=== PATIENT | male | born 1940 | race Caucasian/White ===

== ENCOUNTER 2017-04-04 07:30 | Inpatient (IN) | payer MEDICARE, OTHER ==
--- NOTE | 2017-03-27 21:53 | HP ---
HISTORY AND PHYSICAL: DATE OF SURGERY: 04/04/17 DATE OF OFFICE VISIT: 03/24/17 SURGEON: Tawnya Stevenson MD * (DICTATED BY CHIN DHILLON) PROCEDURE: Right total knee arthroplasty. CHIEF COMPLAINT: Right knee pain. HISTORY OF PRESENT ILLNESS: Mr. Sanders is a 76-year-old female with complaints of right knee pain. He has failed conservative management and elected to proceed with a right total knee arthroplasty, which is scheduled for 04/04/[address] Stevenson. PAST MEDICAL HISTORY: 1. Aortic valve stenosis. 2. Hypertension. 3. Chronic low back pain. 4. Diabetes. 5. Right footdrop. 6. Hypothyroidism. 7. History of skin cancer. PAST SURGICAL HISTORY: 1. Lumbar laminectomy. 2. Appendectomy. 3. Trigger finger release x2. 4. [place] teeth extraction. CURRENT MEDICATIONS: 1. Ramipril 2.5 mg daily. 2. Atorvastatin. 3. Calcium 10 mg q.h.s. 4. Levothyroxine 100 mcg daily. 5. Levothyroxine 88 mcg every other day. 6. MiraLAX. 7. Metformin 500 mg 2 tabs at night. 8. MS Contin 15 mg twice a day. 9. MS Contin 30 mg twice a day. 10. Neurontin 600 mg 3 times a day. 11. Cardizem 180 mg every day. 12. Calcium. 13. Multivitamins. 14. Potassium gluconate 550 mg daily. 15. Magnesium 250 mg twice a day. 16. Mucinex. 17. Senna laxative, stool softener. 18. Diclofenac 50 mg 3 times a day. 19. Omeprazole 10 mg 3 times a day with the diclofenac. 20. Duloxetine 30 mg twice a day. 21. Aspirin 81 mg daily. ALLERGIES: None. FAMILY HISTORY: Diabetes and cancer. SOCIAL HISTORY: A 76-year-old gentleman lives with his friend. A former smoker. Denies use of drugs or alcohol. REVIEW OF SYSTEMS: A complete 14-point review of systems was reviewed with the patient. Positive for diabetes, hypothyroidism, sleep apnea, and vertigo. He denies history of DVT, PE, hepatitis C, HIV, or anesthesia problems. PHYSICAL EXAMINATION GENERAL: He is well developed, well nourished, in no acute distress. VITAL SIGNS: He stands 6 feet 2 inches tall, weighs 299 pounds. His blood pressure is 140/70, his heart rate is 58. HEENT: Normocephalic, atraumatic. NECK: Supple. No palpable lymph nodes. PULMONARY: Lungs are clear to auscultation bilaterally. CARDIO: Regular rate and rhythm. Strong S1, S2. ABDOMEN: Soft, nontender, nondistended. NEUROLOGICAL: He is alert and oriented x3. Cranial nerves II through XII are intact. MUSCULOSKELETAL: Right lower extremity, skin is intact. There are no open wounds or abrasions. He has 0/5 right ankle dorsiflexion. He is able to plantar flex and offers 0/5 right EHL. He has diminished sensation over the entire lower leg and foot. He has 2+ dorsalis pedis pulses, 10 to 100 degrees of flexion. ASSESSMENT AND PLAN: Mr. Sanders is a 76-year-old gentleman with continued complaints of right knee pain. He has failed conservative management and elected to proceed with a right total knee arthroplasty, which is scheduled for 04/04/[address] Stevenson discussed the risks and benefits of the surgery and all of his questions were answered. Coumadin was sent to his pharmacy for postoperative DVT prophylaxis. He currently has pain medications and he will see Dr. Stevenson back 2 weeks after the surgery. CHIN DHILLON [id number]/[facility] #: [id number]
[~2017-04-04 07:30] MED LIST: Buffered Lidocaine 0.9% SYRIN* 5 ML/SYR SYRINGE INTRADERM ONE; Ondansetron INJ* 2 MG/ML VIAL IV ONE; Sodium Citrate/Citric Acid* 15 ML UDC PO ONE
--- OUTSIDE RECORDS SUMMARY | 2017-04-04 08:03 | XMS REPORT ---
:1940 External Reference #:[id number] Author Organization [facility] [employer] Address [address] [address] Phone [phone] Care Team Providers Name Role Phone Torsten Chan MD Primary Care Physician Unavailable Payers Type Date Identification Numbers Payment Provider Subscriber Medicare Primary Effective: Policy Number: Medicare Christofer Mckeonright 1998 [id number] PayID: [id number] [address] [place] [address] [facility] Part B Effective: Policy Number: [facility] Christofer Quintero 2009 [id number] Marilyn PayID: [id number] [address] [place] [address] Commercial PayID: [id number] Medicare D - Drug Christofer Laddht Plan Workers Compensation Onset: Policy Number: [facility] Christofer Mckeonright 1994 [id number] Group Number: [id number] [address] Group Name: [id number] [place] [address] PayID: [facility] Workers Compensation PayID: [id number] [employer] Christofer Quintero Marilyn Advance Directives Type Date Description Status Comment Other Directive 02/09/2017 Health Care Proxy Current and Verified Problems Date Description Provider Status Onset: 12/04/2012 Lumbosacral spondylosis 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 Active myelopathy Onset: 07/16/2013 Sciatica Luke Kapadia M.D. Active Onset: 11/25/2014 Foot-drop Luke Kapadia M.D. Active Onset: 11/10/2016 Type 2 diabetes mellitus Torsten Chan M.D.,FACP Active Onset: 11/10/2016 Chronic pain syndrome Torsten Chan M.D.,FACP Active Onset: 11/10/2016 Lumbar post-laminectomy syndrome Torsten Chan M.D., FACP Active Onset: 11/10/2016 Essential hypertension Torsten Chan M.D.,FACP Active Onset: 02/15/2017 Aortic valve stenosis Torsten Chan M.D.,FACP Active Note: moderate Onset: 12/04/2012 Postsurgical Status Other Luke Kapadia M.D. Resolved Resolved: 11/10/2016 Onset: 07/16/2013 Low back pain Luke Kapadia M.D. Resolved Resolved: 11/10/2016 Family History Date Family Member(s) Problem(s) Comments General Diabetes General Cancer Father due to pericarditis () Father Diabetes Type II Father Osteomyelitis Mother due to Unknown Causes () Siblings 2 First Brother due to Alcohol Related () Second Brother Throat Cancer Second Brother 80 Social History Type Date Description Comments Marital Status Lives With Alone Occupation Retired electrician apprentice Cigarette Use Former Cigarette Smoker ETOH Use 11/10/2016 Denies alcohol use Smoking Patient is a former smoker Recreational Drug Use 11/10/2016 Denies Drug Use Daily Caffeine 11/10/2016 Consumes on average 1 cup of regular coffee per day Exercise Type/Frequency Does not exercise Currently Active Patient is currently sexually active General Hx Text 1 child w/ phlebitis and obesity Allergies, Adverse Reactions, Alerts Date Description Reaction Status Severity Comments 12/04/2012 NKDA active Medications Medication Date Status Form Strength Qnty SIG Indications Ordering Provider Coumadin 03/24/ Active Tablets 2mg 90tabs take 1-3 Tawnya 2018 tabs by Graham, mouth at 5 M.D. at night as directed Ramipril 02/09/ Active Capsules 5mg 90caps 1/2 by Torsten Chan, every day M.DJacqueline,FACP Atorvastatin 02/09/ Active Tablets 10mg 90tabs take 1 Torsten Calcium 2017 tablet by Christoph Chan, mouth at M.D.,FACP bedtime Levothyroxine 11/30/ Active Tablets 100mcg 90tabs 1 by mouth Torsten Sodium 2017 every day Christoph Chan, with 88 M.D.,FACP mcg tablet Levothyroxine 11/30/ Active Tablets 88mcg 90tabs 1 by mouth Torsten Sodium 2017 every day Christoph Chan M.D.,FACP Miralax 11/10/ Active Powder [id number] 17 gm Torsten 2016 ts every day Christoph Chan, mixed w/ 8 M.DJacqueline,FACP oz water/juic e as needed Metformin HCL 11/10/ Active Tablets ER 500mg 180tab 2 tabs po Ismael Dsouza ER 2016 24HR s qpm Christoph Chan M.D.,FACP MS Contin 01/29/ Active Tablets ER 15mg 60tabs 1 twice a Luke Ashford 2013 day to judy Kapadia with Ivonne ms contin 30 mg to equal 45 mg. MS Contin 01/21/ Active Tablets ER 30mg 60tabs 1 by mouth Luke Ashford 2012 twice a edith Kapadia M.D. Lumbosacral 11/30/ Active Misc with Luke Ashford Support/Lightwe 2010 molded herminia Kapadia/Elastic/X- plastic Ivonne Large insert Neurontin 05/09/ Active Tablets 600mg 90tabs 1 by mouth Torsten 2006 three Christoph Chan, times a M.DJacqueline,FACP day Cardizem CD / Active Caps ER 180mg 90caps 1 by mouth Torsten 24HR every day Christoph Chan M.D.,FACP Calcium / Active Tablets 500mg 60tabs 1 po bid Cardina, MD Yash Multivitamins / Active Capsules 30caps 1 capsule Cardi james;y MD Yash Potassium / Active Tablets 99mg otc once a Cardi day MD Yash Magnesium / Active Tablets 250mg 30tabs 1 po bid Cardi MD Yash Mucinex / Active Tablets ER 600mg 60tabs 1 tab am 2 Unknown 0000 12HR pm Senna / Active Capsules 8.6mg 60caps 1-2 po qhs Unknown 0000 Stool Softener / Active Capsules 100mg 60caps 1 po tid Cardina, 0000 MD Yash Diclofenac / Active Tablets 50mg 90tabs 1 po tid Torsten Potassium 0000 Christoph Chan M.D.,FACP Omeprazole / Active Capsules 10mg 90caps 1 po tid Torsten [address] with Christoph Chan, marckloparisa Coronado,FACP Duloxetine HCL / Active Caps DR 30mg 180cap twice Torsten 0000 Part s daily Christoph Chan M.D.,FACP Aspirin Ec / Active Tablets DR 81mg 1 by mouth Unknown 0000 every day Metformin HCL 11/10/ Hx Tablets ER 500mg 180tab 2 tabs po Torsten ER (Osm) 2017 - 24HR s qpm Christoph Chan, 11/10/ MHollis,FACP 2017 Ramipril 11/10/ Hx Capsules 2.5mg 30caps 1 by mouth Torsten 2016 - every day Christoph Chan, 02/09/ MHollis,FACP 2017 Orphenadrine 06/02/ Hx Tablets ER 100mg 60tabs 1 tab by Luke Ashford Citrate ER 2015 - 12HR mouth Kang, 03/15/ twice a M.D. 2018 day as needed spasm Arthrotec 04/02/ Hx Tablets DR 75-0.2mg 60tabs take one Luke Ashford 2014 - tablet by Kang, 11/10/ mouth M.D. 2016 twice a day MS Contin 11/30/ Hx Tablets ER 15mg 100tab two po qam Luke Ashford 2010 - s and two po Kang, 01/21/ qpm to M.D. 2012 replace MS Contin 30 mg (not available) MS Contin 11/30/ Hx Tablets ER 30mg 60tabs one po bid Luke Ashford 2010 - Kang, 01/07/ M.D. 2013 Soma 08/15/ Hx Tablets 350mg 30tabs 1 po bid Luke Ashford 2010 - Kang, 08/26/ M.D. 2014 Coumadin 08/05/ Hx Tablets 2.5mg 50tabs 2 po use Richard 2010 - as Nayan, 05/29/ directed M.DJacqueline 2012 MS Contin 03/10/ Hx Tablets ER 15mg 120tab one to two Luke Ashford 2009 - 12HR s po bid if Kang, 11/30/ needed for M.D. 2010 pain. Morphine 09/04/ Hx Tablets 15mg 90tabs 1 by mouth Luke Ashford Sulfate 2007 - up to Kang, 11/10/ three M.D. 2017 times a day as needed MS Contin 05/09/ Hx Tablets ER 15mg 125tab 2-3 po bid Luke Ashford 2007 - 12HR s Kang, 03/10/ M.D. 2009 Metformin HCL / Hx Tablets 500mg 60tabs 2 tabs bid Cardina, 0000 - Yash, 2016 Arthrotec 75 / Hx Tablets 75-0.2mg 180tab 1 po bid Cardina, 0000 - s Yash, 2014 Synthroid / Hx Tablets 175mcg 30tabs 1 po qd Cardina, 0000 - Yash, 2016 Aspirin 00/ Hx Tablets DR 325mg 1/2 po qd Cardina, 0000 - Yash, 2018 Orphenadrine / Hx Tablets ER 100mg po bid prn Cardina, Citrate CR 0000 - 12HR Yash, 2015 Vitamin C / Hx Capsules 500mg 1 po bid Cardina, 0000 - Yash, 2014 Vitamin B12 00/ Hx Tablets 500mcg 1 po qd Cardina, 0000 - Yash, 2015 Levothyroxine 00/ Hx Tablets 175mcg 30tabs 1 by mouth Torsten Sodium 0000 - every day Christoph Chan, 11/30/ MHollis,FACP 2016 Medications Administered in Office Medication Date Status Form Strength Qnty SIG Indications Ordering Provider Depomedrol Administered Injection Jt F 40MG 017 MD Yocasta Shoemakeromedjessi Administered Injection Aric Lopez, 40MG 016 M.DJacqueline Immunizations CPT Code Status Date Vaccine Reaction Lot # [id number] Given 01/03/2017 Tdap - no immediate reaction, [id number] Tetanus/Diptheria/Acellular pt tolerated well Pertussis [id number] Given 11/10/2016 Influenza Virus Vaccine, 572kt Quadrivalent, Split, Preservative Free [id number] Given 02/18/2015 Pneumococcal Conjugate Vaccine 13 Valent For Intramuscular Use [id number] Given 01/12/2015 Zoster (Zostavax) [id number] Given 12/25/2002 Pneumonia Vaccine Vital Signs Date Vital Result Comment 03/24/2017 Height 72 inches 6'0" Weight 299.00 lb per pt Heart Rate 58 /min reg BP Systolic Sitting 140 mmHg Lue BP Diastolic Sitting 70 mmHg Lue Respiratory Rate 16 /min Pain Level 6 right knee BMI (Body Mass Index) 40.5 kg/m2 02/13/2017 Height 72 inches 6'0" Weight 283.00 lb BP Systolic 152 mmHg BP Diastolic 72 mmHg Body Temperature 98.0 F Pain Level 8 BMI (Body Mass Index) 38.4 kg/m2 02/09/2017 Weight 283.00 lb Heart Rate 68 /min BP Systolic Sitting 154 mmHg BP Diastolic Sitting 86 mmHg BP Systolic Recheck 152 mmHg BP Diastolic Recheck 74 mmHg Body Temperature 97.6 F O2 % BldC Oximetry 96 % 01/16/2017 Height 71 inches 5'11" Weight 312.00 lb Heart Rate 84 /min BP Systolic 150 mmHg BP Diastolic 90 mmHg Body Temperature 98.0 F Pain Level 5 BMI (Body Mass Index) 43.5 kg/m2 11/22/2016 Heart Rate 76 /min BP Systolic Sitting 155 mmHg BP Diastolic Sitting 85 mmHg Body Temperature 97.5 F 11/10/2016 Weight 291.50 lb w/shoes Heart Rate 75 /min BP Systolic Sitting 160 mmHg BP Diastolic Sitting 80 mmHg BP Systolic Recheck 162 mmHg BP Diastolic Recheck 95 mmHg Body Temperature 98.5 F O2 % BldC Oximetry 93 % 08/10/2015 Height 72 inches 6'0" Weight 312.00 lb Heart Rate 74 /min BP Systolic 157 mmHg BP Diastolic 84 mmHg BMI (Body Mass Index) 42.3 kg/m2 05/18/2015 Height 72 inches 6'0" Weight 316.00 lb Heart Rate 62 /min BP Systolic Sitting 160 mmHg BP Diastolic Sitting 88 mmHg Pain Level 6 BMI (Body Mass Index) 42.9 kg/m2 02/24/2015 Height 72 inches 6'0" Weight 321.00 lb Heart Rate 58 /min BP Systolic Sitting 150 mmHg BP Diastolic Sitting 70 mmHg Pain Level 3 BMI (Body Mass Index) 43.5 kg/m2 11/25/2014 Height 72 inches 6'0" Weight 314.00 lb Heart Rate 78 /min BP Systolic Sitting 140 mmHg BP Diastolic Sitting 84 mmHg Pain Level 6 /leg BMI (Body Mass Index) 42.6 kg/m2 08/26/2014 Height 72 inches 6'0" Weight 310.00 lb Heart Rate 84 /min BP Systolic Sitting 160 mmHg BP Diastolic Sitting 92 mmHg Pain Level 3 back BMI (Body Mass Index) 42.0 kg/m2 05/27/2014 Height 72 inches 6'0" Weight 293.00 lb Heart Rate 60 /min BP Systolic Sitting 130 mmHg BP Diastolic Sitting 78 mmHg Pain Level 5 back BMI (Body Mass Index) 39.7 kg/m2 01/28/2014 Height 72 inches 6'0" Weight 286.00 lb Heart Rate 56 /min BP Systolic Sitting 140 mmHg BP Diastolic Sitting 84 mmHg Pain Level 3 back BMI (Body Mass Index) 38.8 kg/m2 10/29/2013 Weight 298.75 lb Heart Rate 60 /min BP Systolic Sitting 164 mmHg BP Diastolic Sitting 96 mmHg Pain Level 5 knees, back, ankles 07/16/2013 Height 72 inches 6'0" Weight 303.00 lb BP Systolic 128 mmHg BP Diastolic 68 mmHg Pain Level 0 BMI (Body Mass Index) 41.1 kg/m2 12/04/2012 Height 72 inches 6'0" Weight 315.00 lb BP Systolic 148 mmHg BP Diastolic 82 mmHg Pain Level 5 left ankle, back, leg BMI (Body Mass Index) 42.7 kg/m2 Results Test Date Test Result H/L Range Note Laboratory test 02/04/2017 TSH (Thyroid Stim 3.78 mcIU/mL 0.34-5.60 finding Horm) Lipid Profile 11/26/2016 Triglycerides 93 mg/dL 1 (Trig/Chol/HDL) Cholesterol 206 mg/dL 2 HDL Cholesterol 46.5 mg/dL 3 LDL Cholesterol 141 mg/dL 4 Basic Metabolic Panel 11/26/2016 Sodium 137 mmol/L 133-145 Potassium 4.9 mmol/L 3.5-5.0 Chloride 100 mmol/L Low 101-111 Co2 Carbon Dioxide 30 mmol/L 22-32 Anion Gap 7 mmol/L 2-11 Glucose 149 mg/dL High 70-100 Blood Urea Nitrogen 17 mg/dL 6-24 Creatinine 0.87 mg/dL 0.67-1.17 BUN/Creatinine Ratio 19.5 8-20 Calcium 9.0 mg/dL 8.6-10.3 Egfr Non- 85.5 >60 Egfr 110.0 >60 5 Laboratory test 11/26/2016 Hemoglobin A1c 6.4 % High Less than 6.0 6 finding (Glyco HGB) Urine Microalbumin 11/26/2016 Urine Creatinine 185.79 mg/dL Random Ur Microalbumin (mg/L) 45.0 mg/L Urine Microalbumin/Creatinine 24.2 ug/mg <31 CBC Auto Diff 11/26/2016 White Blood Count 8.1 10^3/uL 3.5-10.8 Red Blood Count 4.30 10^6/uL 4.0-5.4 Hemoglobin 12.6 g/dL Low 14.0-18.0 Hematocrit 39 % Low 42-52 Mean Corpuscular Volume 90 fL 80-94 Mean Corpuscular Hemoglobin 29 pg 27-31 Mean Corpuscular HGB Conc 33 g/dL 31-36 Red Cell Distribution Width 14 % 10.5-15 Platelet Count 289 10^3/uL 150-450 Mean Platelet Volume 8 um3 7.4-10.4 Abs Neutrophils 5.0 10^3/uL 1.5-7.7 Abs Lymphocytes 2.0 10^3/uL 1.0-4.8 Abs Monocytes 0.6 10^3/uL 0-0.8 Abs Eosinophils 0.5 10^3/uL 0-0.6 Abs Basophils 0.1 10^3/uL 0-0.2 Abs Nucleated RBC 0 10^3/uL Granulocyte % 61.7 % 38-83 Lymphocyte % 24.1 % Low 25-47 Monocyte % 7.9 % 1-9 Eosinophil % 5.6 % 0-6 Basophil % 0.7 % 0-2 Nucleated Red Blood Cells % 0 Laboratory test 11/26/2016 TSH (Thyroid Stim 6.95 mcIU/mL High 0.34-5.60 7 finding Horm) Laboratory test 08/10/2015 Body Fluid Crystals CPPD(Ca 8, 9 finding Pyrophos <SEE NOTE> Laboratory test 09/16/2014 Point of Care 125 mg/dL High 74-106 10 finding Glucose Urine Drug SCR ED 04/12/2014 Amphetamine Ur None Detected None Detect & Pain Clinic Screen Barbiturates Urine Screen None Detected None Detect Benzodiazepine Urine Screen None Detected None Detect Urine Cannabinoids Screen None Detected None Detect Urine Cocaine Screen None Detected None Detect Urine Opiates Screen Presumptive Posi <SEE NOTE> None Detect 11 Urine Phencyclidine Screen None Detected None Detect 12 CBC Auto Diff 04/12/2014 White Blood Count 9.2 10^3/uL 4.8-10.8 Red Blood Count 4.18 10^6/uL 4.0-5.4 Hemoglobin 12.7 g/dL Low 14.0-18.0 Hematocrit 38 % Low 42-52 Mean Corpuscular Volume 91 fL 80-94 Mean Corpuscular Hemoglobin 30 pg 27-31 Mean Corpuscular HGB Conc 33 g/dL 31-36 Red Cell Distribution Width 13 % 10.5-15 Platelet Count 224 10^3/uL 150-450 Mean Platelet Volume 8 um3 7.4-10.4 Abs Neutrophils 7.4 10^3/uL 1.5-7.7 Abs Lymphocytes 1.0 10^3/uL 1.0-4.8 Abs Monocytes 0.7 10^3/uL 0-0.8 Abs Eosinophils 0.1 10^3/uL 0-0.6 Abs Basophils 0.1 10^3/uL 0-0.2 Abs Nucleated RBC 0 10^3/uL Granulocyte % 80.5 % 38-83 Lymphocyte % 11.0 % Low 25-47 Monocyte % 7.2 % 1-9 Eosinophil % 0.8 % 0-6 Basophil % 0.5 % 0-2 Nucleated Red Blood Cells % 0 Laboratory test finding 04/12/2014 Lactic Acid 1.9 mmol/L 0.5-2.2 Inr/Protime 04/12/2014 Inr 0.97 0.78-1.07 13 Laboratory test finding 04/12/2014 Activated Partial 26.8 seconds 24.0- 36.1 Thrombo Time Ammonia 31 mol/L 16-53 B Type Natriuretic Peptide 45 pg/mL 14 Comp Metabolic Panel 04/12/2014 Sodium 136 mmol/L 133-145 Potassium 4.1 mmol/L 3.5-5.0 Chloride 101 mmol/L 101-111 Co2 Carbon Dioxide 29 mmol/L 22-32 Anion Gap 6 mmol/L 2-11 Glucose 130 mg/dL High 70-100 Blood Urea Nitrogen 19 mg/dL 6-24 Creatinine 0.93 mg/dL 0.67-1.17 BUN/Creatinine Ratio 20.4 High 8-20 Calcium 9.5 mg/dL 8.6-10.3 Total Protein 7.2 g/dL 6.4-8.9 Albumin 4.2 g/dL 3.2-5.2 Globulin 3.0 g/dL 2-4 Albumin/Globulin Ratio 1.4 1-3 Total Bilirubin 0.30 mg/dL 0.2-1.0 Alkaline Phosphatase 85 U/L 34-104 Alt 20 U/L 7-52 Ast 20 U/L 13-39 Egfr Non- 79.9 >60 Egfr 102.7 >60 15 Laboratory test finding 04/12/2014 Magnesium 2.1 mg/dL 1.9-2.7 Lipase 8 U/L Low 11.0-82.0 Troponin I 0.00 ng/mL <0.03 16 Acetaminophen < 15 g/mL 17 Alcohol < 10 mg/dL <10 Salicylate < 2.50 mg/dL <30 TSH (Thyroid Stimulating Horm) 0.88 IU/mL 0.34-5.60 C Reactive Protein 9.59 mg/L High < 5.00 18 Urinalysis Profile 04/12/2014 Urine Color Yellow Urine Appearance Cloudy Urine Specific [place] 1.010 1.010-1.030 Urine pH 5.0 5-9 Urine Urobilinogen Negative Negative Urine Ketones Negative Negative Urine Protein Negative Negative Urine Leukocytes Negative Negative Urine Blood Negative Negative Urine Nitrite Negative Negative Urine Bilirubin Negative Negative Urine Glucose Negative Negative Laboratory test finding 02/18/2014 Hemoglobin A1c 6.0 % Less than 6.0 19 , 20 Lipid Profile 02/18/2014 Triglycerides 84 mg/dL 19, 21 (Trig/Chol/HDL) Cholesterol 207 mg/dL 19, 22 HDL Cholesterol 52.1 mg/dL 19, 23 LDL Cholesterol 138 mg/dL 19, 24 Comp Metabolic Panel 09/04/2012 Sodium 138 mmol/L 133-145 Potassium 4.2 mmol/L 3.5-5.0 Chloride 103 mmol/L 101-111 Co2 Carbon Dioxide 29.0 mmol/L 22-32 Anion Gap 6.0 mmol/L 2-11 Glucose 161 mg/dL High 70-100 Blood Urea Nitrogen 12 mg/dL 6-24 Creatinine 0.70 mg/dL 0.50-1.40 BUN/Creatinine Ratio 17.1 8-20 Calcium 9.2 mg/dL 8.1-9.9 Total Protein 6.7 g/dL 6.2-8.1 Albumin 4.0 g/dL 3.2-5.2 Globulin 2.7 g/dL 2-4 Albumin/Globulin Ratio 1.5 1-3 Total Bilirubin 0.5 mg/dL 0.4-1.5 Alkaline Phosphatase 93 U/L 30-110 Alt 40 U/L 14-54 Ast 28 U/L 12-42 Egfr Non- 111.5 >60 Egfr 143.4 >60 25 CBC Auto Diff 09/04/2012 White Blood Count 6.0 10^3/uL 4.8-10.8 Red Blood Count 4.28 10^6/uL 4.0-5.4 Hemoglobin 12.8 g/dL Low 14.0-18.0 Hematocrit 39 % Low 42-52 Mean Corpuscular Volume 92 fL 80-94 Mean Corpuscular Hemoglobin 30 pg 27-31 Mean Corpuscular HGB Conc 32 g/dL 31-36 Red Cell Distribution Width 13 % 10.5-15 Platelet Count 244 10^3/uL 150-450 Mean Platelet Volume 8 um3 7.4-10.4 Abs Neutrophils 3.5 10^3/uL 1.5-7.7 Abs Lymphocytes 1.8 10^3/uL 1.0-4.8 Abs Monocytes 0.4 10^3/uL 0-0.8 Abs Eosinophils 0.2 10^3/uL 0-0.6 Abs Basophils 0 10^3/uL 0-0.2 Abs Nucleated RBC 0 10^3/uL Granulocyte % 58.1 % 38-83 Lymphocyte % 30.0 % 25-47 Monocyte % 7.5 % 1-9 Eosinophil % 3.9 % 0-6 Basophil % 0.5 % 0-2 Nucleated Red Blood Cells % 0 Urinalysis 08/05/2010 Ua Color YELLOW Yellow 26 Appearance-Urine CLEAR Clear 26 Specific [place]-Ur 1.028 1.010-1.030 26 Esterase-Urine NEGATIVE Negative 26 Nitrite NEGATIVE Negative 26 Colfwvuyftlf-Ay-OAI NEGATIVE Negative 26 Protein-Urine NEGATIVE Negative 26 PH-Urine 6.0 5-9 26 Blood-Urine NEGATIVE Negative 26 Ketones-Urine NEGATIVE Negative 26 Bilirubin-Ur NEGATIVE Negative 26 Glucose-Urine NEGATIVE Negative 26 Protime 08/05/2010 Inr 1.04 0.82-1.17 26, 27 Protime 12.3 SEC 10.2-14.8 26, 28 Basic Metabolic Panel 08/05/2010 Sodium 138 mmol/L 135-145 26 Potassium 5.0 mmol/L 3.5-5.0 26 Chloride 102 mmol/L 101-111 26 Co2 (Carbon Dioxide) 29.0 mmol/L 22-32 26 Anion Gap 7.0 mmol/L 2-11 26, 29 Glucose 108 mg/dL High 70-100 26 BUN 18 mg/dL 6-24 26 Creatinine 0.70 mg/dL 0.50-1.40 26 One Over Creatinine 1.40 26 BUN/Creatinine Ratio 25.7 High 8-20 26 Calcium 9.4 mg/dL 8.1-9.9 26 eGFR Non- 112.1 > 60 26 eGFR 144.2 > 60 26, 30 Type And Screen (Pre-Adm) 08/05/2010 Patient Blood Type B POSITIVE 26 Antibody Screen NEGATIVE 26 Specimen Discard Date 08/19/10 26, 31 CBC Auto Diff 08/05/2010 White Blood Count 7.9 CUMM 4.8-10.8 26 Red Cell Count 4.34 CUMM Low 4.6-6.2 26 Hemoglobin 13.6 g/dL Low 14.0-18.0 26 Hematocrit 39 % Low 42-52 26 Mean Corpuscular Volume 90 um3 80-94 26 Mean Corpuscular Hemoglob 31 pg 27-31 26 Mean Corpuscular HGB Cone 35 g/dL 32-36 26 Redcell Distribution WDTH 13 % 10.5-15 26 Platelet Count 237 CUMM 150-450 26 Mean Platelet Volume 7.4 um3 7.4-10.4 26 Gran % 65.3 % 38-83 26 Lymph % 23.9 % Low 25-47 26 Mononuclear % 7.0 % 1-9 26 Eosinophil % 3.2 % 0-6 26 Basophil % 0.6 % 0-2 26 Abs Lymphs 1.9 1.0-4.8 26 Abs Mononuclear 0.6 0-0.8 26 Absolute Neutrophil Count 5.2 1.5-7.7 26 Abs Eosinophils 0.3 0-0.6 26 Abs Basophils 0 0-0.2 26 Laboratory test finding 04/22/2008 Hemoglobin A1c 6.4 % High <6.0 32 CBC With Electronic Diff 04/22/2008 White Blood Count 7.6 CUMM 4.8-10.8 Red Cell Count 4.39 CUMM Low 4.6-6.2 Hemoglobin 13.3 g/dL Low 14.0-18.0 Hematocrit 39 % Low 42-52 Mean Corpuscular Volume 89 um3 80-94 Mean Corpuscular Hemoglob 30 pg 27-31 Mean Corpuscular HGB Cone 34 g/dL 32-36 Redcell Distribution WDTH 13 % 10.5-15 Platelet Count 248 CUMM 150-450 Mean Platelet Volume 7.3 um3 Low 7.4-10.4 Gran % 63.0 % 38-83 Lymph % 25.7 % 25-47 Mononuclear % 7.2 % 1-9 Eosinophil % 3.6 % 0-6 Basophil % 0.5 % 0-2 Abs Lymphs 2.0 1.0-4.8 Abs Mononuclear 0.6 0-0.8 Absolute Neutrophil Count 4.8 1.5-7.7 Abs Eosinophils 0.3 0-0.6 Abs Basophils 0 0-0.2 Laboratory test finding 04/22/2008 Erythrocyte Sed Rate 13 MM/HR 0-40 Comp Metabolic Panel 04/22/2008 Sodium 138 mmol/L 135-145 Potassium 4.9 mmol/L 3.5-5.0 Chloride 102 mmol/L 101-111 Co2 (Carbon Dioxide) 29.0 mmol/L 22-32 Anion Gap 7.0 mmol/L 2-11 33 Glucose 111 mg/dL High 70-100 34 BUN 17 mg/dL 6-24 Creatinine 0.80 mg/dL 0.50-1.40 One Over Creatinine 1.20 BUN/Creatinine Ratio 21.3 High 8-20 Calcium 9.5 mg/dL 8.1-9.9 35 Total Protein 6.7 GM/DL 6.2-8.1 Albumin 4.0 GM/DL 3.2-5.2 Globulin 2.7 GM/DL 2-4 Albumin/Globulin Ratio 1.5 1-3 Bilirubin Total 0.6 mg/dL 0.4-1.5 Alkaline Phosphatase 84 U/L 39-117 Alt (SGPT) 45 U/L 17-63 Ast (Sgot) 31 U/L 12-42 Laboratory test finding 04/22/2008 TSH 1.19 MIU/ML 0.34-5.60 C Reactive Protein 0.6 mg/dL High Less Than 0.5 1 Desirable <150 Borderline high 150-199 High 200-499 Very High >500 2 Desirable <200 Borderline high 200-239 High >239 3 Low <40 Desirable: 40-60 High: >60 4 Desirable: <100 mg/dL Near Optimal: 100-129 mg/dL Borderline High: 130-159 mg/dL High: 160-189 mg/dL Very High: >189 mg/dL 5 Because ethnic data is not always readily available, this report includes an eGFR for both -Americans and non- Americans. The National Kidney Disease Education Program (NKDEP) does not endorse the use of the MDRD equation for patients that are not between the ages of 18 and 70, are , have extremes of body size, muscle mass, or nutritional status, or are non- or non-. According to the National Kidney Foundation, irrespective of diagnosis, the stage of the disease is based on the level of kidney function: Stage Description GFR(mL/min/1.73 m(2)) 1 Kidney damage with normal or decreased GFR 90 2 Kidney damage with mild decrease in GFR 60-89 3 Moderate decrease in GFR 30-59 4 Severe decrease in GFR 15-29 5 Kidney failure <15 (or dialysis) 6 Therapeutic target for the treatment of diabetes Mellitus patients is <7% HBA1C, and in selective patients <6.0%.Please refer to [place] [employer] Association Diabetic care guidelines for further information. 7 FASTING 10 HOUR 8 [id number] 9 CPPD(Ca Pyrophosate) Calcium pyrophosate per Dr Moon 10 Liability Claims Manager: VEL BLACKMON 11 Presumptive Positive 12 The urine specimen was tested at the listed cutoffs: Drug class test level (ng/mL) Amphetamines 500 Barbituates 200 Benzodiazepine metabolites 200 Cocaine metabolites 150 Cannabinoids 50 Opiates 300 Pcp 25 This is a screening procedure. Positive results are not confirmed. Specimen was received without chain of custody. Results should be used for medical purposes only. 13 Please note: Effective April 02, 2014, the reference value for this test has changed due to the validation and activation of a new reagent lot number. 14 >100 to <200 pg/mL: likely compensated congestive heart failure (CHF) 200 to 400 pg/mL: likely moderate CHF >400 pg/mL: likely moderate to severe CHF [facility] 15 Because ethnic data is not always readily available, this report includes an eGFR for both -Americans and non- Americans. The National Kidney Disease Education Program (NKDEP) does not endorse the use of the MDRD equation for patients that are not between the ages of 18 and 70, are , have extremes of body size, muscle mass, or nutritional status, or are non- or non-. According to the National Kidney Foundation, irrespective of diagnosis, the stage of the disease is based on the level of kidney function: Stage Description GFR(mL/min/1.73 m(2)) 1 Kidney damage with normal or decreased GFR 90 2 Kidney damage with mild decrease in GFR 60-89 3 Moderate decrease in GFR 30-59 4 Severe decrease in GFR 15-29 5 Kidney failure <15 (or dialysis) 16 Reference Range and Interpretation: TnI (ng/mL) Interpretation Less Than 0.03 ng/mL Not supportive of diagnosis of DE 0.03 - 0.50 ng/mL Indeterminate: suggest serial studies if clinically indicated. Greater than 0.5 ng/mL Consistent with diagnosis of DE 17 Therapeutic concentration: <50 ug/mL Toxic concentration: >120 ug/mL 18 Acute inflammation: >10.00 19 FASTING 20 Therapeutic target for the treatment of diabetes Mellitus patients is <7% HBA1C, and in selective patients <6.0%.Please refer to [place] [employer] Diabetic care guidelines for further information. 21 Desirable <150 Borderline high 150-199 High 200-499 Very High >500 22 Desirable <200 Borderline high 200-239 High >239 23 Low <40 Desirable: 40-60 High: >60 24 Desirable <100 Near Optimal 100-129 Borderline high 130-159 High 160-189 Very High >189 25 Because ethnic data is not always readily available, this report includes an eGFR for both -Americans and non- Americans. The National Kidney Disease Education Program (NKDEP) does not endorse the use of the MDRD equation for patients that are not between the ages of 18 and 70, are , have extremes of body size, muscle mass, or nutritional status, or are non- or non-. According to the National Kidney Foundation, irrespective of diagnosis, the stage of the disease is based on the level of kidney function: Stage Description GFR(mL/min/1.73 m(2)) 1 Kidney damage with normal or decreased GFR 90 2 Kidney damage with mild decrease in GFR 60-89 3 Moderate decrease in GFR 30-59 4 Severe decrease in GFR 15-29 5 Kidney failure <15 (or dialysis) 26 08/16/10 27 Recommended INR for Patients on Oral Anticoagulants Prophylaxis 2.0 - 3.0 Treatment of thrombosis 2.0 - 3.0 Prevention of embolism 2.0 - 3.0 Prevention of embolism from prosthetic heart valves 2.5 - 3.5 28 DIAGNOSIS,TREATMENT,AND THERAPY MUST BE BASED ON THE INR VALUE ALONE. 29 Anion gap measurement may be of limited value in the presence of any alkalosis, especially in a combined acid base disorder. . 30 Because ethnic data is not always readily available, this report includes an eGFR for both -Americans and non- Americans. The National Kidney Disease Education Program (NKDEP) does not endorse the use of the MDRD equation for patients that are not between the ages of 18 and 70, are , have extremes of body size, muscle mass, or nutritional status, or are non- or non-. According to the National Kidney Foundation, irrespective of diagnosis, the stage of the disease is based on the level of kidney function: Stage Description GFR(mL/min/1.73 m(2)) 1 Kidney damage with normal or decreased GFR 90 2 Kidney damage with mild decrease in GFR 60-89 3 Moderate decrease in GFR 30-59 4 Severe decrease in GFR 15-29 5 Kidney failure <15 (or dialysis) 31 PREADMISSION TESTING SAMPLES FOR BLOOD BANK WILL BE HELD FOR 14 DAYS FROM THE DATE OF COLLECTION *IF* THE FOLLOWING CRITERIA ARE MET: 1) THE PATIENT HAS *NOT* BEEN IN THE LAST 3 MONTHS. 2) THE PATIENT HAS *NOT* BEEN TRANSFUSED IN THE LAST 3 MONTHS. PREADMISSION TESTING SAMPLES WILL *NOT* BE HELD FOR 14 DAYS FROM PATIENTS WHO IN THE LAST 3 MONTHS: 1) HAVE BEEN 2) HAVE BEEN TRANSFUSED THESE PATIENTS *MUST* BE COLLECTED WITHIN 3 DAYS OF THE SURGERY DATE. 32 THERAPEUTIC TARGET FOR THE TREATMENT OF DIABETES MELLITUS PATIENTS IS <7% HBA1C, AND IN SELECTIVE PATIENTS <6.0%. PLEASE REFER TO [employer] DIABETIC CARE GUIDELINES FOR FURTHER INFORMATION. 33 Anion gap measurement may be of limited value in the presence of any alkalosis, especially in a combined acid base disorder. . 34 Note change in reference range as of 10/25/07. The change was based on recommendations from the [employer]. 35 Please note change in reference range effective 07 . Procedures Date CPT Code Description Status 03/14/2017 Diabetic Retinal Eye Exam Completed 02/10/2017 07661 ECHO Transthorasic Realtime 2D W Doppler & Color Completed Flow Hosp 02/09/2017 55067 EKG Tracing & Interpretation Completed 10/11/2016 48846 Inject/Drain Joint/Bursa Major Completed 2016 Diabetic Retinal Eye Exam Completed 10/19/2015 26074 EKG, Interpretation Only Completed 08/10/2015 49967 Inject/Drain Joint/Bursa Major Completed 08/10/2015 78125 Inject/Drain Joint/Bursa Major Completed 09/16/2014 Colonoscopy Completed 10/26/2012 30203 Rad Exam; Hand Comp Completed 10/26/2012 38055 Rad Shoulder Comp, Min. 2 Views Completed 12/08/2010 54931 Rad Exam; Ankle Comp Completed 06/30/2010 69058 Xray Knee 3 Views Completed 06/10/2009 73076 Xray Knee 3 Views Completed 06/10/2009 21146 Rad Exam; Knee, Ap&L Completed 08/24/2004 Colonoscopy Completed Encounters Type Date Location Provider CPT E/M Dx Office Visit 02/13/2017 [facility] M.D. 21655 M17.11 3:15p C[facility]. M17.11 M25.561 M25.461 M25.561 M25.461 M21.371 M21.371 Office Visit 02/09/2017 8:20a [facility] Internal Torsten Chan, 72408 Z01.810 Medicine - [place] Thor Coronado,FACP M17.11 E11.8 E03.9 I10 R01.1 Office Visit 01/16/2017 9:15a [facility] M.D. 97064 M17.11 C.M.AJacqueline M25.561 M21.371 M25.461 Office Visit 11/22/2016 11:00a [facility] Jt Shoemaker, 37749 M17.11 Dinora FU M17.11 Office Visit 11/10/2016 10:30a [facility] Internal Medicine Torsten Chan, 07826 E11.8 - [place] Thor Coronado,FACP E03.9 I10 K59.00 M47.26 Z23 Office Visit 10/21/2015 4:12p [facility], 05302 L03.119 Assoc, Hospitalists [employer] E11.8 N17.9 I10 Office Visit 10/20/2015 4:12p [facility], 00969 L03.119 Assoc, Hospitalists SALES ASS[employer] E11.8 N17.9 I10 Office Visit 10/19/2015 [facility] MalouTuttle, 47842 L03.119 4:11p Assoc, SALES ASSOC[employer]ATE [employer] Hospitalists E11.8 N17.9 I10 Office Visit 10/18/2015 [facility] [place], 05170 L03.119 4:10p Assoc, SALES ASSOCIATE [employer] Hospitalists E11.8 N17.9 I10 Office Visit 10/17/2015 4:09p [facility], 78289 L03.119 Assoc, Hospitalists SALES ASSOCIATE [employer]ING E11.8 N17.9 I10 Office Visit 08/10/2015 2:30p [facility] Aric Lopez M.D. 56439 M17.0 C.M.AJacqueline M17.0 M17.11 M17.11 Office Visit 05/18/2015 1:00p [facility] Kapadia, 04993 M21.372 Of Higher Level Teaching Assistant M.D. M21.371 M47.26 Office Visit 02/24/2015 9:40a [facility] Kapadia, 89156 M21.372 Of Higher Level Teaching Assistant M.D. M21.371 M47.26 Office Visit 11/25/2014 10:20a [facility] Kapadia, 45408 M47.26 Of Higher Level Teaching Assistant M.D. M21.371 M21.372 Office Visit 08/26/2014 1:00p [facility] Luke Kapadia, 25195 721.3 Of Higher Level Teaching Assistant M.D. Office Visit 05/27/2014 3:20p [facility] Kapadia 94821 721.3 Of Higher Level Teaching Assistant M.Christoph 721.3 Office Visit 01/28/2014 10:00a [facility] Kapadia, 80274 721.3 Of Higher Level Teaching Assistant M.DJacqueline Office Visit 10/29/2013 9:40a [facility] Luke Kapadia, 21737 724.2 Of Donny Burton.Christoph 724.3 Office Visit 07/16/2013 9:40a [facility] Kapadia, 36538 724.2 Of Donny M.Christoph 724.3 Office Visit 01/17/2013 2:30p [facility] Bolivar Larson 52318 840.9 C.M.ABrad Silva Office Visit 12/06/2012 2:30p [facility] Richard Spicer M.D. 40320 840.9 C.M.A. Office Visit 12/04/2012 11:20a [facility] Luke Kapadia, 46092 721.3 Of Donny Burton.Christoph V45.89 Office Visit 10/26/2012 1:30p [facility] Richard Spicer M.D. 37406 840.9 C.M.AJacqueline 727.03 Office Visit 05/29/2012 11:20a [facility] Luke Kapadia 68465 721.3 Of Donny Coronado 338.4 Office Visit 11/29/2011 11:30a [facility] Varun Napier, 24666 721.3 [facility] N.P. 338.4 Office Visit 05/31/2011 11:00a [facility] Luke Kapadia 36648 715.96 Of Donny M.DJacqueline Office Visit 12/08/2010 2:30p [facility] Richard Spicer, 37687 715.97 C.M.AJacqueline M.Christoph Office Visit 11/30/2010 11:20a [facility] Kapadia 35152 715.96 Of Donny M.DJacqueline Office Visit 06/30/2010 2:00p [facility] Richard Spicer, 29728 715.96 C.M.AJacqueline MJacquelineDJacqueline Office Visit 05/11/2010 11:00a [facility] Kapadia 80742 721.3 Of Donny M.DJacqueline Office Visit 09/15/2009 11:00a [facility] Kapadia 95402 721.3 Of Higher Level Teaching Assistant M.DJacqueline Office Visit 06/10/2009 2:30p [facility] Aric Lopez M.D. 51010 716.96 C.M.A. Office Visit 03/10/2009 11:00a [facility] Kapadia 95384 721.3 Of Donny M.DJacqueline Office Visit 09/16/2008 11:00a [facility] Kapadia 51089 721.3 Of Donny M.DJacqueline Office Visit 03/11/2008 11:00a [facility] Kapadia 86766 721.3 Of Donny Coronado 722.83 Office Visit 09/11/2007 10:00a [facility] Luke Kapadia 67531 721.3 Of Donny M.DJacqueline Office Visit 03/20/2007 11:00a [facility] Luke Kapadia 64759 721.3 Of Donny M.DJacqueline Office Visit 11/14/2006 11:00a [facility] Luke Kapadia 20418 721.3 Of Donny M.DJacqueline Office Visit 08/08/2006 11:00a [facility] Kapadia 95098 721.3 Of Higher Level Teaching Assistant M.DJacqueline Plan of Care Future Appointment(s):04/04/2017 7:30 am - CHIN Pike at [facility].04/04/2017 7:30 am - Alex Wright PA-C at [facility].04/04/2017 7:30 am - CHIN Delaney at [facility].04/04/2017 7:30 am - Tawnya Stevenson M.D. at [facility]04/17/2017 10:45 am - Tawnya Stevenson M.D. at [facility]05/11/2017 10:00 am - Torsten Chan M.D.,FACP at [facility] Internal Medicine - [address]03/24/2017 - Tawnya Stevenson M.D.M17.11 Unilateral primary osteoarthritis, right kneeFollow up:Follow up: 2 weeks after zjixeliM64.461 Effusion, right kneeM25.561 Pain in right kneeM21.371 Foot drop, right foot
--- OUTSIDE RECORDS SUMMARY | 2017-04-04 08:04 | XMS REPORT ---
:1940 External Reference #:[id number] Author Organization [facility] Address [address] [place] [address] Phone [phone] Care Team Providers Name Role Phone Camron Chan M.D. Primary Care Physician Unavailable Payers Type Date Identification Numbers Payment Provider Subscriber Medicare Primary Onset: Policy Number: Medicare - NGS Christofer Sanders 1998 [id number] PayID: [id number] [address] [facility] [address] Commercial Onset: 1998 Policy Number: [id number] Rhys SHAD Sanders Group Number: [id number] [address] PayID: [id number] [place] [id number] Problems Date Description Provider Status Onset: Hypothyroidism Active Onset: Stable angina Active Onset: H/O: Blas's palsy Active Onset: Pure hypercholesterolemia Active Onset: Arthritis Active Onset: Type 2 diabetes mellitus Active Onset: 09/09/2014 Diabetic oculopathy associated with Vicente Campoverde M.D. Active type 2 diabetes mellitus Onset: 09/09/2014 Nonproliferative diabetic retinopathy Vicente Campoverde M.D. Active Onset: 09/09/2014 Nuclear senile cataract Vicente Campoverde M.D. Active Onset: 09/09/2014 Vitreous degeneration Vicente Campoverde M.D. Active Onset: 03/17/2015 Combined form of senile cataract Vicente Campoverde M.D. 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 Active without macular edema, bi Onset: Essential hypertension Active Family History Date Family Member(s) Problem(s) Comments Father Diabetes Mellitus Type 2 Mother No Current Problems Social History Type Date Description Comments Marital Status Legal Status: Occupation [employer] Work Status Medically Retired ETOH Use Never used alcohol Smoking Patient is a former smoker Recreational Drug Use Former Drug User Daily Caffeine Consumes on average 5 cups of regular coffee per day Allergies, Adverse Reactions, Alerts Date Description Reaction Status Severity Comments 09/09/2014 NKDA active Medications Medication Date Status Form Strength Qnty SIG Indications Ordering Provider Morphine Sulfate Active Tablets 15mg Unknown 000 Gabapentin Active Tablets 600mg Unknown 000 Diclofenac-Misopr Active Tablets DR 75-0.2mg Unknown ostol 000 Aspir-[address] 81mg Unknown 000 Multi Vitamin Active Tablets Unknown Daily 000 Calcium + D3 Active Tablets 600-200mg-U Unknown 000 nit Magnesium Active Capsules 300mg Unknown 000 Stool Softener Active Capsules 100mg Unknown 000 Senna Lax Active Tablets 8.6mg Unknown 000 Bioflex Active Tablets Unknown 000 Morphine Sulfate Active Tablets ER 15mg Unknown ER 000 Morphine Sulfate Active Tablets ER 30mg Unknown ER 000 Diclofenac Active Tablets 50mg Unknown Potassium [address] 10mg Unknown 000 Metformin HCL Active Tablets 500mg Unknown [address] 30mg Unknown 000 Part Levothyroxine Active Tablets 175mcg Unknown Sodium 000 Diltiazem HCL ER Active Caps ER 180mg Unknown Coated Beads 000 24HR Mucinex Active Tablets ER 600mg Unknown 000 12HR Potassium Active Tablets 550(90K) mg Unknown Gluconate 000 Ramipril 00/00/0 Active Capsules 1.25mg Unknown 000 Atorvastatin 0 Active Tablets 10mg Unknown Calcium 000 Morphine Sulfate 0 Hx Tablets ER 30mg Unknown ER 000 - 016 Orphenadrine 0 Hx Tablets ER 100mg Unknown Citrate ER 000 - 12HR 018 Results Description No Information Procedures Date CPT Code Description Status 2016 00164 Determination Of Refractive State Completed 2016 28250 Est Patient Comprehensive Exam Completed 03/17/2016 81450 Scanning Computerized Opthalmic Diagnostic Posterior Completed Seg Retina 03/17/2016 28536 Est Patient Comprehensive Exam Completed 03/17/2015 33628 Est Patient Intermediate Exam Completed 09/09/2014 36940 Fundus Photography With Interpretation And Report Completed 09/09/2014 35835 Determination Of Refractive State Completed 09/09/2014 58785 Est Patient Comprehensive Exam Completed 01/18/2014 94067 Est Patient Intermediate Exam Completed 10/08/2013 04067 Est Patient Comprehensive Exam Completed 10/02/2012 81369 Est Patient Comprehensive Exam Completed 09/27/2011 55681 Determination Of Refractive State Completed 09/27/2011 07094 Est Patient Comprehensive Exam Completed 07/09/2010 59250 Determination Of Refractive State Completed 07/09/2010 38454 Est Patient Comprehensive Exam Completed 03/27/2008 48646 Est Patient Comprehensive Exam Completed 12/20/2007 05684 Est Patient Intermediate Exam Completed 09/14/2007 38911 Repair Detached Retina, Photocoagulation Completed 09/11/2007 68723 Est Patient Comprehensive Exam Completed 07/26/2007 26140 Repair Detached Retina, Photocoagulation Completed 07/24/2007 38279 New Patient Comprehensive Exam Completed Plan of Care 03/14/2017 - Vicente Campoverde M.D.E11.3293 Type 2 diab with mild nonp rtnop without macular edema, biComments:Smoking can increase the risk of developing or worsening any eye related disease, as well as affect your overall health. If you are a smoker, we strongly recommend that you quit.If you are not a smoker , we strongly recommend that you do not start. I can detect diabetic changes in your eyes. Proper control of your diabetes is important for the health of your eyes. It is important that you keep all of your follow up appointments. Dr. Campoverde has sent a report to your primary care doctor, letting them know the current status of your retina.Follow up:1 Year Follow Up OCT MAC You can expect to have your eyes dilated at your next visit. If Dr. Campoverde orders any additional testing, it may require extra time. We recommend that you bring sunglasses, as dilation drops often make you light sensitive until they wear off. We always recommend you bring someone to drive you home if you are uncomfortable driving with your eyes dilated. If you have any questions before your next visit, feel free to call our office at .h25.813 Combined forms of age-related cataract, bilateralComments:You have been diagnosed with cataracts. If you are happy with your vision as it is now, then we willsee you at your next scheduled appointment. If you feel like your vision is getting worse before your scheduled appointment, please call Kimberly or Nalini at [phone].h43.813 Vitreous degeneration, bilateralComments:You have a Posterior Vitreous Detachment. If you have any changes in your floaters or flashing lights, please contact this office.
[2017-04-04] MEDS ORDERED: Etomidate* 2 MG/ML 10 ML VIAL ONE (08:17)
[2017-04-04] MEDS ORDERED: Midazolam* 1 MG/ML 2 ML VIAL (2 MG) ONE ×2 (08:17→10:18)
[2017-04-04] MEDS ORDERED: fentaNYL* 50 MCG/ML 2 ML VIAL (100 MCG VIAL) ONE ×4 (08:17→13:40)
[2017-04-04] MEDS ORDERED: Buffered Lidocaine 0.9% SYRIN* 5 ML/SYR SYRINGE ONE (08:36)
[2017-04-04] MEDS ORDERED: Sodium Citrate/Citric Acid* 15 ML UDC ONE (08:36)
[2017-04-04] MEDS ORDERED: ceFAZolin 1 GM in Dextrose (*) 1 GM/50 ML BAG IVPB ONE (08:36)
[2017-04-04] MEDS ORDERED: Ondansetron INJ* 2 MG/ML VIAL ONE (08:36)
[2017-04-04] MEDS ORDERED: Sterile Water for Inj* 10 ML ONE (10:39)
[2017-04-04] MEDS ORDERED: Esmolol* 10 MG/ML 10 ML (100 mg) ONE (10:39)
[2017-04-04] MEDS ORDERED: EPHEDrine (Pressors)* 50 MG/ML VIAL ONE (10:39)
[2017-04-04] MEDS ORDERED: Scopolamine 1.5 mg* PATCH TRANSDERM PRN (10:53)
[2017-04-04] MEDS ORDERED: Naloxone* 0.4 MG/ML 1 ML VIAL IV PRN (10:53)
[2017-04-04] MEDS ORDERED: diPHENhydraMINE IV* 50 MG/ML 1 ml VIAL (BENADRYL) IV PRN ×2 (10:53→11:50)
[2017-04-04] MEDS ORDERED: DiMENhydriNATE IV* 50 MG/ML VIAL IV PUSH PRN (10:53)
[2017-04-04] MEDS ORDERED: Acetaminophen IV 1GM/100ML * 1,000 MG/100 ML VIAL IVPB ONE (10:53)
[2017-04-04] MEDS ORDERED: HYDROmorphone INJ* 1 MG/ML CARPUJECT SYRINGE ONE ×2 (10:57→11:38)
[2017-04-04] MEDS ORDERED: Propofol* 10 MG/ML 20 ML BTL IV PUSH ONE (11:37)
[2017-04-04] MEDS ORDERED: Cyclobenzaprine TAB* 10 MG PO PRN (11:50)
[2017-04-04] MEDS ORDERED: Morphine INJ* 2 MG/ML 1 ML SYRINGE (TWO MG - NEW SYRINGE VERSION) IV PRN (11:50)
[2017-04-04] MEDS ORDERED: Ondansetron INJ* 2 MG/ML VIAL IV PRN (11:50)
[2017-04-04] MEDS ORDERED: Ondansetron TAB* 4 MG PO PRN (11:50)
[2017-04-04] MEDS ORDERED: Acetaminophen TAB* 325 MG PO PRN ×2 (11:50→18:30)
[2017-04-04] MEDS ORDERED: Bisacodyl SUPP* 10 MG SUPP PR PRN (11:50)
[2017-04-04] MEDS ORDERED: oxyCODONE/Acetamin 5/325 MG* TAB PO PRN (11:50)
[2017-04-04] MEDS ORDERED: Magnesium Hydroxide LIQ* 30 ML UDC PO PRN (11:50)
[2017-04-04] MEDS ORDERED: Polyethylene Glycol 3350* 17 GM PACKET PO PRN (11:50)
[2017-04-04] MEDS ORDERED: Bupivacaine 0.5% SDV PF* 10-30ML VIAL ONE (12:05)
[2017-04-04] MEDS ORDERED: Acetaminophen IV 1GM/100ML * 100 ML ONE (13:14)
[2017-04-04] MEDS ORDERED: HYDROmorphone INJ* 2 MG/ML CARPUJECT SYRINGE ONE (13:14)
[2017-04-04] MEDS: HYDROmorphone INJ* 1 MG/ML CARPUJECT SYRINGE IV PRN ×5 (13:18→13:58)
[2017-04-04] MEDS: fentaNYL* 50 MCG/ML 2 ML VIAL (100 MCG VIAL) IV PRN ×4 (13:19→13:52)
--- NOTE | 2017-04-04 13:20 | RAD ---
INDICATION: Right total knee replacement surgery intraoperative study. COMPARISON: Comparison is made with a prior chest study of the right knee from January 16, 2017. TECHNIQUE: 8.2 seconds of intermittent fluoroscopic guidance were provided and 2 spot films of the right knee were obtained in the operating room. FINDINGS: The patient is undergoing a total right knee replacement surgery. The femoral and tibial prostheses appear in place. IMPRESSION: INTRAOPERATIVE CONTROL FILMS. CPT II Codes: 6045F
[2017-04-04] MEDS ORDERED: oxyCODONE TAB* 5 MG TAB ONE (13:32)
[2017-04-04] MEDS: oxyCODONE TAB* 5 MG TAB PO PRN ×2 (13:33→13:37)
--- NOTE | 2017-04-04 14:26 | RAD ---
INDICATION: Postoperative right knee arthroplasty COMPARISON: None TECHNIQUE: Portable AP and crosstable lateral imaging was performed. FINDINGS: There is right knee arthroplasty. Both femoral and tibial components appear well seated. There is no overlying cooling jacket. IMPRESSION: POSTOPERATIVE RIGHT KNEE ARTHROPLASTY.
[2017-04-04] MEDS ORDERED: Ketorolac INJ* 30 MG/ML 1 ML VIAL ONE (14:44)
[2017-04-04] MEDS ORDERED: Morphine TAB Extended Release (*) 30 MG TAB.ER PO SCH (15:00)
[2017-04-04] MEDS: Gabapentin CAP(*) 300 MG PO SCH ×2 (15:04→20:43)
[2017-04-04] MEDS ORDERED: HYDROmorphone INJ* 2 MG/ML CARPUJECT SYRINGE IV PRN (16:00)
--- NOTE | 2017-04-04 16:07 | CONSULT ---
Subjective Date of Service: 04/04/17 Interval History: This is a 76 year old male patient with history of aortic stenosis, HTN, lumbar stenosis/chronic low back pain with drop foot, DM, hypothyroidism and remote hx of skin CA that presented to Dr. Stevenson with hx of right knee pain. Xrays shows end stage degenrative arthritis. Patient elected to have right total knee arthroplasty today. We are being consulted for post-operative medical managment of his co-morbid conditions. Of note, he required several additional doses of pain medication while in PACU and is having desaturations to 87% on 6L NC. Patient likely has underlying EMILY and combined with mild CO2 narcosis. Full ROS difficult to obtain 2/2 status, but patient states pain in RLE, no SOB and no chest pain. Otherwise he is too drowsy to complete exam, information obtain from friend at bedside and medical record. Family History: Findings - non-contributory Social History: Findings - remote hx of smoking, no ETOH or reported drug use per record Past Medical History: Findings - aortic stenosis, HTN, lumbar stenosis/chronic low back pain with drop foot, DM, hypothyroidism and remote hx of skin CA Review of Systems - Measurements Intake and Output: Intake and Output Last 24 Hours 04/02/17 04/03/17 04/04/17 04/05/17 06:59 06:59 06:59 06:59 Intake Total 100 Balance 100 Weight 297 lb Intake: IV Fluids 100 NS 50ML, Cefazolin 1G 50 NS 50ML, Cefazolin 2G 50 - Review of Systems General Comments: Unable to obtain full ROS 2/2 post-operative state. Objective Active Medications: Acetaminophen (Tylenol Tab*) 650 mg PO Q4H PRN PRN Reason: PAIN OR TEMPERATURE Bisacodyl (Dulcolax Supp*) 10 mg MS DAILY PRN PRN Reason: constipation Cyclobenzaprine HCl (Flexeril Tab*) 10 mg PO TID PRN PRN Reason: SPASMS Diltiazem HCl (Cardizem Cd Cap*) 180 mg PO QAM [facility] Dimenhydrinate (Dramamine Iv*) 12.5 mg IV PUSH ONCE PRN PRN Reason: NAUSEA/VOMITING Stop: 04/04/17 18:00 Diphenhydramine HCl (Benadryl Iv*) 12.5 mg IV ONCE PRN PRN Reason: ITCHING Stop: 04/04/17 18:00 Diphenhydramine HCl (Benadryl Iv*) 12.5 mg IV Q6H PRN PRN Reason: PRURITIS Docusate Sodium (Colace Cap*) 100 mg PO BID [facility] Duloxetine HCl (Cymbalta Cap*) 30 mg PO BID [facility] Enoxaparin Sodium (Lovenox(*)) 40 mg SUBCUT Q24H [facility] Fentanyl Citrate (Fentanyl*) 50 mcg IV Q2M PRN PRN Reason: PAIN - MODERATE Stop: 04/04/17 18:00 Last Admin: 04/04/17 13:52 Dose: 50 mcg Gabapentin (Neurontin Cap(*)) 600 mg PO TID [facility] Last Admin: 04/04/17 15:04 Dose: 600 mg Hydromorphone HCl (Dilaudid Inj*) 0.2 mg IV Q10M PRN PRN Reason: PAIN - SEVERE Stop: 04/04/17 18:00 Lactated Ringer's (Lactated Ringers 1000 Ml Bag*) 1,000 mls @ 125 mls/hr IV PER RATE [facility] Stop: 04/04/17 18:00 Last Admin: 04/04/17 08:54 Dose: 125 mls/hr Cefazolin Sodium/Dextrose (Kefzol 1 Gm In Dextrose Duplex (*)) 1 gm in 50 mls @ 200 mls/hr IVPB Q8H [facility] Lactated Ringer's (Lactated Ringers 1000 Ml Bag*) 1,000 mls @ 100 mls/hr IV PER RATE [facility] Lactulose (Lactulose*) 30 ml PO Q6H PRN PRN Reason: constipation Levothyroxine Sodium (Synthroid Tab*) 100 mcg PO QAM@0600 [facility] Levothyroxine Sodium (Synthroid Tab*) 88 mcg PO DAILY@0600 [facility] Magnesium Hydroxide (Milk Of Magnesia Liq*) 30 ml PO BID [facility] Magnesium Hydroxide (Milk Of Magnesia Liq*) 30 ml PO Q6H PRN PRN Reason: constipation Metformin HCl (Glucophage*) 1,000 mg PO QPM [facility] Morphine Sulfate (Morphine Inj (Syringe)*) 2 mg IV Q2H PRN PRN Reason: PAIN Morphine Sulfate (Ms Contin(*)) 30 mg PO BID [facility] Naloxone HCl (Narcan*) 0 mg IV Q2M PRN PRN Reason: severe induced resp depression Stop: 04/05/17 18:00 Omeprazole 10 Mg Cap 10 dose PO TID [facility] Pto: Potassium Gluconate [Potassium Gluconate Er] 550 Mg 550 mg PO QAM [facility] Ondansetron HCl (Zofran Inj*) 4 mg IV Q6H PRN PRN Reason: nausea Ondansetron HCl (Zofran Tab*) 4 mg PO Q6H PRN PRN Reason: NAUSEA Oxycodone HCl (Roxycodone Tab*) 10 mg PO Q4H PRN PRN Reason: SEVERE PAIN Oxycodone/Acetaminophen (Percocet 5/325 Tab*) 2 tab PO Q4H PRN PRN Reason: PAIN Oxycodone/Acetaminophen (Percocet 5/325 Tab*) 1 tab PO Q4H PRN PRN Reason: PAIN Pharmacy Profile Note (Scopolamine Patch Remove*) 1 note PATCH OFF Q72H ONE Stop: 04/07/17 10:55 Pharmacy Profile Note (Coumadin Daily Reminder*) 0 note FOLLOW UP 1700 [facility] Polyethylene Glycol/Electrolytes (Miralax*) 17 gm PO DAILY PRN PRN Reason: Constipation Ramipril (Altace Cap*) 2.5 mg PO QPM [facility] Scopolamine (Transderm-Scop 1.5 Mg Patch*) 1 patch TRANSDERM Q72H PRN PRN Reason: Nausea/Vomiting Stop: 04/04/17 18:00 Warfarin Sodium (Coumadin Tab(*)) 6 mg PO ONCE@1700 ONE PRN Reason: Protocol Stop: 04/04/17 17:01 Vital Signs - 8 hr 04/04/17 04/04/17 04/04/17 08:39 13:09 13:10 Temperature 98.2 F 97.5 F Pulse Rate 66 77 91 Respiratory 18 18 18 Rate Blood Pressure 160/72 113/65 118/98 (mmHg) O2 Sat by Pulse 100 100 99 Oximetry 04/04/17 04/04/17 04/04/17 13:15 13:18 13:19 Temperature Pulse Rate 86 Respiratory 18 18 18 Rate Blood Pressure 119/88 (mmHg) O2 Sat by Pulse 99 Oximetry 04/04/17 04/04/17 04/04/17 13:20 13:24 13:28 Temperature Pulse Rate 89 Respiratory 18 18 18 Rate Blood Pressure 125/65 (mmHg) O2 Sat by Pulse 98 Oximetry 04/04/17 04/04/17 04/04/17 13:30 13:39 13:42 Temperature Pulse Rate 85 Respiratory 23 18 18 Rate Blood Pressure 142/68 (mmHg) O2 Sat by Pulse 98 Oximetry 04/04/17 04/04/17 04/04/17 13:45 13:49 13:52 Temperature Pulse Rate 89 Respiratory 20 16 16 Rate Blood Pressure 141/63 (mmHg) O2 Sat by Pulse 96 Oximetry 04/04/17 04/04/17 04/04/17 13:58 14:00 14:15 Temperature Pulse Rate 91 89 Respiratory 16 20 21 Rate Blood Pressure 130/61 123/61 (mmHg) O2 Sat by Pulse 97 97 Oximetry 04/04/17 04/04/17 04/04/17 14:30 14:45 15:00 Temperature Pulse Rate 86 89 85 Respiratory 21 18 18 Rate Blood Pressure 101/55 107/63 129/63 (mmHg) O2 Sat by Pulse 94 97 96 Oximetry 04/04/17 15:15 Temperature Pulse Rate 89 Respiratory 10 Rate Blood Pressure 108/57 (mmHg) O2 Sat by Pulse 99 Oximetry Oxygen Devices in Use Now: Nasal Cannula - 6L NC Appearance: Sleepy, confused, restless Eyes: No Scleral Icterus, PERRLA Ears/Nose/Mouth/Throat: - - dry oral mucosa Neck: Trachea Midline Respiratory: Symmetrical Chest Expansion and Respiratory Effort, Clear to Auscultation Cardiovascular: NL Sounds; No Murmurs; No JVD, RRR, - - edema RLE Abdominal: NL Sounds; No Tenderness; No Distention Extremities: - - cool RLE with foot drop, at baseline Skin: No Rash or Ulcers Assessment/Plan - Billing Asessement: This is a 76 year old male patient with history of aortic stenosis, HTN, lumbar stenosis/chronic low back pain with drop foot, DM and hypothyroidism that presented to Dr. Stevenson for right knee pain, who is POD0 RTKA, having post- operative desaturations 2/2 narcotic pain medication and likely EMILY: Plan: 1. Primary POC as per ortho team 2. Recommend Bipap while sleeping and monitoring CO2 while on narcotic pain meds 3. Recommend minimizing narcotics as much as possible, although he is already on higher doses of morphine at baseline 2/2 chronic back pain 4. Recommend telemetry post op and monitor for fluid overload given hx of 5. Hold Metformin, place on lispro SS with accuchecks AC and HS 6. Continue ramipril, cardizem, statin, levoxyl, duloxetine and PPI daily VTE PPX: - Lovenox/warfarin bridge per ortho Diet: - Carb control, low sodium Code Status: - Full code Thank you for the courtesy of this consult. Will follow with you.
[2017-04-04] MEDS ORDERED: Dextrose 50% Syringe 50 ML* 25 GM/50 ML SYRINGE IV PUSH PRN (16:21)
[2017-04-04] MEDS ORDERED: Warfarin TAB(*) 6 MG PO ONE (17:00)
[2017-04-04] MEDS: oxyCODONE/Acetamin 5/325 MG* TAB PO PRN (17:15)
[2017-04-04] MEDS ORDERED: metFORMIN* 500 MG TAB PO SCH (18:00)
[2017-04-04] MEDS: OMEPRAZOLE 10 MG CAP PO SCH ×2 (18:08→20:44)
[2017-04-04] MEDS: Insulin LISPRO* 1 UNITS UNIT SUBCUT SCH ×2 (18:20→20:56)
[2017-04-04] MEDS: ceFAZolin 1 GM in Dextrose (*) 1 GM/50 ML BAG IVPB SCH (18:28)
[2017-04-04] MEDS: Ramipril CAP* 2.5 MG PO SCH (19:06)
[2017-04-04] MEDS: Docusate CAP* 100 MG PO SCH (20:43)
[2017-04-04] MEDS: Morphine TAB Extended Release (*) 30 MG TAB.ER PO SCH (20:43)
[2017-04-04] MEDS: Magnesium Hydroxide LIQ* 30 ML UDC PO SCH (20:43)
[2017-04-04] MEDS: DULoxetine DR CAP* 30 MG CAP.DR PO SCH (20:57)
[2017-04-04] MEDS ORDERED: Morphine INJ* 2 MG/ML 1 ML CARPUJECT ONE (23:58)
[2017-04-05] MEDS: oxyCODONE/Acetamin 5/325 MG* TAB PO PRN ×3 (01:11→18:58)
[2017-04-05] MEDS: ceFAZolin 1 GM in Dextrose (*) 1 GM/50 ML BAG IVPB SCH ×2 (01:13→12:23)
--- NOTE | 2017-04-05 05:37 | OP ---
DATE OF OPERATION: 04/04/17 - ROOM #ICU-08 DATE OF : 42 ATTENDING SURGEON: Tawnya Stevenson MD. DINING ROOM BUSSER: CHIN Jaime. Mr. Wright did help throughout the procedure with preparation of the leg, wound retraction, manipulation of the knee, and wound closure. ANESTHESIOLOGIST: Dr. Ana Shoemaker. ANESTHESIA: General. PRE-OP DIAGNOSES: Severe endstage degenerative osteoarthritis of the right knee joint, severe bone loss of the medial tibial plateau. POST-OP DIAGNOSES: Severe endstage degenerative osteoarthritis of the right knee joint, severe bone loss of the medial tibial plateau. OPERATIVE PROCEDURE: Right total knee arthroplasty with modifier for high complexity of case. TOURNIQUET TIME: 85 minutes. COMPLICATIONS: None. ESTIMATED BLOOD LOSS: 1000 cc. SPECIMENS: Bone and cartilage sent from the right knee joint to Pathology. HARDWARE USED: Cemented [employer] total knee arthroplasty hardware. For the femur, a size 6 right posterior stabilized Legion femoral component. For the tibia, a size 6 Ctae II right tibial base plate. For the insert, a 13-mm posterior stabilized articular insert size 5/6. For the patella, a 38 mm 3-peg all poly patella. BRIEF HISTORY/INDICATIONS: Mr. Sanders is a 76-year-old gentleman with years of increasingly severe right knee pain. He failed conservative treatment with anti- inflammatories, pain medication, intra-articular injections, and physical therapy. Radiographs showed severe endstage arthritis with significant bone loss along the medial tibial plateau from chronic wear and abnormal wear. Due to the patient's continued pain and decreased quality of life, he elected to undergo a right total knee arthroplasty. He was having trouble even transferring because of the pain. Informed consent was obtained from the patient. He understood the risks of surgery included, but were not limited to bleeding, infection, damage to nearby structures, continued pain, need for further surgery, intraoperative fracture, nerve palsy, hardware failure, obesity , knee stiffness, loss of motion, stroke, heart attack, blood clot, and . He wished to proceed. INTRAOPERATIVE FINDINGS: Intraoperatively, the patient was noted to have extensive osteophyte formation around the entire femur and tibia. He had significant wear that amounted to a medial tibial plateau fracture. He had significant contracture around the MCL. Preop range of motion showed flexion contracture of 20 degrees. This was corrected to full extension by the end of the case. DESCRIPTION OF PROCEDURE: Mr. Sanders was identified in the preanesthesia unit. His right lower extremity was marked as the correct operative side. Informed consent was signed and placed in the chart. The patient was taken to the operating room and placed under general anesthesia. A Stanley catheter was placed. Tourniquet was placed on the right thigh. Right lower extremity was prepped and draped in the usual sterile fashion. Preop time-out was made to correctly identify the patient's side and site. Appropriate perioperative antibiotics were given within 1 hour of incision. Tourniquet was inflated and total tourniquet time for this procedure was 85 minutes. A midline incision was made with a 10 blade and carried down to the extensor mechanism. A new 10-blade was used to make a standard medial parapatellar arthrotomy. The patella was subluxed laterally. Extensive amount of osteophyte around the patella was removed with a rongeur. Electrocautery was used to subperiosteally elevate soft tissue off the superomedial tibia to the mid sagittal plane. There was extensive deformity of the medial tibial plateau. The knee was flexed up. Drill was used to enter the distal femur. Intramedullary distal femoral cutting guide was placed on the distal femur. Oscillating saw was used to make the appropriate distal femoral cut. The bone was carefully removed. The large amount of osteophyte around the femur was removed. External rotation guide was placed on the distal femur. Distal femur was sized to a size 6. The size 6 multi-cutting jig was pinned on the distal femur. Oscillating saw was used to make the appropriate 4 chamfer cuts. Bony fragments were carefully removed. Attention was turned next to preparation of the proximal tibia. The PCL was released and the tibia was subluxed anteriorly. The extramedullary tibial cutting guide was pinned on the proximal tibia. Oscillating saw was used to make a proximal tibial cut perpendicular to the mechanical axis of the tibia. A large amount of osteophyte was removed from the medial tibial plateau region. There was some bone loss along the posterior medial tibial plateau. Another, 2 mm of proximal tibial bone was resected. This improved the proximal tibial bone coverage medially. The knee was brought out into full extension and had tightness medially. Electrocautery was used to release soft tissue along the medial tibial plateau and remove any osteophytes carefully. The knee was in full extension with the spacer. Medial and lateral ligamentous balancing was significantly improved with release medially. Flexion and extension gaps were well balanced. The knee was flexed up. Lamina yarding and folding machine operator was placed both medially and laterally. Any remaining meniscus was carefully removed using electrocautery. Curved osteotome was used to remove posterior osteophytes. Tibial tray and drop maxim were placed and confirmed a satisfactory proximal tibial cut. A right size 6 femoral trial was impacted on to the distal femur and had good fit. The box for the posterior stabilized implant was prepared using a reamer and box- cut osteotome. A size 6 tibial tray trial with an 11-mm insert trial was placed and the knee was taken through a range of motion. The knee had full extension to 125 degrees of flexion. There was satisfactory patellofemoral tracking. The patella was everted and sized to a size 38. Oscillating saw was used to remove 9-mm of patellar bone and cartilage. The patella was then sized to a size 38. The 3 peg holes were drilled through the size 38 guide. Trial 38 patella was placed and the knee was taken through a range of motion. The patellofemoral tracking was satisfactory. All trials were carefully removed. The tibia was subluxed anteriorly and sized to a size 6. Proximal tibia was prepared using a size 6 keel punch. All bony cut surfaces were copiously irrigated with sterile saline and dried. Final implants were cemented into place, starting with the tibia, followed by the femur, and last the patella. A 13-mm insert trial was placed and the knee was brought out into full extension. Tourniquet was turned down at 85 minutes. The cement was allowed to fully cure while the knee was held in full extension. Electrocautery was used to obtain meticulous hemostasis. The knee was copiously irrigated with sterile saline. Once the cement had fully cured, the insert trial was removed. Excess cement from around the capsule and hardware was removed. Final implant chosen was a 13 -mm posterior stabilized articular insert size 5/6. This was locked into position on the tibial tray without difficulty. Stability of the insert was checked and rechecked and noted to be stable. The knee was copiously irrigated with sterile saline. Extensor mechanism was closed using interrupted #1 Vicryls over a medium Hemovac drain. The rest of the incision was closed in a layered fashion using 0 and 2-0 Vicryls. Skin was closed using running 3-0 nylon suture. The skin was covered with sterile Xeroform, 4x4s, and Webril. Roberto wrap and cold pack were placed over this. The patient's anesthesia was reversed without difficulty. He was taken to the PACU in stable condition. Intended weightbearing will be weightbearing as tolerated. Intended DVT prophylaxis will be Coumadin with a Lovenox bridge. The patient had significant hypertension at the beginning of the case, not controlled even by anesthesia. This did add to extra blood loss during the case. The patient's total knee arthroplasty was complex and the complexity of his bone loss did add at least an hour to the procedure time. [id number]/CPS #: [id number] RUFUS
[2017-04-05] MEDS ORDERED: Morphine INJ* 2 MG/ML 1 ML CARPUJECT IV PRN (05:43)
[2017-04-05] MEDS: Levothyroxine TAB* 88 MCG TAB PO SCH (05:52)
[2017-04-05] MEDS: Levothyroxine TAB* 100 MCG TAB PO SCH (05:52)
[2017-04-05 07:33] LABS: Hematocrit 21 % (42-52); Hemoglobin 7.1 g/dl (14.0-18.0); Mean Platelet Volume 8 um3 (7.4-10.4); Platelet Count 260 10^3/ul (150-450)
[2017-04-05 07:40] LABS: EGFR Non-African American 38.2 (>60)
[2017-04-05 07:49] LABS: INR 1.05 (0.77-1.02)
--- NOTE | 2017-04-05 07:55 | PN ---
Subjective Date of Service: 04/05/17 Interval History: Patient seen and examined at bedside. He is alert and in good spirits, though he notes that the pain has started to "really kick in today." He reports that the medications do help when received but it's still more pain than he is expecting. He is apprehensive about getting out of bed but willing to try. Denies fever/chills, CP, SOB, abd pain, n/v. Denies dizziness or other acute concern other than pain. Plan for transfusion today. Informed consent obtained from patient in preparation for blood transfusion. Family History: Findings - non-contributory Social History: Findings - remote hx of smoking, no ETOH or reported drug use per record Past Medical History: Findings - aortic stenosis, HTN, lumbar stenosis/chronic low back pain with drop foot, DM, hypothyroidism and remote hx of skin CA Objective Active Medications: Acetaminophen (Tylenol Tab*) 650 mg PO Q4H PRN PRN Reason: PAIN OR TEMPERATURE Bisacodyl (Dulcolax Supp*) 10 mg [place] DAILY PRN PRN Reason: constipation Dextrose (D50w Syringe 50 Ml*) 12.5 gm IV PUSH .FOR FS < 60 - SS PRN PRN Reason: FS < 60 Diltiazem HCl (Cardizem Cd Cap*) 180 mg PO QAM [facility] Diphenhydramine HCl (Benadryl Iv*) 12.5 mg IV Q6H PRN PRN Reason: PRURITIS Docusate Sodium (Colace Cap*) 100 mg PO BID [facility] Last Admin: 04/04/17 20:43 Dose: 100 mg Duloxetine HCl (Cymbalta Cap*) 30 mg PO BID [facility] Last Admin: 04/04/17 20:57 Dose: 30 mg Enoxaparin Sodium (Lovenox(*)) 40 mg SUBCUT Q24H [facility] Gabapentin (Neurontin Cap(*)) 600 mg PO TID [facility] Last Admin: 04/04/17 20:43 Dose: 600 mg Cefazolin Sodium/Dextrose (Kefzol 1 Gm In Dextrose Duplex (*)) 1 gm in 50 mls @ 200 mls/hr IVPB Q8H [facility] Last Admin: 04/05/17 01:13 Dose: 200 mls/hr Lactated Ringer's (Lactated Ringers 1000 Ml Bag*) 1,000 mls @ 100 mls/hr IV PER RATE [facility] Insulin Human Lispro (Humalog*) 0 units SUBCUT ACHS [facility] PRN Reason: Protocol Last Admin: 04/04/17 20:56 Dose: 3 units Lactulose (Lactulose*) 30 ml PO Q6H PRN PRN Reason: constipation Levothyroxine Sodium (Synthroid Tab*) 100 mcg PO QAM@0600 [facility] Last Admin: 04/05/17 05:52 Dose: 100 mcg Levothyroxine Sodium (Synthroid Tab*) 88 mcg PO DAILY@0600 [facility] Last Admin: 04/05/17 05:52 Dose: 88 mcg Magnesium Hydroxide (Milk Of Magnesia Liq*) 30 ml PO BID [facility] Last Admin: 04/04/17 20:43 Dose: Not Given Magnesium Hydroxide (Milk Of Magnesia Liq*) 30 ml PO Q6H PRN PRN Reason: constipation Morphine Sulfate (Ms Contin(*)) 30 mg PO BID [facility] Last Admin: 04/04/17 20:43 Dose: 30 mg Morphine Sulfate (Morphine Inj (Syringe)*) 2 mg IV Q2H PRN PRN Reason: PAIN Last Admin: 04/05/17 05:49 Dose: 2 mg Naloxone HCl (Narcan*) 0 mg IV Q2M PRN PRN Reason: severe induced resp depression Stop: 04/05/17 18:00 Omeprazole 10 Mg Cap 10 dose PO TID [facility] Last Admin: 04/04/17 20:44 Dose: Not Given Pto: Potassium Gluconate [Potassium Gluconate Er] 550 Mg 550 mg PO QAM [facility] Ondansetron HCl (Zofran Inj*) 4 mg IV Q6H PRN PRN Reason: nausea Last Admin: 04/04/17 18:22 Dose: 4 mg Ondansetron HCl (Zofran Tab*) 4 mg PO Q6H PRN PRN Reason: NAUSEA Oxycodone HCl (Roxycodone Tab*) 10 mg PO Q4H PRN PRN Reason: SEVERE PAIN Oxycodone/Acetaminophen (Percocet 5/325 Tab*) 2 tab PO Q4H PRN PRN Reason: PAIN Last Admin: 04/05/17 01:11 Dose: 2 tab Oxycodone/Acetaminophen (Percocet 5/325 Tab*) 1 tab PO Q4H PRN PRN Reason: PAIN Pharmacy Profile Note (Scopolamine Patch Remove*) 1 note PATCH OFF Q72H ONE Stop: 04/07/17 10:55 Pharmacy Profile Note (Coumadin Daily Reminder*) 0 note FOLLOW UP 1700 [facility] Last Admin: 04/04/17 19:11 Dose: 6 note Polyethylene Glycol/Electrolytes (Miralax*) 17 gm PO DAILY PRN PRN Reason: Constipation Ramipril (Altace Cap*) 2.5 mg PO QPM [facility] Last Admin: 04/04/17 19:06 Dose: 2.5 mg Vital Signs - 8 hr 04/04/17 04/05/17 04/05/17 23:57 00:00 00:01 Temperature 98.2 F Pulse Rate 101 130 Respiratory 13 16 Rate Blood Pressure (mmHg) O2 Sat by Pulse 99 89 Oximetry 04/05/17 04/05/17 04/05/17 00:05 00:30 00:32 Temperature Pulse Rate 88 98 Respiratory 20 10 17 Rate Blood Pressure 88/56 (mmHg) O2 Sat by Pulse 91 96 Oximetry 04/05/17 04/05/17 04/05/17 01:00 01:05 01:11 Temperature Pulse Rate 86 77 Respiratory 5 16 18 Rate Blood Pressure 97/59 (mmHg) O2 Sat by Pulse 96 97 Oximetry 04/05/17 04/05/17 04/05/17 01:30 02:00 02:30 Temperature Pulse Rate 77 76 79 Respiratory 14 18 Rate Blood Pressure 118/51 108/48 103/51 (mmHg) O2 Sat by Pulse 96 94 90 Oximetry 04/05/17 04/05/17 04/05/17 03:00 03:30 04:00 Temperature Pulse Rate 77 78 80 Respiratory 12 16 Rate Blood Pressure 110/51 111/56 108/48 (mmHg) O2 Sat by Pulse 95 93 93 Oximetry 04/05/17 04/05/17 04/05/17 04:31 05:00 05:30 Temperature Pulse Rate 91 84 95 Respiratory Rate Blood Pressure 100/64 99/46 109/60 (mmHg) O2 Sat by Pulse 85 92 96 Oximetry 04/05/17 04/05/17 05:49 06:00 Temperature Pulse Rate 86 Respiratory 16 16 Rate Blood Pressure (mmHg) O2 Sat by Pulse 93 Oximetry Oxygen Devices in Use Now: Nasal Cannula Appearance: Older male, lying in bed, pleasant, interactive, NAD Eyes: No Scleral Icterus, PERRLA Ears/Nose/Mouth/Throat: Clear Oropharnyx, Mucous Membranes Moist Neck: NL Appearance and Movements; NL JVP Respiratory: Symmetrical Chest Expansion and Respiratory Effort, Clear to Auscultation Cardiovascular: NL Sounds; No Murmurs; No JVD, RRR Abdominal: NL Sounds; No Tenderness; No Distention Extremities: No Clubbing, Cyanosis, - - Right knee/lower leg edema; c/d/i dressing to right knee, right foot drop Skin: No Rash or Ulcers, - - pale Neurological: Alert and Oriented x 3 Lines/Tubes/Other Access: Clean, Dry and Intact Peripheral IV Nutrition: Taking PO's Result Diagrams: 04/05/17 05:55 04/05/17 05:55 Assess/Plan/Problems-Billing Assessment: This is a 76 year old male patient with history of aortic stenosis, HTN, lumbar stenosis/chronic low back pain with drop foot, DM and hypothyroidism that presented to Dr. Stevesnon for right knee pain, who is s/p RTKA. - Patient Problems (1) Status post total right knee replacement Code(s): Z96.651 - PRESENCE OF RIGHT ARTIFICIAL KNEE JOINT Comment: POD #1, management per ortho Continue pain control, PT/OT HH low secondary to acute blood loss anemia, plan to transfuse 2 units PRBCs (2) Diabetes Code(s): E11.9 - TYPE 2 DIABETES MELLITUS WITHOUT COMPLICATIONS Comment: BG 160s this AM Hold home metformin Continue FSBG ACHS with Lispro SSI Consistent carbohydrate diet (3) Hypothyroidism Code(s): E03.9 - HYPOTHYROIDISM, UNSPECIFIED Comment: Continue home levothyroxine. (4) Chronic low back pain Code(s): M54.5 - LOW BACK PAIN; G89.29 - OTHER CHRONIC PAIN Comment: Continue gabapentin, MS contin, and prn medications, with careful attention to s /s of lethargy. (5) Aortic stenosis Code(s): I35.0 - NONRHEUMATIC AORTIC (VALVE) STENOSIS Comment: Carefully monitor fluid status, avoiding dehydration and overhydration PRBC transfusion today, will infuse slowly. Continue to monitor on telemetry today. (6) History of coronary artery disease Code(s): Z86.79 - PERSONAL HISTORY OF OTHER DISEASES OF THE CIRCULATORY SYSTEM Comment: Continue ASA. (7) EMILY (obstructive sleep apnea) Code(s): G47.33 - OBSTRUCTIVE SLEEP APNEA (ADULT) (PEDIATRIC) Comment: Continue CPAP. (8) DVT prophylaxis Comment: Per ortho, SQ Lovenox and warfarin (9) Full code status Code(s): Z78.9 - OTHER SPECIFIED HEALTH STATUS Status and Disposition: Inpatient admission. Dispo per ortho.
[2017-04-05] MEDS ORDERED: POTASSIUM GLUCONATE 550 MG PO SCH (09:00)
[2017-04-05] MEDS: Insulin LISPRO* 1 UNITS UNIT SUBCUT SCH ×4 (09:14→20:31)
[2017-04-05] MEDS: Docusate CAP* 100 MG PO SCH ×2 (09:17→20:32)
[2017-04-05] MEDS: Diltiazem CD CAP* 180 MG PO SCH (09:18)
[2017-04-05] MEDS: Magnesium Hydroxide LIQ* 30 ML UDC PO SCH ×2 (09:18→20:32)
[2017-04-05] MEDS: Gabapentin CAP(*) 300 MG PO SCH ×3 (09:18→20:32)
[2017-04-05] MEDS: Morphine TAB Extended Release (*) 30 MG TAB.ER PO SCH ×2 (09:18→20:32)
[2017-04-05] MEDS ORDERED: Morphine INJ* 4 MG/ML 1 ML CARPUJECT IV PRN (10:00)
[2017-04-05] MEDS: DULoxetine DR CAP* 30 MG CAP.DR PO SCH ×2 (10:23→20:32)
[2017-04-05] MEDS: OMEPRAZOLE 10 MG CAP PO SCH (10:24)
[2017-04-05] MEDS: Morphine INJ* 2 MG/ML 1 ML CARPUJECT IV PRN (10:54)
[2017-04-05] MEDS: Enoxaparin(*) 40 MG/0.4 ML SYR SUBCUT SCH (11:46)
[2017-04-05] MEDS: OMEPRAZOLE 10 MG PO SCH ×2 (14:05→22:08)
--- NOTE | 2017-04-05 15:05 | PN ---
Progress Note - Progress Note Date of Service: 04/05/17 SOAP: Subjective: [] Objective: [] Assessment: [] Plan: []
--- NOTE | 2017-04-05 15:06 | PN ---
Progress Note - Progress Note Date of Service: 04/05/17 SOAP: Subjective: 76 y/o male s/p R TKA with complicated medical history with Dr. Stevenson on 04/04, p /o day 1. He was admitted to ICU overnight due to desaturations on 6 L O2, thought a combination of untreated EMILY and narcotics. He was brought back to the floor today. Pain not well controlled, he is on high doses of narcotics at home. Does not feel like able to walk or move per pain. Denies N/V, CP, SOB, F/ C. Objective: Laboratory Results - last 24 hr 04/04/17 04/04/17 04/04/17 10:33 18:04 20:50 Hgb Hct Plt Count MPV INR (Anticoag Therapy) Sodium Potassium Chloride Carbon Dioxide Anion Gap BUN Creatinine Est GFR ( Amer) Est GFR (Non-Af Amer) BUN/Creatinine Ratio Glucose POC Glucose (mg/dL) 222 H 186 H Calcium Blood Type B Positive Antibody Screen Negative Crossmatch See Detail 04/05/17 04/05/17 04/05/17 05:55 05:55 05:55 Hgb 7.1 L Hct 21 L Plt Count 260 MPV 8 INR (Anticoag Therapy) 1.05 H Sodium 130 L Potassium 5.3 H Chloride 96 L Carbon Dioxide 29 Anion Gap 5 BUN 26 H Creatinine 1.75 H Est GFR ( Amer) 49.1 Est GFR (Non-Af Amer) 38.2 BUN/Creatinine Ratio 14.9 Glucose 161 H POC Glucose (mg/dL) Calcium 8.4 L Blood Type Antibody Screen Crossmatch 04/05/17 04/05/17 08:18 12:23 Hgb Hct Plt Count MPV INR (Anticoag Therapy) Sodium Potassium Chloride Carbon Dioxide Anion Gap BUN Creatinine Est GFR ( Amer) Est GFR (Non-Af Amer) BUN/Creatinine Ratio Glucose POC Glucose (mg/dL) 183 H 219 H Calcium Blood Type Antibody Screen Crossmatch Vital Signs Temp Pulse Resp BP Pulse Ox 98.1 F 75 20 143/55 95 04/05/17 14:03 04/05/17 14:03 04/05/17 14:06 04/05/17 14:03 04/05/17 14:03 General: WN, WD, male, crying in pain. A&Ox3. TLE: dressing C/D/I, no erythema at incision site, no induration. No erythema proximal or distal to dressing. Sensation intact. Patient unwilling to DF/PF due to pain. Able to wiggle toes. 2+ DP. Sensation intact distally. Assessment: 76 y/o male p/o day 1 s/p R TKA with Dr. Stevenson. Plan: - Discussed need to paticipate in PT/OT - Need to control pain, will balance pain management with narcotics, try to use alternative pain control. - Appreciate hospitalist input - OT/PT encouraged - Dressing change tomorrow - DVT prophylaxis with lovenox bridge to coumadin
[2017-04-05] MEDS: oxyCODONE TAB* 5 MG TAB PO PRN ×2 (15:12→22:08)
[2017-04-05] MEDS ORDERED: Warfarin TAB(*) 4 MG PO ONE (17:00)
[2017-04-05] MEDS: Ramipril CAP* 2.5 MG PO SCH (17:32)
[2017-04-06] MEDS: oxyCODONE/Acetamin 5/325 MG* TAB PO PRN ×2 (04:10→08:36)
[2017-04-06] MEDS: Morphine INJ* 2 MG/ML 1 ML CARPUJECT IV PRN (05:03)
[2017-04-06] MEDS: Levothyroxine TAB* 88 MCG TAB PO SCH (05:03)
[2017-04-06] MEDS: Levothyroxine TAB* 100 MCG TAB PO SCH (05:03)
[2017-04-06 05:22] LABS: Hematocrit 23 % (42-52); Hemoglobin 7.9 g/dl (14.0-18.0); Mean Platelet Volume 7 um3 (7.4-10.4); Platelet Count 180 10^3/ul (150-450)
[2017-04-06 05:34] LABS: INR 1.14 (0.77-1.02)
[2017-04-06 05:35] LABS: EGFR Non-African American 65.3 (>60)
[2017-04-06] MEDS: oxyCODONE TAB* 5 MG TAB PO PRN ×2 (06:11→12:29)
--- NOTE | 2017-04-06 08:34 | PN ---
Progress Note - Progress Note Date of Service: 04/06/17 SOAP: Subjective: []Patient seen at bedside. He confirms RLE pain. He has foot drop and right foot with decreased sensation at baseline. Received 2 units PRBC yesterday Objective: [] Vital Signs Temp 99.8 F 04/06/17 04:11 Pulse 87 04/06/17 04:11 Resp 18 04/06/17 06:11 BP 134/50 04/06/17 04:11 Pulse Ox 95 04/06/17 04:11 Intake & Output 04/05/17 04/06/17 04/06/17 18:59 06:59 18:59 Intake Total 2106 600 Output Total 400 2170 Balance 1706 -1570 Intake: IV Fluids 174 ABX - CEFTRIAXONE 46 NS (0.9%) 128 Oral 1290 600 Packed Cells 642 Output: Urine 0 2170 Stanley 400 Other: # Bowel Movements 0 Laboratory Last Values Hgb 7.9 g/dl (14.0-18.0) L 04/06/17 04:59 Hct 23 % (42-52) L 04/06/17 04:59 Plt Count 180 10^3/ul (150-450) 04/06/17 04:59 MPV 7 um3 (7.4-10.4) L 04/06/17 04:59 INR (Anticoag Therapy) 1.14 (0.77-1.02) H 04/06/17 04:59 Sodium 128 mmol/L (133-145) L 04/06/17 04:59 Potassium 4.4 mmol/L (3.5-5.0) 04/06/17 04:59 Chloride 96 mmol/L (101-111) L 04/06/17 04:59 Carbon Dioxide 28 mmol/L (22-32) 04/06/17 04:59 Anion Gap 4 mmol/L (2-11) 04/06/17 04:59 BUN 24 mg/dL (6-24) 04/06/17 04:59 Creatinine 1.10 mg/dL (0.67-1.17) 04/06/17 04:59 Est GFR ( Amer) 83.9 (>60) 04/06/17 04:59 Est GFR (Non-Af Amer) 65.3 (>60) 04/06/17 04:59 BUN/Creatinine Ratio 21.8 (8-20) H 04/06/17 04:59 Glucose 197 mg/dL (70-100) H 04/06/17 04:59 POC Glucose (mg/dL) 186 mg/dL (70-100) H 04/06/17 08:03 Calcium 8.5 mg/dL (8.6-10.3) L 04/06/17 04:59 Blood Type B Positive 04/04/17 10:33 Antibody Screen Negative 04/04/17 10:33 Crossmatch See Detail 04/04/17 10:33 General: Well appearing, NAD RLE: Dressing changed. Incision CDI without erythema or discharge. Patient unable to DF/PF ( baseline). Sensation is decreased distally ( baseline) 2+ DP pulse BL LE: Calves supple and nontender without erythema, edema or palpable cords. Assessment: []POD 2 S/P right total knee arthroplasty Acute Bloodloss Anemia Plan: []WBAT PT/OT Lovenox, coumadin 6 mg Appreciate hospitalist input. H&H, sodium to be monitored.
[2017-04-06] MEDS: Gabapentin CAP(*) 300 MG PO SCH ×3 (08:37→22:32)
[2017-04-06] MEDS: Morphine TAB Extended Release (*) 30 MG TAB.ER PO SCH ×2 (08:37→22:33)
[2017-04-06] MEDS: Diltiazem CD CAP* 180 MG PO SCH (08:38)
[2017-04-06] MEDS: DULoxetine DR CAP* 30 MG CAP.DR PO SCH ×2 (08:38→22:33)
[2017-04-06] MEDS: Docusate CAP* 100 MG PO SCH ×2 (08:38→22:33)
[2017-04-06] MEDS: OMEPRAZOLE 10 MG PO SCH ×3 (08:38→22:36)
[2017-04-06] MEDS: Insulin LISPRO* 1 UNITS UNIT SUBCUT SCH ×4 (08:39→22:30)
[2017-04-06] MEDS: Magnesium Hydroxide LIQ* 30 ML UDC PO SCH ×2 (08:41→22:39)
[2017-04-06] MEDS: Enoxaparin(*) 40 MG/0.4 ML SYR SUBCUT SCH (12:29)
[2017-04-06] MEDS ORDERED: Warfarin TAB(*) 6 MG PO SCH (17:00)
--- NOTE | 2017-04-06 17:10 | PN ---
Subjective Date of Service: 04/06/17 Interval History: C/o Right knee, pain. Also states that he is having hallucinations, states that he is seeing purple clocks and smoke coming out of different places, states that this has been occurring since surgery. Denies chest pain, Reports occasional SOB when he is moving his knee , states that it is related to the pain. Denies N/V/D. Family History: Unchanged from Admission - non-contributory Social History: Unchanged from Admission - remote hx of smoking, no ETOH or reported drug use per record Past Medical History: Unchanged from Admission - aortic stenosis, HTN, lumbar stenosis/chronic low back pain with drop foot, DM, hypothyroidism and remote hx of skin CA Objective Active Medications: Acetaminophen (Tylenol Tab*) 650 mg PO Q4H PRN PRN Reason: PAIN OR TEMPERATURE Bisacodyl (Dulcolax Supp*) 10 mg MS DAILY PRN PRN Reason: constipation Dextrose (D50w Syringe 50 Ml*) 12.5 gm IV PUSH .FOR FS < 60 - SS PRN PRN Reason: FS < 60 Diltiazem HCl (Cardizem Cd Cap*) 180 mg PO QAM [facility] Last Admin: 04/06/17 08:38 Dose: 180 mg Diphenhydramine HCl (Benadryl Iv*) 12.5 mg IV Q6H PRN PRN Reason: PRURITIS Docusate Sodium (Colace Cap*) 100 mg PO BID [facility] Last Admin: 04/06/17 08:38 Dose: 100 mg Duloxetine HCl (Cymbalta Cap*) 30 mg PO BID [facility] Last Admin: 04/06/17 08:38 Dose: 30 mg Enoxaparin Sodium (Lovenox(*)) 40 mg SUBCUT Q24H [facility] Last Admin: 04/06/17 12:29 Dose: 40 mg Gabapentin (Neurontin Cap(*)) 600 mg PO TID [facility] Last Admin: 04/06/17 14:19 Dose: 600 mg Lactated Ringer's (Lactated Ringers 1000 Ml Bag*) 1,000 mls @ 100 mls/hr IV PER RATE [facility] Insulin Human Lispro (Humalog*) 0 units SUBCUT ACHS [facility] PRN Reason: Protocol Last Admin: 04/06/17 12:36 Dose: 6 units Lactulose (Lactulose*) 30 ml PO Q6H PRN PRN Reason: constipation Last Admin: 04/06/17 14:39 Dose: 30 ml Levothyroxine Sodium (Synthroid Tab*) 100 mcg PO QAM@0600 [facility] Last Admin: 04/06/17 05:03 Dose: 100 mcg Levothyroxine Sodium (Synthroid Tab*) 88 mcg PO DAILY@0600 [facility] Last Admin: 04/06/17 05:03 Dose: 88 mcg Magnesium Hydroxide (Milk Of Magnesia Liq*) 30 ml PO BID [facility] Last Admin: 04/06/17 08:41 Dose: Not Given Magnesium Hydroxide (Milk Of Magnesia Liq*) 30 ml PO Q6H PRN PRN Reason: constipation Morphine Sulfate (Ms Contin(*)) 30 mg PO BID [facility] Last Admin: 04/06/17 08:37 Dose: 30 mg Morphine Sulfate (Morphine Inj (Syringe)*) 2 mg IV Q2H PRN PRN Reason: PAIN Last Admin: 04/06/17 05:03 Dose: 2 mg Pto: Omeprazole 10 (Mg Cap) 0 dose PO TID [facility] Last Admin: 04/06/17 14:20 Dose: 1 dose Ondansetron HCl (Zofran Inj*) 4 mg IV Q6H PRN PRN Reason: nausea Last Admin: 04/04/17 18:22 Dose: 4 mg Ondansetron HCl (Zofran Tab*) 4 mg PO Q6H PRN PRN Reason: NAUSEA Oxycodone HCl (Roxycodone Tab*) 10 mg PO Q4H PRN PRN Reason: SEVERE PAIN Last Admin: 04/06/17 12:29 Dose: 10 mg Oxycodone/Acetaminophen (Percocet 5/325 Tab*) 2 tab PO Q4H PRN PRN Reason: PAIN Last Admin: 04/06/17 08:36 Dose: 2 tab Oxycodone/Acetaminophen (Percocet 5/325 Tab*) 1 tab PO Q4H PRN PRN Reason: PAIN Pharmacy Profile Note (Scopolamine Patch Remove*) 1 note PATCH OFF Q72H ONE Stop: 04/07/17 10:55 Pharmacy Profile Note (Coumadin Daily Reminder*) 0 note FOLLOW UP 1700 [facility] Last Admin: 04/05/17 17:32 Dose: 1 note Polyethylene Glycol/Electrolytes (Miralax*) 17 gm PO DAILY PRN PRN Reason: Constipation Ramipril (Altace Cap*) 2.5 mg PO QPM [facility] Last Admin: 04/05/17 17:32 Dose: 2.5 mg Warfarin Sodium (Coumadin Tab(*)) 6 mg PO ONCE@1700 [facility] PRN Reason: Protocol Stop: 04/06/17 17:01 Vital Signs - 8 hr 04/06/17 04/06/17 04/06/17 09:09 09:41 11:06 Temperature 99.3 F Pulse Rate Respiratory 20 Rate Blood Pressure (mmHg) O2 Sat by Pulse 95 Oximetry 04/06/17 04/06/17 04/06/17 11:07 11:48 12:29 Temperature 98.7 F Pulse Rate 75 Respiratory 20 16 18 Rate Blood Pressure 136/54 (mmHg) O2 Sat by Pulse 93 Oximetry 04/06/17 04/06/17 04/06/17 14:19 14:38 16:14 Temperature 98.9 F Pulse Rate 76 Respiratory 20 20 16 Rate Blood Pressure 140/57 (mmHg) O2 Sat by Pulse 94 Oximetry 04/06/17 16:21 Temperature Pulse Rate Respiratory 18 Rate Blood Pressure (mmHg) O2 Sat by Pulse Oximetry Oxygen Devices in Use Now: None, Nasal Cannula Appearance: appears mild discomfort resting in bed. respirations easy and even Ears/Nose/Mouth/Throat: Clear Oropharnyx, Mucous Membranes Moist Neck: NL Appearance and Movements; NL JVP, Trachea Midline Respiratory: Symmetrical Chest Expansion and Respiratory Effort, Clear to Auscultation Cardiovascular: NL Sounds; No Murmurs; No JVD, RRR, No Edema Abdominal: NL Sounds; No Tenderness; No Distention Extremities: No Clubbing, Cyanosis, - - edema noted to right leg, pedal pulses + 2 bilat Skin: No Rash or Ulcers Neurological: Alert and Oriented x 3 Nutrition: Taking PO's Result Diagrams: 04/07/17 05:30 04/07/17 05:31 Assess/Plan/Problems-Billing Assessment: This is a 76 year old male patient with history of aortic stenosis, HTN, lumbar stenosis/chronic low back pain with drop foot, DM and hypothyroidism that presented to Dr. Stevenson for right knee pain, who is s/p RTKA. - Patient Problems (1) Aortic stenosis Status: Acute Code(s): I35.0 - NONRHEUMATIC AORTIC (VALVE) STENOSIS SNOMED Code(s): 74379021 Comment: Carefully monitor fluid status, avoiding dehydration and overhydration H/H improved to 7.3/ will discharge [facility] facility would recommend repeat cbc in 4 days (2) Status post total right knee replacement Status: Acute Code(s): Z96.651 - PRESENCE OF RIGHT ARTIFICIAL KNEE JOINT SNOMED Code(s): 5904601692191 Comment: POD #3, management per ortho Continue pain control, PT/OT HH low secondary to acute blood loss anemia, will continue to monitor repeat 4 days (3) JERRI (acute kidney injury) Status: Acute Code(s): N17.9 - ACUTE KIDNEY FAILURE, UNSPECIFIED SNOMED Code (s): 66909228 Comment: Resolved. Creatinine back to baseline. Suspect the creatinine was elevated d/t dehydration. (4) Diabetes Status: Chronic Code(s): E11.9 - TYPE 2 DIABETES MELLITUS WITHOUT COMPLICATIONS SNOMED Code(s): 61973340 Comment: BG 170's- 206 resume home medications (5) Hallucination, visual Status: Acute Code(s): R44.1 - VISUAL HALLUCINATIONS SNOMED Code(s): 12109524 Comment: suspect this is related to anesthesia and pain medications Currently alert and oriented x3 hallucinations are mild at this time will continue to monitor would recommend limiting narcotic medications if hallucinations become worse. (6) DVT prophylaxis Status: Acute Code(s): OPA2350 - SNOMED Code(s): 539092561 Comment: Per ortho, SQ Lovenox and warfarin (7) Full code status Status: Acute Code(s): Z78.9 - OTHER SPECIFIED HEALTH STATUS SNOMED Code(s) : 168086787 Status and Disposition: Inpatient admission. Dispo per ortho.
[2017-04-06] MEDS: Ramipril CAP* 2.5 MG PO SCH (17:43)
[2017-04-07 05:52] LABS: Hematocrit 21 % (42-52); Hemoglobin 7.3 g/dl (14.0-18.0); Mean Platelet Volume 7 um3 (7.4-10.4); Platelet Count 188 10^3/ul (150-450)
[2017-04-07 06:02] LABS: INR 1.37 (0.77-1.02)
[2017-04-07 06:06] LABS: EGFR Non-African American 87.9 (>60)
[2017-04-07] MEDS ORDERED: Levothyroxine TAB* 100 MCG TAB ONE (06:06)
[2017-04-07] MEDS: Levothyroxine TAB* 88 MCG TAB PO SCH (06:19)
[2017-04-07] MEDS: Levothyroxine TAB* 100 MCG TAB PO SCH (06:20)
--- NOTE | 2017-04-07 07:41 | PN ---
Progress Note - Progress Note Date of Service: 04/07/17 SOAP: Subjective: Pt. reports he had BM x 2 overnight Objective: Vital Signs: Temp Pulse Resp BP Pulse Ox 99.3 F 85 18 144/59 97 04/07/17 03:36 04/07/17 03:36 04/07/17 03:36 04/07/17 03:36 04/07/17 04:46 Laboratory Results - last 24 hr 04/06/17 04/06/17 04/06/17 08:03 12:29 17:29 Hgb Hct Plt Count MPV INR (Anticoag Therapy) Sodium Potassium Chloride Carbon Dioxide Anion Gap BUN Creatinine Est GFR ( Amer) Est GFR (Non-Af Amer) BUN/Creatinine Ratio Glucose POC Glucose (mg/dL) 186 H 234 H 184 H Calcium 04/06/17 04/07/17 04/07/17 22:12 05:30 05:30 Hgb 7.3 L Hct 21 L Plt Count 188 MPV 7 L INR (Anticoag Therapy) 1.37 H Sodium Potassium Chloride Carbon Dioxide Anion Gap BUN Creatinine Est GFR ( Amer) Est GFR (Non-Af Amer) BUN/Creatinine Ratio Glucose POC Glucose (mg/dL) 206 H Calcium 04/07/17 05:31 Hgb Hct Plt Count MPV INR (Anticoag Therapy) Sodium 131 L Potassium 4.7 Chloride 97 L Carbon Dioxide 28 Anion Gap 6 BUN 23 Creatinine 0.85 Est GFR ( Amer) 113.0 Est GFR (Non-Af Amer) 87.9 BUN/Creatinine Ratio 27.1 H Glucose 179 H POC Glucose (mg/dL) Calcium 8.6 Assessment: 76 yo M pod 3 s/p RTKA Plan: wbat rle pt/ot 10 mg coumadin tonight, lovenox today plan d/c to [facility] today
[2017-04-07] MEDS: Magnesium Hydroxide LIQ* 30 ML UDC PO SCH (07:50)
[2017-04-07] MEDS: oxyCODONE/Acetamin 5/325 MG* TAB PO PRN (07:54)
[2017-04-07] MEDS: Gabapentin CAP(*) 300 MG PO SCH (07:54)
[2017-04-07] MEDS: Docusate CAP* 100 MG PO SCH (07:54)
[2017-04-07] MEDS: DULoxetine DR CAP* 30 MG CAP.DR PO SCH (07:54)
[2017-04-07] MEDS: Diltiazem CD CAP* 180 MG PO SCH (07:55)
[2017-04-07] MEDS: Morphine TAB Extended Release (*) 30 MG TAB.ER PO SCH (07:55)
[2017-04-07] MEDS: OMEPRAZOLE 10 MG PO SCH (07:58)
[2017-04-07] MEDS: Insulin LISPRO* 1 UNITS UNIT SUBCUT SCH (08:22)
--- NOTE | 2017-04-07 09:33 | PN ---
Progress Note - Progress Note Date of Service: 04/07/17 SOAP: Subjective: 76 y/o male s/p R TKA by Dr. Stevenson 04/07/2017. Patient c/o continued pain, helped with Percocet/ pain medication. To be D/C'd to rehab today, patient agrees unable to manage at home. VSS afebrile overnight. Objective: General- Well appearing, NAD, AO resting in bed comfortably MSK- Dressing removed, incision c/d/i, no drainage noted, minimal ecchymosis, moderate R LE edema. + DF/PF, neg homans. New dressing placed. Vital Signs Temp 98.1 F 04/07/17 07:34 Pulse 80 04/07/17 07:34 Resp 18 04/07/17 07:55 BP 136/58 04/07/17 07:34 Pulse Ox 93 04/07/17 07:34 Intake & Output 04/06/17 04/07/17 04/07/17 18:59 06:59 18:59 Intake Total 1160 1300 225 Output Total 350 1125 Balance 810 175 225 Intake: Oral 1160 1300 225 Output: Urine 350 1125 Other: Estimated Void Large Large Date of Last Bowel 04/07/17 Movement # Bowel Movements 0 1 Estimated Stool Amount Small # Voids 3 Assessment: STable 76 y/o male s/p R TKA by Dr. Stevenson 04/07/2017. Plan: - D/C to [facility] today- - medications sent - Follow up with Dr. Stevenson within 10 days - Pt/ Ot as shown. Active Medications Generic Name Dose Route Start Last Admin Trade Name Jordiq PRN Reason Stop Dose Admin Acetaminophen 650 mg 04/04/17 18:30 Tylenol Tab* PO Q4H PRN PAIN OR TEMPERATURE Bisacodyl 10 mg 04/04/17 11:50 04/06/17 18:56 Dulcolax Supp* SC 10 mg DAILY PRN Administration constipation Dextrose 12.5 gm 04/04/17 16:21 D50w Syringe 50 Ml* IV PUSH .FOR FS < 60 - SS PRN FS < 60 Diltiazem HCl 180 mg 04/05/17 09:00 04/07/17 07:55 Cardizem Cd Cap* PO 180 mg QAM [facility] Administration Diphenhydramine HCl 12.5 mg 04/04/17 11:50 Benadryl Iv* IV Q6H PRN PRURITIS Docusate Sodium 100 mg 04/04/17 21:00 04/07/17 07:54 Colace Cap* PO 100 mg BID [facility] Administration Duloxetine HCl 30 mg 04/04/17 21:00 04/07/17 07:54 Cymbalta Cap* PO 30 mg BID [facility] Administration Enoxaparin Sodium 40 mg 04/05/17 12:00 04/06/17 12:29 Lovenox(*) SUBCUT 40 mg Q24H [facility] Administration Gabapentin 600 mg 04/04/17 14:00 04/07/17 07:54 Neurontin Cap(*) PO 600 mg TID [facility] Administration Lactated Ringer's 1,000 mls @ 100 mls/hr 04/04/17 12:00 Lactated Ringers 1000 Ml Bag* IV PER RATE [facility] Insulin Human Lispro 0 units 04/04/17 16:30 04/07/17 08:22 Humalog* SUBCUT 3 units ACHS [facility] Administration Protocol Lactulose 30 ml 04/04/17 11:50 04/06/17 14:39 Lactulose* PO 30 ml Q6H PRN Administration constipation Levothyroxine Sodium 100 mcg 04/05/17 06:00 04/07/17 06:20 Synthroid Tab* PO Not Given QAM@0600 [facility] Levothyroxine Sodium 88 mcg 04/05/17 06:00 04/07/17 06:19 Synthroid Tab* PO 88 mcg DAILY@0600 [facility] Administration Magnesium Hydroxide 30 ml 04/04/17 21:00 04/07/17 07:50 Milk Of Magnesia Liq* PO Not Given BID [facility] Magnesium Hydroxide 30 ml 04/04/17 11:50 Milk Of Magnesia Liq* PO Q6H PRN constipation Morphine Sulfate 30 mg 04/04/17 21:00 04/07/17 07:55 Ms Contin(*) PO 30 mg BID [facility] Administration Morphine Sulfate 2 mg 04/05/17 10:00 04/06/17 05:03 Morphine Inj (Syringe)* IV 2 mg Q2H PRN Administration PAIN Pto: Omeprazole 10 0 dose 04/05/17 10:35 04/07/17 07:58 Mg Cap PO 1 dose TID [facility] Administration Ondansetron HCl 4 mg 04/04/17 11:50 04/04/17 18:22 Zofran Inj* IV 4 mg Q6H PRN Administration nausea Ondansetron HCl 4 mg 04/04/17 11:50 Zofran Tab* PO Q6H PRN NAUSEA Oxycodone HCl 10 mg 04/04/17 11:50 04/06/17 12:29 Roxycodone Tab* PO 10 mg Q4H PRN Administration SEVERE PAIN Oxycodone/Acetaminophen 2 tab 04/04/17 11:50 04/07/17 07:54 Percocet 5/325 Tab* PO 2 tab Q4H PRN Administration PAIN Oxycodone/Acetaminophen 1 tab 04/04/17 11:50 Percocet 5/325 Tab* PO Q4H PRN PAIN Pharmacy Profile Note 1 note 04/07/17 10:54 Scopolamine Patch Remove* PATCH OFF 04/07/17 10:55 Q72H ONE Pharmacy Profile Note 0 note 04/04/17 17:00 04/06/17 17:43 Coumadin Daily Reminder* FOLLOW UP 1 note 1700 [facility] Administration Polyethylene Glycol/Electrolytes 17 gm 04/04/17 11:50 Miralax* PO DAILY PRN Constipation Ramipril 2.5 mg 04/04/17 18:00 04/06/17 17:43 Altace Cap* PO 2.5 mg QPM [facility] Administration Warfarin Sodium 10 mg 04/07/17 17:00 Coumadin Tab(*) PO 04/07/17 17:01 ONCE@1700 [facility] Protocol
[2017-04-07] MEDS ORDERED: Cyclobenzaprine TAB* 10 MG PO PRN (09:50)
[2017-04-07] MEDS: Enoxaparin(*) 40 MG/0.4 ML SYR SUBCUT SCH (10:33)
[2017-04-07] MEDS ORDERED: Scopolamine PATCH Remove* 1 NOTE MISC PATCH OFF ONE (10:54)
[2017-04-07 12:18] VITALS: BP 126/58
--- NOTE | 2017-04-07 12:47 | DS ---
DISCHARGE SUMMARY: DATE OF ADMISSION: 04/04/17 DATE OF DISCHARGE: 04/07/17 ATTENDING PHYSICIAN: Tawnya Stevenson MD* (dictated by CHIN Phillips) CHIEF COMPLAINT: 1. Right knee pain. 2. Aortic valve stenosis. 3. Hypertension. 4. Chronic lower back pain. 5. Diabetes. 6. Right foot drop. 7. Hypothyroidism. 8. History of skin cancer. DISCHARGE DIAGNOSES: 1. Status post right total knee arthroplasty. 2. Aortic valve stenosis. 3. Hypertension. 4. Chronic lower back pain. 5. Diabetes. 6. Right foot drop. 7. Hypothyroidism. 8. History of skin cancer. PROCEDURE: Right total knee arthroplasty, uncomplicated, on 04/04/17. CONSULTATIONS: 1. Physical Therapy. 2. Occupational Therapy. 3. Hospitalist Medicine. BRIEF HISTORY: Mr. Sanders is a very pleasant 76-year-old gentleman with a longstanding history of end-stage osteoarthritis of the right knee who failed conservative treatment and elected to undergo a right total knee arthroplasty by Dr. Stevenson on 04/04/17. HOSPITAL COURSE: Mr. Sanders was admitted to [facility] on 04/04/17 where he underwent uncomplicated right total knee arthroplasty with an estimated blood loss of 1000 cc. The patient tolerated the procedure well and was sent to the surgical short-stay unit for postop recovery. His Stanley was removed on postoperative day #2 as he was voiding well on his own without difficulty. His labs and vital signs remained stable. His DVT prophylaxis was managed with Coumadin and Lovenox until he reached a therapeutic INR. He did advance appropriately with physical therapy and occupational therapy; however, they deemed it is necessary for the patient to have postoperative rehabilitation as opposed to going home. On postoperative day #3, he was orthopedically and medically stable for discharge to [facility] for continued rehabilitation. His diabetic medications from home were held and he was managed in-house with sliding scale insulin. PHYSICAL EXAMINATION: General: Well-appearing, no acute distress, alert and oriented, resting in bed comfortably. Vital Signs: Temperature 98.1, heart rate 80, respirations 17, oxygen saturation 93% to 97% on room air, blood pressure 136/58. Extremities: On examination of the right lower extremity shows that the sutures are intact with no drainage, minimal ecchymosis, no erythema surrounding the incision site, area was redressed without difficulty. The patient has decreased dorsiflexion and plantar flexion on right, but does have a history of right foot drop. Negative Homans sign. Positive moderate edema on the right lower extremity and posterior tibial pulses 2+ bilaterally. Sensation intact to light touch. LABORATORY DATA ON DATE OF DISCHARGE: Show an INR of 1.37 and H and H of 7.3 and 21. Postoperative films obtained on 04/04/17 at 1345 show a postoperative right knee arthroplasty in satisfactory position. DISCHARGE MEDICATIONS: 1. Tylenol 650 mg p.o. q. 4 hours p.r.n. for pain or fever, not to exceed 4000 mg in a day. 2. Diltiazem 180 mg p.o. q.a.m. 3. Colace 100 mg p.o. b.i.d. 4. Cymbalta 30 mg p.o. b.i.d. 5. Gabapentin 600 mg p.o. t.i.d. 6. Morphine extended release 30 mg p.o. b.i.d. 7. Prilosec 10 mg p.o. t.i.d. 8. Oxycodone 5 to 10 mg p.o. q. 4 to 6 hours for pain, MDD 12. 9. Altace 2.5 mg p.o. q.p.m. 10. Aspirin 325 mg one-half tablet p.o. q.a.m. 12. Bioflex 1 tab p.o. b.i.d. 13. Calcium 500 mg p.o. b.i.d. 14. Magnesium 250 mg p.o. b.i.d. 15. Metformin 1000 mg p.o. q.p.m. 16. Daily multivitamin 1 tablet daily p.o. q.a.m. 17. MiraLAX 17 g p.o. q.p.m. p.r.n. for constipation. 18. Potassium gluconate ER 550 mg p.o. q.a.m. 19. Senokot/Dulcolax 1 tablet p.o. q.p.m. 20. Coumadin 2 mg tablets daily at 5 p.m. per physician's instructions 1 to 3 tablets. 21. Levothyroxine 180 mcg daily with 88 mcg every other day. 22. Mucinex p.r.n. CONDITION ON DISCHARGE: Stable. DISCHARGE INSTRUCTIONS: Mr. Sanders is a very pleasant 76-year-old gentleman status post right total knee arthroplasty, which was uncomplicated. He is orthopedically and medically stable for discharge to go to [facility] for rehabilitation services. His labs and vitals signs are stable. He will restart his home medications. He will take 10 mg of Coumadin tonight, 6 mg on 04/08/17 and 6 mg on 04/09/17 with a repeat INR check on 04/10/17. He should have INR check every Monday and . Wound checks and dressing changes should be done daily with a dry dressing. His glucose should be monitored daily. His pain is controlled with MS Contin 30 mg b.i.d. as well as oxycodone 5 to 10 mg every 4 to 6 hours as needed for breakthrough pain. He will remain weightbearing as tolerated on the right lower extremity. He will take Colace as well as his home regimen for constipation. He will follow up with Dr. Stevenson in approximately 10 days for incision check and suture removal. He was instructed to go immediately to the ER should he develop chest pain or shortness of breath. Should he develop fever, increasing pain or redness, he is to call the office immediately. CHIN PHILLIPS [id number]/CPS #: [id number] MTDD
[2017-04-07] MEDS ORDERED: Warfarin TAB(*) 10 MG PO ONE (17:00)
--- NOTE | 2017-04-07 19:32 | PN ---
Subjective Date of Service: 04/07/17 Interval History: C/o mild right knee pain , and continues to have mild visual hallucinations. Denies chest pain or shortness of breath, Denies N/V/D. Family History: Unchanged from Admission - non-contributory Social History: Unchanged from Admission - remote hx of smoking, no ETOH or reported drug use per record Past Medical History: Unchanged from Admission - aortic stenosis, HTN, lumbar stenosis/chronic low back pain with drop foot, DM, hypothyroidism and remote hx of skin CA Objective Vital Signs - 8 hr 04/07/17 04/07/17 12:16 12:53 Temperature 98.3 F Pulse Rate 74 Respiratory 18 18 Rate Blood Pressure 126/58 (mmHg) O2 Sat by Pulse 92 Oximetry Oxygen Devices in Use Now: None Appearance: Appears comfortable resting in bed Eyes: No Scleral Icterus Ears/Nose/Mouth/Throat: Clear Oropharnyx, Mucous Membranes Moist Neck: NL Appearance and Movements; NL JVP, Trachea Midline Respiratory: Symmetrical Chest Expansion and Respiratory Effort, Clear to Auscultation Cardiovascular: NL Sounds; No Murmurs; No JVD, RRR, No Edema Abdominal: NL Sounds; No Tenderness; No Distention Extremities: No Clubbing, Cyanosis, - - right leg with swelling, drsg intact to right knee Skin: No Rash or Ulcers Neurological: Alert and Oriented x 3 Nutrition: Taking PO's Result Diagrams: 04/07/17 05:30 04/07/17 05:31 Assess/Plan/Problems-Billing Assessment: This is a 76 year old male patient with history of aortic stenosis, HTN, lumbar stenosis/chronic low back pain with drop foot, DM and hypothyroidism that presented to Dr. Stevenson for right knee pain, who is s/p RTKA. - Patient Problems (1) Aortic stenosis Status: Acute Code(s): I35.0 - NONRHEUMATIC AORTIC (VALVE) STENOSIS SNOMED Code(s): 68319353 Comment: Carefully monitor fluid status, avoiding dehydration and overhydration H/H improved to 7.3/21 will discharge senior care facility would recommend repeat cbc in 4 days (2) Status post total right knee replacement Status: Acute Code(s): Z96.651 - PRESENCE OF RIGHT ARTIFICIAL KNEE JOINT SNOMED Code(s): 4629987566166 Comment: POD #3, management per ortho Continue pain control, PT/OT HH low secondary to acute blood loss anemia, will continue to monitor repeat 4 days (3) JERRI (acute kidney injury) Status: Acute Code(s): N17.9 - ACUTE KIDNEY FAILURE, UNSPECIFIED SNOMED Code (s): 38392131 Comment: Resolved. Creatinine back to baseline. Suspect the creatinine was elevated d/t dehydration. (4) Diabetes Status: Chronic Code(s): E11.9 - TYPE 2 DIABETES MELLITUS WITHOUT COMPLICATIONS SNOMED Code(s): 35027471 Comment: BG 170's- 206 resume home medications (5) Hallucination, visual Status: Acute Code(s): R44.1 - VISUAL HALLUCINATIONS SNOMED Code(s): 54270507 Comment: suspect this is related to anesthesia and pain medications Currently alert and oriented x3 hallucinations are mild at this time will continue to monitor would recommend limiting narcotic medications if hallucinations become worse. (6) DVT prophylaxis Status: Acute Code(s): SQI4566 - SNOMED Code(s): 372028158 Comment: Per ortho, SQ Lovenox and warfarin (7) Full code status Status: Acute Code(s): Z78.9 - OTHER SPECIFIED HEALTH STATUS SNOMED Code(s) : 407385807 Status and Disposition: Inpatient admission. Dispo per ortho.
== END 2017-04-07 13:20 | DRG 302 ==
LOC: AA 07:57 → ICU 17:02 → SSU 04-05 11:23
PROVIDERS: ADMIT Orthopaedic Surgery Adult Reconstructive Orthopaedic Surgery; ATTEND Internal Medicine
PROC: 0SRC0J9 Replacement of Right Knee Joint with Synthetic Substitute, Cemented, Open Approach (ICD-10-PCS; principal; 2017-04-04 10:15)
PROC: 30233N1 Transfusion of Nonautologous Red Blood Cells into Peripheral Vein, Percutaneous Approach (ICD-10-PCS; 2017-04-05)
DX: M17.11 Unilateral primary osteoarthritis, right knee (principal); N17.9 Acute kidney failure, unspecified; E86.1 Hypovolemia; E11.9 Type 2 diabetes mellitus without complications; D62 Acute posthemorrhagic anemia; I35.0 Nonrheumatic aortic (valve) stenosis; I10 Essential (primary) hypertension; G89.29 Other chronic pain; M54.5 Low back pain; M21.371 Foot drop, right foot; R42 Dizziness and giddiness; G47.33 Obstructive sleep apnea (adult) (pediatric); R44.1 Visual hallucinations; I83.90 Asymptomatic varicose veins of unspecified lower extremity; M25.761 Osteophyte, right knee; E03.9 Hypothyroidism, unspecified; Z85.828 Personal history of other malignant neoplasm of skin; Z79.01 Long term (current) use of anticoagulants; Z79.82 Long term (current) use of aspirin; Z79.4 Long term (current) use of insulin; Z80.9 Family history of malignant neoplasm, unspecified; Z83.3 Family history of diabetes mellitus; Z87.891 Personal history of nicotine dependence
CPT/HCPCS: 36415; 76000; 80048; 85014; 85018; 85049; 85610; 86850; 86900; 86901; 86922; 88304; 88311; 94760; A9270-GY; J0690; J1170; J1650; J1885; J2250; J2270; J2405; J2704; J3010; P9040

== ENCOUNTER 2017-10-05 00:05 | Emergency (ER) | payer MEDICARE, OTHER ==
--- OUTSIDE RECORDS SUMMARY | 2017-10-05 00:41 | XMS REPORT ---
:1940 External Reference #:[id number] Author Organization [facility] Address [address] [place] [address] [place] [address] Phone [phone] Care Team Providers Name Role Phone Torsten Chan MD Primary Care Physician Unavailable Payers Type Date Identification Numbers Payment Provider Subscriber Medicare Primary Effective: Policy Number: Medicare Maggie Sanders 1998 [id number] PayID: [id number] [address] [place] [address] [facility] Part B Effective: Policy Number: [facility] Maggie Quintero 2010 [id number] Marilyn PayID: [id number] [address] [place] [address] Commercial PayID: [id number] Medicare D - Drug Maggie Sanders Plan Workers Compensation Onset: Policy Number: [place] Maggie Mckeonright 1994 [id number] Group Number: [id number] [address] Group Name: [id number] [place] [address] PayID: [facility] Workers Compensation Policy Number: [id number] Controverted Maggie Sanders Group Number: [id number] PayID: [id number] Advance Directives Type Date Description Status Comment [...] Onset: 02/15/2017 Aortic valve stenosis Torsten Chan M.D.,JULIAN Active Note: moderate Onset: 06/01/2017 Total replacement of right knee Torsten Chan Active joint Ivonne,FACP Onset: 06/19/2017 Arthroplasty of knee Tawnya Stevenson M.D. Active Onset: 06/19/2017 Localized, primary Tawnya Stevenson M.D. Active osteoarthritis Onset: 12/04/2012 Postsurgical Status Other Luke Kapadia [...] Second Brother Throat Cancer Second Brother 80 Second Brother Lung Cancer Social History Type Date Description Comments Marital Status Lives With Alone Occupation Retired auto electrician Cigarette Use Former Cigarette Smoker Cigarette Use Quit - Age 46 ETOH Use 11/10/2016 Denies alcohol use Smoking [...] Form Strength Qnty SIG Indications Ordering Provider Shingrix 09/15/ Active Suspension 50mcg 2unit 1 SC/Im x1 Torsten 2018 Rec s now, Christoph Chan, repeat in M.D.,FACP 2-6 mon x1 Onetouch Verio 07/03/ Active Kit w/Device 1unit for E11.8 Torsten Iq Blood Glucose 2018 s testing up Christoph Chan, Monitoring to 3 times M.D.,FACP System daily, last visit 06/28/17 Onetouch Delica 06/14/ Active Misc 100un Test Once E11.8 Maribell Lancets Extra 2018 its To Twice A Mcguire, Fine 33G Day DIRECTOR OF PHARMACY Onetouch Verio 06/13/ Active Strips 100un test up to E11.8 Maribell 2018 its three Mcguire, times DIRECTOR OF PHARMACY daily last visit: 06/01/17 rx brand may be altered to fit insurance coverage Chlorthalidone 05/23/ Active Tablets 25mg 90tab 1 by mouth Torsten 2018 s every day Christoph Chan M.D.,FACP Wheeled Heavy 05/23/ Active 1unit wheeled Tawnya Duty Charles 2018 s heavy duty charles Stevenson M.D. Atorvastatin 02/09/ Active Tablets 10mg 90tab take 1 Torsten Calcium 2016 s tablet by Christoph Chan, mouth at M.D.,FACP bedtime Ramipril 02/09/ Active Capsules 5mg 90cap Take One Torsten 2016 s Capsule By Christoph Chan, Mouth Once M.D.,FACP Daily as Directed Levothyroxine 11/30/ Active Tablets 100mcg 90tab take one Torsten Sodium 2017 s tablet by Christoph Chan, mouth once M.D.,FACP daily with 88 mcg tablet Levothyroxine 11/30/ Active Tablets 88mcg 90tab take one Torsten Sodium 2017 s tablet by Christoph Chan, mouth once M.D.,FACP daily Miralax 11/10/ Active Powder [id number] 510un 17 gm Torsten 2017 its every day Christoph Chan, mixed w/ 8 M.D.,FACP oz water/juic e as needed Metformin HCL ER 11/10/ Active Tablets ER 500mg 180ta 2 tabs by Ismael Dsouza 2016 24HR bs mouth Christoph Chan, every M.DJacqueline,FACP night MS Contin 01/29/ Active Tablets ER 15mg 60tab 1 twice a Luke Ashford 2012 s day to judy Kapadia with Ivonne ms contin 30 mg to equal 45 mg. MS Contin 01/21/ Active Tablets ER 30mg 60tab 1 by mouth Luke Ashford 2012 s twice a Kang, edith Coronado Lumbosacral 11/30/ Active Misc with Luke Ashford Support/Lightwei 2010 molded amparo Kapadia/Elastic/X-La plastic Ivonne rge insert Neurontin 05/09/ Active Tablets 600mg 90tab 1 by mouth Torsten 2006 s three Christoph Chan, times a M.DJacqueline,FACP day Cardizem CD / Active Caps ER 180mg 90cap 1 by mouth Torsten 24HR s every day Christoph Chan M.D.,FACP Calcium / Active Tablets 500mg 60tab 1 po bid Cardina, s MD Yash Multivitamins / Active Capsules 30cap 1 capsule Cardi, s james;y MD Yash Potassium / Active Tablets 99mg otc once a Cardi day MD Yash Magnesium / Active Tablets 250mg 30tab 1 po bid Cardina, s MD Yash Mucinex / Active Tablets ER 600mg 60tab 1 tab am 2 Unknown 12HR s pm Senna / Active Capsules 8.6mg 60cap 1-2 po qhs Unknown s Stool Softener / Active Capsules 100mg 60cap 1 po tid Cardina, s MD Yash Diclofenac / Active Tablets 50mg 90tab 1 po tid Torsten Potassium s Christoph Chan M.D.,FACP Omeprazole / Active Capsules DR 10mg 90cap 1 po tid Torsten s with george Barnard M.D.,FACP Aspirin Ec / Active Tablets DR 81mg 1 by mouth Unknown 0000 every day Duloxetine HCL / Active Caps DR 30mg 180ca Take One Torsten 0000 Part ps Capsule By Christoph Chan, Mouth M.D.,FACP Twice A Day as Directed Onetouch Delica 06/13/ Hx Misc 30G 180un test up to E11.8 Torsten Da Silva Fine 30G 2018 - its three Christoph Chan, 06/14/ times M.D.,FACP 2018 daily last visit: 06/01/17, rx brand may be altered to fit insurance coverage Penicillin V 03/31/ Hx Tablets 500mg 15tab one tab Tawnya Potassium 2018 - s every 8 Graham, 06/01/ hours x 5 M.D. 2018 days Bactrim DS 03/27/ Hx Tablets 800-160mg 6tabs take 1 by Tawnya 2018 - mouth Graham, 03/30/ twice a M.D. 2018 day for 3 days Coumadin 03/24/ Hx Tablets 2mg 90tab take 1-3 Tawnya 2018 - s tabs by Graahm, 05/22/ mouth at 5 M.D. 2018 at night as directed Metformin HCL ER 11/10/ Hx Tablets ER 500mg 180ta 2 tabs po Torsten (Osm) 2017 - 24HR bs qpm Christoph Chan, 11/10/ M.D.,FACP 2017 Ramipril 11/10/ Hx Capsules 2.5mg 30cap 1 by mouth Torsten 2016 - s every day Christoph Chan, 02/09/ M.D.,FACP 2016 Orphenadrine 06/02/ Hx Tablets ER 100mg 60tab 1 tab by Luke Ashford Citrate ER 2015 - 12HR s mouth Kang, 03/15/ twice a M.D. 2018 day as needed spasm Arthrotec 04/02/ Hx Tablets DR 75-0.2mg 60tab take one Luke Ashford 2014 - s tablet by Kang, 11/10/ mouth M.D. 2016 twice a day MS Contin 11/30/ Hx Tablets ER 15mg 100ta two po qam Luke Ashford 2010 - bs and two po Kang, 01/21/ qpm to M.D. 2012 replace MS Contin 30 mg (not available) MS Contin 11/30/ Hx Tablets ER 30mg 60tab one po bid Luke Ashford 2010 - s Kang, 01/07/ M.D. 2013 Soma 08/15/ Hx Tablets 350mg 30tab 1 po bid Luke Ashford 2010 - s Kang, 08/26/ M.DJacqueline 2015 Coumadin 08/05/ Hx Tablets 2.5mg 50tab 2 po use Richard 2010 - s as Nayan, 05/29/ directed M.DJacqueline 2012 MS Contin 03/10/ Hx Tablets ER 15mg 120ta one to two Luke Ashford 2009 - 12HR bs po bid if Kang, 11/30/ needed for M.D. 2011 pain. Morphine Sulfate 09/04/ Hx Tablets 15mg 90tab 1 by mouth Luke Ashford 2007 - s up to Kang, 11/10/ M.DJacqueline 2017 times a day as needed MS Contin 05/09/ Hx Tablets ER 15mg 125ta 2-3 po bid Luke Ashford 2006 - 12HR bs Kang, 03/10/ M.DJacqueline 2009 Metformin HCL / Hx Tablets 500mg 60tab 2 tabs bid Cardina, 0000 - s Yash, 2016 Arthrotec 75 / Hx Tablets 75-0.2mg 180ta 1 po bid Cardina, 0000 - bs Yash, 2014 Synthroid / Hx Tablets 175mcg 30tab 1 po qd Cardina, 0000 - s Yash, 2016 Aspirin / Hx Tablets 325mg 1/2 po qd Cardina, 0000 - Yash, 2018 Orphenadrine / Hx Tablets ER 100mg po bid prn Cardina, Citrate CR 0000 - 12HR Yash, 2016 Vitamin C / Hx Capsules 500mg 1 po bid Cardina, 0000 - Yash, 2015 Vitamin B12 / Hx Tablets 500mcg 1 po qd Cardina, 0000 - Yash, 2015 Levothyroxine / Hx Tablets 175mcg 30tab 1 by mouth Torsten Sodium 0000 - s every day Christoph Chan, 11/30/ MHollis,FACP 2017 Medications Administered in Office Medication Date Status Form Strength Qnty SIG Indications Ordering Provider Depomedrol Administered Injection Jt F 40MG 017 MD Navid Depomedrol Administered Injection Aric Lopez, 40MG 016 M.D. Immunizations CPT Code Status Date Vaccine Reaction Lot # [id number] Given 06/28/2017 Pneumonia Vaccine [id number] Given 01/03/2017 Tdap - no immediate reaction, [id number] Tetanus/Diptheria/Acellular pt tolerated well Pertussis 86539 Given 11/10/2016 Influenza Virus Vaccine, [id number] Quadrivalent, Split, Preservative Free 29659 Given 02/18/2015 Pneumococcal Conjugate Vaccine 13 Valent For Intramuscular Use 13777 Given 01/12/2015 Zoster (Zostavax) 58746 Given 12/25/2002 Pneumonia Vaccine Vital Signs Date Vital Result Comment 09/15/2017 Height 72 inches 6'0" Weight 308.00 lb Heart Rate 77 /min BP Systolic Sitting 148 mmHg BP Diastolic Sitting 76 mmHg BP Systolic Recheck 105 mmHg BP Diastolic Recheck 60 mmHg Body Temperature 98.5 F O2 % BldC Oximetry 95 % BMI (Body Mass Index) 41.8 kg/m2 06/28/2017 Height 72 inches 6'0" Weight 289.00 lb Heart Rate 69 /min BP Systolic 136 mmHg BP Diastolic 78 mmHg Body Temperature 97.6 F O2 % BldC Oximetry 96 % BMI (Body Mass Index) 39.2 kg/m2 06/19/2017 Height 72 inches 6'0" Weight 280.00 lb BP Systolic 140 mmHg BP Diastolic 74 mmHg Body Temperature 98.2 F Pain Level 5 BMI (Body Mass Index) 38.0 kg/m2 06/01/2017 Weight 294.00 lb Heart Rate 75 /min BP Systolic Sitting 142 mmHg BP Diastolic Sitting 70 mmHg BP Systolic Recheck 142 mmHg BP Diastolic Recheck 74 mmHg Body Temperature 98.8 F O2 % BldC Oximetry 98 % 04/19/2017 Height 72 inches 6'0" Heart Rate 68 /min BP Systolic 122 mmHg BP Diastolic 60 mmHg Respiratory Rate 16 /min Body Temperature 98.0 F Pain Level 8 03/24/2017 Height 72 inches 6'0" Weight 299.00 [...] Test Date Test Result H/L Range Note Drug Abuse 20 Urine 07/03/2017 Urine Amphetamine Negative ng/mL 1 Urine Barbiturates Negative ng/mL 2 Urine Benzodiazepines Negative ng/mL 3 Urine Cocaine Negative ng/mL 4 Urine Phencyclidine Negative ng/mL Cutoff: 25 Urine Tetrahydrocannabinol Negative ng/mL Cutoff: 50 5 Creatinine, Urine 68.3 mg/dL Specific [place] 1.010 pH 7.3 Oxidants Negative 6 Adulterants Comment Normal Codeine, Ur Not Detected ng/mL Cutoff: 25 7 Fjrovrb-7-jole-glucuronide, Ur Not Detected ng/mL 8 Morphine, Ur Present ng/mL Cutoff: 25 9 Vwnpkwle-7-rhzz-glucuronide, U Present ng/mL 10 6-monoacetylmorphine, Ur Not Detected ng/mL Cutoff: 25 11 Hydrocodone, Ur Not Detected ng/mL Cutoff: 25 12 Norhydrocodone, Ur Not Detected ng/mL Cutoff: 25 13 Dihydrocodeine, Ur Not Detected ng/mL Cutoff: 25 14 Hydromorphone, Ur Not Detected ng/mL Cutoff: 25 15 Liienouyyszrx3kqovavktzzqulvw Present ng/mL 16 Oxycodone, Ur Not Detected ng/mL Cutoff: 25 17 Noroxycodone, Ur Not Detected ng/mL Cutoff: 25 18 Oxymorphone, Ur Not Detected ng/mL Cutoff: 25 19 Keqyomgqhax-9-buho-glucuronide Not Detected ng/mL 20 Noroxymorphone, Ur Not Detected ng/mL Cutoff: 25 21 Fentanyl, Ur Not Detected ng/mL Cutoff: 2 22 Norfentanyl, Ur Not Detected ng/mL Cutoff: 2 23 Meperidine, Ur Not Detected ng/mL Cutoff: 25 24 Normeperidine, Ur Not Detected ng/mL Cutoff: 25 25 Naloxone, Ur Not Detected ng/mL Cutoff: 25 26 Qjhrclqp-9-xexd-glucuronide, U Not Detected ng/mL 27 Methadone, Ur Not Detected ng/mL Cutoff: 25 28 Eddp, Ur Not Detected ng/mL Cutoff: 25 29 Propoxyphene, Ur Not Detected ng/mL Cutoff: 25 30 Norpropoxyphene, Ur Not Detected ng/mL Cutoff: 25 31 Tramadol, Ur Not Detected ng/mL Cutoff: 25 32 O-desmethyltramadol, Ur Not Detected ng/mL Cutoff: 25 33 Tapentadol, Ur Not Detected ng/mL Cutoff: 25 34 N-desmethyltapentadol, Ur Not Detected ng/mL Cutoff: 50 35 Rmsqytevem-isnw-nglogxtjaty, U Not Detected ng/mL 36 Buprenorphine, Ur Not Detected ng/mL Cutoff: 5 37 Norbuprenorphine, Ur Not Detected ng/mL Cutoff: 5 38 Norbuprenorphine glucuronide Not Detected ng/mL Cutoff: 20 39 Opioid Interpretation See Comment 40 Lipid Panel 06/08/2017 Triglycerides 109 mg/dL 41, 42 Cholesterol 157 mg/dL 41, 43 HDL Cholesterol 52.2 mg/dL 41, 44 LDL Cholesterol 83 mg/dL 41, 45 BMP Basic Metabolic Panel (8) 06/08/2017 Sodium 137 mmol/L Low 139-145 41 Potassium 4.5 mmol/L 3.5-5.0 41 Chloride 98 mmol/L Low 101-111 41 Co2 Carbon Dioxide 30 mmol/L 22-32 41 Anion Gap 9 mmol/L 2-11 41 Glucose 156 mg/dL High 70-100 41 Blood Urea Nitrogen 24 mg/dL 6-24 41 Creatinine 1.13 mg/dL 0.67-1.17 41 BUN/Creatinine Ratio 21.2 High 8-20 41 Calcium 9.5 mg/dL 8.6-10.3 41 Egfr Non- 63.3 >60 41 Egfr 81.4 >60 41, 46 Laboratory test 06/08/2017 Hemoglobin A1c (Glyco 6.4 % High 4.0-5.6 41, 47 finding HGB) Laboratory test 06/01/2017 Hemoglobin A1c 6.4 5-7 finding Inr/Protime 04/24/2017 Inr 2.17 High 0.77-1.02 48 Rapid Influenza A & B 04/22/2017 Influenza A Molecular NEGATIVE Negative 49 Molecular Influenza B Molecular NEGATIVE Negative Inr/Protime 04/19/2017 Inr 1.50 High 0.77-1.02 50 Inr/Protime 04/17/2017 Inr 1.38 High 0.77-1.02 51 CBC Auto Diff 04/14/2017 White Blood Count 7.3 10^3/uL 3.5-10.8 52 Red Blood Count 2.80 10^6/uL Low 4.0-5.4 52 Hemoglobin 8.2 g/dL Low 14.0-18.0 52 Hematocrit 25 % Low 42-52 52 Mean Corpuscular Volume 88 fL 80-94 52 Mean Corpuscular Hemoglobin 29 pg 27-31 52 Mean Corpuscular HGB Conc 33 g/dL 31-36 52 Red Cell Distribution Width 14 % 10.5-15 52 Platelet Count 444 10^3/uL 150-450 52 Mean Platelet Volume 7 um3 Low 7.4-10.4 52 Abs Neutrophils 3.8 10^3/uL 1.5-7.7 52 Abs Lymphocytes 2.1 10^3/uL 1.0-4.8 52 Abs Monocytes 0.9 10^3/uL High 0-0.8 52 Abs Eosinophils 0.3 10^3/uL 0-0.6 52 Abs Basophils 0.1 10^3/uL 0-0.2 52 Abs Nucleated RBC 0 10^3/uL 52 Granulocyte % 52.0 % 38-83 52 Lymphocyte % 29.6 % 25-47 52 Monocyte % 12.6 % High 1-9 52 Eosinophil % 4.8 % 0-6 52 Basophil % 1.0 % 0-2 52 Nucleated Red Blood Cells % 0.1 52 Inr/Protime 04/14/2017 Inr 1.33 High 0.77-1.02 52 CBC Auto Diff 03/24/2017 White Blood Count 8.5 10^3/uL 3.5-10.8 Red Blood Count 3.98 10^6/uL Low 4.0-5.4 Hemoglobin 11.6 g/dL Low 14.0-18.0 Hematocrit 35 % Low 42-52 Mean Corpuscular Volume 88 fL 80-94 Mean Corpuscular Hemoglobin 29 pg 27-31 Mean Corpuscular HGB Conc 33 g/dL 31-36 Red Cell Distribution Width 13 % 10.5-15 Platelet Count 298 10^3/uL 150-450 Mean Platelet Volume 7 um3 Low 7.4-10.4 Abs Neutrophils 4.7 10^3/uL 1.5-7.7 Abs Lymphocytes 2.9 10^3/uL 1.0-4.8 Abs Monocytes 0.6 10^3/uL 0-0.8 Abs Eosinophils 0.3 10^3/uL 0-0.6 Abs Basophils 0.1 10^3/uL 0-0.2 Abs Nucleated RBC 0 10^3/uL Granulocyte % 54.7 % 38-83 Lymphocyte % 34.3 % 25-47 Monocyte % 7.0 % 1-9 Eosinophil % 3.3 % 0-6 Basophil % 0.7 % 0-2 Nucleated Red Blood Cells % 0 Type & Screen 03/24/2017 Patient Blood Type B Positive Antibody Screen NEGATIVE Urine Culture And 03/24/2017 Urine Culture SEE RESULT BELOW 53 Sensitivities Laboratory test finding 03/24/2017 Partial Thrombo 29.4 seconds 26.0- 36.3 Time PTT Inr/Protime 03/24/2017 Inr 0.93 0.77-1.02 Urinalysis Profile 03/24/2017 Urine Color Yellow Urine Appearance Clear Urine Specific [place] 1.010 1.010-1.030 Urine pH 6.0 5-9 Urine Urobilinogen Negative Negative Urine Ketones Negative Negative Urine Protein Negative Negative Urine Leukocytes Trace Negative Urine Blood Negative Negative Urine Nitrite Negative Negative Urine Bilirubin Negative Negative Urine Glucose Negative Negative Urine White Blood Cell Trace(0-5/hpf) Absent Urine Red Blood Cell Trace(0-2/hpf) Absent Urine Bacteria Absent Absent Comp Metabolic Panel 03/24/2017 Sodium 136 mmol/L 133-145 Potassium 4.3 mmol/L 3.5-5.0 Chloride 99 mmol/L Low 101-111 Co2 Carbon Dioxide 31 mmol/L 22-32 Anion Gap 6 mmol/L 2-11 Glucose 114 mg/dL High 70-100 Blood Urea Nitrogen 19 mg/dL 6-24 Creatinine 0.86 mg/dL 0.67-1.17 BUN/Creatinine Ratio 22.1 High 8-20 Calcium 9.4 mg/dL 8.6-10.3 Total Protein 7.0 g/dL 6.4-8.9 Albumin 4.2 g/dL 3.2-5.2 Globulin 2.8 g/dL 2-4 Albumin/Globulin Ratio 1.5 1-3 Total Bilirubin 0.40 mg/dL 0.2-1.0 Alkaline Phosphatase 82 U/L 34-104 Alt 21 U/L 7-52 Ast 20 U/L 13-39 Egfr Non- 86.7 >60 Egfr 111.5 >60 54 Laboratory test 02/04/2017 TSH (Thyroid Stim Horm) 3.78 mcIU/mL 0.34- 5.60 finding Lipid Profile 11/26/2016 Triglycerides 93 mg/dL 55 (Trig/Chol/HDL) Cholesterol 206 mg/dL 56 HDL Cholesterol 46.5 mg/dL 57 LDL Cholesterol 141 mg/dL 58 Basic Metabolic Panel 11/26/2016 Sodium 137 mmol/L 133-145 Potassium 4.9 mmol/L 3.5-5.0 Chloride 100 mmol/L Low 101-111 Co2 Carbon Dioxide 30 mmol/L 22-32 Anion Gap 7 mmol/L 2-11 Glucose 149 mg/dL High 70-100 Blood Urea Nitrogen 17 mg/dL 6-24 Creatinine 0.87 mg/dL 0.67-1.17 BUN/Creatinine Ratio 19.5 8-20 Calcium 9.0 mg/dL 8.6-10.3 Egfr Non- 85.5 >60 Egfr 110.0 >60 59 Laboratory test 11/26/2016 Hemoglobin A1c 6.4 % High Less than 6.0 60 finding (Glyco HGB) Urine Microalbumin 11/26/2016 Urine [...] TSH (Thyroid Stim 6.95 mcIU/mL High 0.34-5.60 61 finding Horm) Laboratory test 08/10/2015 Body Fluid CPPD(Ca Pyrophos 62, 63 finding Crystals <SEE NOTE> Laboratory test 09/16/2014 Point of Care 125 mg/dL High 74-106 64 finding Glucose CBC Auto Diff 04/12/2014 White Blood Count [...] mmol/L 0.5-2.2 Inr/Protime 04/12/2014 Inr 0.97 0.78-1.07 65 Laboratory test finding 04/12/2014 Activated Partial 26.8 seconds 24.0- 36.1 Thrombo Time Ammonia 31 mol/L 16-53 B Type Natriuretic Peptide 45 pg/mL 66 Comp Metabolic Panel 04/12/2014 Sodium 136 mmol/L [...] Egfr Non- 79.9 >60 Egfr 102.7 >60 67 Laboratory test finding 04/12/2014 Magnesium 2.1 mg/dL 1.9-2.7 Lipase 8 U/L Low 11.0-82.0 Troponin I 0.00 ng/mL <0.03 68 Acetaminophen < 15 g/mL 69 Alcohol < 10 mg/dL <10 Salicylate < 2.50 mg/dL <30 TSH (Thyroid Stimulating Horm) 0.88 IU/mL 0.34-5.60 C Reactive Protein 9.59 mg/L High < 5.00 70 Urinalysis Profile 04/12/2014 Urine Color Yellow Urine Appearance Cloudy Urine Specific [place] 1.010 1.010-1.030 Urine pH 5.0 5-9 Urine Urobilinogen Negative Negative Urine Ketones Negative Negative Urine Protein Negative Negative Urine Leukocytes Negative Negative Urine Blood Negative Negative Urine Nitrite Negative Negative Urine Bilirubin Negative Negative Urine Glucose Negative Negative Urine Drug SCR ED & 04/12/2014 Amphetamine Ur Screen None Detected None Detect Pain Clinic Barbiturates Urine Screen None Detected None Detect Benzodiazepine Urine Screen None Detected None Detect Urine Cannabinoids Screen None Detected None Detect Urine Cocaine Screen None Detected None Detect Urine Opiates Screen Presumptive Posi <SEE NOTE> None Detect 71 Urine Phencyclidine Screen None Detected None Detect 72 Lipid Profile (Trig/Chol/HDL) 02/18/2014 Triglycerides 84 mg/dL 73, 74 Cholesterol 207 mg/dL 73, 75 HDL Cholesterol 52.1 mg/dL 73, 76 LDL Cholesterol 138 mg/dL 73, 77 Laboratory test 02/18/2014 Hemoglobin A1c 6.0 % Less than 6.0 73, 78 finding CBC Auto Diff 09/04/2012 White Blood Count [...] 0-2 Nucleated Red Blood Cells % 0 Comp Metabolic Panel 09/04/2012 Sodium 138 mmol/L [...] Egfr Non- 111.5 >60 Egfr 143.4 >60 79 Type And Screen (Pre-Adm) 08/05/2010 Patient Blood Type B POSITIVE 80 Antibody Screen NEGATIVE 80 Specimen Discard Date 08/19/10 80, 81 Basic Metabolic Panel 08/05/2010 Sodium 138 mmol/L 135-145 80 Potassium 5.0 mmol/L 3.5-5.0 80 Chloride 102 mmol/L 101-111 80 Co2 (Carbon Dioxide) 29.0 mmol/L 22-32 80 Anion Gap 7.0 mmol/L 2-11 80, 82 Glucose 108 mg/dL High 70-100 80 BUN 18 mg/dL 6-24 80 Creatinine 0.70 mg/dL 0.50-1.40 80 One Over Creatinine 1.40 80 BUN/Creatinine Ratio 25.7 High 8-20 80 Calcium 9.4 mg/dL 8.1-9.9 80 eGFR Non- 112.1 > 60 80 eGFR 144.2 > 60 80, 83 Protime 08/05/2010 Inr 1.04 0.82-1.17 80, 84 Protime 12.3 SEC 10.2-14.8 80, 85 Urinalysis 08/05/2010 Ua Color YELLOW Yellow 80 Appearance-Urine CLEAR Clear 80 Specific [place]-Ur 1.028 1.010-1.030 80 Esterase-Urine NEGATIVE Negative 80 Nitrite NEGATIVE Negative 80 Yylwzfnnhyvs-Rw-PFX NEGATIVE Negative 80 Protein-Urine NEGATIVE Negative 80 PH-Urine 6.0 5-9 80 Blood-Urine NEGATIVE Negative 80 Ketones-Urine NEGATIVE Negative 80 Bilirubin-Ur NEGATIVE Negative 80 Glucose-Urine NEGATIVE Negative 80 CBC Auto Diff 08/05/2010 White Blood Count 7.9 CUMM 4.8-10.8 80 Red Cell Count 4.34 CUMM Low 4.6-6.2 80 Hemoglobin 13.6 g/dL Low 14.0-18.0 80 Hematocrit 39 % Low 42-52 80 Mean Corpuscular Volume 90 um3 80-94 80 Mean Corpuscular Hemoglob 31 pg 27-31 80 Mean Corpuscular HGB Cone 35 g/dL 32-36 80 Redcell Distribution WDTH 13 % 10.5-15 80 Platelet Count 237 CUMM 150-450 80 Mean Platelet Volume 7.4 um3 7.4-10.4 80 Gran % 65.3 % 38-83 80 Lymph % 23.9 % Low 25-47 80 Mononuclear % 7.0 % 1-9 80 Eosinophil % 3.2 % 0-6 80 Basophil % 0.6 % 0-2 80 Abs Lymphs 1.9 1.0-4.8 80 Abs Mononuclear 0.6 0-0.8 80 Absolute Neutrophil Count 5.2 1.5-7.7 80 Abs Eosinophils 0.3 0-0.6 80 Abs Basophils 0 0-0.2 80 Comp Metabolic Panel 04/22/2008 Sodium 138 mmol/L 135-145 Potassium 4.9 mmol/L 3.5-5.0 Chloride 102 mmol/L 101-111 Co2 (Carbon Dioxide) 29.0 mmol/L 22-32 Anion Gap 7.0 mmol/L 2-11 86 Glucose 111 mg/dL High 70-100 87 BUN 17 mg/dL 6-24 Creatinine 0.80 mg/dL 0.50-1.40 One Over Creatinine 1.20 BUN/Creatinine Ratio 21.3 High 8-20 Calcium 9.5 mg/dL 8.1-9.9 88 Total Protein 6.7 GM/DL 6.2-8.1 Albumin 4.0 GM/DL 3.2-5.2 Globulin 2.7 GM/DL 2-4 Albumin/Globulin Ratio 1.5 1-3 Bilirubin Total 0.6 mg/dL 0.4-1.5 Alkaline Phosphatase 84 U/L 39-117 Alt (SGPT) 45 U/L 17-63 Ast (Sgot) 31 U/L 12-42 Laboratory test finding 04/22/2008 TSH 1.19 MIU/ML 0.34-5.60 C Reactive Protein 0.6 mg/dL High Less Than 0.5 Laboratory test finding 04/22/2008 Erythrocyte Sed Rate 13 MM/HR 0-40 CBC With Electronic Diff 04/22/2008 White Blood [...] Basophils 0 0-0.2 Laboratory test finding 04/22/2008 Hemoglobin A1c 6.4 % High <6.0 89 1 REFERENCE VALUE Cutoff: 500 2 REFERENCE VALUE Cutoff: 200 3 REFERENCE VALUE Cutoff: 100 4 REFERENCE VALUE Cutoff: 150 5 ADDITIONAL INFORMATION This report is intended for use in clinical monitoring or management of patients. It is not intended for use in employment-related testing. 6 REFERENCE VALUE Cutoff: 200 mg/L 7 Tylenol 3 8 Metabolite of codeine REFERENCE VALUE Cutoff: 100 9 Karlene Milan, Contin; Also a minor metabolite (10%) of codeine and can be seen in low concentrations (<2,000 ng/mL) with poppy seed ingestion. 10 Metabolite of morphine REFERENCE VALUE Cutoff: 100 11 Metabolite of heroin 12 Lortab, Preston, Vicodin; Also a very minor metabolite of codeine and impurity (<1%) of oxycodone. 13 Metabolite of hydrocodone 14 Metabolite of hydrocodone 15 Dilaudid, Exalgo; Also a metabolite of hydrocodone and a minor (<5%) metabolite of morphine. 16 Metabolite of hydromorphone REFERENCE VALUE Cutoff: 100 17 Endocet, Percocet, Oxycontin 18 Metabolite of oxycodone 19 Numorphan, Opana; Also a metabolite of oxycodone. 20 Metabolite of oxymorphone REFERENCE VALUE Cutoff: 100 21 Metabolite of oxymorphone 22 Actiq, Duragesic, [place]ent[place] 23 Metabolite of fentanyl 24 Demerol 25 Metabolite of meperidine 26 Narcan 27 Metabolite of naloxone REFERENCE VALUE Cutoff: 100 28 Dolophine 29 Metabolite of methadone 30 Darvon, Darvocet 31 Metabolite of propoxyphene 32 Tradol, Ultram, Ultracet 33 Metabolite of tramadol 34 Nucynta 35 Metabolite of tapentadol 36 Metabolite of tapentadol REFERENCE VALUE Cutoff: 100 37 Buprenex, Suboxone 38 Metabolite of buprenorphine 39 Metabolite of buprenorphine 40 Test detected the presence of both morphine and its metabolites (gsmptptg-7-shbe-glucuronide and twwjlmcfrmuzv-8-qkui-glucuronide). Suspect use of morphine or morphine and hydromorphone within the past three days. Alternatively, these results could also be suggestive of heroin use. Low levels of morphine can also be seen following poppy seed ingestion. ADDITIONAL INFORMATION This test was developed and its performance characteristics determined by [facility] in a manner consistent with CLIA requirements. This test has not been cleared or approved by the U.S. Food and Drug Administration. Test Performed by: [facility] [id number] [place] [address] 41 [id number] Desirable: <150 Borderline High: 150-199 High: 200-499 Very High: >500 43 Desirable: <200 Borderline High: 200-239 High: >239 44 Low: <40 Desirable: 40-60 High: >60 45 Desirable: <100 Near Optimal: 100-129 Borderline High: 130-159 High: 160-189 Very High: >189 46 Because ethnic data is not always readily [...] 15-29 5 Kidney failure <15 (or dialysis) 47 Therapeutic target for the treatment of diabetes mellitus patients is <7% HBA1C, and in selective patients <6.0%. Please refer to [place] [employer] diabetic care guidelines for further information. 48 [id number] [place] [facility], Rm #: [id number] Operations And Maintenance Technician: [id number] [facility] - Floor: 1, Rm #: [id number] [facility] - Floor: 1, Rm #: [id number] [facility] - Floor: 1, Rm #: [id number] SEE RESULT BELOW Name: MAGGIE SANDERS : [address]: Tawnya Stevenson MD Acct: [id number] Unit: [id number] AGE: 76 Location: [facility] Re03/24/17 SEX: M Status: REG REF SPEC: [id number] OLIVE: [address] [facility] [address]: Tawnya Stevenson MD REQ: [id number] RECD: 03/24/17 STATUS: ROBERT FRAUSTO DR: Torsten Chan MD _ SOURCE: URINE SPDESC: ORDERED: Urine Culture QUERIES: Urine Source: Clean Catch Procedure Result Reported Site Urine Culture Final 03/27/17725 ML Organism 1 ESCHERICHIA COLI Ehrenberg Count 10-25,000 (Moderate) CFU/ML 1. ESCHERICHIA COLI M.I.C. RX --------- ------ Ampicillin >=32 R Cefazolin <=4 S Cefepime <=1 S Ceftriaxone <=1 S Ciprofloxacin <=0.25 S Gentamicin <=1 S Levofloxacin 1 S Meropenem <=0.25 S Nitrofurantoin <=16 S Tetracycline <=1 S Pipercillin/Tazobactam <=4 S Trimethoprim/Sulfamethoxazole <=20 S Amoxicillin/Clavulanic Acid 8 S Aztreonam <=1 S Contact the Microbiology Department for any additional antibiotic reporting. * ML - MAIN LAB (PSC1) . END OF REPORT * ML=Testing performed at Main Lab DEPARTMENT OF PATHOLOGY, [address] [place] [address] Marco A Cerda M.D. Director [facility] # [id number] 54 Because ethnic data is not always readily [...] 15-29 5 Kidney failure <15 (or dialysis) 55 Desirable <150 Borderline high 150-199 High 200-499 Very High >500 56 Desirable <200 Borderline high 200-239 High >239 57 Low <40 Desirable: 40-60 High: >60 58 Desirable: <100 mg/dL Near Optimal: 100-129 mg/dL Borderline High: 130-159 mg/dL High: 160-189 mg/dL Very High: >189 mg/dL 59 Because ethnic data is not always readily [...] 15-29 5 Kidney failure <15 (or dialysis) 60 Therapeutic target for the treatment of diabetes Mellitus patients is <7% HBA1C, and in selective patients <6.0%.Please refer to [place] [employer] Diabetic care guidelines for further information. 61 FASTING 10 HOUR 62 [id number] 63 CPPD(Ca Pyrophosate) Calcium pyrophosate per Dr Moon 64 Operations And Maintenance Technician: [id number] 65 Please note: Effective April 02, 2014, the reference value for this test has changed due to the validation and activation of a new reagent lot number. 66 >100 to <200 pg/mL: likely compensated congestive heart failure (CHF) 200 to 400 pg/mL: likely moderate CHF >400 pg/mL: likely moderate to severe CHF [facility] 67 Because ethnic data is not always readily [...] 15-29 5 Kidney failure <15 (or dialysis) 68 Reference Range and Interpretation: TnI (ng/mL) Interpretation Less Than 0.03 ng/mL Not supportive of diagnosis of [place] 0.03 - 0.50 ng/mL Indeterminate: suggest serial studies if clinically indicated. Greater than 0.5 ng/mL Consistent with diagnosis of [place] 69 Therapeutic concentration: <50 ug/mL Toxic concentration: >120 ug/mL 70 Acute inflammation: >10.00 71 Presumptive Positive 72 The urine specimen was tested at the listed cutoffs: Drug class test level (ng/mL) Amphetamines 500 Barbituates 200 Benzodiazepine metabolites 200 Cocaine metabolites 150 Cannabinoids 50 Opiates 300 Pcp 25 This is a screening procedure. Positive results are not confirmed. Specimen was received without chain of custody. Results should be used for medical purposes only. 73 FASTING 74 Desirable <150 Borderline high 150-199 High 200-499 Very High >500 75 Desirable <200 Borderline high 200-239 High >239 76 Low <40 Desirable: 40-60 High: >60 77 Desirable <100 Near Optimal 100-129 Borderline high 130-159 High 160-189 Very High >189 78 Therapeutic target for the treatment of diabetes Mellitus patients is <7% HBA1C, and in selective patients <6.0%.Please refer to [place] [employer] Diabetic care guidelines for further information. 79 Because ethnic data is not always readily [...] 15-29 5 Kidney failure <15 (or dialysis) 80 08/16/10 81 PREADMISSION TESTING SAMPLES FOR BLOOD BANK WILL [...] WITHIN 3 DAYS OF THE SURGERY DATE. 82 Anion gap measurement may be of limited value in the presence of any alkalosis, especially in a combined acid base disorder. . 83 Because ethnic data is not always readily [...] 15-29 5 Kidney failure <15 (or dialysis) 84 Recommended INR for Patients on Oral Anticoagulants Prophylaxis 2.0 - 3.0 Treatment of thrombosis 2.0 - 3.0 Prevention of embolism 2.0 - 3.0 Prevention of embolism from prosthetic heart valves 2.5 - 3.5 85 DIAGNOSIS,TREATMENT,AND THERAPY MUST BE BASED ON THE INR VALUE ALONE. 86 Anion gap measurement may be of limited value in the presence of any alkalosis, especially in a combined acid base disorder. . 87 Note change in reference range as of 10/25/07. The change was based on recommendations from the [place] [employer]. 88 Please note change in reference range effective 07 . 89 THERAPEUTIC TARGET FOR THE TREATMENT OF DIABETES MELLITUS PATIENTS IS <7% HBA1C, AND IN SELECTIVE PATIENTS <6.0%. PLEASE REFER TO [place] [employer] DIABETIC CARE GUIDELINES FOR FURTHER INFORMATION. Procedures Date CPT Code Description Status 04/04/2017 15427 TKR Total Knee Replacement Completed 04/04/2017 41013 TKR Total Knee Replacement Completed 03/14/2017 Diabetic Retinal Eye Exam Completed 02/10/2017 15967 ECHO Transthorasic Realtime 2D W Doppler & Color Flow Completed Hosp 02/09/2017 27557 EKG Tracing & Interpretation Completed 10/11/2016 05404 Inject/Drain Joint/Bursa Major W/O US Completed 2016 Diabetic Retinal Eye Exam Completed 10/19/2015 06749 EKG, Interpretation Only Completed 08/10/201500726 Inject/Drain Joint/Bursa Major W/O US Completed 08/10/2015 69339 Inject/Drain Joint/Bursa Major W/O US Completed 09/16/2014 Colonoscopy Completed 10/26/2012 15964 Rad Exam; Hand Comp Completed 10/26/2012 68844 Rad Shoulder Comp, Min. 2 Views Completed 12/08/2010 50575 Rad Exam; Ankle Comp Completed 06/30/2010 69633 Xray Knee 3 Views Completed 06/10/2009 75694 Xray Knee 3 Views Completed 06/10/2009 69436 Rad Exam; Knee, Ap&L Completed 08/24/2004 Colonoscopy Completed Encounters Type Date Location Provider CPT E/M Dx Office Visit 06/28/2017 11:40a [facility] Torsten Chan, 50814 E11.8 - Tbshiela Mcrae M.D.,FACP I10 E78.2 Z23 Office Visit 06/19/2017 1:30p [facility]wn[facility] Stevenson M.D. 43300 M25.562 Leon.MKelsie M25.462 M17.12 Z96.651 Office Visit 06/01/2017 1:10p [facility] Torsten Chan, 07162 E11.8 - Tbshiela Mcrae M.D.,FACP I10 T84.84xD Office Visit 02/13/2017 3:15p [facility] Tawnya Stevenson M.D. 05359 M17.11 C.M.AJacqueline M17.11 M25.561 M25.461 M25.561 M25.461 M21.371 M21.371 Office Visit 01/16/2017 9:15a [facility] Tawnya Stevenson M.D. 71030 M17.11 C.M.AJacqueline M25.561 M21.371 M25.461 Office Visit 11/22/2016 11:00a [facility] Jt Shoemaker, 26169 M17.11 Dinora FU M17.11 Office Visit 11/10/2016 10:30a [facility] Torsten Chan, 93327 E11.8 - [place] Coronado,FACP E03.9 I10 K59.00 M47.26 Z23 Office Visit 10/21/2015 4:12p [facility], 39110 L03.119 Assoc,pc Hospitalists DIRECTOR OF PHARMACY E11.8 N17.9 I10 Office Visit 10/20/2015 4:12p [facility], 05052 L03.119 Assoc,pc Hospitalists DIRECTOR OF PHARMACY E11.8 N17.9 I10 Office Visit 10/19/2015 [facility] Renee GilbertTracy, 41271 L03.119 4:11p Assoc,pc DIRECTOR OF PHARMACY Hospitalists E11.8 N17.9 I10 Office Visit 10/18/2015 [facility] Walt, 77910 L03.119 4:10p Assoc,pc DIRECTOR OF PHARMACY Hospitalists E11.8 N17.9 I10 Office Visit 10/17/2015 4:09p [facility], 13768 L03.119 Assoc,pc Hospitalists DIRECTOR OF PHARMACY E11.8 N17.9 I10 Office Visit 08/10/2015 2:30p [facility] Aric Lopez M.D. 22997 M17.0 C.M.Michael M17.0 M17.11 M17.11 Office Visit 05/18/2015 1:00p [facility] Luke Kapadia, 13642 M21.372 Of Explosives Operator Ivonne M21.371 M47.26 Office Visit 02/24/2015 9:40a [facility] Luke Kapadia, 12981 M21.372 Of Donny Coronado M21.371 M47.26 Office Visit 11/25/2014 10:20a [facility] Luke Kapadia 14856 M47.26 Of Donny Coronado M21.371 M21.372 Office Visit 08/26/2014 1:00p [facility] Luke Kapadia 73950 721.3 Of Donny Coronado Office Visit 05/27/2014 3:20p [facility] Luke Kapadia 95947 721.3 Of Donny Coronado 721.3 Office Visit 01/28/2014 10:00a [facility] Luke Kapadia 30178 721.3 Of Donny M.DJacqueline Office Visit 10/29/2013 9:40a [facility] Luke Kapadia, 59144 724.2 Of Donny Burton.Christoph 724.3 Office Visit 07/16/2013 9:40a [facility] Luke Kapadia, 69129 724.2 Of Donny Coronado 724.3 Office Visit 01/17/2013 2:30p [facility] [place] QuintanillaJacqueline 03266 840.9 C.M.ABrad Silva Office Visit 12/06/2012 2:30p [facility] Richard Spicer M.D. 57871 840.9 C.M.AJacqueline Office Visit 12/04/2012 11:20a [facility] Luke Kapadia, 91961 721.3 Of Donny Coronado V45.89 Office Visit 10/26/2012 1:30p [facility] Richard Spicer M.D. 71967 840.9 C.M.AJacqueline 727.03 Office Visit 05/29/2012 11:20a [facility] Luke Kapadia 79494 721.3 Of Donny Coronado 338.4 Office Visit 11/29/2011 11:30a [facility] Varun Agarwalsebastien 98670 721.3 [facility] N.PJacqueline 338.4 Office Visit 05/31/2011 11:00a [facility] Luke Kapadia 16780 715.96 Of Donny Burton.Christoph Office Visit 12/08/2010 2:30p [facility] Richard Spicer 67276 715.97 C.Shabana Coronado Office Visit 11/30/2010 11:20a [facility] Luke Kapadia 98259 715.96 Of Donny Burton.Christoph Office Visit 06/30/2010 2:00p [facility] Richard Spicer 79488 715.96 C.MKelsie Coronado Office Visit 05/11/2010 11:00a [facility] Luke Kapadia 53451 721.3 Of Donny MHollis Office Visit 09/15/2009 11:00a [facility] Luke Kapadia 85296 721.3 Of Donny M.DJacqueline Office Visit 06/10/2009 2:30p [facility] Aric Lopez M.D. 26933 716.96 CJacquelineMKelsie Office Visit 03/10/2009 11:00a [facility] Luke Kapadia, 01269 721.3 Of Explosives Operator M.DJacqueline Office Visit 09/16/2008 11:00a [facility] Luke Kapadia, 57154 721.3 Of Explosives Operator M.DJacqueline Office Visit 03/11/2008 11:00a [facility] Luke Kapadia, 58072 721.3 Of [facility] M.DJacqueline 722.83 Office Visit 09/11/2007 10:00a [facility] Luke Kapadia 56246 721.3 Of Explosives Operator M.DJacqueline Office Visit 03/20/2007 11:00a [facility] Luke Kapadia, 13559 721.3 Of Explosives Operator M.DJacqueline Office Visit 11/14/2006 11:00a [facility] Luke Kapadia 27426 721.3 Of Explosives Operator M.DJacqueline Office Visit 08/08/2006 11:00a [facility] Luke Kapadia, 98781 721.3 Of [facility] M.DJacqueline Plan of Care Future Appointment(s):01/18/2018 10:00 am - Torsten Chan M.D.,FACP at [facility] - [address]09/15/2017 - Torsten Chan M.D.,FACPZ00.00 Encntr for general adult medical exam w/o abnormal findingsComments:Advised flu vaccine in fall. Routine Health Maintenance up to date. Depression screen: on fileADL screen: negativeCognitive impairment screen: negative Reviewed [facility] DM/ HM form.Follow up:Print DM/HM for ekmbgueD98.8 Type 2 diabetes mellitus with unspecified complicationsNew Labs:Hemoglobin A1c (Glyco HGB)Comments:You are meeting goal for blood sugar control. Our goal is an A1C less than 7.0%, your last A1C was 06/08/17 and was 6.4%. Continue current dosage of medications.You are on a moderate-potency statin to prevent new or recurrent heart disease, which is common in diabetics.Goals:Goal Hemoglobin A1c is less than 7.0% in ages 18-74 Goal Hemoglobin A1c is between 7.0% and 8.0% in age over 75 Goal Blood pressure is less than 130/85. Cholesterol should be lowered by a high or moderate-dose statin.I10 Essential (primary) hypertensionComments:Check to make sure taking1. Ramipril 5 mg 2. Chlorthalidone 25 mgReview your medication list with what you are taking. Bring your medication list to the pharmacy to verify what you are given.Goals:Blood pressure goal <140/90 in general. Blood pressure goal <150/90 in people older than 75. Blood pressure goal <130/ 85 in diabetic patients. Goal BMI is less than 25.E78.2 Mixed hyperlipidemiaComments:LDL at goal <100, continue statin medication. Call me if all-over muscle pains develop. Lipid monitoring up to date.G47.33 Obstructive sleep apnea (adult) (pediatric)Comments:Continue to use nasal cannula. This can prevent heart arrhythmia, and stroke. See sleep clinic if your weight changes dramatically, or if you have poor sleep repeatedly.E03.9 Hypothyroidism, unspecifiedNew Labs:TSH (Thyroid Stim Horm)Comments:Thyroid symptoms and blood tests show that current dose L-thyroxine is appropriate. Continue this dose, take medication on an empty stomach.D50.9 Iron deficiency anemia, unspecifiedNew Labs:Iron & Iron Binding CapacityCBC Auto DiffComments:Have bloodwork performed to assess anemia.
[2017-10-05] MEDS ORDERED: predniSONE TAB* 20 MG PO ONE (01:15)
[2017-10-05] MEDS ORDERED: Famotidine TAB* 20 MG PO ONE (01:16)
--- NOTE | 2017-10-05 01:31 | ED ---
Allergic Reaction/Systemic - HPI Summary HPI Summary: This is adilson Randall documenting for attending Dr. Darrell Graham MD. A 77 y/o male presents to ED s/p allergic reaction reaching 4/10 in severity. The patient stated that the symptoms has not become worse, however, they have not become better. As per triage, "Pt in with c/o possible allergic reaction to possibly honey. pt describes throat dryness. pt had benadryl @ 2350". According to the patient, he had honey for the first time around 3140-5030 when suddenly he experienced SOB (throat closing). Additionally, he has been having an unproductive cough and sore throat (dry). He feels that he is trying to cough something up but nothing comes out. He also believes that his nose is full. Pt denies any vomiting or rash. It was noted that the patient is able to swallow and drink liquids. Also, he is no a air hose at night due to sleep apnea. Current medications include Ramipril (8 months). Allergic to liquid morphine as breaks out in thrush. As per friend, the patients speech sounds different. Patient took 2 benadryl earlier tonight. PMHx of DM. - History of Current Complaint Chief Complaint: EDAllergicReaction Time Seen by Provider: 10/05/17 00:58 Hx Obtained From: Patient Onset/Duration: Sudden Onset, Still Present Timing: Constant, Lasting Hours Severity Initially: Moderate Severity Currently: Moderate Pain Intensity: 4 Pain Scale Used: 0-10 Numeric Aggravating Factor(s): Nothing Alleviating Factor(s): Nothing Associated Signs And Symptoms: Positive: Difficulty Breathing, Throat Tightening - Subjective. Negative: Rash, Vomiting - Allergies/Home Medications Allergies/Adverse Reactions: Allergies Allergy/AdvReac Type Severity Reaction Status Date / Time Liquid Morphine Allergy thrush Uncoded 09/08/17 13:45 PMH/Surg Hx/FS Hx/Imm Hx Endocrine/Hematology History: Reports: Hx Diabetes, Hx Thyroid Disease - Hypothyroid Cardiovascular History: Reports: Hx Angina, Hx Coronary Artery Disease, Hx Hypertension, Hx Peripheral Vascular Disease - Legs, Hx Valvular Heart Disease - Aortic valve stenosis Comment Only: Other Cardiovascular Problems/Disorders - PAD Respiratory History: Reports: Hx Sleep Apnea - 4-6 pressure setting Denies: Other Respiratory Problems/Disorders GI History: Reports: Hx Gastroesophageal Reflux Disease - on medication, Hx Hiatal Hernia - possibly 40-50 years ago, Hx Ulcer - 40-50 years ago, Other GI Disorders - Constipation History: Reports: Other Problems/Disorders - Urinary incontinence Denies: Hx Kidney Infection, Hx Kidney Stones Musculoskeletal History: Reports: Hx Arthritis - Knee, ankles, hands, Hx Back Problems, Hx Tendonitis - history tennis elbow, trigger finger Comment Only: Other Musculoskeletal History - spondylosis Sensory History: Reports: Hx Cataracts - bilateral, Hx Contacts or Glasses - Glasses Denies: Hx Glaucoma, Hx Hearing Aid Opthamlomology History: Reports: Hx Cataracts - bilateral, Hx Contacts or Glasses - Glasses Denies: Hx Glaucoma Neurological History: Reports: Hx Nerve Disease - Diabetic nueropathy, legs and feet, Other Neuro Impairments/Disorders - Foot drop right foot Psychiatric History: Reports: Hx Anxiety, Hx Depression Denies: Other Psychiatric Issues/Disorders - patient denies - Cancer History Hx Chemotherapy: No - Surgical History Surgery Procedure, Year, and Place: 2001 Lumbar laminectomy-[facility] [place]. [place] Teeth Extraction. Appendectomy 1959. Blood Clot (per pt ) on his back 1957, maybe hematoma - fell with large area of swelling, wick placed in area and drained. Left and Right Trigger Finger age 40-50. Skin Cancer, Neck age 31. Colonoscopy x2 or 3 times Hx Anesthesia Reactions: No Infectious Disease History: No Infectious Disease History: Denies: History Other Infectious Disease, Traveled Outside the [place] in Last 30 Days - Family History Known Family History: Positive: Diabetes - Social History Alcohol Use: None Alcohol Amount: heavy drinker age 16- 22 Substance Use Type: Reports: None Hx Tobacco Use: Yes Smoking Status (MU): Former Smoker Type: Cigarettes Amount Used/How Often: 3-4 packs per day for 30 years Review of Systems Negative: Fever Positive: Sore Throat, Other - POSITIVE: Stuffed nose. Positive: Shortness Of Breath, Cough Negative: Vomiting Negative: Rash All Other Systems Reviewed And Are Negative: Yes Physical Exam - Summary Physical Exam Summary: VITAL SIGNS: Reviewed. GENERAL: Patient is a morbidly obese male who is lying comfortable in the stretcher. Patient is not in any acute respiratory distress. HEAD AND FACE: No signs of trauma. No ecchymosis, hematomas or skull depressions. No sinus tenderness. EYES: PERRLA, EOMI x 2, No injected conjunctiva, no nystagmus. EARS: Hearing grossly intact. Ear canals and tympanic membranes are within normal limits. MOUTH: Oropharynx within normal limits. Mild swelling of soft palate and uvula. Normal voice, no drooling. NECK: Supple, trachea is midline, no adenopathy, no JVD, no carotid bruit, no c- spine tenderness, neck with full ROM. CHEST: Symmetric, no tenderness at palpation LUNGS: Clear to auscultation bilaterally. No wheezing or crackles. CVS: Regular rate and rhythm, S1 and S2 present, no murmurs or gallops appreciated. ABDOMEN: Soft, non-tender. No signs of distention. No rebound no guarding, and no masses palpated. Bowel sounds are normal. EXTREMITIES: FROM in all major joints, no cyanosis or clubbing. Bilateral trace edema. NEURO: Alert and oriented x 3. No acute neurological deficits. Speech is normal and follows commands. SKIN: Dry and warm Triage Information Reviewed: Yes Vital Signs On Initial Exam: Initial Vitals Temp Pulse Resp BP Pulse Ox 97.9 F 77 20 165/75 97 10/05/17 00:07 10/05/17 00:07 10/05/17 00:07 10/05/17 00:07 10/05/17 00:07 Vital Signs Reviewed: Yes Diagnostics - Vital Signs Vital Signs Temp Pulse Resp BP Pulse Ox 10/05/17 00:07 97.9 F 77 20 165/75 97 - Laboratory Lab Statement: Any lab studies that have been ordered have been reviewed, and results considered in the medical decision making process. Allergic Reaction Course/Dx - Course Course Of Treatment: A 77 y/o male presents to ED s/p subjective allergic reaction with a history of HTN. Patient had symptoms since 1999 with no progression. Patient symptoms are most likely secondary to angioedema, not allergic to honey. Patient symptoms and exam are very mild. Patient in the ED believes he has something in throat with swelling since 1999 after eating honey. Patient has no difficulty breathing, no change in voice and he is talking fine. Patient does not require fresh frozen plasma (FFP) at this time. Risks outweigh the benefits for blood products. Patient will be treated with steroids just in case. With no allerigic rection to any products, patient will be discharged with predenzone with a diagnosis of angioedema. Patient is to stop Ramipril if symptoms become worse such as change in voice, drooling and SOB. Patient is to follow up with primary care in 1-2 days. - Diagnoses Provider Diagnoses: Angioedema Discharge - Sign-Out/Discharge Documenting (check all that apply): Patient Departure - DISCHARGE - Discharge Plan Condition: Stable Disposition: HOME Prescriptions: predniSONE TAB* [Deltasone 20 MG TAB*] 40 mg PO DAILY #6 tab Patient Education Materials: Angioedema (ED) Referrals: Torsten Chan MD [Primary Care Provider] - 2 Days Additional Instructions: Patient is to stop Ramipril if symptoms become worse such as change in voice, drooling and SOB. Patient is to follow up with primary care in 1-2 days. Return to ED for any new or worsening symptoms.
[2017-10-05 01:56] VITALS: BP 134/74
== END 2017-10-05 01:55 | disposition home or self-care (01) ==
LOC: ED 00:05
DX: T78.3XXA Angioneurotic edema, initial encounter (principal); E11.9 Type 2 diabetes mellitus without complications; Z87.891 Personal history of nicotine dependence; Z88.5 Allergy status to narcotic agent
CPT/HCPCS: 99282; A9270-GY; J7512

== ENCOUNTER 2017-11-07 15:37 | Emergency (ER) | payer MEDICARE, OTHER ==
[2017-11-07 18:51] LABS: ABS Basophils 0 10^3/ul (0-0.2); ABS Eosinophils 0.2 10^3/ul (0-0.6); ABS Lymphocytes 1.9 10^3/ul (1.0-4.8); ABS Monocytes 0.9 10^3/ul (0-0.8); ABS Nucleated RBC 0 10^3/ul; Eosinophil % 2.6 % (0-6); Hematocrit 29 % (42-52); Hemoglobin 9.6 g/dl (14.0-18.0); Lymphocyte % 23.3 % (25-47); Mean Corpuscular HGB Conc 33 g/dl (31-36); Mean Corpuscular Hemoglobin 26 pg (27-31); Mean Corpuscular Volume 79 fL (80-94); Nucleated Red Blood Cells % 0; Platelet Count 351 10^3/ul (150-450); Red Blood Count 3.68 10^6/ul (4.00-5.40); Red Cell Distribution Width 16 % (10.5-15)
[2017-11-07 19:02] LABS: EGFR Non-African American 42.9 (>60)
[2017-11-07] MEDS ORDERED: NS 0.9% 1000 ML* 1,000 ML IV ONE (19:54)
--- NOTE | 2017-11-07 19:57 | ED ---
Complex/Multi-Sys Presentation - HPI Summary HPI Summary: This patient is a 77 year old M presenting to [facility] with a chief complaint of diarrhea since 10/23/2017. He is now having diarrhea up to 20 times a day, which is now mostly a liquid. The patient rates the pain 4/10 in severity. Patient reports intermittent fever, frequent belching, headache, leg pain, and preexisting ankle pain. Patient denies abdominal pain and vomiting. He has seen Torsten Chan MD for this problem. Patient took Imodium which slowed down the diarrhea, but he was then instructed to stop taking it. He also took Metamucil, but he has not taken any antibiotics. He is taking prednisone because when he was last prescribed Ramipril, his throat began to swell. - History Of Current Complaint Chief Complaint: EDNauseaVomitDiarrh Time Seen by Provider: 11/07/17 19:37 Hx Obtained From: Patient Onset/Duration: Sudden Onset, Lasting Weeks, Still Present Timing: Constant Associated Signs And Symptoms: Positive: Headache, Fever - intermittent, Other - frequent belching, leg pain, and pre-existing ankle pain - Allergies/Home Medications Allergies/Adverse Reactions: Allergies Allergy/AdvReac Type Severity Reaction Status Date / Time Liquid Morphine Allergy thrush Uncoded 09/08/17 13:45 Home Medications: Home Medications Levothyroxine TAB* [Synthroid TAB*] 188 mcg PO DAILY 11/07/17 [History Confirmed 11/07/17] PMH/Surg Hx/FS Hx/Imm Hx Endocrine/Hematology History: Reports: Hx Diabetes, Hx Thyroid Disease - Hypothyroid Cardiovascular History: Reports: Hx Angina, Hx Coronary Artery Disease, Hx Hypertension, Hx Peripheral Vascular Disease - Legs, Hx Valvular Heart Disease - Aortic valve stenosis Comment Only: Other Cardiovascular Problems/Disorders - PAD Respiratory History: Reports: Hx Sleep Apnea - 4-6 pressure setting Denies: Other Respiratory Problems/Disorders GI History: Reports: Hx Gastroesophageal Reflux Disease - on medication, Hx Hiatal Hernia - possibly 40-50 years ago, Hx Ulcer - 40-50 years ago, Other GI Disorders - Constipation History: Reports: Other Problems/Disorders - Urinary incontinence Denies: Hx Kidney Infection, Hx Kidney Stones Musculoskeletal History: Reports: Hx Arthritis - Knee, ankles, hands, Hx Back Problems, Hx Tendonitis - history tennis elbow, trigger finger Comment Only: Other Musculoskeletal History - spondylosis Sensory History: Reports: Hx Cataracts - bilateral, Hx Contacts or Glasses - Glasses Denies: Hx Glaucoma, Hx Hearing Aid Opthamlomology History: Reports: Hx Cataracts - bilateral, Hx Contacts or Glasses - Glasses Denies: Hx Glaucoma Neurological History: Reports: Hx Nerve Disease - Diabetic nueropathy, legs and feet, Other Neuro Impairments/Disorders - Foot drop right foot Psychiatric History: Reports: Hx Anxiety, Hx Depression Denies: Other Psychiatric Issues/Disorders - patient denies - Cancer History Hx Chemotherapy: No - Surgical History Surgery Procedure, Year, and Place: [place] [place] Extraction. Appendectomy 1959. Blood Clot (per pt ) on his back 1957, maybe hematoma - fell with large area of swelling, wick placed in area and drained. Left and Right Trigger Finger age [age]. Skin Cancer, Neck age 31. 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 , Other - Frequent belching. Negative: Abdominal Pain, Vomiting Positive: Other - leg pain and preexisting ankle pain Positive: Headache All Other Systems Reviewed And Are Negative: Yes Physical Exam - Summary Physical Exam Summary: VITAL SIGNS: Reviewed. GENERAL: Patient is a morbidly obese MALE who is lying comfortable in the stretcher. Patient is not in any acute respiratory distress. HEAD AND FACE: No signs of trauma. No ecchymosis, hematomas or skull depressions. No sinus tenderness. EYES: PERRLA, EOMI x 2, No injected conjunctiva, no nystagmus. EARS: Hearing grossly intact. Ear canals and tympanic membranes are within normal limits. MOUTH: Oropharynx within normal limits. NECK: Supple, trachea is midline, no adenopathy, no JVD, no carotid bruit, no c- spine tenderness, neck with full ROM. CHEST: Symmetric, no tenderness at palpation LUNGS: Clear to auscultation bilaterally. No wheezing or crackles. CVS: Regular rate and rhythm, S1 and S2 present, no murmurs or gallops appreciated. ABDOMEN: Soft, non-tender. No signs of distention. No rebound no guarding, and no masses palpated. Bowel sounds are normal. EXTREMITIES: FROM in all major joints, lower extremity edema bilaterally, no cyanosis or clubbing. NEURO: Alert and oriented x 3. No acute neurological deficits. Speech is normal and follows commands. SKIN: Dry and warm Triage Information Reviewed: Yes Vital Signs On Initial Exam: Initial Vitals Temp Pulse Resp BP Pulse Ox 98 F 59 18 160/62 95 11/07/17 15:50 11/07/17 15:50 11/07/17 15:50 11/07/17 15:50 11/07/17 15:50 Vital Signs Reviewed: Yes Diagnostics - Vital Signs Vital Signs Temp Pulse Resp BP Pulse Ox 11/07/17 18:59 97.7 F 61 18 137/53 98 11/07/17 17:16 97.6 F 62 16 134/51 97 11/07/17 15:50 98 F 59 18 160/62 95 - Laboratory Lab Results: Lab Results 11/07/17 11/07/17 11/07/17 Range/Units 18:36 18:36 18:36 WBC 8.0 (3.5-10.8) 10^3/ul RBC 3.68 L (4.00-5.40) 10^6/ul Hgb 9.6 L (14.0-18.0) g/dl Hct 29 L (42-52) % MCV 79 L (80-94) fL MCH 26 L (27-31) pg MCHC 33 (31-36) g/dl RDW 16 H (10.5-15) % Plt Count 351 (150-450) 10^3/ul MPV 7.0 L (7.4-10.4) um3 Neut % (Auto) 62.1 (38-83) % Lymph % (Auto) 23.3 L (25-47) % Reagan % (Auto) 11.7 H (0-7) % Eos % (Auto) 2.6 (0-6) % Baso % (Auto) 0.3 (0-2) % Absolute Neuts (auto) 5.0 (1.5-7.7) 10^3/ul Absolute Lymphs (auto) 1.9 (1.0-4.8) 10^3/ul Absolute Monos (auto) 0.9 H (0-0.8) 10^3/ul Absolute Eos (auto) 0.2 (0-0.6) 10^3/ul Absolute Basos (auto) 0 (0-0.2) 10^3/ul Absolute Nucleated RBC 0 10^3/ul Nucleated RBC % 0 Sodium 131 L (135-145) mmol/L Potassium 3.7 (3.5-5.0) mmol/L Chloride 91 L (101-111) mmol/L Carbon Dioxide 31 (22-32) mmol/L Anion Gap 9 (2-11) mmol/L BUN 30 H (6-24) mg/dL Creatinine 1.58 H (0.67-1.17) mg/dL Est GFR ( Amer) 51.9 (>60) Est GFR (Non-Af Amer) 42.9 (>60) BUN/Creatinine Ratio 19.0 (8-20) Glucose 145 H (70-100) mg/dL Lactic Acid 0.8 (0.5-2.0) mmol/L Calcium 9.2 (8.6-10.3) mg/dL Magnesium 2.4 (1.9-2.7) mg/dL Total Bilirubin 0.50 (0.2-1.0) mg/dL AST 17 (13-39) U/L ALT 15 (7-52) U/L Alkaline Phosphatase 89 (34-104) U/L C-Reactive Protein 71.97 H (<8.01) mg/L Total Protein 6.8 (6.4-8.9) g/dL Albumin 3.9 (3.2-5.2) g/dL Globulin 2.9 (2-4) g/dL Albumin/Globulin Ratio 1.3 (1-3) Lipase 15 (11.0-82.0) U/L Result Diagrams: 11/07/17 18:36 11/07/17 18:36 Lab Statement: Any lab studies that have been ordered have been reviewed, and results considered in the medical decision making process. - CT CT Abd/Pelvis w/o IV Contrast CT Interpretation Completed By: Radiologist - Read 21:19. 1. Mid sigmoid colon diverticulitis. No perforation or abscess. 2. Nonobstructing left renal calculus and right renal cyst. 3. Cholelithiasis. 4. Right inguinal hernia. No strangulation. ED Physician has reviewed this imaging report. Complex Multi-Symp Course/Dx Assessment/Plan: This patient is a 77 year old M presenting to [facility] with a chief complaint of diarrhea since 10/23/2017. The Abd/Pelvis CT w/o Contrast showed: 1. Mid sigmoid colon diverticulitis. No perforation or abscess. 2. Nonobstructing left renal calculus and right renal cyst. 3. Cholelithiasis. 4. Right inguinal hernia. No strangulation. Patient is being discharged home with medications and a referral to GI. - Diagnoses Provider Diagnoses: Diverticulitis, Diarrhea Discharge - Sign-Out/Discharge Documenting (check all that apply): Patient Departure - D/C - Discharge Plan Condition: Stable Disposition: HOME Prescriptions: Levofloxacin TAB* [Levaquin TAB*] 500 mg PO DAILY #7 tab metroNIDAZOLE [Flagyl 500 MG TAB] 500 mg PO TID #20 tab Patient Education Materials: Diverticulitis (ED), Chronic Diarrhea (ED) Referrals: Mega Tarango DO [Doctor of Osteopathy] - 2 Days (Gastrointestinal) Torsten Chan MD [Primary Care Provider] - 2 Days Additional Instructions: Use medications as directed. You can use Imodium as needed for constipation. Follow up with the gastrointestinal doctor. RETURN TO THE EMERGENCY DEPARTMENT FOR CHANGING OR WORSENING SYMPTOMS. FOLLOW UP WITH PCP IN 1-2 DAYS. - Attestation Statements Document Initiated by Scribe: Yes Documenting Scribe: Uriel Freire Provider For Whom Jian is Documenting (Include Credential): Swapna Graham MD Scribe Attestation: Uriel Sevilla, katieed for Swapna Graham MD on 11/07/17 at [id number].
[2017-11-07 21:12] LABS: Urine Appearance Clear; Urine Blood Negative (Negative); Urine Color Yellow; Urine Ketones Trace (Negative); Urine Protein Negative (Negative); Urine Specific Gravity 1.004 (1.010-1.030); Urine Urobilinogen Negative (Negative)
--- NOTE | 2017-11-07 21:20 | RAD ---
EXAM: CT Abdomen and Pelvis Without Intravenous Contrast CLINICAL HISTORY: 77 years old, male; Signs and symptoms; Other: Diarrhea TECHNIQUE: Axial computed tomography images of the abdomen and pelvis without intravenous contrast. All CT scans at this facility use at least one of these dose optimization techniques: automated exposure control; mA and/or kV adjustment per patient size (includes targeted exams where dose is matched to clinical indication); or iterative reconstruction. Coronal and sagittal reformatted images were created and reviewed. COMPARISON: A/P W CT ABD/PEL W 04/28/2011 8:58 AM FINDINGS: Lung bases: Normal. No mass. No consolidation. ABDOMEN: Liver: Normal. Normal size. No masses. Gallbladder and bile ducts: Single calcified gallstone. No wall thickening or pericholecystic fluid. Pancreas: Normal. No ductal dilation. Spleen: Normal. No splenomegaly. Adrenals: Normal. No mass. Kidneys and ureters: Nonobstructing renal calculus left midpole measuring 0.2 cm. Simple renal cyst right midpole measures 2 cm unchanged compared to prior study. More subtle low attenuating tiny foci within the left kidney are indeterminate. No pelvocaliectasis or right renal calculi. Stomach and bowel: Incompletely distended grossly normal stomach. Normal caliber small bowel. Distal colonic diverticula with a short segment of mid sigmoid colon which shows mild adjacent mesocolonic stranding. No pericolonic encapsulated fluid collections. No mucosal thickening. PELVIS: Appendix: Nonvisualized appendix with no secondary findings to suggest appendicitis. Bladder: Thin-walled bladder with no focal nodularity, perivesicular stranding, or calcifications. No stones. Reproductive: Normal sized prostate. Normal seminal vesicles. ABDOMEN and PELVIS: Intraperitoneal space: Normal. No pneumoperitoneum. No ascities. Bones/joints: The spine demonstrates moderate degenerative changes at multiple levels. Mild bilateral hip primary osteoarthritis. No fractures. No suspicious bone lesions. Soft tissues: Fat-containing direct right inguinal hernia. No stranding. Vasculature: There is moderate atherosclerotic calcification of the coronary arteries. The aorta demonstrates moderate atherosclerotic calcification. No abdominal aortic aneurysm. Lymph nodes: Normal. No enlarged lymph nodes. IMPRESSION: 1. Mid sigmoid colon diverticulitis. No perforation or abscess. 2. Nonobstructing left renal calculus and right renal cyst. 3. Cholelithiasis. 4. Right inguinal hernia. No strangulation.
[2017-11-07] MEDS ORDERED: metroNIDAZOLE TAB* 250 MG PO ONE (21:34)
[2017-11-07] MEDS ORDERED: Levofloxacin TAB* 500 MG PO ONE (21:34)
[2017-11-07 22:36] VITALS: BP 140/49
== END 2017-11-07 22:34 | disposition home or self-care (01) ==
LOC: ED 15:37
DX: K57.92 Diverticulitis of intestine, part unspecified, without perforation or abscess without bleeding (principal); R19.7 Diarrhea, unspecified
CPT/HCPCS: 36415; 74176; 80053; 81003; 83605; 83690; 83735; 85025; 86140; 99283; A9270-GY

== ENCOUNTER 2017-11-19 12:59 | Emergency (ER) | payer MEDICARE, OTHER ==
[2017-11-19 13:21] VITALS: BP 124/55
--- NOTE | 2017-11-19 14:30 | UC ---
Lower Extremity/Ankle HPI - HPI Summary HPI Summary: 77 y/o male presents to the urgent care c/o c/o "phlebitis" since 11/17/17 with lower right leg redness and swelling. Painful for one day. - History of Current Complaint Chief Complaint: UCLowerExtremity Stated Complaint: R LEG COMPLAINT Time Seen by Provider: 11/19/17 14:27 Hx Obtained From: Patient Onset/Duration: Gradual Onset, Lasting Days - 3 days, Still Present, Worse Since - today Severity Initially: Mild Severity Currently: Moderate Pain Intensity: 8 - thsi morning Pain Scale Used: 0-10 Numeric Aggravating Factor(s): Standing, Ambulation Alleviating Factor(s): Rest, Elevation, OTC Meds - he took morphin this morning - Risk Factors Gout Risk Factors: Age Over 40, Male, Diabetes, Hypertension, Obesity, Peripherial Vascular Disease DVT Risk Factors: Recent Surgery - 03/2017 Septic Arthritis Risk Factor: Negative - Allergies/Home Medications Allergies/Adverse Reactions: Allergies Allergy/AdvReac Type Severity Reaction Status Date / Time Liquid Morphine Allergy thrush Uncoded 11/19/17 13:22 PMH/Surg Hx/FS Hx/Imm Hx Previously Healthy: Yes Endocrine History: Diabetes, Hypothyroidism, Dyslipidemia Cardiovascular History: Hypertension GI/ History: Gastroesophageal Reflux - Surgical History Surgical History: Yes Surgery Procedure, Year, and Place: 2001 Lumbar laminectomy[place] [place]. [place] Teeth Extraction. Appendectomy 1959. Blood Clot (per pt ) on his back 1957, maybe hematoma - fell with large area of swelling, wick placed in area and drained. Left and Right Trigger Finger age [age]. Skin Cancer, Neck age 31. 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22 Substance Use Type: None Smoking Status (MU): Former Smoker Type: Cigarettes Amount Used/How Often: 3-4 packs per day for 30 years When Did the Patient Quit Smoking/Using Tobacco: 1986 - Immunization History Most Recent Influenza Vaccination: FALL 2016 Most Recent Tetanus Shot: 3 years ago Most Recent Pneumonia Vaccination: unknown Review of Systems Constitutional: Negative Skin: Rash - RT lower leg red and swollen Eyes: Negative ENT: Negative Respiratory: Negative Cardiovascular: Negative Gastrointestinal: Negative Genitourinary: Negative Motor: Negative Neurovascular: Negative Musculoskeletal: Edema, Other: - Rt lower leg pain Neurological: Negative Psychological: Negative Is Patient Immunocompromised?: No All Other Systems Reviewed And Are Negative: Yes Physical Exam - Summary Physical Exam Summary: Vital Signs Reviewed: Yes Appearance: Well-Appearing, No Pain Distress, Well-Nourished, Obese male sitting in the wheel chair w/o any apparent pain distress Eyes: Positive: Conjunctiva Clear - PERRLA< MAHNAZ, fundi grossly WNL ENT: Positive: Normal ENT inspection, Hearing grossly normal, Pharynx normal, TMs normal, Uvula midline Neck: Positive: Supple, Nontender, No Lymphadenopathy Respiratory: Positive: Chest non-tender, Lungs clear, Normal breath sounds, No respiratory distress Cardiovascular: Positive: RRR, No Murmur, Pulses Normal, Brisk Capillary Refill Abdomen Description: Positive: Nontender, No Organomegaly, Soft. Negative: CVA Tenderness (R), CVA Tenderness (L) Bowel Sounds: Positive: Present Extremities: Rextremity with/without deformity or asymmetry when compared to the L. Moderate soft tissue swelling and edema. Positive mild overlying erythema, warmth, .. No lesions or break in skin integrity. Diameter of calves 24cm. Soft tissues of posterior lower legs are soft, supple,tender and some palpable cords . No evidence of gangrene or compartment syndrome. Medial thigh is without soft tissue swelling or tender to palpation. Positive Homans sign. tender cords. No proximal lymphangitis or lymphadenopathy. Neurological Exam: Normal Psychological Exam: Normal Skin Exam: Normal Triage Information Reviewed: Yes Vital Signs: Initial Vital Signs Temp 98.5 F 11/19/17 13:19 Pulse 63 11/19/17 13:19 Resp 18 11/19/17 13:19 BP 124/55 11/19/17 13:19 Pulse Ox 95 11/19/17 13:19 Lower Extremity Course/Dx - Differential Dx/Diagnosis Differential Diagnosis/HQI/PQRI: Cellulitis, Compartment Syndrome, DVT, Phlebitis Provider Diagnoses: 1- RT lower lef pain. 2- Rt lower leg Edema Discharge - Sign-Out/Discharge Documenting (check all that apply): Patient Departure - I strongly Advised Pt to go the [facility] [place] ER to r/o DVT and further management on his symptoms. Pt will be taken by by private car. All imaging exams completed and their final reports reviewed: No Studies - Discharge Plan Condition: Stable Disposition: HOME-RECOMMEND TO ED Patient Education Materials: Leg Pain (ED) Referrals: Torsten Chan MD [Primary Care Provider] - 2 Days Additional Instructions: I think you need a higher level or care for your presenting symptoms. I highly recommend you to go to the ER for further evaluation and treatment. The risks of not going can be , Pulmonary Embolism, DVT, heart attack, etc. I spoke to the ER attending CHIN Ball. . They are expecting you. - Billing Disposition and Condition Condition: STABLE Disposition: Home-Recommend to ED
== END 2017-11-19 15:02 | disposition home health service (06) ==
LOC: UCEAST 12:59
DX: M79.661 Pain in right lower leg (principal); R60.0 Localized edema; Z88.5 Allergy status to narcotic agent; Z87.891 Personal history of nicotine dependence
CPT/HCPCS: 99212; G0463

== ENCOUNTER → 2017-11-19 15:14 | Emergency (ER) | payer MEDICARE, OTHER ==
[~2017-11-19 15:14] MED LIST changes: -Buffered Lidocaine 0.9% SYRIN* 5 ML/SYR SYRINGE INTRADERM ONE; +Cephalexin CAP* 500 MG ONE; +Cephalexin CAP* 500 MG PO ONE; +NS 0.9% 1000 ML* 1,000 ML IV ONE; -Ondansetron INJ* 2 MG/ML VIAL IV ONE; -Sodium Citrate/Citric Acid* 15 ML UDC PO ONE; +ceFAZolin 1 GM in Dextrose (*) 1 GM/50 ML BAG IVPB ONE
--- NOTE | 2017-11-19 16:28 | RAD ---
HISTORY: Right leg edema TECHNIQUE: Multiple transverse and longitudinal ultrasound images were obtained of the veins of the right lower extremity using grayscale, color Doppler, and spectral Doppler imaging with and without compression and with augmentation. FINDINGS: VEINS: The common femoral vein, deep femoral vein, femoral vein and popliteal vein are compressible throughout their course, with normal flow on color Doppler imaging and normal response to augmentation on spectral Doppler imaging. SOFT TISSUES: Grossly normal. No large popliteal fossa cyst was identified. IMPRESSION: No sonographic evidence of deep vein thrombosis.
--- NOTE | 2017-11-19 16:29 | ED ---
Lower Extremity - HPI Summary HPI Summary: This patient is a 77 year old M presenting to ED with a chief complaint of R LE swelling (starting night of 11/17/17) with pain (starting night of 11/18/17). The CC is described as pink in color. The pain and swelling worsened this morning after waking up. The patient rates the pain 0/10 in severity currently. Symptoms aggravated by ambulation. Symptoms alleviated by elevation of legs. - History of Current Complaint Chief Complaint: EDSoftTissueLowExtr Stated Complaint: RIGHT LEG SWELLING R/O DVT Time Seen by Provider: 11/19/17 15:49 Hx Obtained From: Patient Onset of Pain: Days - starting night of 11/18/17 Onset/Duration: Days - starting night of 11/17/17 Severity Currently: None Pain Intensity: 0 Pain Scale Used: 0-10 Numeric Timing: Constant, Lasting Days Location: Is Discrete @ - R lower extremity Aggravating Factor(s): Ambulation Alleviating Factor(s): Elevation - Allergies/Home Medications Allergies/Adverse Reactions: Allergies Allergy/AdvReac Type Severity Reaction Status Date / Time Liquid Morphine Allergy thrush Uncoded 11/19/17 15:33 Home Medications: Home Medications Amlodipine Besylate 5 mg PO DAILY 11/19/17 [History Confirmed 11/19/17] Atorvastatin Calcium 10 mg PO DAILY 11/19/17 [History Confirmed 11/19/17] Calcium 500 mg PO DAILY 11/19/17 [History Confirmed 11/19/17] Diclofenac Potassium 50 mg PO DAILY 11/19/17 [History Confirmed 11/19/17] Mucinex 1 tab PO DAILY 11/19/17 [History Confirmed 11/19/17] Poly-Iron 150 Forte Capsule 150 mg PO DAILY 11/19/17 [History Confirmed 11/19/17 ] PMH/Surg Hx/FS Hx/Imm Hx Endocrine/Hematology History: Reports: Hx Diabetes, Hx Thyroid Disease - Hypothyroid Cardiovascular History: Reports: Hx Angina, Hx Coronary Artery Disease, Hx Hypertension, Hx Peripheral Vascular Disease - Legs, Hx Valvular Heart Disease - Aortic valve stenosis Comment Only: Other Cardiovascular Problems/Disorders - PAD Respiratory History: Reports: Hx Sleep Apnea - 4-6 pressure setting Denies: Other Respiratory Problems/Disorders GI History: Reports: Hx Gastroesophageal Reflux Disease - on medication, Hx Hiatal Hernia - possibly 40-50 years ago, Hx Ulcer - 40-50 years ago, Other GI Disorders - Constipation History: Reports: Other Problems/Disorders - Urinary incontinence Denies: Hx Kidney Infection, Hx Kidney Stones Musculoskeletal History: Reports: Hx Arthritis - Knee, ankles, hands, Hx Back Problems, Hx Tendonitis - history tennis elbow, trigger finger Comment Only: Other Musculoskeletal History - spondylosis Sensory History: Reports: Hx Cataracts - bilateral, Hx Contacts or Glasses - Glasses Denies: Hx Glaucoma, Hx Hearing Aid Opthamlomology History: Reports: Hx Cataracts - bilateral, Hx Contacts or Glasses - Glasses Denies: Hx Glaucoma Neurological History: Reports: Hx Nerve Disease - Diabetic nueropathy, legs and feet, Other Neuro Impairments/Disorders - Foot drop right foot Psychiatric History: Reports: Hx Anxiety, Hx Depression Denies: Other Psychiatric Issues/Disorders - patient denies - Cancer History Hx Chemotherapy: No - Surgical History Surgery Procedure, Year, and Place: 2001 Lumbar [place]ctomy[place] [place] Teeth Extraction. Appendectomy 1959. Blood Clot (per pt ) on his back 1957, maybe hematoma - fell with large area of swelling, wick placed in area and drained. Left and Right Trigger Finger age [age]. Skin Cancer, Neck age 31. Colonoscopy x2 or 3 times Hx Anesthesia Reactions: No Infectious Disease History: No Infectious Disease History: Denies: History Other Infectious Disease, Traveled Outside the [place] in Last 30 Days - Family History Known Family History: Positive: Diabetes - Social History Alcohol Use: None Alcohol Amount: heavy drinker age 16- 22 Substance Use Type: Reports: None Hx Tobacco Use: Yes Smoking Status (MU): Former Smoker Type: Cigarettes Amount Used/How Often: 3-4 packs per day for 30 years Review of Systems Negative: Fever Positive: Edema - swelling and pain of the R lower extremity Positive: Other - R lower extremity is pink in color All Other Systems Reviewed And Are Negative: Yes Physical Exam - Summary Physical Exam Summary: Appearance: The patient is well-nourished in no acute distress and in no acute pain. Skin: The skin is warm and dry. Cellulitis of R lower leg. HEENT: The head is normocephalic and atraumatic. The pupils are equal and reactive. The conjunctivae are clear and without drainage. Nares are patent and without drainage. Mouth reveals moist mucous membranes and the throat is without erythema and exudate. The external ears are intact. The ear canals are patent and without drainage. The tympanic membranes are intact. Neck: The neck is supple with full range of motion and non-tender. There are no carotid bruits. There is no neck vein distension. Respiratory: Chest is non-tender. Lungs are clear to auscultation and breath sounds are symmetrical and equal. Cardiovascular: Heart is regular rate and rhythm. There is no murmur or rub auscultated. There is no peripheral edema and pulses are symmetrical and equal. Abdomen: The abdomen is soft and non-tender. There are normal bowel sounds heard in all four quadrants and there is no organomegaly palpated. Musculoskeletal: There is no back tenderness noted. Extremities are non-tender with full range of motion. There is good capillary refill. There is no peripheral edema or calf tenderness elicited. Neurological: Patient is alert and oriented to person, place and time. The patient has symmetrical motor strength in all four extremities. Cranial nerves are grossly intact. Deep tendon reflexes are symmetrical and equal in all four extremities. Psychiatric: The patient has an appropriate affect and does not exhibit any anxiety or depression. Triage Information Reviewed: Yes Vital Signs On Initial Exam: Initial Vitals Temp Pulse Resp BP Pulse Ox 97.1 F 65 16 126/50 92 11/19/17 15:33 11/19/17 15:33 11/19/17 15:33 11/19/17 15:33 11/19/17 15:33 Vital Signs Reviewed: Yes Diagnostics - Vital Signs Vital Signs Temp Pulse Resp BP Pulse Ox 11/19/17 15:33 97.1 F 65 16 126/50 92 - Laboratory Result Diagrams: 11/19/17 16:44 11/19/17 16:44 Lab Statement: Any lab studies that have been ordered have been reviewed, and results considered in the medical decision making process. - Ultrasound No standard instances Ultrasound Interpretation Completed By: Radiologist - Venous doppler study reveals no sonographic evidence of deep vein thrombosis. ED physician has reviewed this radiology report. Lower Extremity Course/Dx - Course Course Of Treatment: Mr. Sanders presented to the emergency department with right leg swelling and erythema which started today. It has been bothering him a little bit for a day or 2 but became painful today. He was noted to have an obvious cellulitis of the right lower extremity. He was given IV fluids and Kefzol while labs were obtained and found to be within normal limits. He remained stable here in the emergency department and I think he deserves a trial of outpatient therapy with Keflex. - Diagnoses Differential Diagnosis/HQI/PQRI: Positive: Cellulitis Provider Diagnoses: Cellulitis Discharge - Sign-Out/Discharge Documenting (check all that apply): Patient Departure - Discharge Plan Condition: Stable Disposition: HOME Prescriptions: Cephalexin CAP* [Keflex CAP*] 500 mg PO QID #40 cap Patient Education Materials: Cellulitis (ED) Referrals: Torsten Chan MD [Primary Care Provider] - (Please follow up with your primary care physician in 2-3 days.) Additional Instructions: Please follow up with your primary care physician in 2-3 days. RETURN TO THE ED FOR ANY NEW OR WORSENING SYMPTOMS. - Billing Disposition and Condition Condition: STABLE Disposition: Home - Attestation Statements Document Initiated by Vernaibe: Yes Documenting Scribe: Phill Robles Provider For Whom Vernaibe is Documenting (Include Credential): Bang Torrez MD Scribe Attestation: I, Phill Robles, scribed for Bang Torrez MD on 11/19/17 at 2053. Scribe Documentation Reviewed: Yes Provider Attestation: The documentation as recorded by the Phill de anda accurately reflects the service I personally performed and the decisions made by me, Bang Torrez MD
[2017-11-19 17:03] LABS: ABS Basophils 0 10^3/ul (0-0.2); ABS Eosinophils 0.2 10^3/ul (0-0.6); ABS Lymphocytes 1.3 10^3/ul (1.0-4.8); ABS Monocytes 0.9 10^3/ul (0-0.8); ABS Nucleated RBC 0 10^3/ul; Eosinophil % 3.3 % (0-6); Hematocrit 27 % (42-52); Lymphocyte % 17.5 % (25-47); Mean Corpuscular HGB Conc 33 g/dl (31-36); Mean Corpuscular Hemoglobin 26 pg (27-31); Mean Corpuscular Volume 80 fL (80-94); Nucleated Red Blood Cells % 0.1; Platelet Count 263 10^3/ul (150-450); Red Blood Count 3.41 10^6/ul (4.00-5.40); Red Cell Distribution Width 17 % (10.5-15); White Blood Count 7.5 10^3/ul (3.5-10.8)
[2017-11-19 17:10] LABS: EGFR Non-African American 50.5 (>60)
[2017-11-19 19:05] VITALS: BP 129/69
== END | disposition home or self-care (01) ==
LOC: ED 15:14
DX: L03.115 Cellulitis of right lower limb (principal); R60.0 Localized edema; I10 Essential (primary) hypertension; Z88.5 Allergy status to narcotic agent; K21.9 Gastro-esophageal reflux disease without esophagitis; K44.9 Diaphragmatic hernia without obstruction or gangrene; Z87.891 Personal history of nicotine dependence; M79.661 Pain in right lower leg
CPT/HCPCS: 36415; 80053; 83605; 85025; 86140; 96365; 99282; A9270-GY; J0690

== ENCOUNTER → 2017-12-08 11:48 | Day surgery (SDC) | payer MEDICARE, OTHER ==
[~2017-12-08 11:48] MED LIST changes: +Buffered Lidocaine 0.9% SYRIN* 5 ML/SYR SYRINGE INTRADERM ONE; -Cephalexin CAP* 500 MG ONE; -Cephalexin CAP* 500 MG PO ONE; +Famotidine IV* 10 MG/ML 2 ML (20 mg) IV ONE; +Famotidine IV* 10 MG/ML 2 ML (20 mg) ONE; +KETAMINE HCL* 50 MG/ML 10 ML VIAL ONE; +Lidocaine 2% PF * 5 ML VIAL ONE; +Lidocaine 2% VISCOUS* 15 ML UDC ONE; +Lidocaine 4% TOPICAL* 50 ML TOP.SOLN ONE; +Midazolam* 1 MG/ML 5 ML VIAL (5 MG) ONE; -NS 0.9% 1000 ML* 1,000 ML IV ONE; +Naloxone* 0.4 MG/ML 1 ML VIAL IV PRN; +Ondansetron INJ* 2 MG/ML VIAL IV PRN; +Ondansetron INJ* 2 MG/ML VIAL ONE; +Propofol* 10 MG/ML 20 ML BTL IV PUSH ONE; -ceFAZolin 1 GM in Dextrose (*) 1 GM/50 ML BAG IVPB ONE; +fentaNYL* 50 MCG/ML 2 ML VIAL (100 MCG VIAL) IV PRN; +fentaNYL* 50 MCG/ML 2 ML VIAL (100 MCG VIAL) ONE
[2017-12-08 17:28] VITALS: BP 140/70
--- NOTE | 2017-12-09 22:56 | PRO ---
CC: Torsten Chan MD * DATE OF PROCEDURE: 12/08/17 [facility] PRIMARY CARE PHYSICIAN: Torsten Chan MD INDICATION FOR PROCEDURE: New-onset iron deficiency anemia along with change in bowel habits, diarrhea. PROCEDURE PERFORMED: Complete esophagogastroduodenoscopy with biopsies and complete colonoscopy to the terminal ileum with biopsies. MEDICATIONS GIVEN: Please see the anesthesia service record. DESCRIPTION OF PROCEDURE: After the EGD procedure and colonoscopy procedure including the risks, benefits, and alternatives with the risks not limited to perforation surgery, missed lesions and/or were explained to the patient, written consent was then obtained. IV medication was given. A bite-block was placed between the teeth. The Olympus gastroscope was placed through the patient's mouth through the upper esophageal sphincter and into the esophagus. The Z-line was grossly normal in appearance without any evidence of reflux or Horton esophagus. The scope was then passed through the lower esophageal sphincter into the stomach. The antral portion of the stomach did have some mild gastritis. This was biopsied for CLOtesting. On retroflexion, there was no evidence of hiatal hernia and the views were grossly normal. The scope was then advanced through the widely patent pylorus into the duodenal bulb, the C- loop, and into the distal duodenum, which were normal in appearance. The scope was then withdrawn from the patient. The GE junction was at 41 cm. The patient was continued to receive IV medication via the anesthesia service. He was rotated and a rectal exam was performed, which was normal. The adult Olympus colonoscope was then advanced very carefully through the entirety of the colon and into the cecum. The cecal base was carefully inspected and normal in appearance. The terminal ileal valve was identified and intubated x4 cm and normal in appearance. Over the next 9 minutes, the scope was carefully withdrawn inspecting the mucosa. The mucosa was completely normal in appearance throughout the entire colon with moderate left-sided diverticulosis coli. Biopsies were taken to rule out microscopic colitis. The preparation was good. Direct views of the rectum were normal. On retroflexion, he did have a grade 1 internal hemorrhoids. The scope was then withdrawn from the patient. He tolerated the procedure well. He returned to the recovery room in stable condition. IMPRESSION: 1. Complete esophagogastroduodenoscopy with biopsies. 2. Gastritis, biopsied for CLOtesting. 3. Normal appearing duodenum, but in the setting of diarrhea, biopsied to rule out celiac disease and malabsorption. 4. Complete colonoscopy with terminal ileal intubation. 5. Diverticulosis coli, moderate on the left. 6. Biopsies taken to rule out microscopic colitis. RECOMMENDATIONS: No etiology of the patient's new onset iron deficiency anemia has been identified. I will work with getting a capsular endoscopy authorized. If this is negative, the next step will be to send him to Hematology for further evaluation. He does not need a repeat colonoscopy given that this is his second negative examination unless new symptoms develop or change in family history. In terms of his diarrhea, there were multiple etiologies that were discussed in the office prior to this colonoscopy including the potential that medication-induced diarrhea was at the top end of the list with his metformin use and then also some sugar-free candies and cough drops that were used as well. He is also taking magnesium supplements. They will be discussing these with his primary care physician and an attempt to remove some of these medications. If he is still having persistent diarrhea after 1 month with these medication changes, he will follow up with me in the office for further management. I will follow up on the result of these biopsies. [id number]/[facility] #: [id number] RUFUS
== END | disposition home or self-care (01) ==
LOC: OR 11:48
PROVIDERS: ATTEND Internal Medicine Gastroenterology
DX: K29.70 Gastritis, unspecified, without bleeding (principal); K52.831 Collagenous colitis; D50.9 Iron deficiency anemia, unspecified; R19.7 Diarrhea, unspecified; R19.4 Change in bowel habit; K57.30 Diverticulosis of large intestine without perforation or abscess without bleeding; R63.4 Abnormal weight loss; I35.0 Nonrheumatic aortic (valve) stenosis; I10 Essential (primary) hypertension; G47.33 Obstructive sleep apnea (adult) (pediatric); E11.9 Type 2 diabetes mellitus without complications; Z79.84 Long term (current) use of oral hypoglycemic drugs; Z87.891 Personal history of nicotine dependence
CPT/HCPCS: 87077; 88305; J2250; J2405; J2704; J3010

== ENCOUNTER 2018-10-02 07:20 | Observation (INO) | payer OTHER ==
[2018-10-02] MEDS ORDERED: HYDROmorphone INJ1* 1 MG/ML SYRINGE IV SLOW PU ONE (07:41)
[2018-10-02] MEDS ORDERED: Dexamethasone IV* 4 MG/ML 1 ML (4 MG) IV SLOW PU ONE (07:41)
--- NOTE | 2018-10-02 07:57 | ED ---
Back Pain - HPI Summary HPI Summary: Pt. is a 78 y.o male who presents to the ER for exacerbation of chronic low back pain x 3 days. Pt. denies any known injuries, falls, or injuries. Pt. is chronically on PO morphine which he has been taking with zero relief of pain. Pain is located to low back and does not radiate. Pt. notes chronic paresthesias to LEs and notes chronic drop foot on right from prior back surgeries. Pt. denies CP, SOB, abd. pain, urinary sxs, bowel or bladder incontinence or retention. Sxs are moderate in severity. Pain exacerbated with any type of movement. No alleviating factors. Past medical hx of HTN, hypothyroidism, osteoarthritis, chronic low back pain. - History of Current Complaint Chief Complaint: EDBackInjuryPain Stated Complaint: BACK PAIN PER PT Time Seen by Provider: 10/02/18 07:28 Hx Obtained From: Patient, Family/Dry Plasterer Helper Pain Intensity: 10 - Allergies/Home Medications Allergies/Adverse Reactions: Allergies Allergy/AdvReac Type Severity Reaction Status Date / Time metformin Allergy Diarrhea Verified 10/02/18 08:41 ramipril Allergy THROAT Verified 10/02/18 08:41 SWELLING Liquid Morphine Allergy thrush Uncoded 10/02/18 08:41 Home Medications: Home Medications Atorvastatin* [Lipitor*] 10 mg PO BEDTIME 10/02/18 [History Confirmed 10/02/18] PMH/Surg Hx/FS Hx/Imm Hx Previously Healthy: Yes Endocrine/Hematology History: Reports: Hx Diabetes - Type 2, Hx Thyroid Disease - Hypothyroid, Hx Anemia - was taking iron Cardiovascular History: Reports: Hx Angina - years ago, Hx Coronary Artery Disease, Hx Hypertension, Hx Peripheral Vascular Disease - Legs- turn red and swell up-states it is cellulitis, Hx Valvular Heart Disease - Aortic valve stenosis Comment Only: Other Cardiovascular Problems/Disorders - PAD Respiratory History: Reports: Hx Sleep Apnea - 4-6 pressure setting Denies: Other Respiratory Problems/Disorders GI History: Reports: Hx Gastroesophageal Reflux Disease - on medication, Hx Hiatal Hernia - possibly 40-50 years ago, Hx Ulcer - 40-50 years ago, Other GI Disorders - Constipation/Diarrhea History: Reports: Other Problems/Disorders - history of urinary incontinence, pt states it is ok Denies: Hx Kidney Infection, Hx Kidney Stones Musculoskeletal History: Reports: Hx Arthritis - Knee, ankles, hands, Hx Back Problems, Hx Tendonitis - history tennis elbow, trigger finger Comment Only: Other Musculoskeletal History - spondylosis Sensory History: Reports: Hx Cataracts - bilateral, Hx Contacts or Glasses - Glasses Denies: Hx Glaucoma, Hx Hearing Aid Opthamlomology History: Reports: Hx Cataracts - bilateral, Hx Contacts or Glasses - Glasses Denies: Hx Glaucoma Neurological History: Reports: Hx Nerve Disease - Diabetic neuropathy, legs and feet, Other Neuro Impairments/Disorders - Foot drop right foot, history of vertigo Psychiatric History: Reports: Hx Anxiety, Hx Depression Denies: Other Psychiatric Issues/Disorders - patient denies - Cancer History Hx Chemotherapy: No - Surgical History Surgery Procedure, Year, and Place: 03/2017 RIght Total Knee Replacement. 2001 Lumbar [place] [place] Teeth Extraction. Appendectomy 1959. Blood Clot (per pt ) on his back 1957, maybe hematoma - fell with large area of swelling, wick placed in area and drained. Left and Right Trigger Finger age 41 -51. Skin Cancer, Neck age 31. 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22 Substance Use Type: Reports: None Substance Use Comment - Amount & Last Used: morphine Hx Tobacco Use: Yes Smoking Status (MU): Former Smoker Type: Cigarettes Amount Used/How Often: 3-4 packs per day for 30 years Review of Systems Constitutional: Negative Negative: Fever, Chills Cardiovascular: Negative Negative: Palpitations, Chest Pain Respiratory: Negative Negative: Shortness Of Breath, Cough Gastrointestinal: Negative Negative: Abdominal Pain, Vomiting, Diarrhea Genitourinary: Negative Negative: dysuria, flank pain, hematuria, incontinence Positive: Other - low back pain Skin: Negative Neurological: Negative All Other Systems Reviewed And Are Negative: Yes Physical Exam Triage Information Reviewed: Yes Vital Signs On Initial Exam: Initial Vitals Temp Pulse Resp BP Pulse Ox 97.6 F 63 16 143/67 96 10/02/18 07:22 10/02/18 07:22 10/02/18 07:22 10/02/18 07:22 10/02/18 07:22 Vital Signs Reviewed: Yes Appearance: Positive: Pain Distress - Pt. sitting up in bed holding onto rales, appears in pain but nontoxic. Family member present. Skin: Positive: Warm, Dry Head/Face: Positive: Normal Head/Face Inspection Eyes: Positive: Normal, EOMI Neck: Positive: Supple Respiratory/Lung Sounds: Positive: Clear to Auscultation, Breath Sounds Present Cardiovascular: Positive: Normal, RRR, Murmur Abdomen Description: Positive: Nontender, Soft Musculoskeletal: Positive: Other - Chronic decreased sensation to bilateral LEs. Chronic drop foot on right. Severe midline tenderness diffusely through lumbar spine. No CVA tenderness. Neurological: Positive: Normal, CN Intact II-III Psychiatric: Positive: Affect/Mood Appropriate Diagnostics - Vital Signs Vital Signs Temp Pulse Resp BP Pulse Ox 10/02/18 07:22 97.6 F 63 16 143/67 96 - Laboratory Result Diagrams: 10/02/18 11:49 10/02/18 11:49 Lab Statement: Any lab studies that have been ordered have been reviewed, and results considered in the medical decision making process. Back Pain Course/Dx - Course Course Of Treatment: Pt. presenting with increased low back pain. No new neuro deficits. Pt. given IV dilaudid and decadron. CT lumbar: IMPRESSION: 1. LIMITED STUDY. 2. DEGENERATIVE DISC DISEASE AND OSTEOARTHRITIS. 3. THERE IS FUSIFORM NARROWING OF THE CENTRAL CANAL SECONDARY TO CONGENITALLY SHORT. PEDICLES. 4. THERE IS MORE FOCAL SEVERE NARROWING AT L3-L4 AND L5-S1 WITH MODERATE NARROWING AT. L1-L2 AND L2-L3. 5. THERE IS MULTILEVEL NEUROFORAMINAL NARROWING DESCRIBED ABOVE. On re-exam pt. has had mild improvement of pain with lying still but any movement causes severe pain. Attempted to ambulate and pt. was barely able to stand at bedside secondary to pain. Case discussed with hospitalist, Dr. Goodwin, and she will admit for pain control and further evaluation. - Diagnoses Provider Diagnoses: Intractable low back pain Discharge - Sign-Out/Discharge Documenting (check all that apply): Patient Departure Patient Received Moderate/Deep Sedation with Procedure: No - Discharge Plan Condition: Improved Disposition: ADMITTED TO [facility] - Billing Disposition and Condition Condition: IMPROVED Disposition: Admitted to [facility]
[2018-10-02] MEDS ORDERED: diPHENhydraMINE PO* 25 MG PO ONE (08:24)
[2018-10-02] MEDS ORDERED: Ketorolac INJ* 30 MG/ML 1 ML VIAL IV PUSH ONE (10:18)
[2018-10-02] MEDS ORDERED: Morphine TAB (NF) 15 MG TAB PO ONE (11:42)
[2018-10-02 12:12] LABS: ABS Lymphocytes 0.6 10^3/ul (1.0-4.8); ABS Monocytes 0.2 10^3/ul (0-0.8); ABS Neutrophils 7.3 10^3/ul (1.5-7.7); Eosinophil % 0.5 %; Hematocrit 32 % (42-52); Hemoglobin 10.9 g/dL (14.0-18.0); Lymphocyte % 7.4 %; Mean Corpuscular HGB Conc 35 g/dL (31-36); Mean Corpuscular Hemoglobin 30 pg (27-31); Mean Corpuscular Volume 87 fL (80-94); Mean Platelet Volume 7.5 fL (7.4-10.4); Platelet Count 206 10^3/uL (150-450); Red Blood Count 3.61 10^6 /uL (4.18-5.48); Red Cell Distribution Width 14 % (10-15); White Blood Count 8.1 10^3/uL (3.5-10.8)
[2018-10-02] MEDS ORDERED: Morphine ORAL.SOLN 10 mg* 2 MG/ML UDC 5 ml PO ONE (12:24)
[2018-10-02 12:38] LABS: Albumin 4.3 g/dL (3.2-5.2); Albumin/Globulin Ratio 1.4 (1-3); BUN/Creatinine Ratio 23.1 (8-20); C Reactive Protein 11.34 mg/L (<8.01); Calcium 9.5 mg/dL (8.6-10.3); EGFR African American 73.1 (>60); EGFR Non-African American 60.4 (>60); Globulin 3.1 g/dL (2-4); Potassium 4.6 mmol/L (3.5-5.0); Total Bilirubin 0.3 mg/dL (0.2-1.0); Total Protein 7.4 g/dL (6.4-8.9)
[2018-10-02] MEDS ORDERED: Morphine INJ* 2 MG/ML 1 ML SYRINGE (TWO MG - NEW SYRINGE VERSION) IV PRN (13:44)
[2018-10-02] MEDS ORDERED: Dextrose 50% VIAL 50 ml IV PUSH PRN (13:54)
--- NOTE | 2018-10-02 15:36 | HP ---
HISTORY AND PHYSICAL: DATE OF ADMISSION: 10/02/18 PRIMARY CARE PROVIDER: [facility] Primary Care. OTHER PROVIDERS: Kylah Solo NP ATTENDING PHYSICIAN: Dr. Goodwin * (dictated by CHIN Rubin). CHIEF COMPLAINT: "Terrible back pain." HISTORY OF PRESENT ILLNESS: Mr. Sanders is a 78-year-old male with a past medical history of disability due to back injury while working in 1995, followed by laminectomy in 2001 due to stenosis and herniated disks as well as a past medical history of diabetes mellitus, hypertension, hyperlipidemia, iron deficiency anemia and neuropathy, who presented to the ER today with complaints of low back pain. The patient states he has chronic low back pain and it has worsened in the last approximately 1 week and has progressively gotten worse and his maximum discomfort was last night. He denies recent injury. He notes that back pain is in the low back area with the right side worse than the left. He received Dilaudid in the ER and noted that this improved the pain. He also notes that position changes sometimes improve the pain, although he finds that the pain increases with any movement. He describes the pain as sharp with certain movements. He notes that it does not radiate, but that he does have bilateral lower extremity numbness that is chronic and tender to the touch since surgery. He rates the pain as an 8-9/10 currently. He typically ambulates with 2 canes, but has been unable to do so recently due to pain. He notes that he has traveled to and from [place] on Monday which is longer than his typical car rides. He notes that his brother yesterday. He denies chest pain, shortness of breath, cough, fever , chills, headache, vision changes. He notes that he has intermittent cramping/ tightness/stiffness in bilateral hands, which he attributes to osteoarthritis. He denies saddle anesthesia, incontinence of bowel or bladder. He notes he has difficulty with ambulation. In the ER, the patient received a full workup, which included laboratory data showing a normocytic anemia and elevated BUN, elevated glucose and a CRP of 11.34. He received a lumbar spine CT that revealed DDD, OA, multilevel neural foraminal narrowing. He was provided with Decadron 10, Benadryl 25, hydromorphone 1 mg, ketorolac 10 mg, morphine sulfate 30 mg. Hospitalist team was asked to evaluate the patient for admission. PAST MEDICAL HISTORY: 1. Diabetes mellitus. 2. Hypertension. 3. Hyperlipidemia. 4. Iron deficiency anemia. 5. Hypothyroidism. 6. Neuropathy. 7. Chronic low back pain due to job injury in 1995, status post laminectomy in 2001. PAST SURGICAL HISTORY: Right knee in 2017, laminectomy in 2001, hematoma removal from superficial low back as a child, appendectomy, tonsillectomy, bilateral trigger fingers. HOME MEDICATIONS: 1. Aspirin 81 mg p.o. daily. 2. Atorvastatin 10 mg p.o. at bedtime. 3. Chlorthalidone 25 mg p.o. q.a.m. 4. Diltiazem HCl 180 mg p.o. q.a.m. 5. Docusate cap 100 mg p.o. t.i.d. 6. Duloxetine DR 30 mg p.o. b.i.d. 7. Gabapentin 600 mg p.o. t.i.d. 8. Poly-Iron 150 Forte 1 cap p.o. b.i.d. 9. Levothyroxine 188 mcg p.o. daily. 10. Morphine sulfate 15 mg p.o. daily p.r.n. back pain. 11. Morphine extended release 45 mg p.o. b.i.d. 12. Sitagliptin 100 mg p.o. daily. 13. Telmisartan/amlodipine 1 tab p.o. daily. DRUG ALLERGIES: METFORMIN, diarrhea; RAMIPRIL, anaphylaxis; LIQUID MORPHINE, thrush. FAMILY HISTORY: Father, diabetes mellitus, of pericarditis. Mother, unsure. Brother of pancreatic cancer, question CVA. SOCIAL HISTORY: The patient quit smoking approximately 30 years ago, prior to that he smoked for approximately 30 years, 2 packs per day. He no longer uses alcohol. He was disabled from his job in 1995. He is for approximately 14 years. He lives alone. He has 1 child who lives out of the house. In the event that he is unable to make his own medical decisions, he has appointed his friend/soil expert, Noemí Cespedes to be his surrogate decision maker. REVIEW OF SYSTEMS: A 10-point review of systems has been performed and all the pertinent positives and negatives are in the HPI. All other systems are negative. PHYSICAL EXAMINATION GENERAL: Mr. Sanders is a well-developed, well-nourished, obese, older white male who is sitting up in bed. He appears moderately uncomfortable, but in no acute distress. He limits his movements due to pain. VITAL SIGNS: Temperature 97.6 temporal, heart rate 58, respiratory rate 20, oxygen saturation 96% on room air, blood pressure 127/65. HEENT: PERRL. EOMI. Nonicteric sclerae. Hearing grossly intact. Oral mucous membranes are moist. There are no lesions. NECK: Full range of motion without pain or tenderness to palpation. RESPIRATORY: Symmetrical chest expansion without use of accessory muscles. Lungs are clear to auscultation bilaterally without rhonchi, wheezes, or rubs. There is no clubbing or cyanosis. CARDIOVASCULAR: Regular rate and rhythm with S1, S2 present. The patient has a systolic murmur present. No rubs or gallops. There is no JVD. The patient has 2+ pitting edema in bilateral lower extremities. Radial and pedal pulses are palpable. ABDOMEN: Obese. Bowel sounds noted in all quadrants. The abdomen is soft without tenderness to palpation. MUSCULOSKELETAL: The patient is tender to palpation only at the lumbar area. He is able to move all of his extremities, although this is painful for him and he moves slow and antalgically. NEURO: The patient is awake. He is alert and oriented x3 with cranial nerves grossly intact. He is able to move all of his extremities, but again is limited by pain. Motor strength in upper extremities is equal and 5/5. Lower extremity motor strength is equal, but diminished due to pain. The patient has chronic right footdrop. Sensation in lower extremities is diminished bilaterally. DIAGNOSTIC STUDIES/LAB DATA: RBC 3.61, HGB 10.9, HCT 32, BUN/creatinine 23.1, glucose 181, CRP 11.34. CT lumbar spine, impression: Limited study, degenerative disk disease and osteoarthritis. 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 There is more focal severe narrowing at L3-L4 and L5- S1 with moderate narrowing at L1-L2 and L2-L3. There is multilevel neural foraminal narrowing as described above. ASSESSMENT AND PLAN: Mr. Sanders is a 78-year-old male with a past medical history of chronic low back pain, status post job-related injury in 1995 leading to disability, laminectomy in 2001, diabetes, hypertension, hyperlipidemia, iron deficiency anemia and neuropathy, who presented to the ER with complaints of low back pain. He currently follows with the pain clinic at [facility]. He will be admitted observation for: 1. Acute exacerbation of chronic low back pain. The patient has a history of chronic low back pain following disability at work in 1995 and laminectomy in 2001. His current pain regimen includes 45 mg morphine ER b.i.d. and morphine sulfate 15 mg p.o. as needed daily x1. He has had this back pain increasing for the last approximately 1 week and it has worsened since last night, which brought him to the ER. He will be admitted for this pain. Dr. Cheema has been consulted. He will be placed on his regular morphine extended release 45 mg b.i.d. His morphine sulfate p.o. will be held. He will be placed on morphine 2 mg IV q.4 hours p.r.n. severe pain. PT and OT have been ordered. We will await further recommendations for pain management from Dr. Cheema. 2. Diabetes mellitus. The patient is on sitagliptin at home. This will be held while he is in the hospital. He will be started on lispro sliding scale. 3. Hypertension. Continue home medications, chlorthalidone, diltiazem, telmisartan, amlodipine. 4. Hyperlipidemia. Continue atorvastatin. 5. Anemia. Continue iron supplementation. 6. Hypothyroidism. Continue levothyroxine. 7. Neuropathy. Continue gabapentin. 8. FEN: The patient will be placed on heart healthy diet. No fluids will be administered at this time. 9. DVT prophylaxis: According to the DVT risk assessment, the patient scores 4 placing him at high risk. He will be started on heparin. 10. Code status: Full code. TIME SPENT: Approximately 60 minutes was spent on this admission, greater than half of that time was spent with the patient and his friend obtaining history, performing a physical, and reviewing the plan of care. The case has been reviewed with my attending, Dr. Goodwin, who is in agreement with the plan of care. CHIN FRY [id number]/[facility] #: [id number] [facility] CENT[facility]elia
[2018-10-02] MEDS: Gabapentin CAP(*) 300 MG PO SCH ×2 (17:27→23:12)
[2018-10-02] MEDS: Insulin LISPRO* 1 UNITS UNIT SUBCUT SCH ×2 (17:27→23:25)
[2018-10-02] MEDS: Heparin VIAL(*) 5000 UNITS/ML VIAL (FIVE THOUSAND) SUBCUT SCH ×2 (17:28→23:14)
[2018-10-02] MEDS: Docusate CAP* 100 MG PO SCH ×2 (17:29→23:14)
--- NOTE | 2018-10-02 18:08 | CONSULT ---
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 He is a 78 year old male with back pain. He originally injured his back while working for [employer] in 1995. He bent over to pick something up and injured his back. He underwent a laminectomy in 2001 and has been on chronic opioid therapy since that time. He currently take MS Contin, 45 mg BID as well as MSIR, 15 mg every 6 hours as needed, though takes it infrequently. He is also on gabapentin 600 mg TID and Duloxetine 30 mg daily. He states that he saw Dejon Solo NP, in the Pain Clinic September 25. He says he was noticing increased pain in his back. He drove to [place] over the weekend to see his dying brother. He had a lot more pain in his back yesterday. Last night he says he was helped into bed but did not sleep. This morning he called his girlfriend and was brought to the ER, and admitted. He was given a shot of IV dilaudid in the ER and he says this helped. I am asked to consult for pain management. PAST MEDICAL HISTORY: Diabetes, HTN, hypercholesterolemia, hypothyroidism Allergies Allergy/AdvReac Type Severity Reaction Status Date / Time metformin Allergy Diarrhea Verified 10/02/18 08:41 ramipril Allergy THROAT Verified 10/02/18 08:41 SWELLING Liquid Morphine Allergy thrush Uncoded 10/02/18 08:41 Current Medications Amlodipine Besylate (Norvasc Tab*) 5 mg PO DAILY [facility] Aspirin (Aspirin Ec Tab*) 81 mg PO DAILY [facility] Atorvastatin Calcium (Lipitor*) 10 mg PO BEDTIME [facility] Chlorthalidone (Hygroton Tab*) 25 mg PO QAM [facility] Cyclobenzaprine HCl (Flexeril Tab*) 10 mg PO TID PRN PRN Reason: SPASMS Dextrose (Dextrose 50% Vial 50 Ml*) 25 ml IV PUSH .FOR FS < 60 - SS PRN PRN Reason: FS < 60 Diltiazem HCl (Cardizem Cd Cap*) 180 mg PO QAM RADHA Docusate Sodium (Colace Cap*) 100 mg PO TID [facility] Last Admin: 10/02/18 17:29 Dose: 100 mg Duloxetine HCl (Cymbalta Cap*) 30 mg PO BID RADHA Gabapentin (Neurontin Cap(*)) 600 mg PO TID [facility] Last Admin: 10/02/18 17:27 Dose: 600 mg Heparin Sodium (Porcine) (Heparin Vial(*)) 5,000 units SUBCUT Q8HR [facility] Last Admin: 10/02/18 17:28 Dose: 5,000 units Insulin Human Lispro (Humalog*) 0 units SUBCUT ACHS [facility]; Protocol Last Admin: 10/02/18 17:27 Dose: 6 units Levothyroxine Sodium (Synthroid Tab*) 100 mcg PO QAM@0600 RADHA Levothyroxine Sodium (Synthroid Tab*) 88 mcg PO QAM@0600 [facility] Losartan Potassium (Cozaar Tab*) 50 mg PO DAILY [facility] Morphine Sulfate (Morphine Inj (Syringe))*) 2 mg IV Q4H PRN PRN Reason: PAIN - SEVERE Morphine Sulfate (Ms Contin(*)) 15 mg PO BID [facility] Morphine Sulfate (Ms Contin(*)) 30 mg PO BID [facility] Non-Formulary Medication (Iron Ps Complex/B12/Folic Acid [Poly-Iron 150 Forte Capsule]) 1 cap PO BID [facility] SOCIAL HISTORY: non smoker, non drinker. Lives alone. ROS: denies CP or SOB Vital Signs Temp Pulse Resp BP Pulse Ox 98.1 F 60 18 136/63 98 10/02/18 16:55 10/02/18 16:55 10/02/18 17:27 10/02/18 16:55 10/02/18 16:55 EXAM: GENERAL: In no distress LUNGS: Clear HEART: reg rhythm ABDOMEN: Soft BACK: Tender over low back EXTREMITIES: normal tone NEUROLOGIC: sens intact, able to move legs ASSESSMENT: 1. Low Back Pain PLAN: He is on Morphine MS Contin 45 mg BID his baseline. His gabapentin and duloxetine have been ordered. He has IV Morphine for breakthrough, I will change to Dilaudid, 0.5 mg IV Q6H PRN. Short acting Morphine pills are not available here and I will order PO oxycodone 10 mg for breakthrough. He has flexeril ordered for spasms. Will add bowel medications.
[2018-10-02] MEDS ORDERED: HYDROmorphone INJ1* 1 MG/ML SYRINGE IV SLOW PU PRN (18:20)
[2018-10-02] MEDS: DULoxetine DR CAP* 30 MG CAP.DR PO SCH (23:12)
[2018-10-02] MEDS: Morphine TAB Extended Release (*) 15 MG TAB.ER PO SCH (23:13)
[2018-10-02] MEDS: Morphine TAB Extended Release (*) 30 MG TAB.ER PO SCH (23:13)
[2018-10-02] MEDS: Atorvastatin* 10 MG TAB PO SCH (23:13)
[2018-10-02] MEDS: IRON PS COMPLEX PO SCH (23:31)
[2018-10-02] MEDS: B12 PO SCH (23:31)
[2018-10-02] MEDS: FOLIC ACID PO SCH (23:31)
[2018-10-03] MEDS: Levothyroxine TAB* 88 MCG TAB PO SCH (06:15)
[2018-10-03] MEDS: Levothyroxine TAB* 100 MCG TAB PO SCH (06:15)
[2018-10-03] MEDS: Heparin VIAL(*) 5000 UNITS/ML VIAL (FIVE THOUSAND) SUBCUT SCH ×3 (06:15→21:32)
[2018-10-03] MEDS: Insulin LISPRO* 1 UNITS UNIT SUBCUT SCH ×4 (08:59→21:25)
[2018-10-03] MEDS: Gabapentin CAP(*) 300 MG PO SCH ×3 (09:00→21:19)
[2018-10-03] MEDS: amLODIPine TAB* 5 MG PO SCH (09:00)
[2018-10-03] MEDS: Chlorthalidone TAB* 50 MG PO SCH (09:01)
[2018-10-03] MEDS: DULoxetine DR CAP* 30 MG CAP.DR PO SCH ×2 (09:03→21:19)
[2018-10-03] MEDS: Morphine TAB Extended Release (*) 30 MG TAB.ER PO SCH ×2 (09:03→21:25)
[2018-10-03] MEDS: Diltiazem CD CAP* 180 MG PO SCH (09:03)
[2018-10-03] MEDS: Docusate CAP* 100 MG PO SCH ×3 (09:03→21:25)
[2018-10-03] MEDS: Aspirin EC TAB* 81 MG TAB.EC PO SCH (09:04)
[2018-10-03] MEDS: Losartan TAB* 25 MG PO SCH (09:04)
[2018-10-03] MEDS: Morphine TAB Extended Release (*) 15 MG TAB.ER PO SCH ×2 (10:21→21:24)
[2018-10-03] MEDS: B12 PO SCH ×2 (11:20→21:32)
[2018-10-03] MEDS: IRON PS COMPLEX PO SCH ×2 (11:20→21:32)
[2018-10-03] MEDS: FOLIC ACID PO SCH ×2 (11:20→21:32)
[2018-10-03] MEDS: oxyCODONE TAB* 5 MG TAB PO PRN (16:31)
--- NOTE | 2018-10-03 18:17 | PN ---
Subjective Date of Service: 10/03/18 Interval History: Patient describes his pain as 6/10, which he reports is his baseline. He walked to the bathroom but felt "shaky." Denies difficulty breathing, chest pain, fever /chills. Has neuropathy at baseline. Later in late afternoon, patient reports his pain to be 10/10 and nursing does not want to walk patient to observe his ability to ambulate given this pain. Objective Active Medications: Amlodipine Besylate (Norvasc Tab*) 5 mg PO DAILY REPLACED BY [facility] Last Admin: 10/03/18 09:00 Dose: 5 mg Aspirin (Aspirin Ec Tab*) 81 mg PO DAILY REPLAC[facility] BY [facility] Last Admin: 10/03/18 09:04 Dose: 81 mg Atorvastatin Calcium (Lipitor*) 10 mg PO BEDTIME REPLACED BY [facility] Last Admin: 10/02/18 23:13 Dose: 10 mg Chlorthalidone (Hygroton Tab*) 25 mg PO QAM REPLACED BY [facility] Last Admin: 10/03/18 09:01 Dose: 25 mg Cyclobenzaprine HCl (Flexeril Tab*) 10 mg PO TID PRN PRN Reason: SPASMS Dextrose (Dextrose 50% Vial 50 Ml*) 25 ml IV PUSH .FOR FS < 60 - SS PRN PRN Reason: FS < 60 Diltiazem HCl (Cardizem Cd Cap*) 180 mg PO QAM REPLACED BY [facility] Last Admin: 10/03/18 09:03 Dose: 180 mg Docusate Sodium (Colace Cap*) 100 mg PO TID REPLACED BY [facility] Last Admin: 10/03/18 14:56 Dose: 100 mg Duloxetine HCl (Cymbalta Cap*) 30 mg PO BID REPLACED BY [facility] Last Admin: 10/03/18 09:03 Dose: 30 mg Gabapentin (Neurontin Cap(*)) 600 mg PO TID REPLACED BY [facility] Last Admin: 10/03/18 14:56 Dose: 600 mg Heparin Sodium (Porcine) (Heparin Vial(*)) 5,000 units SUBCUT Q8HR REPLACED BY [facility] Last Admin: 10/03/18 14:56 Dose: 5,000 units Hydromorphone HCl (Dilaudid Inj1s*) 0.5 mg IV SLOW PU Q6H PRN PRN Reason: SEVERE PAIN Insulin Human Lispro (Humalog*) 0 units SUBCUT ACHS REPLACED BY [facility]; Protocol Last Admin: 10/03/18 17:17 Dose: Not Given Levothyroxine Sodium (Synthroid Tab*) 100 mcg PO QAM@0600 REPLACED BY [facility] Last Admin: 10/03/18 06:15 Dose: 100 mcg Levothyroxine Sodium (Synthroid Tab*) 88 mcg PO QAM@0600 REPLACED BY [facility] Last Admin: 10/03/18 06:15 Dose: 88 mcg Losartan Potassium (Cozaar Tab*) 50 mg PO DAILY REPLACED [facility] Last Admin: 10/03/18 09:04 Dose: 50 mg Morphine Sulfate (Ms Contin(*)) 15 mg PO BID REPLACED BY [facility] Last Admin: 10/03/18 10:21 Dose: 15 mg Morphine Sulfate (Ms Contin(*)) 30 mg PO BID REPLACED BY [facility] Last Admin: 10/03/18 09:03 Dose: 30 mg Non-Formulary Medication (Iron Ps Complex/B12/Folic Acid [Poly-Iron 150 Forte Capsule]) 1 cap PO BID REPLACED BY [facility] Last Admin: 10/03/18 11:20 Dose: Not Given Oxycodone HCl (Roxycodone Tab*) 10 mg PO Q4H PRN PRN Reason: PAIN - MODERATE Last Admin: 10/03/18 16:31 Dose: 10 mg Vital Signs - 8 hr 10/03/18 10/03/18 10/03/18 10:21 11:00 11:15 Temperature 97.6 F Pulse Rate 56 Respiratory 18 18 16 Rate Blood Pressure 124/60 (mmHg) O2 Sat by Pulse 98 Oximetry 10/03/18 10/03/18 10/03/18 12:00 12:50 14:56 Temperature Pulse Rate Respiratory 18 20 18 Rate Blood Pressure (mmHg) O2 Sat by Pulse Oximetry 10/03/18 10/03/18 10/03/18 15:41 16:31 17:49 Temperature 98.4 F Pulse Rate 59 Respiratory 16 20 16 Rate Blood Pressure 125/58 (mmHg) O2 Sat by Pulse 96 Oximetry Oxygen Devices in Use Now: None Appearance: Obese, elderly, white male sitting in chair appearing in NAD Eyes: No Scleral Icterus, PERRLA Ears/Nose/Mouth/Throat: Mucous Membranes Moist Neck: NL Appearance and Movements; NL JVP Respiratory: Symmetrical Chest Expansion and Respiratory Effort, Clear to Auscultation Cardiovascular: NL Sounds; No Murmurs; No JVD, RRR Abdominal: - - abd soft, nontender, nondistended Extremities: No Edema, No Clubbing, Cyanosis Skin: No Rash or Ulcers Neurological: Alert and Oriented x 3, NL Muscle Strength and Tone Result Diagrams: 10/02/18 11:49 10/02/18 11:49 Assess/Plan/Problems-Billing Assessment: 78 yo white male with PMHx chronic back pain established at the pain clinic, DM , HTN, iron def anemia, HLD< and neuropathy presents with severe back pain. - Patient Problems (1) Acute exacerbation of chronic low back pain Current Visit: Yes Status: Acute Code(s): M54.5 - LOW BACK PAIN; G89.29 - OTHER CHRONIC PAIN SNOMED Code(s): 026067248 Comment: -patient has chronic low back pain, follows with pain clinic -CT spine without acute findings -likely muscular -evaluated by Dr. Cheema who continued home meds and recommended adding prn flexeril, prn oxycodone for breakthrough pain because his home short acting is not available inpatient, and prn dilaudid for severe breakthrough -patient felt his pain was return to baseline today but felt unable to ambulate safely, when attempting to ambulate later his pain returned to 10/10 -will plan for d/c tomorrow and continue current pain regimen -Physical therapy has no acute concerns (2) Hypertension Current Visit: Yes Status: Acute Code(s): I10 - ESSENTIAL (PRIMARY) HYPERTENSION SNOMED Code(s): 68896294 Comment: -continue home losartan, amlodipine, and diltiazem (3) Diabetes Current Visit: No Status: Chronic Code(s): E11.9 - TYPE 2 DIABETES MELLITUS WITHOUT COMPLICATIONS SNOMED Code(s): 93824953 Comment: -BGs well controlled today -SS lispro while inpatient (4) Hypothyroidism Current Visit: No Status: Chronic Code(s): E03.9 - HYPOTHYROIDISM, UNSPECIFIED SNOMED Code(s): 70033592 Comment: -Continue home levothyroxine (5) Full code status Current Visit: No Status: Acute Code(s): Z78.9 - OTHER SPECIFIED HEALTH STATUS SNOMED Code(s): 004253217 (6) DVT prophylaxis Current Visit: No Status: Acute Code(s): FDF8226 - SNOMED Code(s): 749997830 Comment: -heparin
[2018-10-03] MEDS: Cetirizine* 10 MG TAB PO SCH (19:22)
[2018-10-03] MEDS: Cyclobenzaprine TAB* 10 MG PO PRN (19:22)
[2018-10-03] MEDS: guaiFENesin ER TAB 600 MG PO SCH (19:23)
[2018-10-03] MEDS: Atorvastatin* 10 MG TAB PO SCH (21:32)
[2018-10-03] MEDS ORDERED: Senna TAB 8.6 mg* TAB PO PRN (21:43)
--- NOTE | 2018-10-04 | DS ---
CC: CHIN Thomson; Dr. Cheema.* DISCHARGE SUMMARY: DATE OF ADMISSION: 10/02/18 DATE OF DISCHARGE: 10/04/18 ATTENDING PHYSICIAN WHILE IN THE HOSPITAL: Dr. Patricia Rose * (dictated by CHIN Carvajal) CONSULTING PAIN SPECIALIST: Dr. Cheema. PRIMARY CARE PROVIDER: CHIN Thomson PRIMARY DIAGNOSIS: Acute exacerbation of chronic low back pain. SECONDARY DIAGNOSES: 1. Diabetes. 2. Hypertension. 3. Hyperlipidemia. 4. Iron-deficiency anemia. 5. Neuropathy. 6. Chronic low back pain established with pain clinic. STUDIES WHILE IN THE HOSPITAL: CT of lumbar spine on 10/02/18. Impression: Limited study. Degenerative disk disease and osteoarthritis. 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 There is more focal severe narrowing at L3-L4 and L5-S1 with moderate narrowing at L1-L2 and L2-L3. There is multilevel neuro foraminal narrowing as described above. HISTORY OF PRESENT ILLNESS/HOSPITAL COURSE: Mr. Sanders is a 78-year-old male with a past medical history significant for low back pain, established with pain clinic; diabetes; neuropathy; hypertension; hyperlipidemia and iron- deficiency anemia, who presented to the emergency department due to severe back pain. Please see admitting history and physical dictated by CHIN Rubin for further information. The patient was evaluated in consultation by Dr. Cheema who is familiar with the patient and from the pain clinic, and made recommendations regarding the patient's short-term pain control given that we do not carry his home morphine short-acting pills on formulary. His p.o. oxycodone was ordered for breakthrough pain as well as Flexeril for muscle spasms and p.r.n. IV Dilaudid. At the time of evaluation on 10/03/18, the patient was feeling that his back pain was 6/10 which he describes as his baseline back pain, and however, felt that he was "shaky" when walking to the bathroom and later when asked to ambulate, stated that his pain was 10/10 and nursing felt it was inappropriate to walk with him at that time, this is in the evening. PHYSICAL EXAMINATION: Please see progress note from 10/03/18. DISCHARGE PLAN: Diet: Carbohydrate consistent diet. Activity: The patient may return to normal activity as tolerated. The patient is advised to follow up in the pain clinic as he typically follows there. He is to follow up with his primary care provider within 7 to 10 days regarding his hospitalization. He is to return to the hospital if he experiences any falls, fever or chills, new or worsening symptoms, loss of bowel or bladder control or saddle anesthesia. He will return home with his normal pain regimen. DISCHARGE MEDICATIONS: Continued home medications: 1. Aspirin 81 mg p.o. daily. 2. Atorvastatin 10 mg p.o. daily. 3. Chlorthalidone 25 mg p.o. daily. 4. Duloxetine 30 mg p.o. b.i.d. 5. Colace 100 mg p.o. t.i.d. 6. Gabapentin 600 mg p.o. t.i.d. 7. Synthroid 100 mcg and 88 mcg p.o. daily. 8. Morphine sulfate 50 mg p.o. daily p.r.n. pain. 9. Morphine extended release 50 mg p.o. b.i.d. 10. Morphine extended release 30 mg p.o. b.i.d., maximum daily dose 2. 11. Sitagliptin 100 mg p.o. daily. 12. Telmisartan/amlodipine 40/5 mg one tab p.o. daily. 13. Diltiazem 180 mg p.o. daily. 14. Iron/folic acid 1 cap p.o. b.i.d. CONDITION ON DISCHARGE: Improved. DISPOSITION: Home. TIME SPENT: Approximately 30 minutes was spent on this discharge. CHIN CARVAJAL [id number]/[facility] #: [id number] RUFUS
[2018-10-04] MEDS: Levothyroxine TAB* 88 MCG TAB PO SCH (06:22)
[2018-10-04] MEDS: Levothyroxine TAB* 100 MCG TAB PO SCH (06:22)
[2018-10-04] MEDS: Heparin VIAL(*) 5000 UNITS/ML VIAL (FIVE THOUSAND) SUBCUT SCH ×2 (06:22→15:15)
[2018-10-04] MEDS: Docusate CAP* 100 MG PO SCH ×2 (08:54→15:15)
[2018-10-04] MEDS: Morphine TAB Extended Release (*) 15 MG TAB.ER PO SCH (08:54)
[2018-10-04] MEDS: Insulin LISPRO* 1 UNITS UNIT SUBCUT SCH ×3 (08:54→18:09)
[2018-10-04] MEDS: Aspirin EC TAB* 81 MG TAB.EC PO SCH (08:55)
[2018-10-04] MEDS: Gabapentin CAP(*) 300 MG PO SCH ×2 (08:56→15:14)
[2018-10-04] MEDS: Morphine TAB Extended Release (*) 30 MG TAB.ER PO SCH (08:56)
[2018-10-04] MEDS: guaiFENesin ER TAB 600 MG PO SCH (08:56)
[2018-10-04] MEDS: amLODIPine TAB* 5 MG PO SCH (08:56)
[2018-10-04] MEDS: B12 PO SCH (08:57)
[2018-10-04] MEDS: IRON PS COMPLEX PO SCH (08:57)
[2018-10-04] MEDS: Cetirizine* 10 MG TAB PO SCH (08:57)
[2018-10-04] MEDS: Losartan TAB* 25 MG PO SCH (08:57)
[2018-10-04] MEDS: DULoxetine DR CAP* 30 MG CAP.DR PO SCH (08:57)
[2018-10-04] MEDS: Diltiazem CD CAP* 180 MG PO SCH (08:57)
[2018-10-04] MEDS: FOLIC ACID PO SCH (08:57)
[2018-10-04] MEDS: Chlorthalidone TAB* 50 MG PO SCH (08:57)
[2018-10-04 09:38] LABS: Urine Appearance Clear; Urine Bilirubin Negative (Negative); Urine Blood Negative (Negative); Urine Color Straw; Urine Glucose Negative (Negative); Urine Ketones Negative (Negative); Urine Nitrite Negative (Negative); Urine Protein Negative (Negative); Urine Specific Gravity 1.009 (1.010-1.030); Urine Urobilinogen Negative (Negative)
[2018-10-04] MEDS: oxyCODONE TAB* 5 MG TAB PO PRN (12:02)
[2018-10-04] MEDS: Cyclobenzaprine TAB* 10 MG PO PRN (12:03)
--- NOTE | 2018-10-04 15:13 | PN ---
Subjective Date of Service: 10/04/18 Interval History: Patient seen and examined. Feeling well/back to baseline. Pain is present but tolerable. Ambulated with PT yesterday with his canes per his usual routine. Discussed use of walker as opposed to two straight canes. Patient stated his opposition to using a walker even though I clearly stated it is more stable than two straight canes, patient stated he understands but is more comfortable with his two cane method. He denies fever or chills, mild cough, no SOB, no chest pain. Intermittent back spasms well controlled with addition of flexeril. Objective Active Medications: Amlodipine Besylate (Norvasc Tab*) 5 mg PO DAILY [facility] Last Admin: 10/04/18 08:56 Dose: 5 mg Aspirin (Aspirin Ec Tab*) 81 mg PO DAILY [facility] Last Admin: 10/04/18 08:55 Dose: 81 mg Atorvastatin Calcium (Lipitor*) 10 mg PO BEDTIME [facility] Last Admin: 10/03/18 21:32 Dose: 10 mg Cetirizine HCl (Zyrtec*) 10 mg PO DAILY [facility] Last Admin: 10/04/18 08:57 Dose: 10 mg Chlorthalidone (Hygroton Tab*) 25 mg PO QAM [facility] Last Admin: 10/04/18 08:57 Dose: 25 mg Cyclobenzaprine HCl (Flexeril Tab*) 10 mg PO TID PRN PRN Reason: SPASMS Last Admin: 10/04/18 12:03 Dose: 10 mg Dextrose (Dextrose 50% Vial 50 Ml*) 25 ml IV PUSH .FOR FS < 60 - SS PRN PRN Reason: FS < 60 Diltiazem HCl (Cardizem Cd Cap*) 180 mg PO QAM [facility] Last Admin: 10/04/18 08:57 Dose: 180 mg Docusate Sodium (Colace Cap*) 100 mg PO TID [facility] Last Admin: 10/04/18 08:54 Dose: 100 mg Duloxetine HCl (Cymbalta Cap*) 30 mg PO BID [facility] Last Admin: 10/04/18 08:57 Dose: 30 mg Gabapentin (Neurontin Cap(*)) 600 mg PO TID [facility] Last Admin: 10/04/18 08:56 Dose: 600 mg Guaifenesin (Mucinex*) 600 mg PO BID [facility] Last Admin: 08/01/19 08:56 Dose: 600 mg Heparin Sodium (Porcine) (Heparin Vial(*)) 5,000 units SUBCUT Q8HR [facility] Last Admin: 10/04/18 06:22 Dose: 5,000 units Hydromorphone HCl (Dilaudid Inj1s*) 0.5 mg IV SLOW PU Q6H PRN PRN Reason: SEVERE PAIN Last Admin: 10/03/18 18:00 Dose: 0.5 mg Insulin Human Lispro (Humalog*) [address] [facility]; Protocol Last Admin: 10/04/18 12:07 Dose: Not Given Levothyroxine Sodium (Synthroid Tab*) 100 mcg PO QAM@0600 [facility] Last Admin: 10/04/18 06:22 Dose: 100 mcg Levothyroxine Sodium (Synthroid Tab*) 88 mcg PO QAM@0600 [facility] Last Admin: 10/04/18 06:22 Dose: 88 mcg Losartan Potassium (Cozaar Tab*) 50 mg PO DAILY [facility] Last Admin: 10/04/18 08:57 Dose: 50 mg Morphine Sulfate (Ms Contin(*)) 15 mg PO BID [facility] Last Admin: 10/04/18 08:54 Dose: 15 mg Morphine Sulfate (Ms Contin(*)) 30 mg PO BID [facility] Last Admin: 10/04/18 08:56 Dose: 30 mg Non-Formulary Medication (Iron Ps Complex/B12/Folic Acid [Poly-Iron 150 Forte Capsule]) 1 cap PO BID [facility] Last Admin: 10/04/18 08:57 Dose: Not Given Oxycodone HCl (Roxycodone Tab*) 10 mg PO Q4H PRN PRN Reason: PAIN - MODERATE Last Admin: 10/04/18 12:02 Dose: 10 mg Senna (Senokot Tab*) 1 tab PO BEDTIME PRN PRN Reason: CONSTIPATION Last Admin: 10/03/18 23:32 Dose: 1 tab Vital Signs - 8 hr 10/04/18 10/04/18 10/04/18 07:50 08:54 08:56 Temperature 97.5 F Pulse Rate 43 Respiratory 16 16 16 Rate Blood Pressure 117/59 (mmHg) O2 Sat by Pulse 100 Oximetry 10/04/18 10/04/18 12:02 12:03 Temperature Pulse Rate Respiratory 16 16 Rate Blood Pressure (mmHg) O2 Sat by Pulse Oximetry Oxygen Devices in Use Now: None Appearance: alert, NAD Eyes: No Scleral Icterus, PERRLA Ears/Nose/Mouth/Throat: NL Teeth, Lips, Gums Neck: NL Appearance and Movements; NL JVP, Trachea Midline Respiratory: Symmetrical Chest Expansion and Respiratory Effort, Clear to Auscultation Cardiovascular: NL Sounds; No Murmurs; No JVD, RRR, No Edema Abdominal: NL Sounds; No Tenderness; No Distention Skin: No Rash or Ulcers Neurological: Alert and Oriented x 3, NL Sensation, NL Muscle Strength and Tone Nutrition: Taking PO's Result Diagrams: 10/02/18 11:49 10/02/18 11:49 Diagnostic Imaging: Patient Name: MAGGIE BUENO Medical Record#: [id number] Ordering Physician: Jed NEELY Acct.#: [id number] : 1940 Age: 78 Sex: M Location: EMERGENCY DEPARTMENT Exam Date: 10/02/18812 ADM Status: REG ER Order Information: CT SPINE LUMBAR W/O Accession Number: [id number] CPT: 70430 HISTORY: pain, midline tenderness COMPARISONS: MRI dated June 22, 2011, CT dated January 21, 2003 TECHNIQUE: Multiple contiguous axial CT scans were obtained of the lumbar spine without intravenous contrast, with coronal and sagittal multiplanar reformations. FINDINGS: The study is limited by patient body habitus. There is a transitional last lumbar type vertebral body which will be labeled S1 for the purposes of counting. . SPINAL CANAL: Evaluation of the central canal is limited on CT technique; however, there is no obvious canalicular mass or epidural hemorrhage. 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 ALIGNMENT: There is a mild scoliotic curvature of the spine. VERTEBRAL BODIES: There is diffuse osteopenia. There is multilevel anterolateral marginal osteophyte formation. There are sclerotic endplate changes at L1-L2 and L5-S1. There is partial lumbarization of the S1 vertebral body. A laminectomy defect is noted at L4-L5.. JOINTS: There is diffuse facet osteoarthritis, most pronounced along the lower lumbar spine. MUSCULATURE: There is moderate fatty infiltration. INTERVERTEBRAL DISCS: There is diffuse loss of intervertebral disc height throughout the spine. AXIAL IMAGES: T11-T12: There is no osseous neural foraminal narrowing or focal central canal stenosis. T12-L1: There is no osseous neural foraminal narrowing or focal central canal stenosis. L1-L2: There is moderate left and mild right neural foraminal narrowing. There is moderate focal central canal. L2-L3: There is moderate bilateral neural foraminal narrowing. There is moderate focal narrowing of the central canal. L3-L4: There is moderate bilateral neural foraminal narrowing. There is severe focal narrowing of the central canal. L4-L5: A laminectomy defect is noted. There is moderate bilateral neural foraminal narrowing. L5-S1: There is severe bilateral neural foraminal narrowing with severe narrowing of the central canal. SOFT TISSUES: There is atherosclerosis of the aorta. There is diverticulosis of the colon. OTHER: None IMPRESSION: 1. LIMITED STUDY. 2. DEGENERATIVE DISC DISEASE AND OSTEOARTHRITIS. 3. THERE IS FUSIFORM NARROWING OF THE CENTRAL CANAL SECONDARY TO CONGENITALLY SHORT PEDICLES. 4. THERE IS MORE FOCAL SEVERE NARROWING AT L3-L4 AND L5-S1 WITH MODERATE NARROWING AT L1-L2 AND L2-L3. 5. THERE IS MULTILEVEL NEUROFORAMINAL NARROWING DESCRIBED ABOVE. Assess/Plan/Problems-Billing Assessment: 78 yo white male with PMHx chronic back pain established at the pain clinic, DM , HTN, iron def anemia, HLD< and neuropathy presents with severe back pain. - Patient Problems (1) Acute exacerbation of chronic low back pain Code(s): M54.5 - LOW BACK PAIN; G89.29 - OTHER CHRONIC PAIN SNOMED Code(s): 241738746 Comment: - Consult with Dr. Cheema appreciated, flexeril improving patient's pain and mobility - Continue gabapentin, and oral morphine - CT spine without acute findings, chronic degenerative changes noted - PT eval completed, no need for STR (2) Diabetes Code(s): E11.9 - TYPE 2 DIABETES MELLITUS WITHOUT COMPLICATIONS SNOMED Code(s) : 12922533 Comment: - BGs well controlled today - SS lispro while inpatient (3) History of coronary artery disease Code(s): Z86.79 - PERSONAL HISTORY OF OTHER DISEASES OF THE CIRCULATORY SYSTEM SNOMED Code(s): 291202758 Comment: - Continue ASA and statin - BP stable on diltiazem and chlorthalidone (4) DVT prophylaxis Code(s): TDN9898 - SNOMED Code(s): 646804681 Comment: - HSQ (5) Full code status Code(s): Z78.9 - OTHER SPECIFIED HEALTH STATUS SNOMED Code(s): 064428527 Status and Disposition: Observation, stable for discharge today.
[2018-10-04 15:48] VITALS: BP 119/58
== END 2018-10-04 18:35 | disposition home or self-care (01) ==
LOC: ED 07:20 → INTOOBSV 13:44 → MED 13:44
PROVIDERS: ADMIT Internal Medicine; ATTEND Internal Medicine
DX: M54.5 Low back pain (principal); G89.29 Other chronic pain; E11.9 Type 2 diabetes mellitus without complications; I10 Essential (primary) hypertension; E78.5 Hyperlipidemia, unspecified; D50.9 Iron deficiency anemia, unspecified; E03.9 Hypothyroidism, unspecified; I25.119 Atherosclerotic heart disease of native coronary artery with unspecified angina pectoris; G62.9 Polyneuropathy, unspecified; I49.3 Ventricular premature depolarization; K21.9 Gastro-esophageal reflux disease without esophagitis; M17.10 Unilateral primary osteoarthritis, unspecified knee; M19.079 Primary osteoarthritis, unspecified ankle and foot; M19.049 Primary osteoarthritis, unspecified hand; Z79.82 Long term (current) use of aspirin; Z79.899 Other long term (current) drug therapy; Z88.8 Allergy status to other drugs, medicaments and biological substances; Z87.891 Personal history of nicotine dependence
CPT/HCPCS: 36415; 72131; 80053; 81003; 85025; 86140; 96372; 96374; 96375; 96376; 99284; A9270-GY; G8987-GO-CI; G8988-GO-CH; J1100; J1170; J1644; J1885

== ENCOUNTER 2018-12-19 17:09 | Emergency (ER) | payer MEDICARE, OTHER ==
[2018-12-19] MEDS ORDERED: Aspirin TAB* 325 MG PO ONE (17:37)
[2018-12-19] MEDS ORDERED: Acetaminophen TAB* 325 MG PO ONE (17:44)
--- NOTE | 2018-12-19 18:10 | ED ---
Shortness of Breath - HPI Summary HPI Summary: Pt is a 78 y/o M presenting to the ED brought in by EMS for shortness of breath. The pt was told by police that his son today, and he supposedly collapsed and felt very short of breath. The pt himself states he has some RLQ abd pain. He denies n/v/d and dysuria. Pt notes his brother 1 month ago. - History of Current Complaint Chief Complaint: EDShortnessOfBreath Time Seen by Provider: 12/19/18 17:20 Hx Obtained From: Patient Onset/Duration: Sudden Onset, Lasting Minutes, Still Present Timing: Constant Current Severity: Mild Dyspnea At: Rest Aggravating Factors: Nothing Alleviating Factors: Nothing Associated Signs & Symptoms: Negative - Allergy/Home Medications Allergies/Adverse Reactions: Allergies Allergy/AdvReac Type Severity Reaction Status Date / Time metformin Allergy Diarrhea Verified 10/02/18 08:41 ramipril Allergy THROAT Verified 10/02/18 08:41 SWELLING Liquid Morphine Allergy thrush Uncoded 10/02/18 08:41 PMH/Surg Hx/FS Hx/Imm Hx Previously Healthy: Yes Endocrine/Hematology History: Reports: Hx Diabetes - Type 2, Hx Thyroid Disease - Hypothyroid, Hx Anemia - was taking iron Cardiovascular History: Reports: Hx Angina - years ago, Hx Coronary Artery Disease, Hx Hypertension, Hx Peripheral Vascular Disease - Legs- turn red and swell up-states it is cellulitis, Hx Valvular Heart Disease - Aortic valve stenosis Comment Only: Other Cardiovascular Problems/Disorders - PAD Respiratory History: Reports: Hx Sleep Apnea - 4-6 pressure setting Denies: Other Respiratory Problems/Disorders GI History: Reports: Hx Gastroesophageal Reflux Disease - on medication, Hx Hiatal Hernia - possibly 40-50 years ago, Hx Ulcer - 40-50 years ago, Other GI Disorders - Constipation/Diarrhea History: Reports: Other Problems/Disorders - history of urinary incontinence, pt states it is ok Denies: Hx Kidney Infection, Hx Kidney Stones Musculoskeletal History: Reports: Hx Arthritis - Knee, ankles, hands, Hx Back Problems, Hx Tendonitis - history tennis elbow, trigger finger Comment Only: Other Musculoskeletal History - spondylosis Sensory History: Reports: Hx Cataracts - bilateral, Hx Contacts or Glasses - Glasses, Hx Hearing Problem Denies: Hx Glaucoma, Hx Hearing Aid, Other Sensory Impairments Opthamlomology History: Reports: Hx Cataracts - bilateral, Hx Contacts or Glasses - Glasses Denies: Hx Glaucoma, Other Sensory Impairments Neurological History: Reports: Hx Nerve Disease - Diabetic neuropathy, legs and feet, Other Neuro Impairments/Disorders - Foot drop right foot, history of vertigo Psychiatric History: Reports: Hx Anxiety, Hx Depression Denies: Other Psychiatric Issues/Disorders - patient denies - Cancer History Hx Chemotherapy: No - Surgical History Surgery Procedure, Year, and Place: 03/2017 RIght Total Knee Replacement. [place] [place] Teeth Extraction. Appendectomy 1959. Blood Clot (per pt ) on his back 1957, maybe hematoma - fell with large area of swelling, wick placed in area and drained. Left and Right Trigger Finger age 41 -51. Skin Cancer, Neck age 31. 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 Negative: Vomiting, Diarrhea, Nausea Negative: dysuria Positive: Anxious All Other Systems Reviewed And Are Negative: Yes Physical Exam - Summary Physical Exam Summary: Constitutional: Well-developed, Well-nourished, Alert. Crying. Skin: Warm, Dry HENT: Normocephalic; Atraumatic Eyes: Conjunctiva normal Neck: Musculoskeletal ROM normal neck. (-) JVD, (-) Stridor, (-) Tracheal deviation Cardio: Rhythm regular, rate normal, Heart sounds normal; Intact distal pulses; Radial pulses are 2+ and symmetric. (-) Murmur Pulmonary/Chest wall: Effort normal. (-) Respiratory distress, (-) Wheezes, (-) Rales Abd: Soft, (-) tenderness, (-) Distension, (-) Guarding, (-) Rebound Musculoskeletal: (-) Edema Lymph: (-) Cervical adenopathy Neuro: Alert, Oriented x3 Psych: Mood and affect Normal Triage Information Reviewed: Yes Vital Signs On Initial Exam: Initial Vitals Temp Pulse Resp BP Pulse Ox 97.3 F 89 24 140/76 94 12/19/18 17:11 12/19/18 17:11 12/19/18 17:11 12/19/18 17:11 12/19/18 17:11 Vital Signs Reviewed: Yes Procedures - Sedation Patient Received Moderate/Deep Sedation with Procedure: No Diagnostics - Vital Signs Vital Signs Temp Pulse Resp BP Pulse Ox 12/19/18 17:11 97.3 F 89 24 140/76 94 - Laboratory Lab Results: Lab Results 12/19/18 Range/Units 17:38 POC Glucose (mg/dL) 127 H (70-100) mg/dL Lab Statement: Any lab studies that have been ordered have been reviewed, and results considered in the medical decision making process. Course/Dx - Course Course Of Treatment: Patient is here with a stress reaction after finding out that his son . Patient did complain of abdominal pain that's been off and on for months. Patient had no abdominal tenderness on exam. Patient had negative workup performed as an outpatient. Patient was given Tylenol for his headache and was offered any services here. Patient wanted to go home after an hour. - Diagnoses Provider Diagnoses: Stress reaction Discharge ED - Sign-Out/Discharge Documenting (check all that apply): Patient Departure - Discharge Plan Condition: Stable Disposition: HOME Patient Education Materials: Stress (ED) Referrals: Shonda Alexis MD [Primary Care Provider] - Additional Instructions: Follow up with your primary care provider in 1-3 days. - Billing Disposition and Condition Condition: STABLE Disposition: Home - Attestation Statements Document Initiated by Vernaibe: Yes Documenting Scribe: Laura Wolf Provider For Whom Jian is Documenting (Include Credential): Mike Graves MD. Scribe Attestation: Laura Sevilla scribed for Mike Graves MD. on 12/19/18 at 1900. Scribe Documentation Reviewed: Yes Provider Attestation: The documentation as recorded by the vernaibeLaura accurately reflects the service I personally performed and the decisions made by Mike deluca MD. Status of Scribe Document: Viewed
--- OUTSIDE RECORDS SUMMARY | 2018-12-19 18:54 | XMS REPORT | Continuity of Care Document ---
:1940 External Reference #:[id number] Author Name Vicente Campoverde M.D. Address [address] [place] [address] Care Team Providers Name Role Phone Shonda Alexis MD - Internal Medicine Care Team Information Community Educator Ariana Greene [employer] - Nurse Care Team Information Community Educator [phone] Practitioner Tawnya Stevenson M.D. - Adult Care Team Information Community Educator [phone] Reconstructive Orthopaedic Surgery Problems Active Problems Provider Date Hypothyroidism Onset: Stable angina Onset: H/O: Blas's palsy Onset: Pure hypercholesterolemia Onset: Arthritis Onset: Type 2 diabetes mellitus Onset: Disorder of eye with type 2 diabetes mellitus Vicente Campoverde M.D. Onset: Nonproliferative diabetic retinopathy Vicente Campoverde M.D. Onset: 09/09/2014 Nuclear senile cataract Vicente Campoverde M.D. Onset: 09/09/2014 Vitreous degeneration Vicente Campoverde M.D. Onset: 09/09/2014 Combined form of senile cataract Vicente Campoverde M.D. Onset: 03/17/2015 Phlebitis Onset: Type 2 diabetes mellitus with mild Vicente Campoverde M.D. Onset: 03/17/2016 nonproliferative diabetic retinopathy without macular edema, bilateral Essential hypertension Onset: Myopia Sandra Sy O.D. Onset: 06/06/2018 Regular astigmatism Sandra Sy O.D. Onset: 06/06/2018 Presbyopia Sandra Sy O.D. Onset: 06/06/2018 Social History Type Date Description Comments Sex Unknown ETOH Use Never used alcohol Tobacco Use Start: Unknown End: Unknown Patient is a former smoker Recreational Drug Use Former Drug User Smoking Status Reviewed: 10/29/18 Patient is a former smoker Allergies, Adverse Reactions, Alerts Active Allergies Reaction Severity Comments Date Ramipril 05/01/2018 Inactive Allergies NKDA 09/09/2014 Medications Active Medications SIG Qnty Indications Ordering Provider Date Gabapentin Unknown 600mg Tablets Aspir-[address] Multi Vitamin Daily Unknown Tablets Morphine Sulfate ER Unknown 15mg Tablets ER Morphine Sulfate ER Unknown 30mg Tablets ER Diclofenac Potassium Unknown 50mg Tablets Duloxetine HCL Unknown 30mg Caps DR Part Levothyroxine Sodium Unknown 175mcg Tablets Diltiazem HCL ER Coated Beads Unknown 180mg Caps ER 24HR Atorvastatin Calcium Unknown 10mg Tablets Chlorthalidone Unknown 25mg Tablets Poly-Iron 150 Forte Unknown [id number]-mg Capsules Telmisartan-Amlodipine Unknown 40-5mg Tablets Januvia 100mg Unknown Tablets Immunizations Description No Information Available Vital Signs Description No Information Available Results Description No Information Available Procedures Date Code Description Status 06/06/2018 08342 Determination Of Refractive State Completed Medical Devices Description No Information Available Encounters Description No Information Available Assessments Date Code Description Provider 10/29/2018 E11.3293 Type 2 diabetes mellitus with mild Vicente Campoverde M.D. nonproliferative diabetic 10/29/2018 H25.813 Combined forms of age-related cataract, Vicente Campoverde M.D. bilateral 10/29/2018 H43.813 Vitreous degeneration, bilateral Vicente Campoverde M.D. 06/06/2018 H52.13 Myopia, bilateral Sandra Sy O.D. 06/06/2018 H52.223 Regular astigmatism, bilateral Sandra Sy O.D. 06/06/2018 H52.4 Presbyopia Sandra Sy O.D. Plan of Treatment 10/29/2018 - Vicente Campoverde M.D.E11.3293 Type 2 diabetes mellitus with mild nonproliferative diabeticComments:Smoking can increase the risk of developing or [...] know the current status of your retina.Follow up:6 Month Follow Up OCT MAC You can expect to have your eyes dilated at your next visit. If Dr. Broussardoorders any additional testing, it may require extra time. We recommend that you bring sunglasses, asdilation drops often make you light sensitive until [...] worse before your scheduled appointment, please call Nalini at [phone].S96.907 Vitreous degeneration, bilateralComments:You have a Posterior Vitreous Detachment. If you have any changes in your floaters or flashing lights , please contact this office. Functional Status Description No Information Available Mental Status Description No Information Available Referrals Description No Information Available
--- OUTSIDE RECORDS SUMMARY | 2018-12-19 18:54 | XMS REPORT | Continuity of Care Document ---
:1940 External Reference #:[id number] Author Name Shonda Alexis MD (transmitted by agent of provider Lori Barnes) Address [address], [place] [address] Care Team Providers Name Role Phone [facility] - Physical Care Team Information [employer] [facility] Therapist Mega Tarango M.D. - Care Team Information [employer] [facility] [phone] Gastroenterology Kathryn Ward MD - Hematology & Care Team Information [employer] [facility] Oncology Shonda Alexis M.D. 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 Onset: 07/16/2013 Foot-drop Luke Kapadia M.D. Onset: 11/25/2014 Type 2 diabetes mellitus Torsten Chan M.D.,FACP Onset: 11/10/2016 Chronic pain syndrome Torsten Chan M.D.,FACP Onset: 11/10/2016 Lumbar post-laminectomy syndrome Torsten Chan M.D.,FACP Onset: 2016 Essential hypertension Torsten Chan M.D.,FACP Onset: 11/10/2016 Aortic valve stenosis Torsten Chan M.D.,FACP Onset: 02/15/2017 Note: moderate Total replacement of right knee joint Torsten Chan M.D.,FACP Onset: Localized, primary osteoarthritis Tawnya Stevenson M.D. Onset: 06/19/2017 Arthroplasty of knee Tawnya Stevenson M.D. Onset: 06/19/2017 Social History Type Date Description Comments Sex Unknown Tobacco Use Start: Unknown End: Former Cigarette Smoker Unknown Cigarette Use Quit - Age 46 Smoking Status Reviewed: 11/27/18 Former Cigarette Smoker ETOH Use 11/10/2016 Denies alcohol use Tobacco Use Start: Unknown End: Patient is a former smoker Unknown Recreational Drug Use 11/10/2016 Denies Drug Use Exercise Type/Frequency Does not exercise Allergies, Adverse Reactions, Alerts Active Allergies Reaction Severity Comments Date Ramipril Anaphylaxis Severe 12/11/2017 Morphine Mild "thrush" 12/11/2017 Inactive Allergies NKDA 12/04/2012 NKDA 10/06/2017 Medications Active Medications SIG Qnty Indications Ordering Date Provider Telmisartan take two tablet by 60tabs Shonda Alexis MD 08/17/2018 20mg mouth daily. Tablets Amlodipine Besylate 1 by mouth every 30tabs Shonda Alexis MD 08/17/2018 5mg day Tablets Nystatin Apply to affected 30gm Torsten Hawthorne 05/17/2018 [id number] area 2 times Ivonne Chan,FACP Cream daily. Telmisartan-Amlodipin 1 by mouth every 90tabs I10 Shonda Alexis MD 2017 e morning 40-5mg Tablets Januvia Take One Tablet By 30tabs Silvia 01/18/2018 100mg Tablets Mouth Once Daily Ivonne Cole as Directed Poly-Iron 150 Forte take one capsule 180caps Shonda Alexis MD 01/18/2018 by mouth twice a 453-83-9da-mcg-mg day Capsules Onetouch Ultra Blue test up to three 100units E11.9 Torsten Hawthorne 2017 times daily, code Ivonne Chan,FACP Strips 25 last visit: 11/07/17 Blood Pressure Take blood 1units I10 Silvia 10/06/2017 Monitor Portable pressure daily. Ivonne Cole Wrist Dispense with Kit large cuff. Shingrix 1 SC/Im x1 now, 2units Torsten Hawthorne 09/15/2017 50mcg repeat in 2-6 mon Ivonne Chan,FACP Suspension Rec x1 Onetouch Verio Iq for testing up to 1units E11.8 Torsten Hawthorne 07/03/2017 Blood Glucose 3 times daily, Ivonne Chan,FACP Monitoring System last visit 06/28/17 w/Device Kit Onetouch Delica Test Once To Twice 100units E11.8 Maribell 06/14/2017 Lancets Extra Fine A Day KATHRINE Mcguire 33G Misc Onetouch Verio test up to three 100units E11.8 Maribell 06/13/2017 Strips times daily last KATHRINE Mcguire visit: 06/01/17 rx brand may be altered to fit insurance coverage Chlorthalidone take one tablet by 90tabs Joey Paniagua 05/23/2017 25mg mouth once daily Ivonne Avendano Tablets Atorvastatin Calcium take 1 tablet by 90tabs Shonda Alexis MD 02/09/2017 mouth at bedtime 10mg Tablets Levothyroxine Sodium take one tablet by 90tabs Jessie Bhatti, 11/30/2016 mouth once daily M.D. 88mcg Tablets Levothyroxine Sodium take one tablet by 90tabs Jessie Bhatti, 11/30/2016 mouth once daily M.D. 100mcg Tablets with 88 mcg tablets MS Contin 1 by mouth twice a 60tabs Luke Ashford 01/21/2013 30mg Tablets day Ivonne Kapadia ER Lumbosacral with molded Luke Leonard. 11/30/2010 Support/Lightweight/E plastic insert Ivonne Kapadia lastic/X-Large Misc Neurontin 1 by mouth three 90tabs Torsten Hawthorne 05/09/2006 600mg Tablets times a day Ivonne Chan,FACP Aspirin Ec 1 by mouth every Unknown 81mg Tablets day DR Stefania SIMS take one capsule 90caps Shonda Alexis MD 180mg Caps by mouth once ER 24HR daily Morphine Sulfate ER 1 by mouth twice a Unknown day 15mg Tablets ER Morphine Sulfate 1/2 tab 2 times a Unknown 15mg day as needed Tablets Docusate Sodium 1 tab every 12 Unknown 100mg hours as needed Capsules for constipation Osteo Bi-Flex one twice daily Unknown Advanced Triple Strength Tablets Duloxetine HCL take one capsule 180caps Shonda Alexis MD 30mg by mouth twice a Caps DR Part day as directed Multi Complete daily Unknown Capsules Ibuprofen 200 400-600mg every 6 Unknown 200mg hours as needed Tablets for pain. Medications Administered in Office Medication SIG Qnty Indications Ordering Provider Date Depomedrol 40MG Jt Shoemaker MD 10/11/2016 Injection Depomedrol 40MG Aric Lopez M.D. 08/10/2015 Injection Immunizations CPT Code Status Date Vaccine Reaction Lot # [id number] Given 12/11/2017 Influenza Virus Vaccine, No immediate reaction [id number] Quadrivalent, Split, noted. Preservative Free [id number] Given 06/28/2017 Pneumonia Vaccine [id number] Given 01/03/2017 Tdap - no immediate reaction, [id number] Tetanus/Diptheria/Acellular pt tolerated well Pertussis 43848 Given 11/10/2016 Influenza Virus Vaccine, [id number] Quadrivalent, Split, Preservative Free 73810 Given 02/18/2015 Pneumococcal Conjugate Vaccine 13 Valent For Intramuscular Use 88530 Given 01/12/2015 Zoster (Zostavax) 97752 Given 12/25/2002 Pneumonia Vaccine Vital Signs Date Vital Result Comment 11/27/2018 2:14pm Height 72 inches 6'0" Weight 302.50 lb Heart Rate 77 /min BP Systolic 122 mmHg BP Diastolic 56 mmHg Body Temperature 97.5 F O2 % BldC Oximetry 95 % BMI (Body Mass Index) 41.0 kg/m2 05/17/2018 3:22pm Height 72 inches 6'0" Weight 297.00 lb Heart Rate 69 /min BP Systolic 138 mmHg BP Diastolic 68 mmHg BP Systolic Sitting 122 mmHg BP Diastolic Sitting 60 mmHg Body Temperature 99.1 F O2 % BldC Oximetry 98 % BMI (Body Mass Index) 40.3 kg/m2 Results Test Date Facility Test Result H/L Range Note Laboratory test [employer] [facility] House Hemoglobin A1c 5.9 5-7 finding 9 CBC Auto Diff [facility] White Blood 8.1 10^3/uL Normal 3.5-10.[address] [place] [address] [phone] Red Blood Count 3.61 10^6/uL Low 4.18-5.48 Hemoglobin 10.9 g/dL Low 14.0-18.0 Hematocrit 32 % Low 42-52 Mean Corpuscular Volume 87 fL Normal 80-94 Mean Corpuscular Hemoglobin 30 pg Normal 27-31 Mean Corpuscular HGB Conc 35 g/dL Normal 31-36 Red Cell Distribution Width 14 % Normal 10-15 Platelet Count 206 10^3/uL Normal 150-450 Mean Platelet Volume 7.5 fL Normal 7.4-10.4 Abs Neutrophils 7.3 10^3/uL Normal 1.5-7.7 Abs Lymphocytes 0.6 10^3/uL Low 1.0-4.8 Abs Monocytes 0.2 10^3/uL Normal 0-0.8 Abs Eosinophils 0.0 10^3/uL Normal 0-0.6 Abs Basophils 0.0 10^3/uL Normal 0-0.2 Abs Nucleated RBC 0.0 10^3/uL Granulocyte % 90.0 % Lymphocyte % 7.4 % Monocyte % 1.9 % Eosinophil % 0.5 % Basophil % 0.2 % Nucleated Red Blood Cells % 0.0 Comp Metabolic 10/02/2018 [facility] Sodium 136 mmol/L Normal 135-[address] [place] [address] [phone] Potassium 4.6 mmol/L Normal 3.5-5.0 Chloride 100 mmol/L Low 101-111 Co2 Carbon Dioxide 28 mmol/L Normal 22-32 Anion Gap 8 mmol/L Normal 2-11 Glucose 181 mg/dL High 70-100 Blood Urea Nitrogen 27 mg/dL High 6-24 Creatinine 1.17 mg/dL Normal 0.67-1.17 BUN/Creatinine Ratio 23.1 High 8-20 Calcium 9.5 mg/dL Normal 8.6-10.3 Total Protein 7.4 g/dL Normal 6.4-8.9 Albumin 4.3 g/dL Normal 3.2-5.2 Globulin 3.1 g/dL Normal 2-4 Albumin/Globulin Ratio 1.4 Normal 1-3 Total Bilirubin 0.30 mg/dL Normal 0.2-1.0 Alkaline Phosphatase 86 U/L Normal 34-104 Alt 15 U/L Normal 7-52 Ast 15 U/L Normal 13-39 Egfr Non- 60.4 >60 Egfr 73.1 >60 1 Laboratory test 10/02/2018 [facility] C Reactive 11.34 mg/L High <8.01 finding [address] [place] [address] [phone] Urinalysis 10/02/2018 [facility] Urine Color Straw Profile [address] [place] [address] [phone] Urine Appearance Clear Urine Specific [place] 1.009 Low 1.010-1.030 Urine pH 5.0 Normal 5-9 Urine Urobilinogen Negative Negative Urine Ketones Negative Negative Urine Protein Negative Negative Urine Leukocytes Negative Negative Urine Blood Negative Negative Urine Nitrite Negative Negative Urine Bilirubin Negative Negative Urine Glucose Negative Negative Creatinine 06/30/2018 [facility] Creatinine 1.28 mg/dL High 0.67-1.17 [address] [place] [address] [phone] Egfr Non- 54.6 >60 Egfr 66.1 >60 2 Urine Microalbumin 06/30/2018 [facility] Ur Microalbumin < 15.0 Random 101 (mg/L) mg/[place] [address] [phone] Urine Creatinine 78.99 mg/dL Urine Microalbumin/Creatinine TNP <31 3 Lipid Profile 06/23/2018 [facility] Triglycerides 61 mg/dL 4 (Trig/Chol/HDL) [address] [place] [address] [phone] Cholesterol 136 mg/dL 5 HDL Cholesterol 54.5 mg/dL 6 LDL Cholesterol 69 mg/dL 7 Comp Metabolic 06/23/2018 [facility] Sodium 136 mmol/L Normal 135-145 Panel [address] [place] [address] [phone] Potassium 3.9 mmol/L Normal 3.5-5.0 Chloride 99 mmol/L Low 101-111 Co2 Carbon Dioxide 28 mmol/L Normal 22-32 Anion Gap 9 mmol/L Normal 2-11 Glucose 160 mg/dL High 70-100 Blood Urea Nitrogen 31 mg/dL High 6-24 Creatinine 1.25 mg/dL High 0.67-1.17 BUN/Creatinine Ratio 24.8 High 8-20 Calcium 9.3 mg/dL Normal 8.6-10.3 Total Protein 6.7 g/dL Normal 6.4-8.9 Albumin 4.1 g/dL Normal 3.2-5.2 Globulin 2.6 g/dL Normal 2-4 Albumin/Globulin Ratio 1.6 Normal 1-3 Total Bilirubin 0.40 mg/dL Normal 0.2-1.0 Alkaline Phosphatase 98 U/L Normal 34-104 Alt 18 U/L Normal 7-52 Ast 20 U/L Normal 13-39 Egfr Non- 56.2 >60 Egfr 67.9 >60 8 1 Because ethnic data is not always readily [...] 15-29 5 Kidney failure <15 (or dialysis) 2 Because ethnic data is not always readily [...] 15-29 5 Kidney failure <15 (or dialysis) 3 Unable to calculate due to low microalbumin 4 Desirable: <150 Borderline High: 150-199 High: 200-499 Very High: >500 5 Desirable: <200 Borderline High: 200-239 High: >239 6 Low: <40 Desirable: 40-60 High: >60 7 Desirable: <100 Near Optimal: 100-129 Borderline High: 130-159 High: 160-189 Very High: >189 8 Because ethnic data is not always readily [...] 15-29 5 Kidney failure <15 (or dialysis) Procedures Date Code Description Status 10/29/2018 [id number] Diabetic Retinal Eye Exam Completed 05/01/2018 [id number] Diabetic Retinal Eye Exam Completed 03/14/2017 [id number] Diabetic Retinal Eye Exam Completed 2016 [id number] Diabetic Retinal Eye Exam Completed 09/16/2014 [id number] Colonoscopy Completed 08/24/2004 [id number] Colonoscopy Completed Medical Devices Description No Information Available Encounters Type Date Location Provider Dx Diagnosis Office Visit 10/04/2018 [facility] Nalini Stapleton M54.5 Low back pain 3:[facility] KATHRINE Barrera Office Visit 10/02/2018 [facility] Michelle M54.5 Low back pain 9:50a [facility] CHIN Spear Assessments Date Code Description Provider 11/27/2018 E11.9 Type 2 diabetes mellitus without Shonda Alexis MD complications 11/27/2018 I10 Essential (primary) hypertension Shonda Alexis MD 11/27/2018 D50.8 Other iron deficiency anemias Shonda Alexis MD 11/27/2018 L20.9 Atopic dermatitis, unspecified Shonda Alexis MD 10/04/2018 M54.5 Low back pain Nalinimalika Barrera, KATHRINE 10/03/2018 M54.5 Low back pain CHIN Chiu-Leon 10/02/2018 M54.5 Low back pain CHIN Rubin Plan of Treatment Future Appointment(s):03/01/2019 2:20 pm - [facility] Shonda Alexis MDE11.9 Type 2 diabetes mellitus without complicationsComments:Your A1c is 5.9%, you are at goal for blood sugar control. Changes to medications are indicated. Ayearly nutrition visit is available to all diabetics. You are on a moderate-potency statin to prevent new or recurrent heart disease, which is common in diabetics.Follow up:3 months , Medicare [id number] Essential (primary) [id number] Other iron deficiency anemiasComments:your iron levels are improved, continue iron [id number] Atopic dermatitis, unspecifiedReferral:Shayne Corbin MD, Dermatology Goals 11/27/2018 - Shonda Alexis MDE11.9 Type 2 diabetes mellitus without complicationsGoal Hemoglobin A1c is less than 7.0% in ages 18-74 Goal Hemoglobin A1c is between 7.0% and 8.0% in age over 75 Goal Blood pressure is less than 130/85. Cholesterol should be lowered by a high or moderate-dose statin. Functional Status Description No Information Available Mental Status Description No Information Available Referrals Refer to Reason for Referral Status Appt Date Shayne Corbin MD severe eczematous dermatitis on arms for >6 Sent 00/00/ 0000 months [address] [facility], [address] [place] [address] [phone]
[2018-12-19 19:13] VITALS: BP 124/57
== END 2018-12-19 19:10 | disposition home or self-care (01) ==
LOC: ED 17:09
DX: F43.9 Reaction to severe stress, unspecified (principal); E11.9 Type 2 diabetes mellitus without complications; E03.9 Hypothyroidism, unspecified; D64.9 Anemia, unspecified; I25.10 Atherosclerotic heart disease of native coronary artery without angina pectoris; I10 Essential (primary) hypertension; K21.9 Gastro-esophageal reflux disease without esophagitis; F41.9 Anxiety disorder, unspecified; F32.9 Major depressive disorder, single episode, unspecified; Z96.651 Presence of right artificial knee joint; Z87.891 Personal history of nicotine dependence; Z88.5 Allergy status to narcotic agent; Z88.8 Allergy status to other drugs, medicaments and biological substances; Z79.82 Long term (current) use of aspirin; Z79.890 Hormone replacement therapy; Z79.899 Other long term (current) drug therapy
CPT/HCPCS: 99282; A9270-GY

== ENCOUNTER 2019-05-01 03:48 | Inpatient (IN) | payer MEDICARE, OTHER ==
[2019-05-01 04:57] LABS: ABS Eosinophils 0.1 10^3/ul (0-0.6); ABS Lymphocytes 0.9 10^3/ul (1.0-4.8); ABS Monocytes 0.6 10^3/ul (0-0.8); ABS Neutrophils 6.3 10^3/ul (1.5-7.7); Eosinophil % 1.7 %; Hematocrit 22 % (42-52); Hemoglobin 7.3 g/dL (14.0-18.0); Lymphocyte % 11.2 %; Mean Corpuscular HGB Conc 33 g/dL (31-36); Mean Corpuscular Hemoglobin 30 pg (27-31); Mean Corpuscular Volume 90 fL (80-94); Mean Platelet Volume 7.3 fL (7.4-10.4); Platelet Count 241 10^3/uL (150-450); Red Blood Count 2.48 10^6 /uL (4.18-5.48); Red Cell Distribution Width 16 % (10-15)
[2019-05-01 05:03] LABS: INR 1.06 (0.82-1.09)
[2019-05-01 05:14] LABS: Albumin 4.1 g/dL (3.2-5.2); Albumin/Globulin Ratio 1.6 (1-3); BUN/Creatinine Ratio 29.4 (8-20); Calcium 8.8 mg/dL (8.6-10.3); EGFR African American 71.7 (>60); EGFR Non-African American 59.3 (>60); Globulin 2.6 g/dL (2-4); Potassium 4.1 mmol/L (3.5-5.0); Total Bilirubin 0.3 mg/dL (0.2-1.0); Total Protein 6.7 g/dL (6.4-8.9)
[2019-05-01 05:16] LABS: Troponin I 0.01 ng/mL (<0.03)
--- NOTE | 2019-05-01 06:13 | ED ---
Shortness of Breath - HPI Summary HPI Summary: Pt is a 78 y/o M presenting to the ED brought in by EMS with a chief complaint of shortness of breath. He got up tonight to go to the bathroom, became dizzy and lightheaded, and subsequently short of breath. He now states he has a headache. He had a brief moment of chest pain when he first arrived to [facility], but that has resolved. He denies fever or cough. - History of Current Complaint Chief Complaint: EDShortnessOfBreath Time Seen by Provider: 05/01/19 04:34 Hx Obtained From: Patient Onset/Duration: Sudden Onset, Lasting Hours, Still Present Timing: Constant Current Severity: Moderate Dyspnea At: Exertion Aggravating Factors: Nothing Alleviating Factors: Nothing Associated Signs & Symptoms: Dizzy - Allergy/Home Medications Allergies/Adverse Reactions: Allergies Allergy/AdvReac Type Severity Reaction Status Date / Time metformin Allergy Diarrhea Verified 03/07/19 15:30 ramipril Allergy THROAT Verified 03/07/19 15:30 SWELLING morphine AdvReac See Comment Verified 05/01/19 10:30 Home Medications: Home Medications DULoxetine DR CAP* [Cymbalta CAP*] 30 mg PO BID 12/06/16 [History Confirmed ] dilTIAZem HCl [Diltiazem 24Hr ER] 180 mg PO DAILY 03/24/17 [History Confirmed ] Morphine TAB Extended Rel(*) [Ms Contin(*)] 30 mg PO BID #60 tab.er MDD 2 [Rx Confirmed 05/01/19] Morphine TAB Extended Rel(*) [Ms Contin(*)] 15 mg PO BID 07/03/17 [History Confirmed 05/01/19] Levothyroxine TAB* [Synthroid 100 MCG TAB*] 100 mcg PO DAILY 11/07/17 [History Confirmed 05/01/19] Morphine Sulfate 7.5 mg PO BID PRN 11/29/17 [History Confirmed 05/01/19] Aspirin [Aspirin EC] 81 mg PO DAILY 12/06/17 [History Confirmed 05/01/19] Chlorthalidone TAB* [Hygroton TAB*] 25 mg PO DAILY 12/06/17 [History Confirmed 05/01/19] Docusate CAP* [Colace Cap*] 100 mg PO Q12H PRN 12/06/17 [History Confirmed 05/01] Levothyroxine TAB* [Synthroid 88 MCG TAB*] 88 mcg PO DAILY 12/06/17 [History Confirmed 05/01/19] Iron Ps Complex/B12/Folic Acid [Poly-Iron 150 Forte Capsule] 1 cap PO BID [History Confirmed 05/01/19] Sitagliptin Phosphate [Januvia] 100 mg PO DAILY 03/30/18 [History Confirmed ] Telmisartan/Amlodipine [Telmisartan-Amlodipine 40-5 mg] 40 mg PO DAILY 03/30/18 [History Confirmed 05/01/19] Atorvastatin* [Lipitor 10 MG*] 10 mg PO BEDTIME 10/02/18 [History Confirmed ] Gabapentin TAB(NF) [Neurontin 600 mg TAB(NF)] 600 mg PO TID 05/01/19 [History Confirmed 05/01/19] Glucosamine/D3/Boswellia Chantel [Osteo Bi-Flex/5-Loxin Adv] 1 tab PO BID [History Confirmed 05/01/19] Ibuprofen TAB* [Advil TAB*] 400 - 600 mg PO Q6H PRN 05/01/19 [History Confirmed 05/01/19] Multivitamins/Minerals TAB* [Theragran/minerals TAB*] 1 tab PO DAILY 05/01/19 [ History Confirmed 05/01/19] Nystatin CREAM* 1 applic TOPICAL BID 05/01/19 [History Confirmed 05/01/19] Telmisartan (NF) [Micardis (NF)] 40 mg PO DAILY 05/01/19 [History Confirmed ] amLODIPine TAB* [Norvasc 5 mg TAB*] 5 mg PO DAILY 05/01/19 [History Confirmed ] PMH/Surg Hx/FS Hx/Imm Hx Previously Healthy: Yes Endocrine/Hematology History: Reports: Hx Diabetes - Type 2, Hx Thyroid Disease - Hypothyroid, Hx Anemia - was taking iron Cardiovascular History: Reports: Hx Angina - years ago, Hx Coronary Artery Disease, Hx Hypertension, Hx Peripheral Vascular Disease - Legs- turn red and swell up-states it is cellulitis, Hx Valvular Heart Disease - Aortic valve stenosis Comment Only: Other Cardiovascular Problems/Disorders - PAD Respiratory History: Reports: Hx Sleep Apnea - 4-6 pressure setting Denies: Other Respiratory Problems/Disorders GI History: Reports: Hx Gastroesophageal Reflux Disease - on medication, Hx Hiatal Hernia - possibly 40-50 years ago, Hx Ulcer - 40-50 years ago, Other GI Disorders - Constipation/Diarrhea History: Reports: Other Problems/Disorders - history of urinary incontinence, pt states it is ok Denies: Hx Kidney Infection, Hx Kidney Stones Musculoskeletal History: Reports: Hx Arthritis - Knee, ankles, hands, Hx Back Problems, Hx Tendonitis - history tennis elbow, trigger finger Comment Only: Other Musculoskeletal History - spondylosis Sensory History: Reports: Hx Cataracts - bilateral, Hx Contacts or Glasses - Glasses, Hx Hearing Problem Denies: Hx Glaucoma, Hx Hearing Aid, Other Sensory Impairments Opthamlomology History: Reports: Hx Cataracts - bilateral, Hx Contacts or Glasses - Glasses Denies: Hx Glaucoma, Other Sensory Impairments Neurological History: Reports: Hx Nerve Disease - Diabetic neuropathy, legs and feet, Other Neuro Impairments/Disorders - Foot drop right foot, history of vertigo Psychiatric History: Reports: Hx Anxiety, Hx Depression Denies: Other Psychiatric Issues/Disorders - patient denies - Cancer History Hx Chemotherapy: No - Surgical History Surgery Procedure, Year, and Place: 03/2017 RIght Total Knee Replacement. 2001 Lumbar laminectomy-[facility]. [place] Teeth Extraction. Appendectomy 1959. Blood Clot (per pt ) on his back 1957, maybe hematoma - fell with large area of swelling, wick placed in area and drained. Left and Right Trigger Finger age 41 -51. Skin Cancer, Neck age 31. 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22 Hx Substance Use: Yes Substance Use Type: Reports: None Substance Use Comment - Amount & Last Used: morphine ER and IR Hx Tobacco Use: Yes Smoking Status (MU): Former Smoker Type: Cigarettes Amount Used/How Often: 3-4 packs per day for 30 years Review of Systems - ROS Summary Review of Systems Summary: Home Medications Medication Instructions Recorded Confirmed Type Gabapentin CAP(*) [Neurontin 300 600 mg PO TID 09/12/14 03/07/19 History CAP(*)] DULoxetine DR CAP* [Cymbalta CAP*] 30 mg PO BID 12/06/16 03/07/19 History dilTIAZem HCl [Diltiazem 24Hr ER] 180 mg PO QAM 03/24/17 03/07/19 History Morphine TAB Extended Rel(*) [Ms 30 mg PO BID #60 tab.er MDD 2 04/07/17 Rx Contin(*)] Morphine TAB Extended Rel(*) [Ms 15 mg PO BID 07/03/17 03/07/19 History Contin(*)] Levothyroxine TAB* [Synthroid 100 100 mcg PO QAM 11/07/17 03/07/19 History MCG TAB*] Morphine Sulfate 15 mg PO DAILY PRN 11/29/17 03/07/19 History Aspirin [Aspirin EC] 81 mg PO DAILY 12/06/17 03/07/19 History Chlorthalidone TAB* [Hygroton TAB*] 25 mg PO QAM 12/06/17 03/07/19 History Docusate CAP* [Colace Cap*] 100 mg PO TID 12/06/17 03/07/19 History Levothyroxine TAB* [Synthroid 88 88 mcg PO QAM 12/06/17 03/07/19 History MCG TAB*] Iron Ps Complex/B12/Folic Acid 1 cap PO BID 03/30/18 03/07/19 History [Poly-Iron 150 Forte Capsule] Sitagliptin Phosphate [Januvia] 100 mg PO DAILY 03/30/18 03/07/19 History Telmisartan/Amlodipine 1 tab PO DAILY 03/30/18 03/07/19 History [Telmisartan-Amlodipine 40-5 mg] Atorvastatin* [Lipitor 10 MG*] 10 mg PO BEDTIME 10/02/18 03/07/19 History Cyclobenzaprine TAB* [Flexeril 10 10 mg PO TID PRN #30 tab 10/04/18 03/07/19 Rx MG TAB*] guaiFENesin ER TAB [Mucinex*] 600 mg PO BID tab.er 10/04/18 03/07/19 Rx Negative: Fever Positive: Chest Pain Positive: Shortness Of Breath. Negative: Cough Neurological/Mental Status: Other - lightheadedness, dizziness Positive: Headache All Other Systems Reviewed And Are Negative: Yes Physical Exam - Summary Physical Exam Summary: General: Morbidly obese male. No acute distress. HEENT: Normocephalic, Atraumatic. Old bruising on the forehead. Eyes: Conjuctiva normal, PERRL. Oropharynx: Clear, mucous membranes moist, (-) exudates. Neck: Soft, FROM, (-) lymphadenopathy, (-) thyromegaly, (-) JVD. Cardiovascular: Normal sinus rhythm, (-) murmur. Lungs: Decreased breath sounds bilaterally (-) wheezes, (-) rales, (-) rhonchi. Abdomen: Soft, non-tender, non-distended, (-) organomegaly, normal bowel sounds. Back: (-) CVA tenderness Extremities: +1 LE edema. Skin: Warm, dry, (-) rash. Neuro: Alert and oriented x3, moves all extremities equally. No ataxia. No gait disturbance. No sensory deficit. Normal strength, normal sensation. Psychiatric: Mood normal, affect normal. Triage Information Reviewed: Yes Vital Signs On Initial Exam: Initial Vitals Temp Pulse Resp BP Pulse Ox 98.2 F 75 22 145/58 100 05/01/19 03:51 05/01/19 03:51 05/01/19 03:51 05/01/19 03:51 05/01/19 03:51 Vital Signs Reviewed: Yes Procedures - Sedation Patient Received Moderate/Deep Sedation with Procedure: No Diagnostics - Vital Signs Vital Signs Temp Pulse Resp BP Pulse Ox 05/01/19 03:51 98.2 F 75 22 145/58 100 - Laboratory Lab Results: Lab Results 05/01/19 05/01/19 05/01/19 Range/Units 04:46 04:46 04:46 WBC 8.0 (3.5-10.8) 10^3/uL RBC 2.48 L (4.18-5.48) 10^6 /uL Hgb 7.3 L (14.0-18.0) g/dL Hct 22 L (42-52) % MCV 90 (80-94) fL MCH 30 (27-31) pg MCHC 33 (31-36) g/dL RDW 16 H (10-15) % Plt Count 241 (150-450) 10^3/uL MPV 7.3 L (7.4-10.4) fL Neut % (Auto) 79.2 % Lymph % (Auto) 11.2 % Elmore % (Auto) 7.3 % Eos % (Auto) 1.7 % Baso % (Auto) 0.6 % Absolute Neuts (auto) 6.3 (1.5-7.7) 10^3/ul Absolute Lymphs (auto) 0.9 L (1.0-4.8) 10^3/ul Absolute Monos (auto) 0.6 (0-0.8) 10^3/ul Absolute Eos (auto) 0.1 (0-0.6) 10^3/ul Absolute Basos (auto) 0.0 (0-0.2) 10^3/ul Absolute Nucleated RBC 0.0 10^3/ul Nucleated RBC % 0.0 INR (Anticoag Therapy) (0.82-1.09) Sodium 137 (135-145) mmol/L Potassium 4.1 (3.5-5.0) mmol/L Chloride 100 L (101-111) mmol/L Carbon Dioxide 29 (22-32) mmol/L Anion Gap 8 (2-11) mmol/L BUN 35 H (6-24) mg/dL Creatinine 1.19 H (0.67-1.17) mg/dL Est GFR ( Amer) 71.7 (>60) Est GFR (Non-Af Amer) 59.3 (>60) BUN/Creatinine Ratio 29.4 H (8-20) Glucose 186 H (70-100) mg/dL Lactic Acid 2.0 (0.5-2.0) mmol/L Calcium 8.8 (8.6-10.3) mg/dL Total Bilirubin 0.30 (0.2-1.0) mg/dL AST 15 (13-39) U/L ALT 14 (7-52) U/L Alkaline Phosphatase 71 (34-104) U/L Troponin I 0.01 (<0.03) ng/mL B-Natriuretic Peptide (<=100) pg/mL Total Protein 6.7 (6.4-8.9) g/dL Albumin 4.1 (3.2-5.2) g/dL Globulin 2.6 (2-4) g/dL Albumin/Globulin Ratio 1.6 (1-3) 05/01/19 05/01/19 Range/Units 04:46 04:46 WBC (3.5-10.8) 10^3/uL RBC (4.18-5.48) 10^6 /uL Hgb (14.0-18.0) g/dL Hct (42-52) % MCV (80-94) fL MCH (27-31) pg MCHC (31-36) g/dL RDW (10-15) % Plt Count (150-450) 10^3/uL MPV (7.4-10.4) fL Neut % (Auto) % Lymph % (Auto) % Elmore % (Auto) % Eos % (Auto) % Baso % (Auto) % Absolute Neuts (auto) (1.5-7.7) 10^3/ul Absolute Lymphs (auto) (1.0-4.8) 10^3/ul Absolute Monos (auto) (0-0.8) 10^3/ul Absolute Eos (auto) (0-0.6) 10^3/ul Absolute Basos (auto) (0-0.2) 10^3/ul Absolute Nucleated RBC 10^3/ul Nucleated RBC % INR (Anticoag Therapy) 1.06 (0.82-1.09) Sodium (135-145) mmol/L Potassium (3.5-5.0) mmol/L Chloride (101-111) mmol/L Carbon Dioxide (22-32) mmol/L Anion Gap (2-11) mmol/L BUN (6-24) mg/dL Creatinine (0.67-1.17) mg/dL Est GFR ( Amer) (>60) Est GFR (Non-Af Amer) (>60) BUN/Creatinine Ratio (8-20) Glucose (70-100) mg/dL Lactic Acid (0.5-2.0) mmol/L Calcium (8.6-10.3) mg/dL Total Bilirubin (0.2-1.0) mg/dL AST (13-39) U/L ALT (7-52) U/L Alkaline Phosphatase (34-104) U/L Troponin I (<0.03) ng/mL B-Natriuretic Peptide 197 H (<=100) pg/mL Total Protein (6.4-8.9) g/dL Albumin (3.2-5.2) g/dL Globulin (2-4) g/dL Albumin/Globulin Ratio (1-3) Result Diagrams: 05/01/19 22:28 05/01/19 22:28 Lab Statement: Any lab studies that have been ordered have been reviewed, and results considered in the medical decision making process. - EKG 0449 Cardiac Rate: NL - 65bpm EKG Rhythm: Sinus Rhythm ST Segment: Normal Ectopy: None EKG Comparison: No Significant Change Summary of EKG Findings: EKG at 0449 reveals normal sinus rhythm with rate of 65 BPM, no acute changes, no ischemic changes. This EKG was reviewed and interpreted by Dr. Rust. Re-Evaluation - Re-Evaluation First Eval Re-Evaluation Time: 07:15 Comment: Patient reports feeling short of breath and with a headache. He states his stools are always black because he takes iron supplements every day. Patient follows up with his PCP (Dr. Alexis) for anemia. He denies rectal bleeding. Pt notes he is anticoagulated but unable to remember the name of the medication. He states he is on aspirin as well. Patient uses oxygen at home only at night time. Course/Dx - Course Course Of Treatment: 78-year-old male presents from home by ambulance with shortness of breath. Patient states he got up from his chair to walk to his bed and suddenly got very short of breath and dizzy. He states he went to his bed where he wears oxygen at night. Put his oxygen on but that did not really help. He remained short of breath. Mild chest pain on a gomez which has resolved. Patient has multiple medical problems. No fevers chills or cough. On physical exam he is a he morbidly obese male. He is on oxygen at this time. Appears comfortable at rest. lungs are clear. Extremities with +1 edema. Workup demonstrates hemoglobin of 7.3 which is quite low for the patient. BNP is elevated. Initial troponin is negative. Patient is signed out at change of shift awaiting second troponin. Reevaluation and disposition. - Diagnoses Provider Diagnoses: Symptomatic anemia Discharge ED - Sign-Out/Discharge Documenting (check all that apply): Sign-Out Patient Signing out patient TO: Joey Maher - Discharge Plan Condition: Stable Disposition: ADMITTED TO [facility] - Billing Disposition and Condition Condition: STABLE Disposition: Admitted to [facility] - Attestation Statements Document Initiated by Vernaibe: Yes Documenting Scribe: Laura Wolf Provider For Whom Jian is Documenting (Include Credential): Bertha Rust MD. Scribe Attestation: Laura Sevilla, scribed for Bertha Rust MD. on 05/01/19 at 2335. Scribe Documentation Reviewed: Yes Provider Attestation: The documentation as recorded by the scribe, Laura Wolf accurately reflects the service I personally performed and the decisions made by , Bertha Rust MD. Status of Scribe Document: Viewed
--- NOTE | 2019-05-01 07:10 | ED ---
Progress - Progress Note Progress Note: This pt is a sign out from Dr. Rust to Dr. Maher at shift change on 05/01/19 at 0700 pending second troponin. Physical Exam: VITAL SIGNS: Reviewed. GENERAL: Patient is a well-developed and nourished male who is lying comfortable in the stretcher. HEAD AND FACE: No signs of trauma. No ecchymosis, hematomas or skull depressions. No sinus tenderness. EYES: PERRLA, EOMI x 2, No injected conjunctiva, no nystagmus. EARS: Hearing grossly intact. Ear canals and tympanic membranes are within normal limits. MOUTH: Oropharynx within normal limits. NECK: Supple, trachea is midline, no adenopathy, no JVD, no carotid bruit, no c- spine tenderness, neck with full ROM. CHEST: Symmetric, no tenderness at palpation LUNGS: Clear to auscultation bilaterally. No wheezing or crackles. CVS: Regular rate and rhythm, S1 and S2 present, no murmurs or gallops appreciated. ABDOMEN: Soft, non-tender. No signs of distention. No rebound no guarding, and no masses palpated. Bowel sounds are normal. RECTAL EXAM: Normal sphincter tone, no gross blood, no melena. EXTREMITIES: FROM in all major joints, no edema, no cyanosis or clubbing. NEURO: Alert and oriented x 3. No acute neurological deficits. Speech is normal and follows commands. SKIN: Dry and warm - Results/Orders Results/Orders: Chest XR, as read by radiologist IMPRESSION: Mild interstitial pulmonary edema is likely. Brain CT, as read by radiologist IMPRESSION: No intracranial mass or hemorrhage is noted. Dr. Maher has reviewed these reports. Re-Evaluation - Re-Evaluation First Eval Re-Evaluation Time: 07:15 Comment: Patient reports feeling short of breath and with a headache. He states his stools are always black because he takes iron supplements every day. Patient follows up with his PCP (Dr. Alexis) for anemia. He denies rectal bleeding. Pt notes he is anticoagulated but unable to remember the name of the medication. He states he is on aspirin as well. Patient uses oxygen at home only at night time. Course/Dx - Course Course Of Treatment: This patient was signed out by Dr. Rust to follow-up the second troponin. She requested for the patient to be discharged home if the second troponin was negative. On re-assessment the patient is complaining of shortness of breath and the patient is very anemic. The patients H&H is 7.2/ 22. I did a rectal exam and the guaiac is positive. Therefore I discussed the benefits and risks of blood transfusion with the patient and he accepted and signed consent for the blood transfusion. I believe this will improve the shortness of breath. I discussed my physical exam and findings with Dr. Gutierrez from the hospitalist services and he accepted the patient for admission. Patient is hemodynamically stable, alert and oriented 3. - Diagnoses Provider Diagnoses: Symptomatic anemia - Provider Notifications Discussed Care Of Patient With: Vignesh Gutierrez - hospitalist Time Discussed With Above Provider: 09:10 Instructed by Provider To: Admit As Inpatient Discharge ED - Sign-Out/Discharge Documenting (check all that apply): Patient Departure - Admit to [facility], Receiving Sign-Out Receiving patient FROM: Bertha Rust - Discharge Plan Condition: Stable Disposition: ADMITTED TO [facility] - Billing Disposition and Condition Condition: STABLE Disposition: Admitted to [facility] - Attestation Statements Document Initiated by Vernaibe: Yes Documenting Scribe: Shakila Lynch Provider For Whom Vernaibe is Documenting (Include Credential): Joey Maher MD Scribe Attestation: I, Shakila Lynch, scribed for Joey Maher MD on 05/03/19 at 0748. Scribe Documentation Reviewed: Yes Provider Attestation: The documentation as recorded by the Shakila de anda accurately reflects the service I personally performed and the decisions made by me, Joey Maher MD Status of Scribe Document: Viewed
[2019-05-01] MEDS ORDERED: Morphine ORAL.SOLN 10 mg* 2 MG/ML UDC 5 ml PO PRN (10:26)
[2019-05-01] MEDS ORDERED: Dextrose 50% Syringe 50 ML* 25 GM/50 ML SYRINGE IV PUSH PRN (10:31)
[2019-05-01 11:03] LABS: % Iron Saturation 11 % (15-55); Iron 41 ug/dL (50-212); LDH 174 U/L (140-271); Total Iron Binding Capacity 385 mcg/dL (250-450); Transferrin 275 mg/dL (203-362)
[2019-05-01 11:23] LABS: Ferritin 15.8 ng/mL (24-336)
[2019-05-01] MEDS: Insulin LISPRO* 1 UNITS UNIT SUBCUT SCH ×3 (12:42→22:36)
[2019-05-01] MEDS: Pantoprazole IV* 40 MG IV SCH ×2 (14:05→21:50)
[2019-05-01] MEDS: Gabapentin CAP(*) 300 MG PO SCH ×2 (14:08→21:46)
[2019-05-01] MEDS: amLODIPine TAB* 5 MG PO SCH (14:08)
[2019-05-01 14:24] LABS: Corrected Retic Count 2.1 % (0.5-1.5); Hematocrit for Retic CNT 26 % (42-52); Immature Retic Fraction 0.53; RBC Retic Count 2.91 10^6/uL (4.18-5.48)
[2019-05-01] MEDS: oxyCODONE TAB* 5 MG TAB PO PRN (15:22)
--- NOTE | 2019-05-01 19:56 | CONS ---
GASTROENTEROLOGY CONSULTATION REPORT: DATE OF CONSULT: 05/01/19 REQUESTING PROVIDER: Dr. Gutierrez. REASON FOR CONSULT: Iron-deficiency anemia and Hemoccult positive stools. HISTORY OF PRESENT ILLNESS: Mr. Sanders is a 78-year-old gentleman with multiple medical comorbidities including diabetes; anemia; coronary artery disease; sleep apnea, on nocturnal oxygen; arthritis, on chronic morphine, who is admitted with lightheadedness and dyspnea. Mr. Sanders noticed that he was quite dizzy and lightheaded when he woke up to go to the bathroom at 2 a.m. He also noticed feeling quite short of breath as well as a headache and transient chest pain. He presented to the ED for evaluation. In the ED, labs were notable for a hemoglobin of 7.3 and hematocrit of 22, this is in comparison to 10.9 in September. Hemoccult positive. Iron deficient on labs. Transfused 1 unit. Also given diuresis given some concern for pulmonary edema. GI consulted. On interview, Mr. Sanders reports that he is still quite short of breath, although it is better from admission. He has a chronic cough with phlegm, for which he uses Mucinex. He reports chronic intermittent constipation, for which he uses daily stool softener. He usually has 1 and 2 bowel movements a day. He had 2 bowel movements today, for which he was straining significantly. Stools are usually black, which have been the case since he started oral iron. There is one occasion when he saw small streak of red blood, although no other episode since this time. He complains of a sensation that there is a softball in his left lower quadrant. Mild upper abdominal discomfort, although he wonders if this might be because he is hungry. He denies any nausea, vomiting, dysphagia, or reflux symptoms. He does appear to be on aspirin 81 mg daily. No other antiplatelet or anticoagulation noted. EGD and colonoscopy were performed in December 2017 for iron-deficiency anemia. EGD demonstrated mild gastritis. Colonoscopy notable for diverticulosis and internal hemorrhoids. Video capsule endoscopy was performed in mid December 2017. This noted an abscess ulcer in the proximal to mid small bowel as well as widely scattered red spot versus small nonbleeding telangiectasias in the distal small bowel. Unclear if these were contributing to the patient's anemia. PAST MEDICAL HISTORY: 1. Coronary artery disease. 2. Type 2 diabetes. 3. Chronic back pain, on morphine. 4. Sleep apnea, on nocturnal oxygen. 5. Hypothyroidism. 6. Peripheral vascular disease with cellulitis episodes. 7. Iron deficiency anemia. 8. Aortic valve stenosis. 9. Remote history of peptic ulcer disease over 50 years ago. 10. Arthritis. 11. Bilateral cataracts. 12. Diabetic neuropathy. 13. Right foot drop. 14. Anxiety and depression. PAST SURGICAL HISTORY: 1. Right total knee replacement. 2. Lumbar laminectomy. 3. [place] teeth extraction. 4. Appendectomy. 5. Left and right trigger finger. 6. Skin cancer removal from neck. HOME MEDICATIONS: 1. Gabapentin 600 mg 3 times a day. 2. Cymbalta 30 mg twice daily. 3. Diltiazem 180 mg every morning. 4. Morphine ER 30 mg twice daily. 5. Morphine IR 15 mg daily p.r.n. 6. Levothyroxine 100 mcg daily. 7. Aspirin 81 mg daily. 8. Chlorthalidone 25 mg every morning. 9. Docusate 100 mg t.i.d. 10. Iron daily. 11. Sitagliptin 100 mg daily. 12. Telmisartan/amlodipine daily. 13. Atorvastatin 10 mg at bedtime. 14. Guaifenesin 600 mg twice daily. ALLERGIES: METFORMIN causes diarrhea; RAMIPRIL causes throat swelling, LIQUID MORPHINE causes a rash. FAMILY HISTORY: No known GI or liver disease. SOCIAL HISTORY: Former heavy drinker, but quit at age 22. No drug use. Former smoker but quit at age 46. PHYSICAL EXAM: Vital Signs: Afebrile, heart rate 65, blood pressure 141/67, respiratory rate 20, 100% on 5 L. General: Chronically ill-appearing gentleman. In good spirits. No acute distress. HEENT: Mucous membranes moist. Cardiovascular: Aortic stenosis, murmur, and regular rate and rhythm. Pulmonary: Intermittent dry cough. Coarse breath sounds with decreased breath sounds bilaterally. Abdomen: Obese. Soft, nontender, nondistended. Extremities: Edema. Neuro: A and O x3. LABORATORY DATA: White count 8, hemoglobin 7.3, hematocrit 22, MCV 90, platelet count 241. Iron 41, percent iron sat 11, ferritin 15.8. LFTs normal. Troponin not elevated x3. IMAGING: Chest x-ray demonstrates probable mild pulmonary edema. Brain CT was negative for bleed. IMPRESSION AND RECOMMENDATION: Mr. Sanders is a 78-year-old gentleman with type 2 diabetes; coronary artery disease/congestive heart failure; sleep apnea, on oxygen; obesity; and iron deficiency anemia, who is admitted with acute on chronic iron deficiency anemia. The patient reports regular black stools, which he has attributed to iron. He is Hemoccult positive. He does not appear to be having acute significant bleed. I favor more subacute bleeding condition. 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 Arteriovenous malformations can certainly explain his presentation, although I am not clear why the more acute drop recently. The patient is receiving a blood transfusion and diuresis today. Assuming he is stable from a cardiopulmonary standpoint tomorrow, we can repeat an upper endoscopy to make sure no progression of the gastritis or other acute findings are noted. Please continue IV PPI b.i.d. for now. Continue to monitor CBC every 6 to 8 hours. Clear soft diet okay today. NPO after midnight. Thank you very much for this consult. GI will continue to follow. [id number]/[facility] #: [id number] RUFUS
[2019-05-01] MEDS ORDERED: Morphine TAB Extended Release (*) 30 MG TAB.ER PO SCH (21:00)
[2019-05-01] MEDS: Atorvastatin* 10 MG TAB PO SCH (21:46)
[2019-05-01] MEDS: Morphine TAB Extended Release (*) 15 MG TAB.ER PO SCH (21:49)
[2019-05-01] MEDS: DULoxetine DR CAP* 30 MG CAP.DR PO SCH (21:49)
[2019-05-01] MEDS: Furosemide IV* 10 MG/ML 2 ML VIAL (20 MG) IV SCH (21:50)
--- NOTE | 2019-05-01 22:09 | HP ---
CC: Dr. Shonda Alexis * HISTORY AND PHYSICAL: DATE OF ADMISSION: 05/01/19 PRIMARY CARE PROVIDER: Shonda Alexis MD CHIEF COMPLAINT: Shortness of breath. HISTORY OF PRESENT ILLNESS: This is a 78-year-old male who presented to the emergency room on 05/01/19 complaining of shortness of breath that started the night prior to presentation. He states he did incur a fall about 4 days prior to presentation, was on the floor, got very weak. He had no other symptoms and he did not seek medical attention, but over the past few days, he has been progressively getting weak, and last night, he had sudden onset of shortness of breath and this morning got even worse. He decided to come to ER to be evaluated. No loss of consciousness. Denies any chest pain. He does take chronic pain medication, follows with pain management as an outpatient. No nausea or vomiting. Denies any melena. He has history of chronic anemia for which he takes chronic iron supplementation. In the emergency room, he had a CBC which showed hematocrit of 22. Stool guaiac was done which came back positive. PAST MEDICAL HISTORY: 1. Diabetes mellitus. 2. Hypertension. 3. Hyperlipidemia. 4. Iron deficiency anemia. 5. Hypothyroidism. 6. Neuropathy. 7. Chronic low back pain due to job injury. PAST SURGICAL HISTORY: 1. Laminectomy in 2001. 2. He had right knee replacement. 3. Appendectomy. MEDICATIONS: 1. Ibuprofen 400 to 600 p.r.n. 2. Multivitamin. 3. Duloxetine 30 b.i.d. 4. Osteo Bi-Flex. 5. Colace 100 mg. 6. Morphine 7.5 mg b.i.d. 7. Diltiazem 180 daily. 8. MS Contin 45 mg daily. 9. Gabapentin 600 t.i.d. 10. Aspirin 81 daily. 11. Levoxyl 188 mcg daily. 12. Chlorthalidone 25 mg daily. 13. Lipitor 10 daily. 14. Micardis 40 daily. 15. Januvia 100 daily. 16. Amlodipine 5 mg daily. ALLERGIES: He is allergic to METFORMIN, RAMIPRIL, and MORPHINE. FAMILY HISTORY: Significant for diabetes and pericarditis in his father. Mother, unaware of any known medical history. Brother had history of pancreatic cancer. SOCIAL HISTORY: Quit smoking about 30 years ago. No alcohol use. He is disabled, work related; . REVIEW OF SYSTEM: As per HPI otherwise rest of ROS in unremarkable PHYSICAL EXAMINATION GENERAL: He is awake, alert, mild pallor, morbidly obese, lying in bed, in no distress. He is on nasal cannula. VITAL SIGNS: Blood pressure 117/58, pulse 73, temperature 98, respiratory rate 21, satting 98%. HEAD AND NECK: Normocephalic, atraumatic. Supple. I did not appreciate any carotid bruit or JVD. Moist mucous membranes. LUNGS: Clear to auscultation. Mild crackles at the bases. ABDOMEN: Obese. Positive bowel sounds. Soft, nontender. No rebound. No guarding. EXTREMITIES: +2 edema, bilateral. DIRECTOR MARKETING: No motor or focal sensory deficits. DIAGNOSTIC STUDIES/LAB DATA: CBC: Hemoglobin 7.3, hematocrit 22, platelet 241 , white count 8. INR 1. Chemistry: Sodium 137, potassium 4.1, chloride 100, BUN 35, creatinine 1, glucose 186, lactic acid 2.0, calcium 8.8. AST 15, ALT 14. Troponin 0.01. Chest x-ray shows mild congestive changes. EKG: Normal sinus rhythm, 65 beats per minute, OH 251, QRS 114, QTc 450, right bundle-branch block. CTA of the head: No acute bleed or acute pathology. ASSESSMENT: This is a 78-year-old male who presented to the hospital for dyspnea, acute shortness of breath with known history of iron deficiency anemia. Will be admitted for anemia, rule out occult bleed secondary to GI. 1. Anemia secondary to iron deficiency. 2. Diabetes mellitus. 3. Hypothyroidism. 4. History of coronary artery disease. 5. Hypertension. 6. History of aortic valve stenosis. 7. History of obstructive sleep apnea. 8. History of gastroesophageal reflux disease. 9. Shortness Of Breath - multifactorial related to his anemia, CHF. Last although less likely but PE should be considered as he was less mobile due to the fall and acute in nature. PLAN: 1. The patient will be admitted to the medical floor. We will type and cross 1 unit packed RBC. 2. No active GI bleed. He does have occult stool positive. 3. Called GI consult. 4. We will make him n.p.o. after midnight for possible EGD in the morning. (GI aware) 5. We will place him on Lasix 20 mg IV b.i.d. for 4 doses given his CHF on chest x- ray, plus the fact that we are going to be transfuse him. 6. We will obtain echocardiogram to assess his LV function, rule out any valvular disease. (Aortic stenosis?) 7. We will put him on Protonix 40 mg IV b.i.d. 8. I am going to send for LDH, retic count, iron level, haptoglobin, also to rule out hemolysis given his aortic stenosis. 9. For his chronic pain, we will continue his MS Contin 45 b.i.d. and we will put him on oxycodone 10 mg q.4 p.r.n. 10. Continue gabapentin 600 b.i.d. 11. Continue Cymbalta 30 b.i.d. 12. Hyperlipidemia. Continue his Lipitor 10 mg at bedtime. 13. For his hypertension, he is on diltiazem 180; we will continue. 14. For his diabetes, we will put him on insulin sliding scale. 15. Hypothyroidism. Continue Levoxyl 100 mcg daily. 16. If his symptoms does not improve with Lasix and transfusion, consider CTA if renal function allows [id number]/[facility] #: [id number] [facility]
[2019-05-01 22:37] LABS: ABS Basophils 0.1 10^3/ul (0-0.2); ABS Eosinophils 0.1 10^3/ul (0-0.6); ABS Lymphocytes 1.5 10^3/ul (1.0-4.8); ABS Monocytes 0.7 10^3/ul (0-0.8); ABS Neutrophils 5.3 10^3/ul (1.5-7.7); Eosinophil % 1.5 %; Hematocrit 24 % (42-52); Hemoglobin 8.1 g/dL (14.0-18.0); Lymphocyte % 19.6 %; Mean Corpuscular HGB Conc 34 g/dL (31-36); Mean Corpuscular Hemoglobin 30 pg (27-31); Mean Corpuscular Volume 88 fL (80-94); Mean Platelet Volume 7.3 fL (7.4-10.4); Nucleated Red Blood Cells % 0.1; Platelet Count 244 10^3/uL (150-450); Red Blood Count 2.69 10^6 /uL (4.18-5.48); Red Cell Distribution Width 15 % (10-15); White Blood Count 7.8 10^3/uL (3.5-10.8)
[2019-05-01] MEDS: Docusate CAP* 100 MG PO SCH (22:39)
[2019-05-01 22:54] LABS: BUN/Creatinine Ratio 23.7 (8-20); Calcium 8.8 mg/dL (8.6-10.3); EGFR African American 72.4 (>60); EGFR Non-African American 59.9 (>60); Magnesium 2.1 mg/dL (1.9-2.7); Potassium 4.1 mmol/L (3.5-5.0)
[2019-05-02] MEDS: oxyCODONE TAB* 5 MG TAB PO PRN ×2 (00:07→20:22)
[2019-05-02] MEDS ORDERED: diPHENhydraMINE PO* 25 MG PO PRN (01:05)
[2019-05-02] MEDS ORDERED: HYDROmorphone INJ1* 1 MG/ML SYRINGE IV ONE (01:12)
[2019-05-02] MEDS: Levothyroxine TAB* 100 MCG TAB PO SCH (06:03)
[2019-05-02] MEDS: Levothyroxine TAB* 88 MCG TAB PO SCH (06:03)
[2019-05-02] MEDS: Insulin LISPRO* 1 UNITS UNIT SUBCUT SCH ×4 (08:56→21:33)
[2019-05-02] MEDS ORDERED: Telmisartan (NF) 40 MG TAB PO SCH (09:00)
[2019-05-02] MEDS ORDERED: Perflutren Lipid Microsphere* 3 ML VIAL ONE (09:07)
[2019-05-02] MEDS: Pantoprazole IV* 40 MG IV SCH ×2 (09:16→20:23)
[2019-05-02] MEDS: Furosemide IV* 10 MG/ML 2 ML VIAL (20 MG) IV SCH ×2 (09:20→20:23)
[2019-05-02 10:10] LABS: Hematocrit 26 % (42-52); Hemoglobin 8.6 g/dL (14.0-18.0)
[2019-05-02] MEDS ORDERED: fentaNYL* 50 MCG/ML 2 ML VIAL (100 MCG VIAL) ONE (10:47)
[2019-05-02] MEDS ORDERED: Midazolam* 1 MG/ML 10 ML VIAL (10 MG) ONE (10:47)
[2019-05-02] MEDS: Diltiazem CD CAP* 180 MG PO SCH (12:46)
[2019-05-02] MEDS: Morphine TAB Extended Release (*) 15 MG TAB.ER PO SCH ×2 (12:46→20:21)
[2019-05-02] MEDS: amLODIPine TAB* 5 MG PO SCH (12:51)
[2019-05-02] MEDS: Docusate CAP* 100 MG PO SCH ×2 (12:51→20:21)
[2019-05-02] MEDS: DULoxetine DR CAP* 30 MG CAP.DR PO SCH ×2 (13:17→20:22)
[2019-05-02] MEDS: Gabapentin CAP(*) 300 MG PO SCH ×3 (13:17→20:22)
--- NOTE | 2019-05-02 14:57 | PRO ---
CC: Dr. Shonda Alexis * DATE OF PROCEDURE: 05/02/19 - ROOM #442 PROCEDURE: EGD. INDICATION: Anemia. REFERRING PHYSICIAN: Dr. Shonda Alexis. MEDICATIONS GIVEN: 50 mcg IV fentanyl, 4 mg IV Versed. DESCRIPTION OF PROCEDURE: After the EGD procedure, including the risks, benefits, and alternatives, not limited to perforation, surgery, and/or were explained to Mr. Sanders, written consent was then obtained, IV medication was given, and a bite-block was placed between the teeth. An Olympus gastroscope was then inserted into the patient's mouth, advanced down the esophagus, into the stomach, into the distal duodenum. In the esophagus at the GE junction, the Z-line was intact. No erosive esophagitis, stricture, or ring was seen. The scope was advanced through the GE junction into the body of the stomach. Retroflex view was unremarkable. Forward view also was unremarkable. The scope was advanced through a widely patent pylorus into the duodenal bulb and into the distal duodenum, both of which were unremarkable. The scope was then withdrawn from the patient. He tolerated the procedure well and was returned to his hospital room in stable condition. IMPRESSION: 1. Complete upper endoscopy into the distal duodenum. 2. Normal upper endoscopy. 3. Most likely he could be continuing to bleed or ooze from his small bowel. A previous capsule, noted small bowel ulcers. The patient may need to have a double balloon enteroscopy at a tertiary care center. [id number]/[facility] #: [id number] [facility]TDD
[2019-05-02 16:33] LABS: Hematocrit 26 % (42-52); Hemoglobin 8.9 g/dL (14.0-18.0)
--- NOTE | 2019-05-02 16:38 | PN ---
Subjective Date of Service: 05/02/19 Interval History: Pt feels well after EGD. c/o chronic b/l feet pain Objective Active Medications: Amlodipine Besylate (Norvasc Tab*) 5 mg PO DAILY PENDING SALE TO [facility] Last Admin: 05/02/19 12:51 Dose: 5 mg Atorvastatin Calcium (Lipitor*) 10 mg PO BEDTIME PENDING SALE TO [facility] Last Admin: 05/01/19 21:46 Dose: 10 mg Dextrose (D50w Syringe 50 Ml*) 12.5 gm IV PUSH .FOR FS < 60 - SS PRN PRN Reason: FS < 60 Diltiazem HCl (Cardizem Cd Cap*) 180 mg PO DAILY PENDING SALE TO [facility] Last Admin: 05/02/19 12:46 Dose: 180 mg Docusate Sodium (Colace Cap*) 100 mg PO BID PENDING SALE TO [facility] Last Admin: 05/02/19 12:51 Dose: 100 mg Duloxetine HCl (Cymbalta Cap*) 30 mg PO BID PENDING SALE TO [facility] Last Admin: 05/02/19 13:17 Dose: Not Given Furosemide (Lasix Iv*) 20 mg IV BID PENDING SALE TO [facility] Stop: 05/03/19 09:01 Last Admin: 05/02/19 09:20 Dose: 20 mg Gabapentin (Neurontin Cap(*)) 600 mg PO TID PENDING SALE TO [facility] Last Admin: 05/02/19 13:32 Dose: 600 mg Insulin Human Lispro (Humalog*) 0 units SUBCUT ACHS PENDING SALE TO [facility]; Protocol Last Admin: 05/02/19 13:33 Dose: 3 units Levothyroxine Sodium (Synthroid Tab*) 100 mcg PO 0600 PENDING SALE TO [facility] Last Admin: 05/02/19 06:03 Dose: 100 mcg Levothyroxine Sodium (Synthroid Tab*) 88 mcg PO 0600 PENDING SALE TO [facility] Last Admin: 05/02/19 06:03 Dose: 88 mcg Losartan Potassium (Cozaar Tab*) 50 mg PO DAILY PENDING SALE TO [facility]; Protocol Morphine Sulfate (Ms Contin(*)) 45 mg PO BID PENDING SALE TO [facility] Last Admin: 05/02/19 12:46 Dose: 45 mg Oxycodone HCl (Roxycodone Tab*) 10 mg PO Q4H PRN PRN Reason: PAIN - SEVERE Last Admin: 05/02/19 00:07 Dose: 10 mg Pantoprazole Sodium (Protonix Iv*) 40 mg IV BID PENDING SALE TO [facility] Last Admin: 05/02/19 09:16 Dose: 40 mg Vital Signs - 8 hr 05/02/19 05/02/19 05/02/19 12:46 13:14 13:32 Temperature 97.9 F Pulse Rate 66 Respiratory 20 20 18 Rate Blood Pressure 148/71 (mmHg) O2 Sat by Pulse 94 Oximetry 05/02/19 16:05 Temperature Pulse Rate Respiratory 18 Rate Blood Pressure (mmHg) O2 Sat by Pulse Oximetry Oxygen Devices in Use Now: None Appearance: 78 yo M in nAD, aAOx3 Eyes: No Scleral Icterus, PERRLA Ears/Nose/Mouth/Throat: NL Teeth, Lips, Gums, Mucous Membranes Moist Neck: NL Appearance and Movements; NL JVP, Trachea Midline Respiratory: Symmetrical Chest Expansion and Respiratory Effort, Clear to Auscultation Cardiovascular: NL Sounds; No Murmurs; No JVD, RRR Abdominal: NL Sounds; No Tenderness; No Distention Lymphatic: No Cervical Adenopathy Extremities: No Clubbing, Cyanosis, - - +1 b/l pedal edema Skin: No Nodules or Sclerosis Neurological: Alert and Oriented x 3, NL Muscle Strength and Tone Result Diagrams: 05/02/19 16:28 05/01/19 22:28 Additional Lab and Data: Lab Results 05/01/19 05/01/19 05/01/19 Range/Units 04:46 04:46 04:46 WBC 8.0 (3.5-10.8) 10^3/uL RBC 2.48 L (4.18-5.48) 10^6 /uL Hgb 7.3 L (14.0-18.0) g/dL Hct 22 L (42-52) % MCV 90 (80-94) fL MCH 30 (27-31) pg MCHC 33 (31-36) g/dL RDW 16 H (10-15) % Plt Count 241 (150-450) 10^3/uL MPV 7.3 L (7.4-10.4) fL Neut % (Auto) 79.2 % Lymph % (Auto) 11.2 % [place] % (Auto) 7.3 % Eos % (Auto) 1.7 % Baso % (Auto) 0.6 % Absolute Neuts (auto) 6.3 (1.5-7.7) 10^3/ul Absolute Lymphs (auto) 0.9 L (1.0-4.8) 10^3/ul Absolute Monos (auto) 0.6 (0-0.8) 10^3/ul Absolute Eos (auto) 0.1 (0-0.6) 10^3/ul Absolute Basos (auto) 0.0 (0-0.2) 10^3/ul Absolute Nucleated RBC 0.0 10^3/ul Nucleated RBC % 0.0 INR (Anticoag Therapy) (0.82-1.09) Sodium 137 (135-145) mmol/L Potassium 4.1 (3.5-5.0) mmol/L Chloride 100 L (101-111) mmol/L Carbon Dioxide 29 (22-32) mmol/L Anion Gap 8 (2-11) mmol/L BUN 35 H (6-24) mg/dL Creatinine 1.19 H (0.67-1.17) mg/dL Est GFR ( Amer) 71.7 (>60) Est GFR (Non-Af Amer) 59.3 (>60) BUN/Creatinine Ratio 29.4 H (8-20) Glucose 186 H (70-100) mg/dL Lactic Acid 2.0 (0.5-2.0) mmol/L Calcium 8.8 (8.6-10.3) mg/dL Total Bilirubin 0.30 (0.2-1.0) mg/dL AST 15 (13-39) U/L ALT 14 (7-52) U/L Alkaline Phosphatase 71 (34-104) U/L Troponin I 0.01 (<0.03) ng/mL B-Natriuretic Peptide (<=100) pg/mL Total Protein 6.7 (6.4-8.9) g/dL Albumin 4.1 (3.2-5.2) g/dL Globulin 2.6 (2-4) g/dL Albumin/Globulin Ratio 1.6 (1-3) 05/01/19 05/01/19 Range/Units 04:46 04:46 WBC (3.5-10.8) 10^3/uL RBC (4.18-5.48) 10^6 /uL Hgb (14.0-18.0) g/dL Hct (42-52) % MCV (80-94) fL MCH (27-31) pg MCHC (31-36) g/dL RDW (10-15) % Plt Count (150-450) 10^3/uL MPV (7.4-10.4) fL Neut % (Auto) % Lymph % (Auto) % [place] % (Auto) % Eos % (Auto) % Baso % (Auto) % Absolute Neuts (auto) (1.5-7.7) 10^3/ul Absolute Lymphs (auto) (1.0-4.8) 10^3/ul Absolute Monos (auto) (0-0.8) 10^3/ul Absolute Eos (auto) (0-0.6) 10^3/ul Absolute Basos (auto) (0-0.2) 10^3/ul Absolute Nucleated RBC 10^3/ul Nucleated RBC % INR (Anticoag Therapy) 1.06 (0.82-1.09) Sodium (135-145) mmol/L Potassium (3.5-5.0) mmol/L Chloride (101-111) mmol/L Carbon Dioxide (22-32) mmol/L Anion Gap (2-11) mmol/L BUN (6-24) mg/dL Creatinine (0.67-1.17) mg/dL Est GFR ( Amer) (>60) Est GFR (Non-Af Amer) (>60) BUN/Creatinine Ratio (8-20) Glucose (70-100) mg/dL Lactic Acid (0.5-2.0) mmol/L Calcium (8.6-10.3) mg/dL Total Bilirubin (0.2-1.0) mg/dL AST (13-39) U/L ALT (7-52) U/L Alkaline Phosphatase (34-104) U/L Troponin I (<0.03) ng/mL B-Natriuretic Peptide 197 H (<=100) pg/mL Total Protein (6.4-8.9) g/dL Albumin (3.2-5.2) g/dL Globulin (2-4) g/dL Albumin/Globulin Ratio (1-3) Microbiology and Other Data: Microbiology 05/01/19 04:44 Aerobic Blood Culture - Preliminary Blood Venous No Growth Day 1 Anaerobic Blood Culture - Preliminary No Growth Day 1 05/01/19 04:45 Aerobic Blood Culture - Preliminary Blood Venous No Growth Day 1 Anaerobic Blood Culture - Preliminary No Growth Day 1 05/01/19 07:20 Stool Occult Blood (KRISTINA) - Final Stool Assess/Plan/Problems-Billing Assessment: 78 yo M with h/o b/l LE's pain and LBP on morphine at home, DM2, HTN , hypothyroidism presents with acute on chronic anemia and GARCIA due to it - Patient Problems (1) GI bleed Comment: acute Pt has h/o chronic iron deff anemia H/o small bowel ulcers 2019 video capsule enteroscopy cont IV Protonix BID EGD shows no abn. Cont to check H&H, hopefuly Hb will remain stable and pt can be discharged in the next 24-48 hrs. (2) SOB (shortness of breath) Comment: CXR shows mild pul edma-poss caused by anemia cont Lasix , breathing back to baseline today Echo pending (3) Aortic stenosis Comment: On echo from 2017-mod . (4) Chronic low back pain Comment: Continue gabapentin, MS contin, and prn medications, with careful attention to s /s of lethargy. (5) Hypertension Comment: -continue home losartan, amlodipine, and diltiazem (6) Diabetes Comment: - BGs well controlled today - SS lispro while inpatient (7) Hypothyroidism Comment: -Continue home levothyroxine (8) DVT prophylaxis Comment: SCD's Status and Disposition: Inpatient
--- NOTE | 2019-05-02 18:10 | ECHO ---
*[facility]* [place] [address] Fax #: [phone] Transthoracic Echocardiogram Patient: Christofer Sanders : 1940 Study Date: 05/02/2019 Age: 78 Gender: M HR: 78 bpm Height: 72 in /182.9 cm BSA: 2.76 m^2 Weight: 315.3 lb /143.3 kg BMI: 42.9 kg/m^2 *Boiler Riveter: * Ada High RDCS RN *Referring Physician: * Vignesh GutierrezReading Physician: * Melvin Black MD Indications: SOB. History: Coronary artery disease. EMILY. ETOH use. Anemia. Aortic stenosis. Risk factors: Former tobacco use. Hypertension. Diabetes mellitus. Morbidly obese. Dyslipidemia. Conclusions Summary: - Left ventricle: The cavity size is normal. Wall thickness is mildly increased. Systolic function is normal. The estimated ejection fraction is 60-65%. Wall motion is normal; there are no regional wall motion abnormalities. - Left atrium: The atrium is mildly dilated. - Right atrium: The atrium is mildly dilated. - Mitral valve: The findings are consistent with mild stenosis. There is mild regurgitation. - Aortic valve: The findings are consistent with moderate to severe stenosis. - Since the prior echocardiogram completed 02/10/17, prior aortic stenosis graded moderate so there does appear to be some interval progression. Study data: Transthoracic echocardiogram. Procedure: Transthoracic echocardiography was performed. Image quality was fair. The study was technically limited due to body habitus and smoking history. Intravenous Definity 3 ml was administered to enhance imaging. Complete 2D, spectral Doppler, and color flow Doppler. Location: Bedside. Patient status: Inpatient. Patient room number: 442-02. Rhythm: Normal sinus rhythm with PAC's. Findings Left ventricle: The cavity size is normal. Wall thickness is mildly increased. Systolic function is normal. The estimated ejection fraction is 60-65%. Wall motion is normal; there are no regional wall motion abnormalities. There is no consistent Doppler evidence of clinically significant diastolic dysfunction. Right ventricle: The cavity size is normal. Systolic function is normal. Left atrium: The atrium is mildly dilated. Right atrium: The atrium is mildly dilated. Mitral valve: The mitral valve annulus appears moderately calcified. The leaflets are mildly thickened. The findings are consistent with mild stenosis. There is mild regurgitation. Aortic valve: The valve is trileaflet. The leaflets are moderately thickened with decreased excursion. Mean gradient 48 mm Hg. Peak gradient 70 mm Hg. The findings are consistent with moderate to severe stenosis. There is no significant regurgitation. Tricuspid valve: The leaflets are normal thickness. There is trace regurgitation. Pulmonic valve: Not well visualized. There is trace to mild regurgitation. Aorta: Aortic root: The aortic root is not dilated. Ascending aorta: The ascending aorta is not visualized. Aortic arch: The aortic arch is not visualized. Pericardium: There is no pericardial effusion. Pulmonary arteries: Not well visualized. Systolic pressure cannot be accurately estimated. Systemic veins: Inferior vena cava: The vessel is dilated. There is (< 50%) respiratory change in the IVC dimension. Measurements Left ventricle Value Ref Right atrium Value Ref LEYLA, LAX 5.1 cm 4.2 - ML dim, ES, A4C (H) 4.5 cm 2.6 - 4.4 5.8 SI dim, ES, A4C (H) 5.9 cm 3.4 - 5.3 ESD, LAX 3.4 cm 2.5 - 4.0 Aortic valve Value Ref FS, LAX 33 % 25 - 43 VTI, S 116.0 cm --------- PW, ED (H) 1.2 cm 0.6 - Peak grad, S 76.0 mm Hg --------- 1.0 LVOT/AV, VTI ratio 0.26 --------- IVS/PW, ED 1.06 -------- OPAL, VTI 0.82 cm^2 --------- E', lat angely, TDI (L) 9.0 cm/sec >=10.0 LVOT/AV, Vpeak ratio 0.25 - -------- E/e', lat angely, TDI 19 -------- OPAL, Vmax 0.79 cm^2 ---- ----- E', med angely, TDI 7.0 cm/sec >=7.0 E/e', med angely, TDI 24 -------- Mitral valve Value Ref E', avg, TDI 8.0 cm/sec -------- Peak E 1.7 m/sec ---- ----- E/e', avg, TDI (H) 21 <=14 Peak A 1.3 m/sec - -------- Decel time 289 ms --------- LVOT Value Ref PHT 126 ms --------- Diam, S 2.00 cm -------- Mean grad, D 3.4 mm Hg --------- Area 3.1 cm^2 -------- Peak grad, D 11.6 mm Hg --------- Peak rosangela, S 1.1 m/sec -------- Peak E/A ratio 1.31 --------- VTI, S 30.4 cm -------- Peak grad, S 5 mm Hg -------- Pulmonic valve Value Ref Mean grad, S 3 mm Hg -------- Peak v, S 0.96 m/sec --------- Peak grad, S 3.7 mm Hg --------- Ventricular septum Value Ref IVS, ED (H) 1.2 cm 0.6 - Aortic root Value Ref 1.0 Root diam 3.6 cm <4.7 Right ventricle Value Ref Inferior vena cava Value Ref LEYLA minor ax, A4C 3.1 cm 1.9 - Diam 2.2 cm --------- mid 3.5 Left atrium Value Ref SI dim ES, LAX 4.1 cm -------- ML dim, A4C 4.8 cm -------- SI dim, A4C 5.5 cm -------- Vol, ES, 2-p 85 ml -------- Vol/bsa, ES, 2-p 33 ml/m^2 16 - 34 Legend: (L) and (H) lisette values outside specified reference range. Prepared and electronically signed by Melvin Black MD 05/02/2019:10
[2019-05-02] MEDS: Atorvastatin* 10 MG TAB PO SCH (20:22)
[2019-05-02] MEDS: Dextran 70/Hypromellose Tears Eye Drops 15 ml BTL (for Artificials Tears) BOTH EYES PRN (20:23)
[2019-05-02] MEDS ORDERED: Diazepam TAB(*) 5 MG PO ONE (22:55)
[2019-05-03] MEDS: oxyCODONE TAB* 5 MG TAB PO PRN ×4 (00:35→20:06)
[2019-05-03 01:10] LABS: Hematocrit 25 % (42-52); Hemoglobin 8.5 g/dL (14.0-18.0)
[2019-05-03] MEDS: Dextran 70/Hypromellose Tears Eye Drops 15 ml BTL (for Artificials Tears) BOTH EYES PRN ×5 (03:36→20:07)
[2019-05-03] MEDS: Levothyroxine TAB* 100 MCG TAB PO SCH (05:34)
[2019-05-03] MEDS: Levothyroxine TAB* 88 MCG TAB PO SCH (05:34)
[2019-05-03 07:38] LABS: Hematocrit 27 % (42-52); Hemoglobin 9.1 g/dL (14.0-18.0)
[2019-05-03] MEDS: Insulin LISPRO* 1 UNITS UNIT SUBCUT SCH ×4 (08:18→21:03)
[2019-05-03] MEDS: amLODIPine TAB* 5 MG PO SCH (08:20)
[2019-05-03] MEDS: Gabapentin CAP(*) 300 MG PO SCH ×3 (08:21→20:05)
[2019-05-03] MEDS: Losartan TAB* 25 MG PO SCH (08:22)
[2019-05-03] MEDS: Docusate CAP* 100 MG PO SCH ×2 (08:22→20:06)
[2019-05-03] MEDS: Diltiazem CD CAP* 180 MG PO SCH (08:22)
[2019-05-03] MEDS: DULoxetine DR CAP* 30 MG CAP.DR PO SCH ×2 (08:22→20:06)
[2019-05-03] MEDS: Pantoprazole IV* 40 MG IV SCH (08:24)
[2019-05-03] MEDS: Furosemide IV* 10 MG/ML 2 ML VIAL (20 MG) IV SCH (08:25)
[2019-05-03] MEDS ORDERED: Ferric Gluconate IV* 25 MG in NS 0.9% 50 ML* 50 ML IVPB ONE (09:09)
[2019-05-03 09:14] LABS: BUN/Creatinine Ratio 20.6 (8-20); Calcium 8.8 mg/dL (8.6-10.3); EGFR African American 67.1 (>60); EGFR Non-African American 55.5 (>60); Potassium 4.3 mmol/L (3.5-5.0)
[2019-05-03] MEDS ORDERED: Ferric Gluconate IV* 100 MG in NS 0.9% 100 ML* 100 ML IVPB ONE ×2 (10:00→12:00)
[2019-05-03] MEDS: Morphine TAB Extended Release (*) 15 MG TAB.ER PO SCH ×2 (10:26→20:05)
[2019-05-03] MEDS ORDERED: Furosemide IV* 10 MG/ML 2 ML VIAL (20 MG) IV ONE (12:59)
--- NOTE | 2019-05-03 13:40 | PN ---
Subjective Date of Service: 05/03/19 Interval History: Pt still c/o SOB. Pain "all over"-consistent with chronic Objective Active Medications: Amlodipine Besylate (Norvasc Tab*) 5 mg PO DAILY [facility] Last Admin: 05/03/19 08:20 Dose: 5 mg Artificial Tears (Natural Balance Tears Eye Drop) 1 drop BOTH EYES Q2H PRN PRN Reason: DRY EYE Last Admin: 05/03/19 12:28 Dose: 1 drop Atorvastatin Calcium (Lipitor*) 10 mg PO BEDTIME [facility] Last Admin: 05/02/19 20:22 Dose: 10 mg Dextrose (D50w Syringe 50 Ml*) 12.5 gm IV PUSH .FOR FS < 60 - SS PRN PRN Reason: FS < 60 Diltiazem HCl (Cardizem Cd Cap*) 180 mg PO DAILY [facility] Last Admin: 05/03/19 08:22 Dose: 180 mg Docusate Sodium (Colace Cap*) 100 mg PO BID [facility] Last Admin: 05/03/19 08:22 Dose: 100 mg Duloxetine HCl (Cymbalta Cap*) 30 mg PO BID [facility] Last Admin: 05/03/19 08:22 Dose: 30 mg Gabapentin (Neurontin Cap(*)) 600 mg PO TID [facility] Last Admin: 05/03/19 08:21 Dose: 600 mg Insulin Human Lispro (Humalog*) 0 units SUBCUT ACHS [facility]; Protocol Last Admin: 05/03/19 12:14 Dose: Not Given Levothyroxine Sodium (Synthroid Tab*) 100 mcg PO 0600 [facility] Last Admin: 05/03/19 05:34 Dose: 100 mcg Levothyroxine Sodium (Synthroid Tab*) 88 mcg PO 0600 [facility] Last Admin: 05/03/19 05:34 Dose: 88 mcg Losartan Potassium (Cozaar Tab*) 50 mg PO DAILY [facility]; Protocol Last Admin: 05/03/19 08:22 Dose: 50 mg Morphine Sulfate (Ms Contin(*)) 45 mg PO BID [facility] Last Admin: 05/03/19 10:26 Dose: 45 mg Oxycodone HCl (Roxycodone Tab*) 10 mg PO Q4H PRN PRN Reason: PAIN - SEVERE Last Admin: 05/03/19 05:34 Dose: 10 mg Pantoprazole Sodium (Protonix Iv*) 40 mg IV BID [facility] Last Admin: 05/03/19 08:24 Dose: 40 mg Vital Signs - 8 hr 05/03/19 05/03/19 05/03/19 07:15 08:00 08:21 Temperature 97.1 F Pulse Rate 58 Respiratory 16 19 18 Rate Blood Pressure 118/60 (mmHg) O2 Sat by Pulse 99 Oximetry 05/03/19 10:26 Temperature Pulse Rate Respiratory 20 Rate Blood Pressure (mmHg) O2 Sat by Pulse Oximetry Oxygen Devices in Use Now: Nasal Cannula Appearance: 78 yo M, obese, in NAD, aAOx3 Eyes: No Scleral Icterus, PERRLA Ears/Nose/Mouth/Throat: NL Teeth, Lips, Gums, Mucous Membranes Moist Neck: NL Appearance and Movements; NL JVP, Trachea Midline Respiratory: Symmetrical Chest Expansion and Respiratory Effort, - - crackles at b/l bases Cardiovascular: - - 3/6 RANDA Abdominal: NL Sounds; No Tenderness; No Distention, No Hepatosplenomegaly Lymphatic: No Cervical Adenopathy Extremities: No Clubbing, Cyanosis, - - +1 pitting ankle chiquita b/l Skin: No Nodules or Sclerosis Neurological: Alert and Oriented x 3, NL Muscle Strength and Tone Result Diagrams: 05/03/19 07:24 05/03/19 07:21 Additional Lab and Data: Lab Results 05/01/19 05/01/19 05/01/19 Range/Units 04:46 04:46 04:46 WBC 8.0 (3.5-10.8) 10^3/uL RBC 2.48 L (4.18-5.48) 10^6 /uL Hgb 7.3 L (14.0-18.0) g/dL Hct 22 L (42-52) % MCV 90 (80-94) fL MCH 30 (27-31) pg MCHC 33 (31-36) g/dL RDW 16 H (10-15) % Plt Count 241 (150-450) 10^3/uL MPV 7.3 L (7.4-10.4) fL Neut % (Auto) 79.2 % Lymph % (Auto) 11.2 % Mcculloch % (Auto) 7.3 % Eos % (Auto) 1.7 % Baso % (Auto) 0.6 % Absolute Neuts (auto) 6.3 (1.5-7.7) 10^3/ul Absolute Lymphs (auto) 0.9 L (1.0-4.8) 10^3/ul Absolute Monos (auto) 0.6 (0-0.8) 10^3/ul Absolute Eos (auto) 0.1 (0-0.6) 10^3/ul Absolute Basos (auto) 0.0 (0-0.2) 10^3/ul Absolute Nucleated RBC 0.0 10^3/ul Nucleated RBC % 0.0 INR (Anticoag Therapy) (0.82-1.09) Sodium 137 (135-145) mmol/L Potassium 4.1 (3.5-5.0) mmol/L Chloride 100 L (101-111) mmol/L Carbon Dioxide 29 (22-32) mmol/L Anion Gap 8 (2-11) mmol/L BUN 35 H (6-24) mg/dL Creatinine 1.19 H (0.67-1.17) mg/dL Est GFR ( Amer) 71.7 (>60) Est GFR (Non-Af Amer) 59.3 (>60) BUN/Creatinine Ratio 29.4 H (8-20) Glucose 186 H (70-100) mg/dL Lactic Acid 2.0 (0.5-2.0) mmol/L Calcium 8.8 (8.6-10.3) mg/dL Total Bilirubin 0.30 (0.2-1.0) mg/dL AST 15 (13-39) U/L ALT 14 (7-52) U/L Alkaline Phosphatase 71 (34-104) U/L Troponin I 0.01 (<0.03) ng/mL B-Natriuretic Peptide (<=100) pg/mL Total Protein 6.7 (6.4-8.9) g/dL Albumin 4.1 (3.2-5.2) g/dL Globulin 2.6 (2-4) g/dL Albumin/Globulin Ratio 1.6 (1-3) 05/01/19 05/01/19 Range/Units 04:46 04:46 WBC (3.5-10.8) 10^3/uL RBC (4.18-5.48) 10^6 /uL Hgb (14.0-18.0) g/dL Hct (42-52) % MCV (80-94) fL MCH (27-31) pg MCHC (31-36) g/dL RDW (10-15) % Plt Count (150-450) 10^3/uL MPV (7.4-10.4) fL Neut % (Auto) % Lymph % (Auto) % Mcculloch % (Auto) % Eos % (Auto) % Baso % (Auto) % Absolute Neuts (auto) (1.5-7.7) 10^3/ul Absolute Lymphs (auto) (1.0-4.8) 10^3/ul Absolute Monos (auto) (0-0.8) 10^3/ul Absolute Eos (auto) (0-0.6) 10^3/ul Absolute Basos (auto) (0-0.2) 10^3/ul Absolute Nucleated RBC 10^3/ul Nucleated RBC % INR (Anticoag Therapy) 1.06 (0.82-1.09) Sodium (135-145) mmol/L Potassium (3.5-5.0) mmol/L Chloride (101-111) mmol/L Carbon Dioxide (22-32) mmol/L Anion Gap (2-11) mmol/L BUN (6-24) mg/dL Creatinine (0.67-1.17) mg/dL Est GFR ( Amer) (>60) Est GFR (Non-Af Amer) (>60) BUN/Creatinine Ratio (8-20) Glucose (70-100) mg/dL Lactic Acid (0.5-2.0) mmol/L Calcium (8.6-10.3) mg/dL Total Bilirubin (0.2-1.0) mg/dL AST (13-39) U/L ALT (7-52) U/L Alkaline Phosphatase (34-104) U/L Troponin I (<0.03) ng/mL B-Natriuretic Peptide 197 H (<=100) pg/mL Total Protein (6.4-8.9) g/dL Albumin (3.2-5.2) g/dL Globulin (2-4) g/dL Albumin/Globulin Ratio (1-3) Microbiology and Other Data: Microbiology 05/01/19 04:44 Aerobic Blood Culture - Preliminary Blood Venous No Growth Day 1 Anaerobic Blood Culture - Preliminary No Growth Day 1 05/01/19 04:45 Aerobic Blood Culture - Preliminary Blood Venous No Growth Day 1 Anaerobic Blood Culture - Preliminary No Growth Day 1 05/01/19 07:20 Stool Occult Blood (KRISTINA) - Final Stool Assess/Plan/Problems-Billing Assessment: 78 yo M with h/o b/l LE's pain and LBP on morphine at home, DM2, HTN , hypothyroidism presents with acute on chronic anemia and GARCIA due to it - Patient Problems (1) Anemia Comment: normocytic Iron level low, will tx with IV Iron today and tomorrow s/p 2 U PRBC transfusion at admission (2) GI bleed Comment: acute Pt has h/o chronic iron deff anemia H/o small bowel ulcers 2018 video capsule enteroscopy switch IV Protonix BID to PO EGD shows no abn. Hb stable, but still SOB. (3) SOB (shortness of breath) Comment: CXR showed mild pul edema Still SOB today. Echo shows mod to severe . Pt will need cardiology f/u set up at d/c. Will add another dose of Lasix 20 mg this PM, but pt's renal function is slowly worsening, needs to be monitored (4) Aortic stenosis Comment: On curent Echo mod-severe , needs cardiology f/u as outpatient (5) Chronic low back pain Comment: Continue home gabapentin, MS contin, and prn medications, with careful attention to s/s of lethargy. (6) Hypertension Comment: -continue home losartan, amlodipine, and diltiazem -BP is controled (7) Diabetes Comment: - BGs well controlled today - SS lispro while inpatient (8) Hypothyroidism Comment: -Continue home levothyroxine (9) CKD (chronic kidney disease) stage 3, GFR 30-59 ml/min Comment: CKD stage 3 due to DM, with worsening when diuretic, cont to monitor (10) DVT prophylaxis Comment: no pharmacologic prophylaxis due to GI bleed SCD's Status and Disposition: Inpatient, likely will be able to go home tomorrow, but has no help at home till Monday. PO/OT eval ordered and SW consult pending
[2019-05-03] MEDS: Atorvastatin* 10 MG TAB PO SCH (20:06)
[2019-05-03] MEDS: Carboxymethylcellulose/Glyceri 10 ML OPHTH.GEL lubricant eye gel BOTH EYES SCH (20:07)
[2019-05-03] MEDS: Pantoprazole TAB * 40 MG TAB PO SCH (20:49)
[2019-05-04] MEDS: oxyCODONE TAB* 5 MG TAB PO PRN ×2 (03:19→20:15)
[2019-05-04] MEDS: Dextran 70/Hypromellose Tears Eye Drops 15 ml BTL (for Artificials Tears) BOTH EYES PRN ×5 (03:20→20:17)
[2019-05-04] MEDS: Levothyroxine TAB* 88 MCG TAB PO SCH (05:53)
[2019-05-04] MEDS: Levothyroxine TAB* 100 MCG TAB PO SCH (05:53)
[2019-05-04 06:11] LABS: ABS Eosinophils 0.4 10^3/ul (0-0.6); ABS Lymphocytes 1.3 10^3/ul (1.0-4.8); ABS Monocytes 0.7 10^3/ul (0-0.8); ABS Neutrophils 4.4 10^3/ul (1.5-7.7); Eosinophil % 5.3 %; Hematocrit 27 % (42-52); Lymphocyte % 18.9 %; Mean Corpuscular HGB Conc 33 g/dL (31-36); Mean Corpuscular Hemoglobin 30 pg (27-31); Mean Corpuscular Volume 89 fL (80-94); Platelet Count 238 10^3/uL (150-450); Red Blood Count 3.05 10^6 /uL (4.18-5.48); Red Cell Distribution Width 15 % (10-15); White Blood Count 6.8 10^3/uL (3.5-10.8)
[2019-05-04 06:27] LABS: BUN/Creatinine Ratio 23.2 (8-20); Calcium 8.7 mg/dL (8.6-10.3); EGFR African American 60.5 (>60); Potassium 4.2 mmol/L (3.5-5.0)
[2019-05-04] MEDS: Insulin LISPRO* 1 UNITS UNIT SUBCUT SCH ×4 (08:49→21:22)
[2019-05-04] MEDS: Docusate CAP* 100 MG PO SCH ×2 (08:50→20:17)
[2019-05-04] MEDS: Losartan TAB* 25 MG PO SCH (08:50)
[2019-05-04] MEDS: DULoxetine DR CAP* 30 MG CAP.DR PO SCH ×2 (08:51→20:16)
[2019-05-04] MEDS: Diltiazem CD CAP* 180 MG PO SCH (08:51)
[2019-05-04] MEDS: Pantoprazole TAB * 40 MG TAB PO SCH ×2 (08:51→20:15)
[2019-05-04] MEDS: Morphine TAB Extended Release (*) 15 MG TAB.ER PO SCH ×2 (08:51→20:16)
[2019-05-04] MEDS: Gabapentin CAP(*) 300 MG PO SCH ×3 (08:51→20:16)
[2019-05-04] MEDS: amLODIPine TAB* 5 MG PO SCH (08:51)
[2019-05-04] MEDS ORDERED: Ferric Gluconate IV* 125 MG in NS 0.9% 100 ML* 100 ML IVPB SCH (10:00)
--- NOTE | 2019-05-04 11:09 | PN ---
Progress Note - Progress Note Date of Service: 05/04/19 Note: pt seen and examined; doing well other than generalized pain; no blood in stool , no abd pain, still SOB VS: 97.1, 117/58, 57, 20, 99% nad, alert obese, +bs, soft Hgb stable at 9.0<------9.1 anemia---neg EGD a few days ago, colonoscopy last year normal; likely small bowel source; if continues to ooze, or hgb does not come up, dbl balloon enteroscopy Deandre Barrow MD
--- NOTE | 2019-05-04 14:28 | PN ---
Subjective Date of Service: 05/04/19 Interval History: Mr. Sanders is feeling fine today. He still does not feel like himself. Mild SOB. No CP or dizziness. He generally feels better than he did on admission. Worried about getting up and down 4 stairs at home. No concerns from nursing. Family History: Unchanged from Admission Social History: Unchanged from Admission Past Medical History: Unchanged from Admission Objective Active Medications: Amlodipine Besylate (Norvasc Tab*) 5 mg PO DAILY [facility] Artificial Tears (Natural Balance Tears Eye Drop) 1 drop BOTH EYES Q2H PRN DRY EYE Atorvastatin Calcium (Lipitor*) 10 mg PO BEDTIME [facility] Carboxymethylcellulose/Glycerin (Refresh Optive Gel Eye Gel) 1 applic BOTH EYES BEDTIME [facility] Dextrose (D50w Syringe 50 Ml*) 12.5 gm IV PUSH .FOR FS < 60 - SS PRN FS < 60 Diltiazem HCl (Cardizem Cd Cap*) 180 mg PO DAILY [facility] Docusate Sodium (Colace Cap*) 100 mg PO BID [facility] Duloxetine HCl (Cymbalta Cap*) 30 mg PO BID [facility] Gabapentin (Neurontin Cap(*)) 600 mg PO TID [facility] Insulin Human Lispro (Humalog*) 0 units SUBCUT ACHS [facility]; Protocol Levothyroxine Sodium (Synthroid Tab*) 100 mcg PO 0600 [facility] Levothyroxine Sodium (Synthroid Tab*) 88 mcg PO 0600 [facility] Losartan Potassium (Cozaar Tab*) 50 mg PO DAILY [facility]; Protocol Morphine Sulfate (Ms Contin(*)) 45 mg PO BID [facility] Oxycodone HCl (Roxycodone Tab*) 10 mg PO Q4H PRN PAIN - SEVERE Pantoprazole Sodium (Protonix Tab*) 40 mg PO BID [facility] Vital Signs - 8 hr 05/04/19 05/04/19 05/04/19 07:00 07:32 08:51 Temperature 97.1 F Pulse Rate 57 Respiratory 18 20 18 Rate Blood Pressure 117/58 (mmHg) O2 Sat by Pulse 97 Oximetry 05/04/19 05/04/19 05/04/19 11:08 11:20 13:33 Temperature 97.8 F Pulse Rate 59 Respiratory 16 20 18 Rate Blood Pressure 121/53 (mmHg) O2 Sat by Pulse 100 Oximetry Oxygen Devices in Use Now: None Appearance: Elderly male sitting in bed in NAD Ears/Nose/Mouth/Throat: Mucous Membranes Moist Neck: NL Appearance and Movements; NL JVP, Trachea Midline Respiratory: Symmetrical Chest Expansion and Respiratory Effort, Clear to Auscultation Cardiovascular: NL Sounds; No Murmurs; No JVD Abdominal: NL Sounds; No Tenderness; No Distention Extremities: No Edema Neurological: Alert and Oriented x 3 Lines/Tubes/Other Access: Clean, Dry and Intact Peripheral IV Nutrition: Taking PO's Result Diagrams: 05/04/19 05:52 05/04/19 05:52 Assess/Plan/Problems-Billing Assessment: Mr. Sanders is a 78 yo M with PMH of neuropathy and LBP on morphine at home, DM2 , HTN, hypothyroidism; who presented to the ED with SOB and was found to have acute on chronic anemia. - Patient Problems (1) Anemia Code(s): D64.9 - ANEMIA, UNSPECIFIED Comment: - Normocytic - Secondary to acute blood loss superimposed on ABI - Received IV iron x2 and 2 units PRBC (05/01/19) - Start ferrous sulfate (2) GI bleed Code(s): K92.2 - GASTROINTESTINAL HEMORRHAGE, UNSPECIFIED Comment: - Hisotry of small bowel ulcers 2019 video capsule enteroscopy - Appreciate GI consult - Normal EGD; suspected small bowel source - Continue pantoprazole (3) CKD (chronic kidney disease) stage 3, GFR 30-59 ml/min Code(s): N18.3 - CHRONIC KIDNEY DISEASE, STAGE 3 (MODERATE) Comment: - Secondary to DM - Creatinine worsening with diuresis - Trend BMP (4) Aortic stenosis Code(s): I35.0 - NONRHEUMATIC AORTIC (VALVE) STENOSIS Comment: - Echo showing mod-severe - Needs cardiology f/u as outpatient (5) Hypertension Code(s): I10 - ESSENTIAL (PRIMARY) HYPERTENSION Comment: - Normotensive - Continue losartan, amlodipine, diltiazem (6) Chronic low back pain Code(s): M54.5 - LOW BACK PAIN; G89.29 - OTHER CHRONIC PAIN Comment: - Continue gabapentin, morphine ER (7) Diabetes Code(s): E11.9 - TYPE 2 DIABETES MELLITUS WITHOUT COMPLICATIONS Comment: - Continue Lispro SS (8) Hyperlipidemia Code(s): E78.5 - HYPERLIPIDEMIA, UNSPECIFIED Comment: - Continue atorvastatin (9) Hypothyroidism Code(s): E03.9 - HYPOTHYROIDISM, UNSPECIFIED Comment: - Continue levothyroxine (10) EMILY (obstructive sleep apnea) Code(s): G47.33 - OBSTRUCTIVE SLEEP APNEA (ADULT) (PEDIATRIC) Comment: - Oxygen at night (11) DVT prophylaxis Comment: - TEDs only in the setting of GI bleed and neuropathy (12) Full code status Code(s): Z78.9 - OTHER SPECIFIED HEALTH STATUS Comment: Status and Disposition: Inpatient. Anticipate d/c home Monday after working on stairs with PT. Attending: Vignesh Gutierrez
[2019-05-04] MEDS: Atorvastatin* 10 MG TAB PO SCH (20:16)
[2019-05-04] MEDS: Carboxymethylcellulose/Glyceri 10 ML OPHTH.GEL lubricant eye gel BOTH EYES SCH (20:17)
[2019-05-05] MEDS: oxyCODONE TAB* 5 MG TAB PO PRN ×2 (00:27→05:35)
[2019-05-05] MEDS: Dextran 70/Hypromellose Tears Eye Drops 15 ml BTL (for Artificials Tears) BOTH EYES PRN ×2 (00:28→12:58)
[2019-05-05] MEDS: Levothyroxine TAB* 88 MCG TAB PO SCH (05:35)
[2019-05-05] MEDS: Levothyroxine TAB* 100 MCG TAB PO SCH (05:35)
[2019-05-05 07:20] LABS: ABS Eosinophils 0.4 10^3/ul (0-0.6); ABS Lymphocytes 1.4 10^3/ul (1.0-4.8); ABS Monocytes 0.7 10^3/ul (0-0.8); ABS Neutrophils 3.9 10^3/ul (1.5-7.7); Eosinophil % 6.7 %; Hematocrit 26 % (42-52); Hemoglobin 8.7 g/dL (14.0-18.0); Mean Corpuscular HGB Conc 34 g/dL (31-36); Mean Corpuscular Hemoglobin 30 pg (27-31); Mean Corpuscular Volume 89 fL (80-94); Mean Platelet Volume 6.9 fL (7.4-10.4); Platelet Count 238 10^3/uL (150-450); Red Blood Count 2.89 10^6 /uL (4.18-5.48); Red Cell Distribution Width 15 % (10-15); White Blood Count 6.5 10^3/uL (3.5-10.8)
[2019-05-05] MEDS: Insulin LISPRO* 1 UNITS UNIT SUBCUT SCH ×4 (08:05→21:12)
[2019-05-05] MEDS: Diltiazem CD CAP* 180 MG PO SCH (08:06)
[2019-05-05] MEDS: Docusate CAP* 100 MG PO SCH ×2 (08:06→21:15)
[2019-05-05] MEDS: Morphine TAB Extended Release (*) 15 MG TAB.ER PO SCH ×2 (08:06→21:16)
[2019-05-05] MEDS: Pantoprazole TAB * 40 MG TAB PO SCH ×2 (08:06→21:15)
[2019-05-05] MEDS: amLODIPine TAB* 5 MG PO SCH (08:06)
[2019-05-05] MEDS: Losartan TAB* 25 MG PO SCH (08:06)
[2019-05-05] MEDS: DULoxetine DR CAP* 30 MG CAP.DR PO SCH ×2 (08:06→21:15)
[2019-05-05] MEDS: Ferrous Sulfate LIQ* 300 MG/5 ML UDC PO SCH (08:07)
[2019-05-05] MEDS: Gabapentin CAP(*) 300 MG PO SCH ×3 (08:13→21:16)
--- NOTE | 2019-05-05 14:32 | PN ---
Subjective Date of Service: 05/05/19 Interval History: Mr. Sanders is feeling tired today. He did not sleep well last night and reports staying up late watching sports. Feeling a little SOB this morning, but not overnight. Denies CP. He is looking forward to going home tomorrow. Nursing concerned about drowsiness late afternoon. Went in to assess patient at that time who woke easily and held a conversation with me. Family History: Unchanged from Admission Social History: Unchanged from Admission Past Medical History: Unchanged from Admission Objective Active Medications: Amlodipine Besylate (Norvasc Tab*) 5 mg PO DAILY [facility] Artificial Tears (Natural Balance Tears Eye Drop) 1 drop BOTH EYES Q2H PRN DRY EYE Atorvastatin Calcium (Lipitor*) 10 mg PO BEDTIME [facility] Carboxymethylcellulose/Glycerin (Refresh Optive Gel Eye Gel) 1 applic BOTH EYES BEDTIME [facility] Dextrose (D50w Syringe 50 Ml*) 12.5 gm IV PUSH .FOR FS < 60 - SS PRN FS < 60 Diltiazem HCl (Cardizem Cd Cap*) 180 mg PO DAILY [facility] Docusate Sodium (Colace Cap*) 100 mg PO BID [facility] Duloxetine HCl (Cymbalta Cap*) 30 mg PO BID [facility] Ferrous Sulfate (Feosol Liq*) 300 mg PO DAILY [facility] Gabapentin (Neurontin Cap(*)) 600 mg PO TID [facility] Insulin Human Lispro (Humalog*) 0 units SUBCUT ACHS [facility]; Protocol Levothyroxine Sodium (Synthroid Tab*) 100 mcg PO 0600 [facility] Levothyroxine Sodium (Synthroid Tab*) 88 mcg PO 0600 [facility] Losartan Potassium (Cozaar Tab*) 50 mg PO DAILY [facility]; Protocol Morphine Sulfate (Ms Contin(*)) 45 mg PO BID [facility] Oxycodone HCl (Roxycodone Tab*) 10 mg PO Q4H PRN PAIN - SEVERE Pantoprazole Sodium (Protonix Tab*) 40 mg PO BID [facility] Vital Signs - 8 hr 05/05/19 05/05/19 05/05/19 07:10 07:15 08:06 Temperature 98.1 F Pulse Rate 60 Respiratory 18 20 18 Rate Blood Pressure 129/60 (mmHg) O2 Sat by Pulse 96 Oximetry 05/05/19 05/05/19 05/05/19 11:41 12:40 12:58 Temperature 97.6 F 97.7 F Pulse Rate 68 57 Respiratory 18 20 18 Rate Blood Pressure 114/72 118/55 (mmHg) O2 Sat by Pulse 96 100 Oximetry Oxygen Devices in Use Now: None Appearance: Elderly male lying in bed in NAD Ears/Nose/Mouth/Throat: Mucous Membranes Moist Neck: NL Appearance and Movements; NL JVP, Trachea Midline Respiratory: Symmetrical Chest Expansion and Respiratory Effort, Clear to Auscultation Cardiovascular: RRR, - - Grade 2/6 systolic murmur Abdominal: NL Sounds; No Tenderness; No Distention Extremities: No Edema Neurological: Alert and Oriented x 3 - Slightly drowsy Lines/Tubes/Other Access: Clean, Dry and Intact Peripheral IV Nutrition: Taking PO's Result Diagrams: 05/05/19 07:01 05/04/19 05:52 Assess/Plan/Problems-Billing Assessment: Mr. Sanders is a 78 yo M with PMH of neuropathy and LBP on morphine at home, DM2 , HTN, hypothyroidism; who presented to the ED with SOB and was found to have acute on chronic anemia. - Patient Problems (1) Anemia Code(s): D64.9 - ANEMIA, UNSPECIFIED Comment: - Normocytic - Secondary to acute blood loss superimposed on ABI - Received IV iron x2 and 2 units PRBC (05/01/19) - Continue ferrous sulfate (2) GI bleed Code(s): K92.2 - GASTROINTESTINAL HEMORRHAGE, UNSPECIFIED Comment: - Hisotry of small bowel ulcers 2019 video capsule enteroscopy - Appreciate GI consult - Normal EGD; suspected small bowel source - Continue pantoprazole (3) CKD (chronic kidney disease) stage 3, GFR 30-59 ml/min Code(s): N18.3 - CHRONIC KIDNEY DISEASE, STAGE 3 (MODERATE) Comment: - Secondary to DM - Creatinine worsening with diuresis - Recheck BMP in AM (4) Aortic stenosis Code(s): I35.0 - NONRHEUMATIC AORTIC (VALVE) STENOSIS Comment: - Echo showing mod-severe - Needs cardiology f/u as outpatient (5) Hypertension Code(s): I10 - ESSENTIAL (PRIMARY) HYPERTENSION Comment: - Normotensive - Continue losartan, amlodipine, diltiazem (6) Chronic low back pain Code(s): M54.5 - LOW BACK PAIN; G89.29 - OTHER CHRONIC PAIN Comment: - Continue gabapentin, morphine ER (7) Diabetes Code(s): E11.9 - TYPE 2 DIABETES MELLITUS WITHOUT COMPLICATIONS Comment: - Continue Lispro SS (8) Hyperlipidemia Code(s): E78.5 - HYPERLIPIDEMIA, UNSPECIFIED Comment: - Continue atorvastatin (9) Hypothyroidism Code(s): E03.9 - HYPOTHYROIDISM, UNSPECIFIED Comment: - Continue levothyroxine (10) EMILY (obstructive sleep apnea) Code(s): G47.33 - OBSTRUCTIVE SLEEP APNEA (ADULT) (PEDIATRIC) Comment: - Oxygen at night (11) DVT prophylaxis Comment: - TEDs only in the setting of GI bleed and neuropathy (12) Full code status Code(s): Z78.9 - OTHER SPECIFIED HEALTH STATUS Comment: Status and Disposition: Inpatient. Anticipate d/c home Monday after working on stairs with PT. Attending: Vignesh Gutierrez
[2019-05-05] MEDS ORDERED: Senna TAB 8.6 mg* TAB PO PRN (18:46)
[2019-05-05] MEDS: Acetaminophen TAB* 325 MG PO PRN (19:19)
[2019-05-05] MEDS: Carboxymethylcellulose/Glyceri 10 ML OPHTH.GEL lubricant eye gel BOTH EYES SCH (21:14)
[2019-05-05] MEDS: Atorvastatin* 10 MG TAB PO SCH (21:15)
[2019-05-06] MEDS: Levothyroxine TAB* 100 MCG TAB PO SCH (05:38)
[2019-05-06] MEDS: Levothyroxine TAB* 88 MCG TAB PO SCH (05:38)
[2019-05-06 08:21] LABS: BUN/Creatinine Ratio 25.8 (8-20); Calcium 9.1 mg/dL (8.6-10.3); EGFR African American 65.9 (>60); EGFR Non-African American 54.5 (>60); Potassium 4.9 mmol/L (3.5-5.0)
[2019-05-06] MEDS: Gabapentin CAP(*) 300 MG PO SCH ×3 (08:36→21:35)
[2019-05-06] MEDS: Morphine TAB Extended Release (*) 15 MG TAB.ER PO SCH ×2 (08:36→21:35)
[2019-05-06] MEDS: Ferrous Sulfate LIQ* 300 MG/5 ML UDC PO SCH (08:37)
[2019-05-06] MEDS: Pantoprazole TAB * 40 MG TAB PO SCH ×2 (08:37→21:35)
[2019-05-06] MEDS: Losartan TAB* 25 MG PO SCH (08:37)
[2019-05-06] MEDS: Insulin LISPRO* 1 UNITS UNIT SUBCUT SCH ×4 (08:37→21:34)
[2019-05-06] MEDS: amLODIPine TAB* 5 MG PO SCH (08:37)
[2019-05-06] MEDS: DULoxetine DR CAP* 30 MG CAP.DR PO SCH ×2 (08:37→21:35)
[2019-05-06] MEDS: Diltiazem CD CAP* 180 MG PO SCH (08:37)
[2019-05-06] MEDS: Docusate CAP* 100 MG PO SCH ×2 (08:37→21:35)
[2019-05-06] MEDS: Dextran 70/Hypromellose Tears Eye Drops 15 ml BTL (for Artificials Tears) BOTH EYES PRN (10:28)
[2019-05-06] MEDS: oxyCODONE TAB* 5 MG TAB PO PRN (10:30)
--- NOTE | 2019-05-06 11:27 | PN ---
Subjective Date of Service: 05/06/19 Interval History: Mr. Sanders is feeling poor today. He worked with PT this morning and was unable to complete 4 stairs which he will need to be able to do in order to return home. He is feeling very down about this. He has been to rehab before and does not want to go back, but sounds as though he would agree if necessary. He does c/o SOB, but is feeling anxious. Denies CP. Did not sleep well overnight. No concerns from nursing. Family History: Unchanged from Admission Social History: Unchanged from Admission Past Medical History: Unchanged from Admission Objective Active Medications: Acetaminophen (Tylenol Tab*) 650 mg PO Q4H PRN PAIN - MILD Amlodipine Besylate (Norvasc Tab*) 5 mg PO DAILY [facility] Artificial Tears (Natural Balance Tears Eye Drop) 1 drop BOTH EYES Q2H PRN DRY EYE Atorvastatin Calcium (Lipitor*) 10 mg PO BEDTIME [facility] Carboxymethylcellulose/Glycerin (Refresh Optive Gel Eye Gel) 1 applic BOTH EYES BEDTIME [facility] Dextrose (D50w Syringe 50 Ml*) 12.5 gm IV PUSH .FOR FS < 60 - SS PRN FS < 60 Diltiazem HCl (Cardizem Cd Cap*) 180 mg PO DAILY [facility] Docusate Sodium (Colace Cap*) 100 mg PO BID [facility] Duloxetine HCl (Cymbalta Cap*) 30 mg PO BID [facility] Ferrous Sulfate (Feosol Liq*) 300 mg PO DAILY [facility] Gabapentin (Neurontin Cap(*)) 600 mg PO TID [facility] Insulin Human Lispro (Humalog*) 0 units SUBCUT ACHS [facility]; Protocol Levothyroxine Sodium (Synthroid Tab*) 100 mcg PO 0600 [facility] Levothyroxine Sodium (Synthroid Tab*) 88 mcg PO 0600 [facility] Losartan Potassium (Cozaar Tab*) 50 mg PO DAILY [facility]; Protocol Morphine Sulfate (Ms Contin(*)) 45 mg PO BID [facility] Oxycodone HCl (Roxycodone Tab*) 10 mg PO Q4H PRN PAIN - SEVERE Pantoprazole Sodium (Protonix Tab*) 40 mg PO BID [facility] Senna (Senokot 8.6 Mg Tab*) 1 tab PO BEDTIME PRN [facility] Vital Signs - 8 hr 05/06/19 05/06/19 05/06/19 03:45 07:15 08:00 Temperature 97.4 F 97.4 F Pulse Rate 58 55 Respiratory 14 14 14 Rate Blood Pressure 132/61 119/55 (mmHg) O2 Sat by Pulse 100 100 Oximetry Oxygen Devices in Use Now: Nasal Cannula Appearance: Elderly male sitting in chair in NAD Ears/Nose/Mouth/Throat: Mucous Membranes Moist Neck: NL Appearance and Movements; NL JVP, Trachea Midline Respiratory: Symmetrical Chest Expansion and Respiratory Effort, Clear to Auscultation Cardiovascular: RRR, - - Grade 2/6 systolic murmur Abdominal: NL Sounds; No Tenderness; No Distention Extremities: - - Mild nonpitting BLE Neurological: Alert and Oriented x 3 Lines/Tubes/Other Access: Clean, Dry and Intact Peripheral IV Nutrition: Taking PO's Result Diagrams: 05/05/19 07:01 05/06/19 07:44 Assess/Plan/Problems-Billing Assessment: Mr. Sanders is a 78 yo M with PMH of neuropathy and LBP on morphine at home, DM2 , HTN, hypothyroidism; who presented to the ED with SOB and was found to have acute on chronic anemia. - Patient Problems (1) Anemia Code(s): D64.9 - ANEMIA, UNSPECIFIED Comment: - Normocytic - Secondary to acute blood loss superimposed on ABI - Received IV iron x2 and 2 units PRBC (05/01/19) - Continue ferrous sulfate (2) GI bleed Code(s): K92.2 - GASTROINTESTINAL HEMORRHAGE, UNSPECIFIED Comment: - Hisotry of small bowel ulcers 2019 video capsule enteroscopy - Appreciate GI consult - Normal EGD; suspected small bowel source - Continue pantoprazole (3) CKD (chronic kidney disease) stage 3, GFR 30-59 ml/min Code(s): N18.3 - CHRONIC KIDNEY DISEASE, STAGE 3 (MODERATE) Comment: - Secondary to DM - Creatinine at baseline (4) Aortic stenosis Code(s): I35.0 - NONRHEUMATIC AORTIC (VALVE) STENOSIS Comment: - Echo showing mod-severe - Needs cardiology f/u as outpatient (5) Hypertension Code(s): I10 - ESSENTIAL (PRIMARY) HYPERTENSION Comment: - Normotensive - Continue losartan, amlodipine, diltiazem (6) Chronic low back pain Code(s): M54.5 - LOW BACK PAIN; G89.29 - OTHER CHRONIC PAIN Comment: - Continue gabapentin, morphine ER (7) Diabetes Code(s): E11.9 - TYPE 2 DIABETES MELLITUS WITHOUT COMPLICATIONS Comment: - Continue Lispro SS (8) Hyperlipidemia Code(s): E78.5 - HYPERLIPIDEMIA, UNSPECIFIED Comment: - Continue atorvastatin (9) Hypothyroidism Code(s): E03.9 - HYPOTHYROIDISM, UNSPECIFIED Comment: - Continue levothyroxine (10) EMILY (obstructive sleep apnea) Code(s): G47.33 - OBSTRUCTIVE SLEEP APNEA (ADULT) (PEDIATRIC) Comment: - Oxygen at night (11) DVT prophylaxis Comment: - TEDs only in the setting of GI bleed and neuropathy (12) Full code status Code(s): Z78.9 - OTHER SPECIFIED HEALTH STATUS Comment: Status and Disposition: Inpatient. Medically stable. Awaiting ANTOLIN bed. Attending: Vignesh Gutierrez
[2019-05-06] MEDS: Acetaminophen TAB* 325 MG PO PRN (19:14)
[2019-05-06] MEDS: Carboxymethylcellulose/Glyceri 10 ML OPHTH.GEL lubricant eye gel BOTH EYES SCH (21:33)
[2019-05-06] MEDS: Atorvastatin* 10 MG TAB PO SCH (21:35)
[2019-05-07] MEDS: Levothyroxine TAB* 88 MCG TAB PO SCH (05:53)
[2019-05-07] MEDS: Levothyroxine TAB* 100 MCG TAB PO SCH (05:53)
[2019-05-07] MEDS: Dextran 70/Hypromellose Tears Eye Drops 15 ml BTL (for Artificials Tears) BOTH EYES PRN (09:36)
[2019-05-07] MEDS: amLODIPine TAB* 5 MG PO SCH (09:38)
[2019-05-07] MEDS: Gabapentin CAP(*) 300 MG PO SCH ×2 (09:38→16:13)
[2019-05-07] MEDS: DULoxetine DR CAP* 30 MG CAP.DR PO SCH (09:38)
[2019-05-07] MEDS: Diltiazem CD CAP* 180 MG PO SCH (09:38)
[2019-05-07] MEDS: Insulin LISPRO* 1 UNITS UNIT SUBCUT SCH ×2 (09:39→13:23)
[2019-05-07] MEDS: Ferrous Sulfate LIQ* 300 MG/5 ML UDC PO SCH (09:39)
[2019-05-07] MEDS: Docusate CAP* 100 MG PO SCH (09:39)
[2019-05-07] MEDS: Pantoprazole TAB * 40 MG TAB PO SCH (09:39)
[2019-05-07] MEDS: Morphine TAB Extended Release (*) 15 MG TAB.ER PO SCH (09:39)
[2019-05-07] MEDS: Losartan TAB* 25 MG PO SCH (09:39)
[2019-05-07 16:42] VITALS: BP 127/58
--- NOTE | 2019-05-07 23:02 | DS ---
CC: Dr. Shonda Alexis; Dr. Deandre Barrow * DISCHARGE SUMMARY: DATE OF ADMISSION: 05/01/19 DATE OF DISCHARGE: 05/07/19 PRIMARY CARE PROVIDER: Dr. Shonda Alexis ATTENDING PHYSICIAN: Dr. Cathryn Wallace * (DICTATED BY MARGARET MO, KATHRINE) PRIMARY DIAGNOSES: 1. GI bleed, suspected small bowel source. 2. Acute blood loss anemia, superimposed on iron deficiency anemia. 3. Sauhkjii-hg-ntazix aortic stenosis. SECONDARY DIAGNOSES: 1. Chronic kidney disease, stage 3. 2. Hypertension. 3. Chronic back pain. 4. Diabetes mellitus type 2. 5. Hyperlipidemia. 6. Hypothyroidism. 7. Obstructive sleep apnea. STUDIES WHILE IN THE HOSPITAL: 1. EKG on 05/01/19 shows normal sinus rhythm with a rate of 65, first-degree AV block. 2. Chest x-ray on 05/01/19 reads as mild interstitial pulmonary edema is likely. 3. Brain CT on 05/01/19 reads as no intracranial mass or hemorrhage is noted. 4. EKG on 05/01/19 shows normal sinus rhythm with a rate of 67, first-degree atrioventricular block. 5. Transthoracic echocardiogram on 05/02/19 reads as a left ventricular cavity size was normal. Wall thickness is mildly increased. Systolic function is normal. The estimated ejection fraction is 60% to 65%, wall motion is normal and there are no regional wall motion abnormalities. The left atrium is mildly dilated. The right atrium is mildly dilated. Findings are consistent with mild MS. There is mild MR. Findings are consistent with [id number] . Since the prior echocardiogram on 04/13/16 prior aortic stenosis graded moderate, so there does appear to be some interval progression. CONSULTATIONS WHILE IN THE HOSPITAL: 1. Dr. Galvan from Gastroenterology. 2. Dr. Barrow from Gastroenterology. PROCEDURES WHILE IN THE HOSPITAL: 1. EGD on 05/02/[address] Barrow HISTORY OF PRESENT ILLNESS AND HOSPITAL COURSE: Mr. Sanders is a 78-year-old male with past medical history of diabetes, hypertension, hyperlipidemia, iron deficiency anemia, hypothyroidism, neuropathy, and chronic low back pain, who presented to the emergency room on 05/01/19 with complaints of shortness of breath. Keith see the history and physical by Dr. Gutierrez for complete summary of the events leading up to this hospitalization. In short, the patient reports shortness of breath beginning the day prior to admission. He did have a fall a few days before that and noted that he was feeling weaker than usual. In the emergency room, he was noted to be severely anemic with an H and H of 7.3 and 22. Lab work was otherwise unremarkable and consistent with the patient's baseline, but because of the concern for anemia, the patient was admitted by the hospitalist service. The patient was noted to have a positive stool occult and so Gastroenterology was consulted. Dr. Galvan saw the patient on 05/01/19. At that point, she recommended that he have an upper endoscopy. The patient underwent an EGD on 05/02/[address] Barrow. At that point, the upper endoscopy was noted to be normal. Dr. Barrow has suspicion that the patient had a slow ooze in the small bowel. The patient was noted to have a previous capsule study, which noted small bowel ulcers. He indicated that time that the patient would need to have a double balloon enteroscopy at a tertiary care center if the bleeding continued. The patient did receive a total of 2 units of packed red blood cells on 05/01/19. He did not require any further blood after that and H and H has remained stable with a hemoglobin between 8 and 9. The patient did receive 2 doses of IV iron here in the hospital and was started on oral iron supplementation. He has remained on a PPI as well. He is noted to have aortic stenosis on echo, which is now moderate-to- severe, previously moderate. There are no acute concerns at this point with regard to his aortic stenosis, but that certainly will need to be addressed on an outpatient basis. The patient has worked with Physical Therapy while here in the hospital. Physical Therapy did feel as though the patient would benefit from rehab as he was not able to complete stairs and he does have 4 stairs in and out of his home. The patient was adamantly refusing rehab. He does have capacity to make his own medical decisions. He stated that his significant other, Fatou would help him at home. I did have a long conversation with Fatou today and she did indicate that she would be willing to help the patient out at home. She thinks that in the future he will require a higher level of care such as assisted living, but she thinks that they will be able to manage fine at home at this point. She does request a referral to visiting nurse services, which has been done by case management. PHYSICAL EXAMINATION: On exam, he is alert and oriented x4 with no focal neurological deficits. Heart has a regular rate and rhythm with a grade 3/6 systolic murmur best heard in the right upper sternal border. There are no rubs or gallops. Lungs are clear to auscultation without rhonchi, wheezes, or rubs. There is mild nonpitting edema to bilateral lower extremities, which is the patient's reported baseline. Abdomen is soft, nontender to palpation. Bowel sounds are normoactive throughout. Mr. Sanders is stable for discharge. Most recent vitals are as follows: Temp 97.6, heart rate 55, respiratory rate 16, oxygen saturation 94% on room air, blood pressure 117/48. DISCHARGE MEDICATIONS: New: 1. Ferrous sulfate 325 mg p.o. daily. 2. Pantoprazole 40 mg p.o. daily. 3. Senna 1 tab p.o. at bedtime p.r.n. Constipation. Continued: 1. Amlodipine 5 mg p.o. daily. 2. Atorvastatin 10 mg p.o. at bedtime. 3. Chlorthalidone 25 mg p.o. daily. 4. Diltiazem ER 180 mg p.o. daily. 5. Docusate 100 mg p.o. b.i.d. p.r.n. constipation. 6. Duloxetine 30 mg p.o. b.i.d. 7. Gabapentin 600 mg p.o. t.i.d. 8. Osteo Bi-Flex 1 tab p.o. b.i.d. 9. Levothyroxine 188 mcg p.o. daily. 10. Morphine IR 15 mg p.o. daily p.r.n. pain. 11. Morphine ER 45 mg p.o. b.i.d. 12. Multivitamin 1 tab p.o. daily. 13. Januvia 100 mg p.o. daily. 14. Telmisartan 40 mg p.o. daily. Discontinued: 1. Ibuprofen. 2. Aspirin. DISCHARGE PLAN: Mr. Sanders will be discharged to home. Activity will be as tolerated. The patient should continue to use a walker, which he already has in the home. Diet will be regular as tolerated. Medications are noted above. The patient will need to take a daily iron supplement. There was an iron supplement listed on the patient's med rec on admission, though after talking with the patient it seems as though he was not actually taking this. I have prescribed 30 days of pantoprazole. Again it is suspected that this lead is from the small intestine, so he does not necessarily need to continue pantoprazole, though I will leave this up to the patient's primary care provider. He should stop taking any ibuprofen as this can contribute to GI bleeding and at this point he should remain off his aspirin for at least 1 week. The patient can speak with his primary care provider about when and if he should resume daily aspirin. He will need to follow up with his primary care provider in the next 4 to 7 days as noted above. The patient will need to follow up with a food quality technician as an outpatient to address this worsening aortic stenosis. He should return to the emergency room or nearest hospital for any worsening of symptoms, shortness of breath, lightheadedness, dizziness, chest discomfort, high fevers, chills, night sweats, loss of consciousness, or any other worrisome signs or symptoms. DISCHARGE CONDITION: Stable. DISCHARGE DISPOSITION: Home. This is a summarized report of a complex medical history and hospital stay. For further details, please see the entire medical record. TIME SPENT: Approximately 50 minutes was spent on this discharge. MARGARET MO NP [id number]/[facility] #: [id number] RUFUS
[2019-05-08] MEDS ORDERED: Ferrous Sulfate TAB* 325 MG PO SCH (09:00)
== END 2019-05-07 16:18 | disposition home health service (06) | DRG 378 ==
LOC: ED 03:48 → MEDTELE 10:13
PROVIDERS: ADMIT Internal Medicine; ATTEND Internal Medicine
PROC: 30233N1 Transfusion of Nonautologous Red Blood Cells into Peripheral Vein, Percutaneous Approach (ICD-10-PCS; 2019-05-01)
PROC: 0DJ08ZZ Inspection of Upper Intestinal Tract, Via Natural or Artificial Opening Endoscopic (ICD-10-PCS; principal; 2019-05-02)
DX: K92.2 Gastrointestinal hemorrhage, unspecified (principal); D62 Acute posthemorrhagic anemia; I25.10 Atherosclerotic heart disease of native coronary artery without angina pectoris; E11.51 Type 2 diabetes mellitus with diabetic peripheral angiopathy without gangrene; G89.29 Other chronic pain; G47.33 Obstructive sleep apnea (adult) (pediatric); E03.9 Hypothyroidism, unspecified; I35.0 Nonrheumatic aortic (valve) stenosis; M19.90 Unspecified osteoarthritis, unspecified site; F41.9 Anxiety disorder, unspecified; F32.9 Major depressive disorder, single episode, unspecified; E11.40 Type 2 diabetes mellitus with diabetic neuropathy, unspecified; Z96.651 Presence of right artificial knee joint; D50.9 Iron deficiency anemia, unspecified; M79.672 Pain in left foot; M79.671 Pain in right foot; M54.5 Low back pain; N18.3 Chronic kidney disease, stage 3 (moderate); I12.9 Hypertensive chronic kidney disease with stage 1 through stage 4 chronic kidney disease, or unspecified chronic kidney disease; E11.22 Type 2 diabetes mellitus with diabetic chronic kidney disease; K21.9 Gastro-esophageal reflux disease without esophagitis; Z79.899 Other long term (current) drug therapy; Z85.828 Personal history of other malignant neoplasm of skin; Z87.11 Personal history of peptic ulcer disease; Z88.8 Allergy status to other drugs, medicaments and biological substances; Z88.5 Allergy status to narcotic agent; Z87.891 Personal history of nicotine dependence; Z28.21 Immunization not carried out because of patient refusal; Z79.890 Hormone replacement therapy; Z79.84 Long term (current) use of oral hypoglycemic drugs
CPT/HCPCS: 36415; 70450; 71045; 80048; 80053; 82270; 82728; 83010; 83540; 83550; 83605; 83615; 83735; 83880; 84484; 85014; 85018; 85025; 85045; 85610; 86850; 86900; 86901; 86922; 87040; 93005; 93306; 99285; A9270-GY; C8929; J1170; J1940; J2250; J2916; J3010; P9040

== ENCOUNTER 2019-05-13 17:43 | Emergency (ER) | payer MEDICARE, OTHER ==
--- OUTSIDE RECORDS SUMMARY | 2019-05-13 17:57 | XMS REPORT ---
:1940 Author Organization [facility] Care Team Providers Name Role Phone Unavailable Unavailable Unavailable Problems This patient has no known problems. Allergies, Adverse Reactions, Alerts Allergy Allergy Status Severity Reaction(s) Onset Inactive Treating Comments Name Type Date Date Clinician morphine Unknown Active Mild to Nausea and 2017-05 [place] liquid Moderate vomiting - Brayan [id number] Medications Ordered Filled Start Stop Current Ordering Indication Dosage Frequency Signature Comments Components Medication Medication Date Date Medication? Clinician (SIG) Name Name No Known No Known No None None None Medications Medications For This For This Patient Patient Procedures This patient has no known procedures. Results This patient has no known results.
--- OUTSIDE RECORDS SUMMARY | 2019-05-13 17:57 | XMS REPORT | Continuity of Care Document ---
:1940 External Reference #:[id number] Author Name Mis Neri NP (transmitted by agent of provider Dee Wang) Address [address] [place] [address] Care Team Providers Name Role Phone [facility] - Physical Care Team Information Artificial Flowers Starcher Therapist Mega Tarango M.D. - Care Team Information Artificial Flowers Starcher [phone] Gastroenterology Kathryn Ward MD - Hematology & Care Team Information Artificial Flowers Starcher [phone] Oncology Shonda Alexis M.D. - Family Medicine Care Team Information Artificial Flowers Starcher Problems Active Problems Provider Date Collagenous colitis [...] Quit - Age 46 Smoking Status Reviewed: 03/01/19 Former Cigarette Smoker ETOH Use 11/10/2016 Denies [...] SIG Qnty Indications Ordering Date Provider Telmisartan 1 by mouth every 30tabs I10 Abbey Champion, 03/18/2019 40mg day M.D., FACP Tablets Amlodipine Besylate 1 by mouth every 30tabs I10 Abbey Champion, 03/18/2019 5mg day M.D., FACP Tablets Nystatin Apply to affected 30gm Torsten Hawthorne 05/17/2018 [id number] area 2 times Ivonne Chan,FACP Cream daily. Telmisartan-Amlodipin 1 by mouth every 90tabs I10 Shonda Alexis MD 2017 e morning 40-5mg Tablets Januvia Take One Tablet By 30tabs Walter Hernandez NP 01/18/2018 100mg Tablets Mouth Once Daily as Directed Poly-Iron 150 Forte take one capsule 180caps Jessie Bhatti, 01/18/2018 by mouth twice a M.D. 984-03-4pz-mcg-mg day Capsules Onetouch Ultra Blue test up to three 100units E11.9 Torsten Hawthorne 2017 times daily, code Ivonne Chan,FACP Strips 25 last visit: 11/07/17 Blood Pressure Take blood 1units I10 Silvia 10/06/2017 Monitor Portable pressure daily. Ivonne Cole Wrist Dispense with Kit large cuff. Onetouch Verio Iq for testing up to [...] be altered to fit insurance coverage Chlorthalidone Take One Tablet By 90tabs Walter Hernandez NP 05/23/2017 25mg Mouth Once Daily Tablets Atorvastatin Calcium take 1 tablet by 90tabs Abbey Champion, 02/09/2017 mouth at bedtime Ivonne, FACP 10mg Tablets Levothyroxine Sodium take one tablet by 90tabs Shonda Alexis MD 11/30/2016 mouth once daily 88mcg Tablets Levothyroxine Sodium take one tablet by 90tabs Shonda Alexis MD 11/30/2016 mouth once daily 100mcg Tablets with 88 mcg tablets MS Contin 1 by mouth twice a 60tabs Luke Ashford 01/21/2013 30mg Tablets day Ivonne Kapadia ER Lumbosacral with molded Luke Leonard. 11/30/2010 Support/Lightweight/E plastic insert Ivonne [facility]ia [facility] Ne[facility] 1 by mouth three 90tabs Torsten Hawthorne 05/09/2006 600mg Tablets times a day Ivonne Chan,FACP Aspirin Ec 1 by mouth every Unknown 81mg Tablets day DR Stefania SIMS take one capsule 90caps Jessie Bhatti, 180mg Caps by mouth once M.D. ER 24HR daily Morphine Sulfate ER 1 by mouth twice a Unknown day 15mg Tablets ER Morphine Sulfate 1/2 tab 2 times a Unknown 15mg day as needed Tablets Docusate Sodium 1 tab every 12 Unknown 100mg hours as needed Capsules for constipation Osteo Bi-Flex one twice daily Unknown Advanced Triple Strength Tablets Duloxetine HCL take one capsule 180caps Jessie Bhatti, 30mg by mouth twice a M.D. Norman sharma as directed Multi Complete daily Unknown Capsules Ibuprofen 200 400-600mg every 6 Unknown 200mg hours as needed Tablets for pain. Medications Administered in Office Medication SIG Qnty Indications Ordering Provider Date Shingrix pharmacy administered Unknown 02/23/2019 Injection Shingrix pharmacy administered Shonda Alexis MD 11/28/2018 Injection Depomedrol 40MG Jt Shoemaker MD 10/11/2016 Injection Depomedrol 40MG Aric Lopez M.D. 08/10/2015 Injection Immunizations CPT Code Status Date Vaccine Reaction Lot # [id number] Given 02/23/2019 Fluzone High Dose 48059 Given 12/11/2017 Influenza Virus Vaccine, No immediate reaction [id number] Quadrivalent, Split, noted. Preservative Free 50636 Given 06/28/2017 Pneumonia Vaccine [id number] 06717 Given 01/03/2017 Tdap - no immediate reaction, [id number] Tetanus/Diptheria/Acellular pt tolerated well Pertussis 23522 Given 11/10/2016 Influenza Virus Vaccine, [id number] Quadrivalent, Split, Preservative Free 71012 Given 02/18/2015 Pneumococcal Conjugate Vaccine 13 Valent For Intramuscular Use 29854 Given 01/12/2015 Zoster (Zostavax) 67671 Given 12/25/2002 Pneumonia Vaccine Vital Signs Date Vital Result Comment 03/01/2019 3:34pm Height 72 inches 6'0" Weight 300.00 lb Heart Rate 68 /min BP Systolic Sitting 126 mmHg BP Diastolic Sitting 65 mmHg Body Temperature 97.9 F O2 % BldC Oximetry 92 % BMI (Body Mass Index) 40.7 kg/m2 11/27/2018 2:14pm Height 72 inches 6'0" Weight 302.50 lb Heart Rate 77 /min BP Systolic 122 mmHg BP Diastolic 56 mmHg Body Temperature 97.5 F O2 % BldC Oximetry 95 % BMI (Body Mass Index) 41.0 kg/m2 Results Test Acquired Date Facility Test Result H/L Range Note Laboratory test 05/01/2019 [facility] Troponin-I 0.01 ng/mL < 0.03 1 finding 101 (TnI) [place] [address] [phone] Stool Occult 05/01/2019 [facility] Stool SEE RESULT 2, 3 Blood, Screen [address] [place] [address] Blood, [phone] Screen Laboratory test 05/01/2019 [facility] Lactic Acid 2.0 mmol/L Normal 0.5-2.[address] [place] [address] [phone] B-Type Natriuretic Peptide BNP 197 pg/mL High <=100 Comp Metabolic 05/01/2019 [facility] Sodium 137 mmol/L Normal 135-145 [place] [address] [phone] Potassium 4.1 mmol/L Normal 3.5-5.0 Chloride 100 mmol/L Low 101-111 Co2 Carbon Dioxide 29 mmol/L Normal 22-32 Anion Gap 8 mmol/L Normal 2-11 Glucose 186 mg/dL High 70-100 Blood Urea Nitrogen 35 mg/dL High 6-24 Creatinine 1.19 mg/dL High 0.67-1.17 BUN/Creatinine Ratio 29.4 High 8-20 Calcium 8.8 mg/dL Normal 8.6-10.3 Total Protein 6.7 g/dL Normal 6.4-8.9 Albumin 4.1 g/dL Normal 3.2-5.2 Globulin 2.6 g/dL Normal 2-4 Albumin/Globulin Ratio 1.6 Normal 1-3 Total Bilirubin 0.30 mg/dL Normal 0.2-1.0 Alkaline Phosphatase 71 U/L Normal 34-104 Alt 14 U/L Normal 7-52 Ast 15 U/L Normal 13-39 Egfr Non- 59.3 >60 Egfr 71.7 >60 5 Laboratory test 05/01/2019 [facility] Troponin-I 0.01 <0.03 6 finding (TnI) ng/[place] [address] [phone] Inr/Protime 05/01/2019 [facility] Inr 1.06 Normal 0.82-1.[address] [place] [address] [phone] CBC Auto Diff 05/01/2019 [facility] White Blood 8.0 Normal 3.5 -10.[address] Count 10^3/[place] [address] [phone] Red Blood Count 2.48 10^6/uL Low 4.18-5.48 Hemoglobin 7.3 g/dL Low 14.0-18.0 Hematocrit 22 % Low 42-52 Mean Corpuscular Volume 90 fL Normal 80-94 Mean Corpuscular Hemoglobin 30 pg Normal 27-31 Mean Corpuscular HGB Conc 33 g/dL Normal 31-36 Red Cell Distribution Width 16 % High 10-15 Platelet Count 241 10^3/uL Normal 150-450 Mean Platelet Volume 7.3 fL Low 7.4-10.4 Abs Neutrophils 6.3 10^3/uL Normal 1.5-7.7 Abs Lymphocytes 0.9 10^3/uL Low 1.0-4.8 Abs Monocytes 0.6 10^3/uL Normal 0-0.8 Abs Eosinophils 0.1 10^3/uL Normal 0-0.6 Abs Basophils 0.0 10^3/uL Normal 0-0.2 Abs Nucleated RBC 0.0 10^3/uL Granulocyte % 79.2 % Lymphocyte % 11.2 % Monocyte % 7.3 % Eosinophil % 1.7 % Basophil % 0.6 % Nucleated Red Blood Cells % 0.0 Laboratory test 05/01/2019 [facility] Blood Culture SEE RESULT [address] [place] [address] [phone] Laboratory test 05/01/2019 [facility] LDH 174 U/L Normal 140- 2 [address] [place] [address] [phone] Iron & Iron 05/01/2019 [facility] Iron 41 g/dL Low 50-21 Binding Capacity [address] [place] [address] [phone] Unsaturated Iron Binding < 370 g/dL Total Iron Binding Capacity 385 g/dL Normal 250-450 Transferrin 275 mg/dL Normal 203-362 % Iron Saturation 11 % Low 15-55 Laboratory test 05/01/2019 [facility] Ferritin 15.8 ng/mL Low 24-336 [address] [place] [address] [phone] Haptoglobin 139 mg/dL 30 - 200 11 Type & Screen 05/01/2019 [facility] Patient Blood Type B Positive [address] [place] [address] [phone] Antibody Screen NEGATIVE Laboratory test 05/01/2019 [facility] Packed Cells SEE RESULTS [address] BELO <[place] [address] NOTE> [phone] Laboratory test 03/01/2019 [facility] TSH (Thyroid 6.24 mcIU/mL High 0.34- finding [address] Stim Horm) 5.60 [place] [address] [phone] Hemoglobin A1c (Glyco HGB) 6.0 % High 4.0-5.6 13 Laboratory test 12/19/2018 [facility] Point of Care 127 mg/dL High 70-100 [address] Glucose [place], [place] [address] [phone] Laboratory test 11/27/2018 [facility] Hemoglobin A1c 5.9 5-7 finding 1 Troponin-I testing on Plasma Separator Tubes (PST) has a known false positive rate of 0.20-0.40%. All positive troponins reflex immediately to secondary confirmatory testing. Using the Mobilitrix DxI 800 Access Immunoassay systems, the 99th percentile upper reference limit was demonstrated to be < 0.03 ng/mL. 2 NO ORDERS UNTIL 814 3 SEE RESULT BELOW Name: MAGGIE SANDERS : [address]: Joey Maher MD Acct: [id number] Unit: [id number] AGE: 78 Location: ED Re05/01/19 SEX: M Status: REG ER SPEC: [id number] OLIVE: 05/01/19-[address] [facility] [address]: Joey Maher MD REQ: [id number] RECD: 05/01/19 STATUS: COMP OT DR: Shonda Alexis MD _ [facility]: Occult Bl, Scn COMMENTS: NO ORDERS UNTIL 814 Procedure Result Reported Site Stool Occult Blood (1) Final 05/01/19- 827 ML Stool Occult Blood Positive * ML - Main Lab . END OF REPORT DEPARTMENT OF PATHOLOGY, [address] [place] [address] Marco A Cerda M.D. Director [facility] # [id number] 4 [facility] Severe Sepsis and Septic Shock Management Bundle Measure requires all lactic acids initially measuring >2.0 mmol/L be repeated. 5 Because ethnic data is not always [...] 5 Kidney failure <15 (or dialysis) 6 Troponin-I testing on Plasma Separator Tubes (PST) has a known false positive rate of 0.20-0.40%. All positive troponins reflex immediately to secondary confirmatory testing. Using the Mobilitrix DxI 800 Access Immunoassay systems, the 99th percentile upper reference limit was demonstrated to be < 0.03 ng/mL. 7 Standard intensity warfarin therapeutic range: 2.0-3.0 High intensity warfarin therapeutic range: 2.5-3.5 8 SEE RESULT BELOW Name: MAGGIE SANDERS : [address]: Ismael Chan MD Acct: [id number] Unit: [id number] AGE: 78 Location: [place] [address] Re05/01/19 SEX: M Status: ADM IN SPEC: [id number] OLIVE: 05/01/[address] [facility] [address]: Bertha Rust MD REQ: [id number] RECD: 05/01/19 STATUS: ROBERT FRAUSTO DR: Shonda Alexis MD _ SOURCE: BLOOD,VENO SPDESC: ORDERED: Blood Cult Procedure Result Reported Site Aerobic Culture Bottle Final 05/06/19- 0450 ML No Growth Day 5 Anaerobic Culture Bottle Final 05/06/19- 0450 ML No Growth Day 5 * ML - Main Lab . END OF REPORT DEPARTMENT OF PATHOLOGY, [address] [place] [address] Marco A Cerda M.D. Director CLIA # [id number] Comment: may to add to ED labs 10 Comment: may to add to ED labs 11 Test Performed by: [place] [address] Television News Reporter: Gordon Gonzalez M.D. Ph.D.; CLIA# [id number] 12 SEE RESULTS BELOW [id number] BN PC TRANSFUSED 05/01/19 1406 [id number] BP PC TRANSFUSED 05/01/19 1019 13 Therapeutic target for the treatment of diabetes mellitus patients is <7% HBA1C, and in selective patients <6.0%. Please refer to [place] [employer] diabetic care guidelines for further information. 14 Multiple Punch Press Operator: [id number] Procedures Date Code Description Status 10/29/2018 [id number] Diabetic Retinal Eye Exam Completed 05/01/2018 [id number] Diabetic Retinal Eye Exam Completed 03/14/2017 [id number] Diabetic Retinal Eye Exam Completed 2016 [id number] Diabetic Retinal Eye Exam Completed 09/16/2014 [id number] Colonoscopy Completed 08/24/2004 [id number] Colonoscopy Completed Medical Devices Description No Information Available Encounters Type Date Location Provider Dx Diagnosis Office Visit 05/07/2019 [facility] Mis Halle, K92.2 Gastrointestinal 9:36a Assoc,pc VARNISHER APPRENTICE hemorrhage, Hospitalists unspecified D62 Acute posthemorrhagic anemia 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 [facility] 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 N18.3 Chronic kidney disease, stage 3 (moderate) I35.0 Nonrheumatic aortic (valve) stenosis Office Visit 05/06/2019 9:35a [facility] Mis Halle, D64.9 Anemia, Assoc,pc VARNISHER APPRENTICE unspecified Hospitalists 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 N18.3 Chronic kidney disease, stage 3 (moderate) Office Visit 05/05/2019 9:35a [facility] Mis Halle, D64.9 Anemia, Assoc,pc VARNISHER APPRENTICE unspecified Hospitalists 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 N18.3 Chronic kidney disease, stage 3 (moderate) Office Visit 05/04/2019 9:34a [facility] Mis Halle, D64.9 Anemia, Assoc,pc VARNISHER APPRENTICE unspecified Hospitalists 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 [facility] 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 N18.3 Chronic kidney disease, stage 3 (moderate) Office Visit 05/03/2019 [facility] Arabella K92.2 Gastrointestinal 9:33a Assoc,pc Ivonne Goodwin hemorrhage, Hospitalists unspecified D64.9 Anemia, unspecified R06.02 Shortness of breath 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 breath Hospitalists D50.9 Iron deficiency anemia, unspecified E11.9 Type 2 diabetes mellitus without complications E03.9 Hypothyroidism, unspecified Office Visit 11/27/2018 2:00p [facility] Internal Shonda Alexis, E11.9 Type 2 diabetes Medicine - MD mellitus without Ccmob complications I10 Essential (primary) hypertension D50.9 Iron deficiency anemia, unspecified L20.9 Atopic dermatitis, unspecified Assessments Date Code Description Provider 05/07/2019 K92.2 Gastrointestinal hemorrhage, unspecified Mis Halle, VARNISHER APPRENTICE 05/07/2019 D62 Acute posthemorrhagic anemia Mis Halle, VARNISHER APPRENTICE 05/07/2019 I12.9 Hypertensive chronic kidney disease with Mis Halle, VARNISHER APPRENTICE stage 1 through stage 4 chronic kidney disease, or unspecified chronic kidney disease 05/07/2019 E11.22 Type 2 diabetes mellitus with diabetic Mis Halle, VARNISHER APPRENTICE chronic kidney disease 05/07/2019 N18.3 Chronic kidney disease, stage 3 (moderate) Mis Halle, VARNISHER APPRENTICE 05/07/2019 I35.0 Nonrheumatic aortic (valve) stenosis Mis Halle, VARNISHER APPRENTICE 05/06/2019 D64.9 Anemia, unspecified Mis Halle, VARNISHER APPRENTICE 05/06/2019 I12.9 Hypertensive chronic kidney disease with Mis Halle, VARNISHER APPRENTICE stage 1 through stage 4 chronic kidney disease, or unspecified chronic kidney disease 05/06/2019 E11.22 Type 2 diabetes mellitus with diabetic Mis Halle, VARNISHER APPRENTICE chronic kidney disease 05/06/2019 N18.3 Chronic kidney disease, stage 3 (moderate) Mis Halle, VARNISHER APPRENTICE 05/05/2019 D64.9 Anemia, unspecified Mis Halle, VARNISHER APPRENTICE 05/05/2019 I12.9 Hypertensive chronic kidney disease with Mis Halle, VARNISHER APPRENTICE stage 1 through stage 4 chronic kidney disease, or unspecified chronic kidney disease 05/05/2019 E11.22 Type 2 diabetes mellitus with diabetic Mis Halle, VARNISHER APPRENTICE chronic kidney disease 05/05/2019 N18.3 Chronic kidney disease, stage 3 (moderate) Mis Halle, VARNISHER APPRENTICE 05/04/2019 D64.9 Anemia, unspecified Mis Halle, VARNISHER APPRENTICE 05/04/2019 I12.9 Hypertensive chronic kidney disease with Mis Halle, VARNISHER APPRENTICE stage 1 through stage 4 chronic kidney disease, or unspecified chronic kidney disease 05/04/2019 E11.22 Type 2 diabetes mellitus with diabetic Mis Halle, VARNISHER APPRENTICE chronic kidney disease 05/04/2019 N18.3 Chronic kidney disease, stage 3 (moderate) Mis Halle, VARNISHER APPRENTICE 05/03/2019 K92.2 Gastrointestinal hemorrhage, unspecified Arabella Goodwin M.D. 05/03/2019 D64.9 Anemia, unspecified Arabella Goodwin M.D. 05/03/2019 R06.02 Shortness of breath Arabella Goodwin M.D. 05/03/2019 I12.9 Hypertensive chronic kidney disease with Arabella Goodwin M.D. stage 1 through stage 4 chronic kidney disease, or unspecified chronic kidney disease 05/03/2019 E11.22 Type 2 diabetes mellitus with diabetic Arabella Goodwin M.D. chronic kidney disease 05/03/2019 N18.3 Chronic kidney disease, stage 3 (moderate) Arabella Goodwin M.D. 05/02/2019 K92.2 Gastrointestinal hemorrhage, unspecified Arabella Goodwin M.D. 05/02/2019 R06.02 Shortness of breath Arabella Goodwin M.D. 05/02/2019 I12.9 Hypertensive chronic kidney disease with Arabella Goodwin M.D. stage 1 through stage 4 chronic kidney disease, or unspecified chronic kidney disease 05/02/2019 I35.0 Nonrheumatic aortic (valve) stenosis Arabella Goodwin M.D. 05/01/2019 R06.02 Shortness of breath Vignesh Gutierrez M.D. 05/01/2019 D50.9 Iron deficiency anemia, unspecified Vignesh Gutierrez M.D. 05/01/2019 E11.9 Type 2 diabetes mellitus without Vignesh Gutierrez M.D. complications 05/01/2019 E03.9 Hypothyroidism, unspecified Vignesh Gutierrez M.D. 03/01/2019 Z00.00 Encounter for general adult medical Walter Hernandez NP examination without abnormal findings 03/01/2019 I10 Essential (primary) hypertension Walter Hernandez, KATHRINE 03/01/2019 E11.9 Type 2 diabetes mellitus without Walter Hernandez NP complications 03/01/2019 D50.9 Iron deficiency anemia, unspecified Walter Hernandez NP 03/01/2019 E03.9 Hypothyroidism, unspecified Walter Hernandez NP 03/01/2019 E78.2 Mixed hyperlipidemia Walter Hernandez NP 11/27/2018 E11.9 Type 2 diabetes mellitus without Shonda Alexis MD complications 11/27/2018 I10 Essential (primary) hypertension Shonda Alexis MD 11/27/2018 D50.9 Iron deficiency anemia, margieified Shonda Alexis MD 11/27/2018 L20.9 Atopic dermatitis, unspecified Shonda Alexis MD Plan of Treatment Future Appointment(s):05/13/2019 4:00 pm - Ariana Greene N.P. at [facility] Internal Medicine - [facility]06/03/2019 2:40 pm - Walter Hernandez NP at [facility] Internal Medicine - [facility]03/01/2019 - Walter Hernandez NPZ00.00 Encounter for general adult medical examination without abnormal findingsComments:VACCINES:Flu shot every year in the fall.You are up to date on all other vaccines.SCREENING:Cholesterol yearly. Due in lo cancer: Screening last in 2014. Prostate cancer: screening if family history.I10 Essential (primary) hypertensionComments:Please call with a list of your medications.Please bring all pill bottles to your next appointment.E11.9 Type 2 diabetes mellitus without complicationsComments:Your A1c was 5.9% in November. This should be rechecked in May.Follow up:[address] Osullivan50.9 Iron deficiency anemia, anhbhaookglR03.9 Hypothyroidism, unspecifiedComments:Please have the blood work done soon.E78.2 Mixed hyperlipidemia Functional Status Description No Information Available Mental Status Description No Information Available Referrals Refer to Reason for Referral Status Appt Date Shayne Corbin MD severe eczematous dermatitis on arms for >6 Sent 2018 months [address] [place] [address] [phone]
--- OUTSIDE RECORDS SUMMARY | 2019-05-13 17:57 | XMS REPORT | Continuity of Care Document ---
:1940 External Reference #:[id number] Author Name Abbey Champion M.D., FACP Address [address] , [place] [address] Care Team Providers Name Role Phone [facility] - Physical Care Team Information [employer] Therapist Mega Tarango M.D. - Care Team Information [employer] [phone] Gastroenterology Kathryn Ward MD - Hematology & Care Team Information [employer] Oncology Shonda Alexis M.D. - Family Medicine Care Team Information Aircraft Ref[employer] [phone] Problems Active Problems Provider Date Collagenous colitis [...] Quit - Age 46 Smoking Status Reviewed: 05/13/19 Former Cigarette Smoker ETOH Use 11/10/2016 Denies [...] Medications SIG Qnty Indications Ordering Date Provider Senna 1-2 po qhs 60caps Ariana Greene, 05/13/2019 8.6mg Capsules N.P. Telmisartan 1 by mouth every 30tabs I10 Abbeynatan Champion, 03/18/2019 40mg day M.D., FACP Tablets Amlodipine Besylate 1 by mouth every 30tabs I10 Abbey Champion, 03/18/2019 5mg day M.D., FACP Tablets Nystatin Apply to affected 30gm Torsten Hawthorne 05/17/2018 [id number] area 2 times Ivonne Chan,FACP Cream daily. Telmisartan-Amlodipin 1 by mouth every 90tabs I10 Shonda Alexis MD 2017 e morning 40-5mg Tablets Januvia Take One Tablet By 30tabs Walter Hernandez NP 01/18/2018 100mg Tablets Mouth Once Daily as Directed Poly-Iron 150 Forte take one capsule 180caps Jessie Bhatti, 01/18/2018 by mouth twice a M.D. 264-22-6ma-mcg-mg day Capsules Onetouch Ultra Blue test up [...] Ivonne Kapadia ER Lumbosacral with molded Luke Ashford 11/30/2010 Support/Lightweight/E plastic insert Ivonne Kapadia lastic/X-Large [facility] Neurontin 1 by mouth three 90tabs Torsten [...] 30mg by mouth twice a M.D. Norman Boucher day as directed Multi Complete daily Unknown Capsules Ibuprofen 200 400-600mg every 6 Unknown 200mg hours as needed Tablets for pain. Morphine Sulfate ER Unknown 30mg Tablets ER Shingrix Unknown 50mcg/0.5ML Suspension Rec Glucosamine/D3?Boswel bid Unknown juan Chantel Medications Administered in Office Medication SIG Qnty Indications Ordering Provider Date Shingrix pharmacy administered Unknown 02/23/2019 Injection Shingrix pharmacy administered Shonda Alexis MD 11/28/2018 Injection Depomedrol 40MG Jt Shoemaker MD 10/11/2016 Injection Depomedrol 40MG Aric Lopez M.D. 08/10/2015 Injection Immunizations CPT Code Status Date Vaccine Reaction Lot # [id number] Given 02/23/2019 Fluzone High Dose 14493 Given 12/11/2017 Influenza Virus Vaccine, No immediate reaction [id number] Quadrivalent, Split, noted. Preservative Free 53891 Given 06/28/2017 Pneumonia Vaccine [id number] 18925 Given 01/03/2017 Tdap - no immediate reaction, [id number] Tetanus/Diptheria/Acellular pt tolerated well Pertussis 43447 Given 11/10/2016 Influenza Virus Vaccine, [id number] Quadrivalent, Split, Preservative Free 33551 Given 02/18/2015 Pneumococcal Conjugate Vaccine 13 Valent For Intramuscular Use 15026 Given 01/12/2015 Zoster (Zostavax) 00391 Given 12/25/2002 Pneumonia Vaccine Vital Signs Date Vital Result Comment 05/13/2019 3:54pm Height 72 inches 6'0" Heart Rate 76 /min BP Systolic 134 mmHg BP Diastolic 70 mmHg Body Temperature 99.2 F O2 % BldC Oximetry 98 % Peak Flow Meter 96% 03/01/2019 3:34pm Height 72 inches 6'0" Weight 300.00 lb Heart Rate 68 /min BP Systolic Sitting 126 mmHg BP Diastolic Sitting 65 mmHg Body Temperature 97.9 F O2 % BldC Oximetry 92 % BMI (Body Mass Index) 40.7 kg/m2 Results Test Acquired Date Facility Test Result H/L Range Note Laboratory test 05/01/2019 [facility] Packed Cells SEE RESULTS [address] [place] <[place] [address] NOTE> [phone] Type & Screen 05/01/2019 [facility] Patient Blood B Positive [address] [place] [address] [phone] Antibody Screen NEGATIVE Laboratory test 05/01/2019 [facility] Ferritin 15.8 ng/mL Low 24-[address] [place] [address] [phone] Haptoglobin 139 mg/dL 30 - 200 3 Iron & Iron Binding 05/01/2019 [facility] Iron 41 g/dL Low 50-[address] [place] [address] [phone] Unsaturated Iron Binding < 370 g/dL Total Iron Binding Capacity 385 g/dL Normal 250-450 Transferrin 275 mg/dL Normal 203-362 % Iron Saturation 11 % Low 15-55 Laboratory test 05/01/2019 [facility] LDH 174 U/L Normal 140- [address] [place] [address] [phone] Laboratory test 05/01/2019 [facility] Blood SEE RESULT [address] [place] [address] [phone] CBC Auto Diff 05/01/2019 [facility] White Blood 8.0 Normal 3.5 -10.8 DRIVE Count 10^3/uL [place], [place] [id number] [phone] Red Blood Count 2.48 10^6/uL Low 4.18-5.48 [...] % Nucleated Red Blood Cells % 0.0 Inr/Protime 05/01/2019 [facility] Inr 1.06 Normal 0.82-1.[address] [place] [address] [phone] Laboratory test 05/01/2019 [facility] Troponin-I 0.01 <0.03 [address] (TnI) ng/[place] [address] [phone] Comp Metabolic 05/01/2019 [facility] Sodium 137 Normal 135- [address] mmol/[place] [address] [phone] Potassium 4.1 mmol/L Normal 3.5-5.0 Chloride 100 [...] Egfr Non- 59.3 >60 Egfr 71.7 >60 8 Laboratory test 05/01/2019 [facility] Lactic Acid 2.0 mmol/L Normal 0.5-2.0 [address] [place] [address] [phone] B-Type Natriuretic Peptide BNP 197 pg/mL High <=100 Stool Occult 05/01/2019 [facility] Stool SEE RESULT 10, 11 Blood, Screen [address] [place] [address] Blood, [phone] Screen Laboratory test 05/01/2019 [facility] Troponin-I 0.01 ng/mL < 0.[address] (TnI) [place] [address] [phone] Laboratory test 03/01/2019 [facility] TSH 6.24 High 0.34- finding [address] (Thyroid mcIU/mL 5.60 [place] [address] Stim Horm) [phone] Hemoglobin A1c (Glyco HGB) 6.0 % High 4.0-5.6 13 Laboratory test 12/19/2018 [facility] Point of Care 127 mg/dL High 70-[address] [place] [address] [phone] Laboratory test 11/27/2018 [facility] Hemoglobin A1c 5.9 5-7 finding 1 SEE RESULTS BELOW [id number] BN PC TRANSFUSED 05/01/19 1406 [id number] BP PC TRANSFUSED 05/01/19 1019 2 Comment: may to add to ED labs 3 Test Performed by: [facility] [address] [place] [address] Surgery Specialist: Gordon Gonzalez M.D. Ph.D.; CLIA# [id number] 4 Comment: may to add to ED labs 5 SEE RESULT BELOW Name: MAGGIE SANDERS : [address]: Ismael Chan MD Acct: [id number] Unit: [id number] AGE: 78 Location: [place] [address] Re05/01/19 SEX: M Status: ADM IN SPEC: [id number] OLIVE: 05/01/19 [facility] [address]: Bertha Rust MD REQ: [id number] RECD: 05/01/19 STATUS: COMP MICK DR: Shonda Alexis MD _ SOURCE: BLOOD,VENO SPDES: ORDERED: Blood Cult Procedure Result Reported Site Aerobic Culture Bottle Final 05/06/19- 0450 ML No Growth Day 5 Anaerobic Culture Bottle Final 05/06/19- 0450 ML No Growth Day 5 * ML - Main Lab . END OF REPORT DEPARTMENT OF PATHOLOGY, [address] [place] [address] MarcoA Cerda M.D. Director [facility] # [id number] 6 Standard intensity warfarin therapeutic range: 2.0-3.0 High intensity warfarin therapeutic range: 2.5-3.5 7 Troponin-I testing on Plasma Separator Tubes (PST) has a known false positive rate of 0.20-0.40%. All positive troponins reflex immediately to secondary confirmatory testing. Using the emere DxI 800 Access Immunoassay systems, the 99th percentile upper reference limit was demonstrated to be < 0.03 ng/mL. 8 Because ethnic data is not always [...] 15-29 5 Kidney failure <15 (or dialysis) 9 [facility] Severe Sepsis and Septic Shock Management Bundle Measure requires all lactic acids initially measuring >2.0 mmol/L be repeated. 10 NO ORDERS UNTIL 814 11 SEE RESULT BELOW Name: MAGGIE SANDERS : [address]: Joey Maher MD Acct: [id number] Unit: [id number] AGE: 78 Location: ED Re05/01/19 SEX: M Status: REG ER SPEC: [id number] OLIVE: 05/01/19-[address] [place] [address] DR: Joey Maher MD REQ: [id number] RECD: 05/01/19 STATUS: ROBERT FRAUSTO DR: Shonda Alexis MD _ SOURCE: STOOL SPDESC: ORDERED: Occult Bl, Scn COMMENTS: NO ORDERS UNTIL 814 Procedure Result Reported Site Stool Occult Blood (1) Final 05/01/19827 ML Stool Occult Blood Positive * ML - Main Lab . END OF REPORT DEPARTMENT OF PATHOLOGY, [address] [place] [address] Marco A Cerda M.D. Director [facility] # [id number] 12 Troponin-I testing on Plasma Separator Tubes (PST) has a known false positive rate of 0.20-0.40%. All positive troponins reflex immediately to secondary confirmatory testing. Using the emere DxI 800 Access Immunoassay systems, the 99th percentile upper reference limit was demonstrated to be < 0.03 ng/mL. 13 Therapeutic target for the treatment of diabetes mellitus patients is <7% HBA1C, and in selective patients <6.0%. Please refer to [employer] diabetic care guidelines for further information. 14 Assayer Helper: [id number] Procedures Date Code Description Status 05/13/2019 04400 EKG Tracing & Interpretation Completed 05/02/2019 13554 ECHO Transthorasic Realtime 2D W Doppler & Color Flow Completed Hosp 10/29/2018 [id number] Diabetic Retinal Eye Exam Completed 05/01/2018 [id number] Diabetic Retinal Eye Exam Completed 03/14/2017 [id number] Diabetic Retinal Eye Exam Completed 2016 [id number] Diabetic Retinal Eye Exam Completed 09/16/2014 89647842 Colonoscopy Completed 08/24/2004 80916041 Colonoscopy Completed Medical Devices Description No Information Available Encounters Type Date Location Provider Dx Diagnosis Office Visit 05/07/2019 [facility], K92.2 Gastrointestinal 9:36a Assoc,pc TELECOMMUNICATIONS OFFICER hemorrhage, Hospitalists unspecified D62 Acute posthemorrhagic anemia 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 hemorrhage, Hospitalists unspecified R06.02 Shortness of breath 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 kdny I35.0 Nonrheumatic aortic (valve) stenosis Office Visit 05/01/2019 [facility] R06.02 Shortness of 9:29a shaggy Liz M.D. breath Hospitalists D50.9 Iron deficiency anemia, unspecified E11.9 Type 2 diabetes mellitus without complications E03.9 Hypothyroidism, unspecified Office Visit 11/27/2018 2:00p [facility] Shonda Alexis, E11.9 Type 2 diabetes Medicine - MD mellitus without Ccmob complications I10 Essential (primary) hypertension D50.9 Iron deficiency anemia, unspecified L20.9 Atopic dermatitis, unspecified Assessments Date Code Description Provider 05/13/2019 D64.9 Anemia, unspecified Abbey Champion M.D., FACP 05/13/2019 K92.2 Gastrointestinal hemorrhage, unspecified Abbey Champion M.D. , FACP 05/13/2019 I12.9 Hypertensive chronic kidney disease with Abbey Champion M.D. , FACP stage 1 through stage 4 chronic kidney disease, or unspecified chronic kidney disease 05/13/2019 E11.22 Type 2 diabetes mellitus with diabetic Abbey Champion M.D., FACP chronic kidney disease 05/13/2019 I35.0 Nonrheumatic aortic (valve) stenosis Abbey Champion M.D., FACP 05/13/2019 R06.02 Shortness of breath Abbey Champion M.D., FACP 05/07/2019 K92.2 Gastrointestinal hemorrhage, unspecified Missophie Neri, KATHRINE 05/07/2019 D62 Acute posthemorrhagic anemia Mis Halle, TELECOMMUNICATIONS OFFICER 05/07/2019 I12.9 Hypertensive chronic kidney disease with Mis Halle, TELECOMMUNICATIONS OFFICER stage 1 through stage 4 chronic kidney disease, or unspecified chronic kidney disease 05/07/2019 E11.22 Type 2 diabetes mellitus with diabetic Mis Halle, TELECOMMUNICATIONS OFFICER chronic kidney disease 05/07/2019 N18.3 Chronic kidney disease, stage 3 (moderate) Mis Halle, TELECOMMUNICATIONS OFFICER 05/07/2019 I35.0 Nonrheumatic aortic (valve) stenosis Mis Halle, TELECOMMUNICATIONS OFFICER 05/06/2019 D64.9 Anemia, unspecified Mis Halle, TELECOMMUNICATIONS OFFICER 05/06/2019 I12.9 Hypertensive chronic kidney disease with Mis Halle, TELECOMMUNICATIONS OFFICER stage 1 through stage 4 chronic kidney disease, or unspecified chronic kidney disease 05/06/2019 E11.22 Type 2 diabetes mellitus with diabetic Mis Halle, TELECOMMUNICATIONS OFFICER chronic kidney disease 05/06/2019 N18.3 Chronic kidney disease, stage 3 (moderate) Mis Halle, TELECOMMUNICATIONS OFFICER 05/05/2019 D64.9 Anemia, unspecified Mis Halle, TELECOMMUNICATIONS OFFICER 05/05/2019 I12.9 Hypertensive chronic kidney disease with Mis Halle, TELECOMMUNICATIONS OFFICER stage 1 through stage 4 chronic kidney disease, or unspecified chronic kidney disease 05/05/2019 E11.22 Type 2 diabetes mellitus with diabetic Mis Halle, TELECOMMUNICATIONS OFFICER chronic kidney disease 05/05/2019 N18.3 Chronic kidney disease, stage 3 (moderate) Mis Halle, TELECOMMUNICATIONS OFFICER 05/04/2019 D64.9 Anemia, unspecified Mis Halle, TELECOMMUNICATIONS OFFICER 05/04/2019 I12.9 Hypertensive chronic kidney disease with Mis Halle, TELECOMMUNICATIONS OFFICER stage 1 through stage 4 chronic kidney disease, or unspecified chronic kidney disease 05/04/2019 E11.22 Type 2 diabetes mellitus with diabetic Mis Halle, TELECOMMUNICATIONS OFFICER chronic kidney disease 05/04/2019 N18.3 Chronic kidney disease, stage 3 (moderate) Mis Halle, TELECOMMUNICATIONS OFFICER 05/03/2019 K92.2 Gastrointestinal hemorrhage, unspecified Arabella Goodwin [...] Vignesh Gutierrez M.D. complications 05/01/2019 E03.9 Hypothyroidism, yesenia Gutierrez M.D. 03/01/2019 Z00.00 Encounter for general adult medical Walter Hernandez NP examination without abnormal findings 03/01/2019 I10 Essential (primary) hypertension Walter Hernandez NP 03/01/2019 E11.9 Type 2 diabetes mellitus without Walter Hernandez NP complications 03/01/2019 D50.9 Iron deficiency anemia, unspecified Walter Hernandez NP 03/01/2019 E03.9 Hypothyroidism, unspecified Walter Hernandez NP 03/01/2019 E78.2 Mixed hyperlipidemia Walter Hernandez NP 11/27/2018 E11.9 Type 2 diabetes mellitus without Shonda Alexis MD complications 11/27/2018 I10 Essential (primary) hypertension Shonda Alexis MD 11/27/2018 D50.9 Iron deficiency anemia, unspecified Shonda Alexis MD 11/27/2018 L20.9 Atopic dermatitis, unspecified Shonda Alexis MD Plan of Treatment Future Appointment(s):06/03/2019 2:40 pm - [facility] Abbey Champion M.D., FACPD64.9 Anemia, unspecifiedNew Labs:Erythropoietin, Ordered: 05/13/19Comments:ANEMIA:In the past your red blood cell count has been a little low. I would like to recheck a complete blood count soon.K92.2 Gastrointestinal hemorrhage, unspecifiedNew Labs:CBC Auto Diff, Ordered: 05/13/19Comments:BOWEL BLEED:I understand that you have had issues with this for at least a year.It is not clear to me what the source of your left sided abdominal pain.I12.9 Hypertensive chronic kidney disease with stage 1 through stage 4 chronic kidney disease, or unspecified chronic kidney diseaseNew Labs:Comp Metabolic Panel, Ordered: 05/13/19Comments: CHRONIC KIDNEY DISEASE:I suspect that this is due to longstanding high bp and diabletes.It is imperative that you limit your sodium intake.E11.22 Type 2 diabetes mellitus with diabetic chronic kidney diseaseComments:DIABETES:Your last HA1c in 02/21 was 6.0 which is very good. This is a 3 month rolling average of your sugar control and ideally, should be less than 7.I35.0 Nonrheumatic aortic (valve) stenosisNew Labs:B-Type Natriuretic Peptide BNP, Ordered: 05/13/19Comments:AORTIC STENOSIS:This condition appears to have progressed since your last echo study in 03/23. It may be contributing to the shortness of breath you have been experiencing.Referral:Yolis Powell MD, Cardiovsclr McvqerjG70.02 Shortness of breathComments:SHORTNESS OF BREATH:I think that you would benefit from using the oxygen on a regular basis not justat night but also when you ambulate. Today we spoke about the fact that this symptom is referable not just to your lungs and your heart but probably also to the fact that your kidneys are not working as well as they should, and as a result are not producing any hormone which increases your red blood cell production. As a result you are anemic and do not have the oxygen-carrying capacity that you need. We talked about having a low threshold to return to the Emergency Department if you feel any lightheadedness or shortness of breath.Follow up:Move up appointment with Kavya Hernandez to this Monday. Functional Status Description No Information Available Mental Status Description No Information Available Referrals Refer to Dr Reason for Referral Status Appt Date Yolis Powell MD mod severe Created [address] [place] [address] [phone] Shayne Corbin MD severe eczematous dermatitis on arms for >6 months Sent [address] [place] [address] [phone]
--- OUTSIDE RECORDS SUMMARY | 2019-05-13 17:57 | XMS REPORT ---
:1940 Author Organization [facility] Care Team Providers Name Role Phone Unavailable Unavailable Unavailable Problems Condition Condition Condition Status Onset Resolution Last Treating Comments Name Details Category Date Date Treatment Clinician Date Anemia, Anemia, Diagnosis Active Michelle unspecified unspecified Wendela [id number] Allergies, Adverse Reactions, Alerts Allergy Allergy Type Status Severity Reaction(s) Onset Inactive Treating Comments Name Date Date Clinician morphine Unknown Active Mild to Nausea and Vale liquid Moderate vomiting 05-12 Brayan [id number] metformin Base Active Unknown Reaction Sophia Ingredient Unknown 05-08 [place] ramipril Base Active Unknown Reaction Sophia Ingredient Unknown 05-08 [place] Medications Ordered Filled Start Stop Current Ordering Indication Dosage Frequency Signature Comments Components Medication Medication Date Date Medication? Clinician (SIG) Name Name senna 8.6 senna 8.6 2019- Yes Alexis Unknown Unknown mg tablet mg tablet 3-05 MD,Shonda ferrous ferrous 2019-0 Yes Alexis Unknown Unknown sulfate 325 sulfate 325 3-05 MD,Shonda mg (65 mg mg (65 mg iron) iron) tablet tablet pantoprazol pantoprazol Yes Alexis Unknown Unknown e 40 mg e 40 mg 3-05 MD,Shonda tablet,len tablet,len yed release yed release DULoxetine DULoxetine 2019-0 Yes Alexis Unknown Unknown 30 mg 30 mg 3-05 MD,Shonda capsule,del capsule,del ayed ayed release release dilTIAZem dilTIAZem 2019- Yes Alexis Unknown Unknown CD 180 mg CD 180 mg 3-05 MD,Shonda capsule,ext capsule,ext ended ended release 24 release 24 hr hr morphine ER morphine ER 2019-0 Yes Alexis Unknown Unknown 30 mg 30 mg 3-05 MD,Shonda tablet,exte tablet,exte nded nded release release morphine ER morphine ER 2020-0 Yes Alexis Unknown Unknown 15 mg 15 mg 3-05 MD,Shonda tablet,exte tablet,exte nded nded release release levothyroxi levothyroxi 2019-0 Yes Alexis Unknown Unknown ne 100 mcg ne 100 mcg 3-05 MD,Shonda capsule capsule chlorthalid chlorthalid 2019- Yes Alexis Unknown Unknown one 25 mg one 25 mg 3-05 MD,Shonda tablet tablet docusate docusate 2019- Yes Alexis Unknown Unknown sodium 100 sodium 100 3-05 MD,Shonda mg capsule mg capsule levothyroxi levothyroxi 2019- Yes Alexis Unknown Unknown ne 88 mcg ne 88 mcg 3-05 MD,Shonda tablet tablet SITagliptin SITagliptin 2019- Yes Alexis Unknown Unknown 100 mg 100 mg 3-05 MD,Shonda tablet tablet Iron Ps Iron Ps 2019- Yes Alexis Unknown Unknown Complex/B12 Complex/B12 3-05 MD,Shonda /Folic Acid /Folic Acid atorvastati atorvastati 2019- Yes Alexis Unknown Unknown n 10 mg n 10 mg 3-05 MD,Shonda tablet tablet multivitami multivitami Yes Alexis Unknown Unknown n with n with 3-05 MD,Shonda minerals minerals tablet tablet gabapentin gabapentin 2019- Yes Alexis Unknown Unknown 600 mg 600 mg 3-05 MD,Shonda tablet tablet talmisartan talmisartan 2019-0 Yes Alexis Unknown Unknown 3-05 MD,Shonda amLODIPine amLODIPine 2019-0 Yes Alexis Unknown Unknown 5 mg tablet 5 mg tablet 3-05 MD,Shonda morphine 15 morphine 15 2019-0 Yes Alexis Unknown Unknown mg mg 3-05 MD,Shonda immediate immediate release release tablet tablet glucosamine glucosamine 2019-0 Yes Alexis Unknown Unknown /D3/Snyder /D3/Snyder 3-05 MD,Shonda ia Chantelsophie Golden Procedures This patient has no known procedures. Results This patient has no known results.
--- OUTSIDE RECORDS SUMMARY | 2019-05-13 17:57 | XMS REPORT | Continuity of Care Document ---
:1940 External Reference #:[id number] Author Name Mis Neri NP (transmitted by agent of provider Dee Wang) Address [address] [place] [address] Care Team Providers Name Role Phone [facility] - Physical Care Team Information Tumor Registrar [phone] Therapist Mega Tarango M.D. - Care Team Information Tumor Registrar [phone] Gastroenterology Kathryn Ward MD - Hematology & Care Team Information Tumor Registrar [phone] Oncology Shonda Alexis M.D. - Family Medicine Care Team Information Tumor Registrar Problems Active Problems Provider Date Collagenous colitis [...] Apply to affected 30gm Torsten Hawthorne 05/17/2018 [id number]/GM area 2 times Ivonne Chan,FACP Cream daily. Telmisartan-Amlodipin 1 by mouth every 90tabs I10 Shonda Alexis MD 2017 e morning 40-5mg Tablets Januvia Take One Tablet By 30tabs Walter Hernandez NP 01/18/2018 100mg Tablets Mouth Once Daily as Directed Poly-Iron 150 Forte take one capsule 180caps Jessie Bhatti, 01/18/2018 by mouth twice a M.D. 810-56-7ux-mcg-mg day Capsules Onetouch Ultra Blue test up [...] 11/30/2010 Support/Lightweight/E plastic insert Ivonne Kapadia lastic/[facility] Neurontin 1 by mouth three 90tabs Torsten [...] Code Status Date Vaccine Reaction Lot # [id number] Given 02/23/2019 Fluzone High Dose 37671 Given 12/11/2017 Influenza Virus Vaccine, No immediate reaction [id number] Quadrivalent, Split, noted. Preservative Free 16426 Given 06/28/2017 Pneumonia Vaccine [id number] 93738 Given 01/03/2017 Tdap - no immediate reaction, [id number] Tetanus/Diptheria/Acellular pt tolerated well Pertussis 26764 Given 11/10/2016 Influenza Virus Vaccine, [id number] Quadrivalent, Split, Preservative Free 52658 Given 02/18/2015 Pneumococcal Conjugate Vaccine 13 Valent For Intramuscular Use 43254 Given 01/12/2015 Zoster (Zostavax) 44930 Given 12/25/2002 Pneumonia Vaccine Vital Signs Date [...] Result H/L Range Note Laboratory test 05/01/2019 [facility] Troponin-I 0.01 ng/mL < 0.03 1 finding 101 (TnI) [place] [address] [phone] Stool Occult 05/01/2019 [facility] Stool SEE RESULT 2, 3 Blood, Screen [address] [place] [address] Blood, [phone] Screen Laboratory test 05/01/2019 [facility] Lactic Acid 2.0 mmol/L Normal 0.5-2.[address] [place] [address] [phone] B-Type Natriuretic Peptide BNP 197 pg/mL High <=100 Comp Metabolic 05/01/2019 [facility] Sodium 137 mmol/L Normal 135-145 [place] [address] [phone] Potassium 4.1 mmol/L Normal 3.5-5.0 Chloride 100 [...] Egfr 71.7 >60 5 Laboratory test 05/01/2019 [facility] Troponin-I 0.01 <0.03 6 finding (TnI) ng/[place] [address] [phone] Inr/Protime 05/01/2019 [facility] Inr 1.06 Normal 0.82-1.[address] [place] [address] [phone] CBC Auto Diff 05/01/2019 [facility] White Blood 8.0 Normal 3.5 -10.[address] Count 10^3/[place] [address] [phone] Red Blood Count 2.48 10^6/uL Low 4.18-5.48 [...] Blood Cells % 0.0 Laboratory test 05/01/2019 [facility] Blood Culture SEE RESULT [address] [place] [address] [phone] Laboratory test 05/01/2019 [facility] LDH 174 U/L Normal 140- 2 [address] [place] [address] [phone] Iron & Iron 05/01/2019 [facility] Iron 41 g/dL Low 50-21 Binding Capacity [address] [place] [address] [phone] Unsaturated Iron Binding < 370 g/dL Total Iron Binding Capacity 385 g/dL Normal 250-450 Transferrin 275 mg/dL Normal 203-362 % Iron Saturation 11 % Low 15-55 Laboratory test 05/01/2019 [facility] Ferritin 15.8 ng/mL Low 24-336 [address] [place] [address] [phone] Haptoglobin 139 mg/dL 30 - 200 11 Type & Screen 05/01/2019 [facility] Patient Blood Type B Positive [address] [place] [address] [phone] Antibody Screen NEGATIVE Laboratory test 05/01/2019 [facility] Packed Cells SEE RESULTS [address] BELO <[place] [address] NOTE> [phone] Laboratory test 03/01/2019 [facility] TSH (Thyroid 6.24 mcIU/mL High 0.34- finding [address] Stim Horm) 5.60 [place] [address] [phone] Hemoglobin A1c (Glyco HGB) 6.0 % High 4.0-5.6 13 Laboratory test 12/19/2018 [facility] Point of Care 127 mg/dL High 70-100 [address] Glucose [place], [place] [address] [phone] Laboratory test 11/27/2018 Phot[facility] In House Hemoglobin A1c 5.9 5-7 finding 1 Troponin-I testing on Plasma Separator Tubes (PST) has a known false positive rate of 0.20-0.40%. All positive troponins reflex immediately to secondary confirmatory testing. Using the [employer] DxI 800 Access Immunoassay systems, the 99th percentile upper reference limit was demonstrated to be < 0.03 ng/mL. 2 NO ORDERS UNTIL 814 3 SEE RESULT BELOW Name: MAGGIE SANDERS : [address]: Joey Maher MD Acct: [id number] Unit: [id number] AGE: 78 Location: ED Re05/01/19 SEX: M Status: REG ER SPEC: [id number] OLIVE: 05/01/19-[address] [facility] [address]: Joey Maher MD REQ: [id number] RECD: 05/01/19 STATUS: COMP OT DR: Shonda Alexis MD _ [facility] ORDERED: Occult Bl, Scn COMMENTS: NO ORDERS UNTIL 814 Procedure Result Reported Site Stool Occult Blood (1) Final 05/01/19- 827 ML Stool Occult Blood Positive * ML - Main Lab . END OF REPORT DEPARTMENT OF PATHOLOGY, [address] [place] [address] Marco A Cerda M.D. Director [facility] # [id number] [facility] Severe Sepsis and Septic Shock Management Bundle [...] immediately to secondary confirmatory testing. Using the [employer] DxI 800 Access Immunoassay systems, the 99th percentile upper reference limit was demonstrated to be < 0.03 ng/mL. 7 Standard intensity warfarin therapeutic range: 2.0-3.0 High intensity warfarin therapeutic range: 2.5-3.5 8 SEE RESULT BELOW Name: MAGGIE SANDERS : [address]: Ismale Chan MD Acct: [id number] Unit: [id number] AGE: 78 Location: [place] [address] Re05/01/19 SEX: M Status: ADM IN SPEC: [id number] OLIVE: 05/01/[address] [facility] [address]: Bertha Rust MD REQ: [id number] RECD: 05/01/19 STATUS: ROBERT FRAUSTO DR: Shonda Alexis MD _ SOURCE: BLOOD,VENO SPDESC: ORDERED: Blood Cult Procedure Result Reported Site Aerobic Culture Bottle Final 05/06/19- 0450 ML No Growth Day 5 Anaerobic Culture Bottle Final 05/06/19- 0450 ML No Growth Day 5 * ML - Main Lab . END OF REPORT DEPARTMENT OF PATHOLOGY, [address] [place] [address] Marco A Cerda M.D. Director CLIA # [id number] Comment: may to add to ED labs 10 Comment: may to add to ED labs 11 Test Performed by: [place] [address] Front Edger: Gordon Gonzalez M.D. Ph.D.; CLIA# [id number] 12 SEE RESULTS BELOW [id number] BN PC TRANSFUSED 05/01/19 1406 [id number] BP PC TRANSFUSED 05/01/19 1019 13 Therapeutic target for the treatment of diabetes mellitus patients is <7% HBA1C, and in selective patients <6.0%. Please refer to [employer] diabetic care guidelines for further information. 14 Manager Electronic: [id number] Procedures Date Code Description Status 10/29/2018 822641918 Diabetic Retinal Eye Exam Completed 05/01/2018 [id number] Diabetic Retinal Eye Exam Completed 03/14/2017 828514317 Diabetic Retinal Eye Exam Completed 2016 [id number] Diabetic Retinal Eye Exam Completed 09/16/2014 07820741 Colonoscopy Completed 08/24/2004 34363927 Colonoscopy Completed Medical Devices Description No Information Available Encounters Type Date Location Provider Dx Diagnosis Office Visit 05/06/2019 [facility] Mis Halle, ASSISTED LIVING CARE MANAGER D64.9 Anemia, 9:35a Assoc,pc unspecified Hospitalists 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 N18.3 Chronic kidney disease, stage 3 (moderate) Office Visit 05/05/2019 9:35a [facility] Mis Halle, D64.9 Anemia, Assoc,pc ASSISTED LIVING CARE MANAGER unspecified Hospitalists 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 K92.2 Gastrointestinal 9:33a shaggy Liz M.D. 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 [facility] Hospitalists D50.9 Iron deficiency anemia, unspecified E11.9 Type 2 diabetes mellitus without complications E03.9 Hypothyroidism, unspecified Office Visit 11/27/2018 2:00p Photographer Internal Shonda Alexis, E11.9 Type 2 diabetes Medicine - MD mellitus without Ccmob complications I10 Essential (primary) hypertension D50.9 Iron deficiency anemia, unspecified L20.9 Atopic dermatitis, unspecified Assessments Date Code Description Provider 05/07/2019 K92.2 Gastrointestinal hemorrhage, unspecified Mis Halle, ASSISTED LIVING CARE MANAGER 05/07/2019 D62 Acute posthemorrhagic anemia Mis Halle, ASSISTED LIVING CARE MANAGER 05/07/2019 I12.9 Hypertensive chronic kidney disease with Mis Halle, ASSISTED LIVING CARE MANAGER stage 1 through stage 4 chronic kidney disease, or unspecified chronic kidney disease 05/07/2019 E11.22 Type 2 diabetes mellitus with diabetic Mis Halle, ASSISTED LIVING CARE MANAGER chronic kidney disease 05/07/2019 N18.3 Chronic kidney disease, stage 3 (moderate) Mis Halle, ASSISTED LIVING CARE MANAGER 05/06/2019 D64.9 Anemia, unspecified Mis Halle, ASSISTED LIVING CARE MANAGER 05/06/2019 I12.9 Hypertensive chronic kidney disease with Mis Halle, ASSISTED LIVING CARE MANAGER stage 1 through stage 4 chronic kidney disease, or unspecified chronic kidney disease 05/06/2019 E11.22 Type 2 diabetes mellitus with diabetic Mis Halle, ASSISTED LIVING CARE MANAGER chronic kidney disease 05/06/2019 N18.3 Chronic kidney disease, stage 3 (moderate) Mis Halle, ASSISTED LIVING CARE MANAGER 05/05/2019 D64.9 Anemia, unspecified Mis Halle, ASSISTED LIVING CARE MANAGER 05/05/2019 I12.9 Hypertensive chronic kidney disease with Mis Halle, ASSISTED LIVING CARE MANAGER stage 1 through stage 4 chronic kidney disease, or unspecified chronic kidney disease 05/05/2019 E11.22 Type 2 diabetes mellitus with diabetic Mis Halle, ASSISTED LIVING CARE MANAGER chronic kidney disease 05/05/2019 N18.3 Chronic kidney disease, stage 3 (moderate) Mis Halle, ASSISTED LIVING CARE MANAGER 05/04/2019 D64.9 Anemia, unspecified Mis Halle, ASSISTED LIVING CARE MANAGER 05/04/2019 I12.9 Hypertensive chronic kidney disease with Mis Halle, ASSISTED LIVING CARE MANAGER stage 1 through stage 4 chronic kidney disease, or unspecified chronic kidney disease 05/04/2019 E11.22 Type 2 diabetes mellitus with diabetic Mis Halle, ASSISTED LIVING CARE MANAGER chronic kidney disease 05/04/2019 N18.3 Chronic kidney disease, stage 3 (moderate) Mis Halle, ASSISTED LIVING CARE MANAGER 05/03/2019 K92.2 Gastrointestinal hemorrhage, unspecified Arabella Goodwin [...] 4:00 pm - Ariana Greene N.P. at [facility] Internal Medicine - [facility]06/03/2019 2:40 pm - Walter Hernandez NP at [facility] - [facility]03/01/2019 - Walter Hernandez NPZ00.00 Encounter for general adult medical examination without abnormal findingsComments:VACCINES:Flu shot every year in the fall.You are up to date on all other vaccines.SCREENING:Cholesterol yearly. Due in cancer: Screening last in 2014. Prostate cancer: screening if family history.I10 Essential (primary) hypertensionComments:Please call with a list of your medications.Please bring all pill bottles to your next appointment.E11.9 Type 2 diabetes mellitus without complicationsComments:Your A1c was 5.9% in November. This should be rechecked in May.Follow up:[address] RuelaseD50.9 Iron deficiency anemia, unqtyftnpkkQ13.9 Hypothyroidism, unspecifiedComments:Please have the blood work done soon.E78.2 Mixed hyperlipidemia Functional Status Description No Information Available Mental Status Description No Information Available Referrals Refer to Dr Reason for Referral Status Appt Date Shayne Corbin MD severe eczematous dermatitis on arms for >6 Sent 2018 months [address] [place] [address] [phone]
--- OUTSIDE RECORDS SUMMARY | 2019-05-13 17:57 | XMS REPORT | Continuity of Care Document ---
:1940 External Reference #:[id number] Author Name Arabella Goodwin M.D. (transmitted by agent of provider Dee Wang) Address [address] [place] [address] Care Team Providers Name Role Phone [facility] - Physical Care Team Information Crusher Loader Equipment Operator Therapist Mega Tarango M.D. - Care Team Information Crusher Loader Equipment Operator [phone] Gastroenterology Kathryn Ward MD - Hematology & Care Team Information Crusher Loader Equipment Operator [phone] Oncology Shonda Alexis M.D. - Family Medicine Care Team Information Crusher Loader Equipment Operator [phone] Problems Active Problems Provider Date Collagenous colitis [...] Besylate 1 by mouth every 30tabs I10 Abbeynatan Champion, 03/18/2019 5mg day M.D., FACP Tablets Nystatin Apply to affected 30gm Torsten Hawthorne 05/17/2018 [id number]/GM area 2 times Ivonne Chan,FACP Cream daily. Telmisartan-Amlodipin 1 by mouth every 90tabs I10 Shonda Alexis MD 2017 e morning 40-5mg Tablets Januvia Take One Tablet By 30tabs Walter Hernandez NP 01/18/2018 100mg Tablets Mouth Once Daily as Directed Poly-Iron 150 Forte take one capsule 180caps Jessie Davy, 01/18/2018 by mouth twice a M.D. 760-75-9zz-mcg-mg day Capsules Onetouch Ultra Blue test up [...] Code Status Date Vaccine Reaction Lot # [id number] Given 02/23/2019 Fluzone High Dose 91015 Given 12/11/2017 Influenza Virus Vaccine, No immediate reaction [id number] Quadrivalent, Split, noted. Preservative Free 37920 Given 06/28/2017 Pneumonia Vaccine [id number] 98131 Given 01/03/2017 Tdap - no immediate reaction, [id number] Tetanus/Diptheria/Acellular pt tolerated well Pertussis 98084 Given 11/10/2016 Influenza Virus Vaccine, [id number] Quadrivalent, Split, Preservative Free 84842 Given 02/18/2015 Pneumococcal Conjugate Vaccine 13 Valent For Intramuscular Use 66527 Given 01/12/2015 Zoster (Zostavax) 72746 Given 12/25/2002 Pneumonia Vaccine Vital Signs Date [...] Result H/L Range Note Laboratory test 05/01/2019 [facility] Troponin-I 0.01 ng/mL < 0.[address] (TnI) [place] [address] [phone] Stool Occult 05/01/2019 [facility] Stool SEE RESULT 2, 3 Blood, Screen [address] [place] [address] Blood, [phone] Screen Laboratory test 05/01/2019 [facility] Lactic Acid 2.0 mmol/L Normal 0.5-2.[address] [place] [address] [phone] B-Type Natriuretic Peptide BNP 197 pg/mL High <=100 Comp Metabolic 05/01/2019 [facility] Sodium 137 mmol/L Normal 135-145 [place] [address] [phone] Potassium 4.1 mmol/L Normal 3.5-5.0 Chloride 100 [...] Egfr 71.7 >60 5 Laboratory test 05/01/2019 [facility] Troponin-I 0.01 <0.03 6 finding 101 (TnI) ng/[place] [address] [phone] Inr/Protime 05/01/2019 [facility] Inr 1.06 Normal 0.82-1.[address] [place] [address] [phone] CBC Auto Diff 05/01/2019 [facility] White Blood 8.0 Normal 3.5 -10.[address] Count 10^3/[place] [address] [phone] Red Blood Count 2.48 10^6/uL Low 4.18-5.48 [...] Blood Cells % 0.0 Laboratory test 05/01/2019 [facility] Blood Culture SEE RESULT [address] [place], [place] [id number] [phone] Laboratory test 05/01/2019 [facility] LDH 174 U/L Normal 140- 2 [address] [place], [place] [address] [phone] Iron & Iron 05/01/2019 [facility] Iron 41 g/dL Low 50-21 Binding Capacity [address] [place] [address] [phone] Unsaturated Iron Binding < 370 g/dL Total Iron Binding Capacity 385 g/dL Normal 250-450 Transferrin 275 mg/dL Normal 203-362 % Iron Saturation 11 % Low 15-55 Laboratory test 05/01/2019 [facility] Ferritin 15.8 ng/mL Low 24-336 [address] [place], [place] [address] [phone] Haptoglobin 139 mg/dL 30 - 200 11 Type & Screen 05/01/2019 [facility] Patient Blood Type B Positive [address] [place] [address] [phone] Antibody Screen NEGATIVE Laboratory test 05/01/2019 [facility] Packed Cells SEE RESULTS [address] BELO <[place] [address] NOTE> [phone] Laboratory test 03/01/2019 [facility] TSH (Thyroid 6.24 mcIU/mL High 0.34- finding [address] Stim Horm) 5.60 [place] [address] [phone] Hemoglobin A1c (Glyco HGB) 6.0 % High 4.0-5.6 13 Laboratory test 12/19/2018 [facility] Point of Care 127 mg/dL High 70-[address] [place] [address] [phone] Laboratory test 11/27/2018 Medical Service Technician In House Hemoglobin A1c 5.9 5-7 finding 1 Troponin-I testing on Plasma Separator Tubes (PST) has a known false positive rate of 0.20-0.40%. All positive troponins reflex immediately to secondary confirmatory testing. Using the [employer] DxI 800 Access Immunoassay systems, the 99th percentile upper reference limit was demonstrated to be < 0.03 ng/mL. 2 NO ORDERS UNTIL 814 3 SEE RESULT BELOW Name: MYLESMAGGIE C : [address]: Joey Maher MD Acct: [id number] Unit: [id number] AGE: 78 Location: ED Re05/01/19 SEX: M Status: REG ER SPEC: [id number] OLIVE: 05/01/19-719 [facility] DR: Joey Maher MD REQ: [id number] RECD: 05/01/19 STATUS: COMP OTHR DR: Shonda Alexis MD _ SOURCE: STOOL SPDESC: ORDERED: Occult Bl, Scn COMMENTS: NO ORDERS UNTIL 814 Procedure Result Reported Site Stool Occult Blood (1) Final 05/01/19- 827 ML Stool Occult Blood Positive * ML - Main Lab . END OF REPORT DEPARTMENT OF PATHOLOGY, [address] [place] [address] Marco A Cerda M.D. Director [facility] # [id number] [facility] Severe Sepsis and Septic Shock Management Bundle [...] immediately to secondary confirmatory testing. Using the [employer] DxI 800 Access Immunoassay systems, the 99th percentile upper reference limit was demonstrated to be < 0.03 ng/mL. 7 Standard intensity warfarin therapeutic range: 2.0-3.0 High intensity warfarin therapeutic range: 2.5-3.5 8 SEE RESULT BELOW Name: MAGGIE SANDERS : [address]: Ismael Chan MD Acct: [id number] Unit: [id number] AGE: 78 Location: [place] [address] Re05/01/19 SEX: M Status: ADM IN SPEC: [id number] OLIVE: 05/01/194 [facility] DR: Bertha Rust MD REQ: [id number] RECD: 05/01/19 STATUS: ROBERT FRAUSTO DR: Shonda Alexis MD _ SOURCE: BLOOD,VENO SPDESC: ORDERED: Blood Cult Procedure Result Reported Site Aerobic Culture Bottle Final 05/06/19- 0450 ML No Growth Day 5 Anaerobic Culture Bottle Final 05/06/19- 0450 ML No Growth Day 5 * ML - Main Lab . END OF REPORT DEPARTMENT OF PATHOLOGY, [address] [place] [address] Marco A Cerda M.D. Director [place] # [id number] Comment: may to add to ED labs 10 Comment: may to add to ED labs 11 Test Performed by: [place] [address] Director Of Early Childhood: Gordon Gonzalez M.D. Ph.D.; CLIA# [id number] 12 SEE RESULTS BELOW [id number] BN PC TRANSFUSED 05/01/19 1406 [id number] BP PC TRANSFUSED 05/01/19 1019 13 Therapeutic target for the treatment of diabetes mellitus patients is <7% HBA1C, and in selective patients <6.0%. Please refer to [employer] diabetic care guidelines for further information. 14 Stock Holder: [id number] Procedures Date Code Description Status 10/29/2018 712263101 Diabetic Retinal Eye Exam Completed 05/01/2018 [id number] Diabetic Retinal Eye Exam Completed 03/14/2017 [id number] Diabetic Retinal Eye Exam Completed 2016 [id number] Diabetic Retinal Eye Exam Completed 09/16/2014 [id number] Colonoscopy Completed 08/24/2004 [id number] Colonoscopy Completed Medical Devices Description No Information Available Encounters Type Date Location Provider Dx Diagnosis Office Visit 05/06/2019 [facility] Mis Hlale, RELIEF MASTER D64.9 Anemia, 9:35a Assoc,pc unspecified Hospitalists 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 N18.3 Chronic kidney disease, stage 3 (moderate) Office Visit 05/05/2019 9:35a [facility] Mis Halle, D64.9 Anemia, Assoc,pc RELIEF MASTER unspecified Hospitalists 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 [facility] Hospitalists D50.9 Iron deficiency anemia, unspecified E11.9 Type 2 diabetes mellitus without complications E03.9 Hypothyroidism, unspecified Office Visit 11/27/2018 2:00p Medical Service Technician Internal Shonda Alexis, E11.9 Type 2 diabetes Medicine - MD mellitus without Ccmob complications I10 Essential (primary) hypertension D50.9 Iron deficiency anemia, unspecified L20.9 Atopic dermatitis, unspecified Assessments Date Code Description Provider 05/07/2019 K92.2 Gastrointestinal hemorrhage, unspecified Mis Halle, RELIEF MASTER 05/07/2019 D62 Acute posthemorrhagic anemia Mis Halle, RELIEF MASTER 05/07/2019 I12.9 Hypertensive chronic kidney disease with Mis Halle, RELIEF MASTER stage 1 through stage 4 chronic kidney disease, or unspecified chronic kidney disease 05/07/2019 E11.22 Type 2 diabetes mellitus with diabetic Mis Halle, RELIEF MASTER chronic kidney disease 05/07/2019 N18.3 Chronic kidney disease, stage 3 (moderate) Mis Halle, RELIEF MASTER 05/06/2019 D64.9 Anemia, unspecified Mis Halle, RELIEF MASTER 05/06/2019 I12.9 Hypertensive chronic kidney disease with Mis Halle, RELIEF MASTER stage 1 through stage 4 chronic kidney disease, or unspecified chronic kidney disease 05/06/2019 E11.22 Type 2 diabetes mellitus with diabetic Mis Halle, RELIEF MASTER chronic kidney disease 05/06/2019 N18.3 Chronic kidney disease, stage 3 (moderate) Mis Halle, RELIEF MASTER 05/05/2019 D64.9 Anemia, unspecified Mis Halle, RELIEF MASTER 05/05/2019 I12.9 Hypertensive chronic kidney disease with Mis Halle, RELIEF MASTER stage 1 through stage 4 chronic kidney disease, or unspecified chronic kidney disease 05/05/2019 E11.22 Type 2 diabetes mellitus with diabetic Mis Halle, RELIEF MASTER chronic kidney disease 05/05/2019 N18.3 Chronic kidney disease, stage 3 (moderate) Mis Halle, RELIEF MASTER 05/04/2019 D64.9 Anemia, unspecified Mis Halle, RELIEF MASTER 05/04/2019 I12.9 Hypertensive chronic kidney disease with Mis Halle, RELIEF MASTER stage 1 through stage 4 chronic kidney disease, or unspecified chronic kidney disease 05/04/2019 E11.22 Type 2 diabetes mellitus with diabetic Mis Hooperx, RELIEF MASTER chronic kidney disease 05/04/2019 N18.3 Chronic kidney disease, stage 3 (moderate) Mis Halle, RELIEF MASTER 05/03/2019 K92.2 Gastrointestinal hemorrhage, unspecified Arabella Goodwin M.D. 05/03/2019 D64.9 Anemia, unspecified Arabella Goodwin M.D. 05/03/2019 R06.02 Shortness of breath Arabella Goodwin M.D. 05/03/2019 I12.9 Hypertensive chronic kidney disease with Arabella Goodwin M.D. stage 1 through stage 4 chronic kidney disease, or unspecified chronic kidney disease 05/03/2019 E11.22 Type 2 diabetes mellitus with diabetic Arabella Goowdin M.D. chronic kidney disease 05/03/2019 N18.3 Chronic [...] E11.9 Type 2 diabetes mellitus without Walter Hernandez, KATHRINE complications 03/01/2019 D50.9 Iron deficiency anemia, unspecified Walter Hernandez, KATHRINE 03/01/2019 E03.9 Hypothyroidism, unspecified Walter Hernandez, KATHRINE 03/01/2019 E78.2 Mixed hyperlipidemia Walter Hernandez NP 11/27/2018 E11.9 Type 2 diabetes mellitus without Shonda Alexis MD complications 11/27/2018 I10 Essential (primary) hypertension Shonda Alexis MD 11/27/2018 D50.9 Iron deficiency anemia, unspecified Shonda Alexis MD 11/27/2018 L20.9 Atopic dermatitis, unspecified Shonda Alexis MD Plan of Treatment Future Appointment(s):05/13/2019 4:00 pm - Ariana Greene NMendoza at [facility] Internal Medicine - [facility]06/03/2019 2:40 pm - Walter Hernandez NP at [facility] Internal Medicine - [facility]03/01/2019 - Walter Hernandez NPZ00.00 Encounter for general adult medical examination without abnormal findingsComments:VACCINES:Flu shot every year in the fall.You are up to date on all other vaccines.SCREENING:Cholesterol yearly. Due in JuneColo cancer: Screening last in 2014. Prostate cancer: screening if family history.I10 Essential (primary) hypertensionComments:Please call with a list of your medications.Please bring all pill bottles to your next appointment.E11.9 Type 2 diabetes mellitus without complicationsComments:Your A1c was 5.9% in November. This should be rechecked in May.Follow up:[address] RuelaseD50.9 Iron deficiency anemia, aorcfghhwqiX56.9 Hypothyroidism, unspecifiedComments:Please have the blood work done soon.E78.2 Mixed hyperlipidemia Functional Status Description No Information Available Mental Status Description No Information Available Referrals Refer to Dr Reason for Referral Status Appt Date Shayne Corbin MD severe eczematous dermatitis on arms for >6 Sent 2018 months [address] [place] [address] [phone]
--- OUTSIDE RECORDS SUMMARY | 2019-05-13 17:57 | XMS REPORT | Continuity of Care Document ---
:1940 External Reference #:[id number] Author Name Mis Neri NP (transmitted by agent of provider Dee Wang) Address [address] [place] [address] Care Team Providers Name Role Phone [facility] - Physical Care Team Information Firmware Test Engineer Therapist Mega Tarango M.D. - Care Team Information Firmware Test Engineer [phone] Gastroenterology Kathryn Ward MD - Hematology & Care Team Information Firmware Test Engineer Oncology Shonda Alexis M.D. - Family Medicine Care Team Information Firmware Test Engineer Problems Active Problems Provider Date Collagenous colitis [...] Apply to affected 30gm Torsten Hawthorne 05/17/2018 [id number]/GM area 2 times Ivonne Chan,FACP Cream daily. Telmisartan-Amlodipin 1 by mouth every 90tabs I10 Shonda Alexis MD 2017 e morning 40-5mg Tablets Januvia Take One Tablet By 30tabs Walter Hernandez NP 01/18/2018 100mg Tablets Mouth Once Daily as Directed Poly-Iron 150 Forte take one capsule 180caps Jessie Bhatti, 01/18/2018 by mouth twice a M.D. 309-42-8oq-mcg-mg day Capsules Onetouch Ultra Blue test up [...] Support/Lightweight/E plastic insert Ivonne Kapadia lastic/[facility] 1 by mouth three 90tabs Torsten [...] Code Status Date Vaccine Reaction Lot # [id number] Given 02/23/2019 Fluzone High Dose 08192 Given 12/11/2017 Influenza Virus Vaccine, No immediate reaction [id number] Quadrivalent, Split, noted. Preservative Free 20990 Given 06/28/2017 Pneumonia Vaccine [id number] 72005 Given 01/03/2017 Tdap - no immediate reaction, [id number] Tetanus/Diptheria/Acellular pt tolerated well Pertussis 08145 Given 11/10/2016 Influenza Virus Vaccine, [id number] Quadrivalent, Split, Preservative Free 51896 Given 02/18/2015 Pneumococcal Conjugate Vaccine 13 Valent For Intramuscular Use 67292 Given 01/12/2015 Zoster (Zostavax) 97894 Given 12/25/2002 Pneumonia Vaccine Vital Signs Date [...] Result H/L Range Note Laboratory test 05/01/2019 [facility] Troponin-I 0.01 ng/mL < 0.03 1 finding 101 (TnI) [place] [address] [phone] Stool Occult 05/01/2019 [facility] Stool SEE RESULT 2, 3 Blood, Screen [address] [place] [address] Blood, [phone] Screen Laboratory test 05/01/2019 [facility] Lactic Acid 2.0 mmol/L Normal 0.5-2.[address] [place] [address] [phone] B-Type Natriuretic Peptide BNP 197 pg/mL High <=100 Comp Metabolic 05/01/2019 [facility] Sodium 137 mmol/L Normal 135-145 [place] [address] [phone] Potassium 4.1 mmol/L Normal 3.5-5.0 Chloride 100 [...] Egfr 71.7 >60 5 Laboratory test 05/01/2019 [facility] Troponin-I 0.01 <0.03 6 finding (TnI) ng/[place] [address] [phone] Inr/Protime 05/01/2019 [facility] Inr 1.06 Normal 0.82-1.[address] [place] [address] [phone] CBC Auto Diff 05/01/2019 [facility] White Blood 8.0 Normal 3.5 -10.[address] Count 10^3/[place] [address] [phone] Red Blood Count 2.48 10^6/uL Low 4.18-5.48 [...] Blood Cells % 0.0 Laboratory test 05/01/2019 [facility] Blood Culture SEE RESULT [address] [place] [address] [phone] Laboratory test 05/01/2019 [facility] LDH 174 U/L Normal 140- 2 [address] [place] [address] [phone] Iron & Iron 05/01/2019 [facility] Iron 41 g/dL Low 50-21 Binding Capacity [address] [place] [address] [phone] Unsaturated Iron Binding < 370 g/dL Total Iron Binding Capacity 385 g/dL Normal 250-450 Transferrin 275 mg/dL Normal 203-362 % Iron Saturation 11 % Low 15-55 Laboratory test 05/01/2019 [facility] Ferritin 15.8 ng/mL Low 24-336 [address] [place] [address] [phone] Haptoglobin 139 mg/dL 30 - 200 11 Type & Screen 05/01/2019 [facility] Patient Blood Type B Positive [address] [place] [address] [phone] Antibody Screen NEGATIVE Laboratory test 05/01/2019 [facility] Packed Cells SEE RESULTS [address] BELO <[place] [address] NOTE> [phone] Laboratory test 03/01/2019 [facility] TSH (Thyroid 6.24 mcIU/mL High 0.34- finding [address] Stim Horm) 5.60 [place] [address] [phone] Hemoglobin A1c (Glyco HGB) 6.0 % High 4.0-5.6 13 Laboratory test 12/19/2018 [facility] Point of Care 127 mg/dL High 70-100 [address] Glucose [place], [place] [address] [phone] Laboratory test 11/27/2018 [facility] Hemoglobin A1c 5.9 5-7 finding 1 Troponin-I testing on Plasma Separator Tubes (PST) has a known false positive rate of 0.20-0.40%. All positive troponins reflex immediately to secondary confirmatory testing. Using the SphereUp DxI 800 Access Immunoassay systems, the 99th percentile upper reference limit was demonstrated to be < 0.03 ng/mL. 2 NO ORDERS UNTIL 814 3 SEE RESULT BELOW Name: MAGGIE SADNERS : [address]: Joey Maher MD Acct: [id number] Unit: [id number] AGE: 78 Location: ED Re05/01/19 SEX: M Status: REG ER SPEC: [id number] OLIVE: 05/01/19-7[address] [facility] [address]: Joey Maher MD REQ: [id number] RECD: 05/01/19 STATUS: COMP OT DR: Shonda Alexis MD _ SOURCE[facility] ORDERED: Occult Bl, Scn COMMENTS: NO ORDERS UNTIL 814 Procedure Result Reported Site Stool Occult Blood (1) Final 05/01/19- 827 ML Stool Occult Blood Positive * ML - Main Lab . END OF REPORT DEPARTMENT OF PATHOLOGY, [address] [place] [address] Marco A Cerda M.D. Director [facility] # [id number] [facility] Severe Sepsis and Septic Shock Management [...] immediately to secondary confirmatory testing. Using the SphereUp DxI 800 Access Immunoassay systems, the 99th percentile upper reference limit was demonstrated to be < 0.03 ng/mL. 7 Standard intensity warfarin therapeutic range: 2.0-3.0 High intensity warfarin therapeutic range: 2.5-3.5 8 SEE RESULT BELOW Name: MAGGIE SANDERS : [address]: Ismael Chan MD Acct: [id number] Unit: [id number] AGE: 78 Location: [place] [address] Re05/01/19 SEX: M Status: ADM IN SPEC: [id number] OLIVE: 05/01/194 [facility] [address]: Bertha Rust MD REQ: [id number] RECD: 05/01/19 STATUS: ROBERT FRAUSTO DR: Shonda Alexis MD _ SOURCE: BLOOD,VENO SPDESC: ORDERED: Blood Cult Procedure Result Reported Site Aerobic Culture Bottle Final 05/06/19- 0450 ML No Growth Day 5 Anaerobic Culture Bottle Final 05/06/19- 0450 ML No Growth Day 5 * ML - Main Lab . END OF REPORT DEPARTMENT OF PATHOLOGY, [address] [place] [address] Marco A Cerda M.D. Director CLIA # [id number] Comment: may to add to ED labs 10 Comment: may to add to ED labs 11 Test Performed by: [place] [address] Fitness Attendant: Gordon Gonzalez M.D. Ph.D.; CLIA# [id number] 12 SEE RESULTS BELOW [id number] BN PC TRANSFUSED 05/01/19 1406 [id number] BP PC TRANSFUSED 05/01/19 1019 13 Therapeutic target for the treatment of diabetes mellitus patients is <7% HBA1C, and in selective patients <6.0%. Please refer to [place] [employer] diabetic care guidelines for further information. 14 Steel Rule Die Maker: [id number] Procedures Date Code Description Status 10/29/2018 [id number] Diabetic Retinal Eye Exam Completed 05/01/2018 [id number] Diabetic Retinal Eye Exam Completed 03/14/2017 [id number] Diabetic Retinal Eye Exam Completed 2016 [id number] Diabetic Retinal Eye Exam Completed 09/16/2014 [id number] Colonoscopy Completed 08/24/2004 [id number] Colonoscopy Completed Medical Devices Description No Information Available Encounters Type Date Location Provider Dx Diagnosis Office Visit 05/06/2019 [facility] Mis Halle, WIRE PREPARATION MACHINE TENDER D64.9 Anemia, 9:35a Assoc,pc unspecified Hospitalists 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 N18.3 Chronic kidney disease, stage 3 (moderate) Office Visit 05/05/2019 9:35a [facility] Mis Halle, D64.9 Anemia, Assoc,pc WIRE PREPARATION MACHINE TENDER unspecified Hospitalists 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 K92.2 Gastrointestinal 9:30a shaggy Liz M.D. 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 [facility] Hospitalists D50.9 Iron deficiency anemia, unspecified E11.9 Type 2 diabetes mellitus without complications E03.9 Hypothyroidism, unspecified Office Visit 11/27/2018 2:[facility]p [facility] Shonda Alexis, E11.9 Type 2 diabetes Medicine - MD mellitus without Ccmob complications I10 Essential (primary) hypertension D50.9 Iron deficiency anemia, unspecified L20.9 Atopic dermatitis, unspecified Assessments Date Code Description Provider 05/07/2019 K92.2 Gastrointestinal hemorrhage, unspecified Mis Halle, WIRE PREPARATION MACHINE TENDER 05/07/2019 D62 Acute posthemorrhagic anemia Mis Halle, WIRE PREPARATION MACHINE TENDER 05/07/2019 I12.9 Hypertensive chronic kidney disease with Mis Halle, WIRE PREPARATION MACHINE TENDER stage 1 through stage 4 chronic kidney disease, or unspecified chronic kidney disease 05/07/2019 E11.22 Type 2 diabetes mellitus with diabetic Mis Halle, WIRE PREPARATION MACHINE TENDER chronic kidney disease 05/07/2019 N18.3 Chronic kidney disease, stage 3 (moderate) Mis Halle, WIRE PREPARATION MACHINE TENDER 05/06/2019 D64.9 Anemia, unspecified Mis Halle, WIRE PREPARATION MACHINE TENDER 05/06/2019 I12.9 Hypertensive chronic kidney disease with Mis Halle, WIRE PREPARATION MACHINE TENDER stage 1 through stage 4 chronic kidney disease, or unspecified chronic kidney disease 05/06/2019 E11.22 Type 2 diabetes mellitus with diabetic Mis Halle, WIRE PREPARATION MACHINE TENDER chronic kidney disease 05/06/2019 N18.3 Chronic kidney disease, stage 3 (moderate) Mis Halle, WIRE PREPARATION MACHINE TENDER 05/05/2019 D64.9 Anemia, unspecified Mis Halle, WIRE PREPARATION MACHINE TENDER 05/05/2019 I12.9 Hypertensive chronic kidney disease with Mis Halle, WIRE PREPARATION MACHINE TENDER stage 1 through stage 4 chronic kidney disease, or unspecified chronic kidney disease 05/05/2019 E11.22 Type 2 diabetes mellitus with diabetic Mis Halle, WIRE PREPARATION MACHINE TENDER chronic kidney disease 05/05/2019 N18.3 Chronic kidney disease, stage 3 (moderate) Mis Halle, WIRE PREPARATION MACHINE TENDER 05/04/2019 D64.9 Anemia, unspecified Mis Halle, WIRE PREPARATION MACHINE TENDER 05/04/2019 I12.9 Hypertensive chronic kidney disease with Mis Halle, WIRE PREPARATION MACHINE TENDER stage 1 through stage 4 chronic kidney disease, or unspecified chronic kidney disease 05/04/2019 E11.22 Type 2 diabetes mellitus with diabetic Mis Halle, WIRE PREPARATION MACHINE TENDER chronic kidney disease 05/04/2019 N18.3 Chronic kidney disease, stage 3 (moderate) Mis Halle, WIRE PREPARATION MACHINE TENDER 05/03/2019 K92.2 Gastrointestinal hemorrhage, unspecified Arabella Goodwin [...] 4:00 pm - Ariana Greene N.P. at [facility]06/03/2019 2:40 pm - Walter Hernandez NP at [facility]03/01/2019 - Walter Hernandez NPZ00.00 Encounter for [...] up:[address] RuelaseD50.9 Iron deficiency anemia, vgrbbrlkzwoV70.9 Hypothyroidism, unspecifiedComments:Please have the blood work done soon.E78.2 Mixed hyperlipidemia Functional Status Description No Information Available Mental Status Description No Information Available Referrals Refer to Dr Reason for Referral Status Appt Date Shayne Corbin MD severe eczematous dermatitis on arms for >6 Sent 2018 months [address] [place] [address] [phone]
--- OUTSIDE RECORDS SUMMARY | 2019-05-13 17:58 | XMS REPORT ---
:1940 Author Organization [facility] Care Team Providers Name Role Phone Unavailable Unavailable Unavailable Problems Condition Condition Condition Status Onset Resolution Last Treating Comments Name Details Category Date Date Treatment Clinician Date Anemia, Anemia, Diagnosis Active Michelle unspecified unspecified Wendela [id number] Allergies, Adverse Reactions, Alerts Allergy Allergy Type Status Severity Reaction(s) Onset Inactive Treating Comments Name Date Date Clinician morphine Unknown Active Mild to Nausea and Vale liquid Moderate vomiting 05-12 Brayan [id number] metformin Base Active Unknown Reaction Sophia Ingredient Unknown 05-08 [place] ramipril Base Active Unknown Reaction Sophia Ingredient Unknown 05-08 [place] Medications Ordered Filled Start Stop Current Ordering [...] glucosamine glucosamine 2019-0 Yes Alexis Unknown Unknown /D3/[place] /D3/[place] 3-05 MD,Shonda ia Chantelsophie Golden Procedures This patient has no known procedures. Results This patient has no known results.
--- OUTSIDE RECORDS SUMMARY | 2019-05-13 17:58 | XMS REPORT ---
:1940 Author Organization [facility] Care Team Providers Name Role Phone Unavailable Unavailable Unavailable Problems This patient has no known problems. Allergies, Adverse Reactions, Alerts Allergy Allergy Status Severity Reaction(s) Onset Inactive Treating Comments Name Type Date Date Clinician morphine Unknown Active Mild to Nausea and 2017-05 Vale liquid Moderate vomiting - Brayan [id number] Medications Ordered Filled Start Stop Current Ordering Indication Dosage Frequency Signature Comments Components Medication Medication Date Date Medication? Clinician (SIG) Name Name No Known No Known No None None None Medications Medications For This For This Patient Patient Procedures This patient has no known procedures. Results This patient has no known results.
--- OUTSIDE RECORDS SUMMARY | 2019-05-13 17:58 | XMS REPORT | Continuity of Care Document ---
:1940 External Reference #:[id number] Author Name Arabella Goodwin M.D. (transmitted by agent of provider Dee Wang) Address [address] [place] [address] Care Team Providers Name Role Phone [facility] - Physical Care Team Information File Drawer Finisher Therapist Mega Tarango M.D. - Care Team Information File Drawer Finisher [phone] Gastroenterology Kathryn Ward MD - Hematology & Care Team Information File Drawer Finisher Oncology Shonda Alexis M.D. - Family Medicine Care Team Information File Drawer Finisher Problems Active Problems Provider Date Collagenous colitis [...] Apply to affected 30gm Torsten Hawthorne 05/17/2018 [id number]/GM area 2 times Ivonne Chan,FACP Cream daily. Telmisartan-Amlodipin 1 by mouth every 90tabs I10 Shonda Alexis MD 2017 e morning 40-5mg Tablets Januvia Take One Tablet By 30tabs Walter Hernandez NP 01/18/2018 100mg Tablets Mouth Once Daily as Directed Poly-Iron 150 Forte take one capsule 180caps Jessie Davy, 01/18/2018 by mouth twice a M.D. 706-78-1bx-mcg-mg day Capsules Onetouch Ultra Blue test up [...] Code Status Date Vaccine Reaction Lot # 46872 Given 02/23/2019 Fluzone High Dose 07018 Given 12/11/2017 Influenza Virus Vaccine, No immediate reaction [id number] Quadrivalent, Split, noted. Preservative Free 39454 Given 06/28/2017 Pneumonia Vaccine [id number] 28267 Given 01/03/2017 Tdap - no immediate reaction, [id number] Tetanus/Diptheria/Acellular pt tolerated well Pertussis 42082 Given 11/10/2016 Influenza Virus Vaccine, [id number] Quadrivalent, Split, Preservative Free 29904 Given 02/18/2015 Pneumococcal Conjugate Vaccine 13 Valent For Intramuscular Use 45624 Given 01/12/2015 Zoster (Zostavax) 63201 Given 12/25/2002 Pneumonia Vaccine Vital Signs Date [...] Result H/L Range Note [facility] test [facility] Troponin-I 0.01 ng/mL < 0.[address] (TnI) [place] [address] [phone] Stool Occult 05/01/2019 [facility] Stool SEE RESULT 2, 3 Blood, Screen [address] [place] [address] Blood, [phone] Screen Laboratory test 05/01/2019 [facility] Lactic Acid 2.0 mmol/L Normal 0.5-2.[address] [place] [address] [phone] B-Type Natriuretic Peptide BNP 197 pg/mL High <=100 Comp Metabolic 05/01/2019 [facility] Sodium 137 mmol/L Normal 135-145 [place] [address] [phone] Potassium 4.1 mmol/L Normal 3.5-5.0 Chloride 100 [...] Egfr 71.7 >60 5 Laboratory test 05/01/2019 [facility] Troponin-I 0.01 <0.03 6 finding 101 (TnI) ng/[place] [address] [phone] Inr/Protime 05/01/2019 [facility] Inr 1.06 Normal 0.82-1.[address] [place] [address] [phone] CBC Auto Diff 05/01/2019 [facility] White Blood 8.0 Normal 3.5 -10.[address] Count 10^3/[place] [address] [phone] Red Blood Count 2.48 10^6/uL Low 4.18-5.48 [...] Blood Cells % 0.0 Laboratory test 05/01/2019 [facility] Blood Culture SEE RESULT [address] BELOW [place], [place] [address] [phone] Laboratory test 05/01/2019 [facility] LDH 174 U/L Normal 140- 2 [address] [place], [place] [address] [phone] Iron & Iron 05/01/2019 [facility] Iron 41 g/dL Low 50-21 Binding Capacity [address] [place] [address] [phone] Unsaturated Iron Binding < 370 g/dL Total Iron Binding Capacity 385 g/dL Normal 250-450 Transferrin 275 mg/dL Normal 203-362 % Iron Saturation 11 % Low 15-55 Laboratory test 05/01/2019 [facility] Ferritin 15.8 ng/mL Low 24-336 [address] [place], [place] [address] [phone] Haptoglobin 139 mg/dL 30 - 200 11 Type & Screen 05/01/2019 [facility] Patient Blood Type B Positive [address] [place] [address] [phone] Antibody Screen NEGATIVE Laboratory test 05/01/2019 [facility] Packed Cells SEE RESULTS [address] BELO <[place] [address] NOTE> [phone] Laboratory test 03/01/2019 [facility] TSH (Thyroid 6.24 mcIU/mL High 0.34- finding [address] Stim Horm) 5.60 [place] [address] [phone] Hemoglobin A1c (Glyco HGB) 6.0 % High 4.0-5.6 13 Laboratory test 12/19/2018 [facility] Point of Care 127 mg/dL High 70-[address] [place] [address] [phone] Laboratory test 11/27/2018 Fire Behavior Analyst In House Hemoglobin A1c 5.9 5-7 finding 1 Troponin-I testing on Plasma Separator Tubes (PST) has a known false positive rate of 0.20-0.40%. All positive troponins reflex immediately to secondary confirmatory testing. Using the [employer] DxI 800 Access Immunoassay systems, the 99th percentile upper reference limit was demonstrated to be < 0.03 ng/mL. 2 NO ORDERS UNTIL 814 3 SEE RESULT BELOW Name: MYLESMAGGIE C : [address]: Joey Maher MD Acct: [id number] Unit: [id number] AGE: 78 Location: ED Re05/01/19 SEX: M Status: REG ER SPEC: [id number] OLIVE: 05/01/19-[address] [facility] [address]: Joey Maher MD REQ: [id number] RECD: 05/01/19 STATUS: COMP OTHR DR: Shonda Alexis MD _ SOURCE: STOOL SPDESC: ORDERED: Occult Bl, Scn COMMENTS: NO ORDERS UNTIL 814 Procedure Result Reported Site Stool Occult Blood (1) Final 05/01/19- 827 ML Stool Occult Blood Positive * ML - Main Lab . END OF REPORT DEPARTMENT OF PATHOLOGY, [address] [place] [address] Marco A Cerda M.D. Director [facility] # [id number] 4 [facility] Severe Sepsis and Septic Shock Management [...] immediately to secondary confirmatory testing. Using the [employer] DxI 800 Access Immunoassay systems, the 99th percentile upper reference limit was demonstrated to be < 0.03 ng/mL. 7 Standard intensity warfarin therapeutic range: 2.0-3.0 High intensity warfarin therapeutic range: 2.5-3.5 8 SEE RESULT BELOW Name: MAGGIE SANDERS : [address]: Ismael Chan MD Acct: [id number] Unit: [id number] AGE: 78 Location: [place] [address] Re05/01/19 SEX: M Status: ADM IN SPEC: [id number] OLIVE: 05/01/[address] [facility] [address]: Bertha Rust MD REQ: [id number] RECD: 05/01/19 STATUS: ROBERT FRAUSTO DR: Shonda Alexis MD _ SOURCE: BLOOD,VENO SPDESC: ORDERED: Blood Cult Procedure Result Reported Site Aerobic Culture Bottle Final 05/06/19- 0450 ML No Growth Day 5 Anaerobic Culture Bottle Final 05/06/19- 0450 ML No Growth Day 5 * ML - Main Lab . END OF REPORT DEPARTMENT OF PATHOLOGY, [address] [place] [address] Marco A Cerda M.D. Director [place] # [id number] 9 Comment: may to add to ED labs 10 Comment: may to add to ED labs 11 Test Performed by: [place] [address] Gem Carver: Gordon Gonzalez M.D. Ph.D.; CLIA# [id number] 12 SEE RESULTS BELOW [id number] BN PC TRANSFUSED 05/01/19 1406 [id number] BP PC TRANSFUSED 05/01/19 1019 13 Therapeutic target for the treatment of diabetes mellitus patients is <7% HBA1C, and in selective patients <6.0%. Please refer to [employer] diabetic care guidelines for further information. 14 [employer] Technician: [id number] Procedures Date Code Description Status 10/29/2018 383603506 Diabetic Retinal Eye Exam Completed 05/01/2018 [id number] Diabetic Retinal Eye Exam Completed 03/14/2017 169711338 Diabetic Retinal Eye Exam Completed 2016 [id number] Diabetic Retinal Eye Exam Completed 09/16/2014 89800145 Colonoscopy Completed 08/24/2004 [id number] Colonoscopy Completed Medical Devices Description No Information Available Encounters Type Date Location Provider Dx Diagnosis Office Visit 05/02/2019 [facility] Arabella Goodwin, K92.2 Gastrointestinal 9:30a shaggy Liz M.D. hemorrhage, Hospitalists unspecified R06.02 Shortness of breath 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 kdny I35.0 Nonrheumatic aortic (valve) stenosis Office Visit 05/01/2019 [facility] Vignesh R06.02 Shortness of 9:29a shaggy Liz M.D. breath Hospitalists D50.9 Iron deficiency anemia, unspecified E11.9 Type 2 diabetes mellitus without complications E03.9 Hypothyroidism, unspecified Office Visit 11/27/2018 2:00p Fire Behavior Analyst Internal Shonda Alexis, E11.9 Type 2 diabetes Medicine - MD mellitus without Ccmob complications I10 Essential (primary) hypertension D50.9 Iron deficiency anemia, unspecified L20.9 Atopic dermatitis, unspecified Assessments Date Code Description Provider 05/02/2019 K92.2 Gastrointestinal hemorrhage, unspecified Arabella Goodwin [...] Z00.00 Encounter for general adult medical Walter Mary, TESTER REGULATOR examination without abnormal findings 03/01/2019 I10 Essential (primary) hypertension Walter Hernandez NP 03/01/2019 E11.9 Type 2 diabetes mellitus without Walter Hernandez NP complications 03/01/2019 D50.9 Iron deficiency anemia, unspecified Walter eHrnandez NP 03/01/2019 E03.9 Hypothyroidism, unspecified Walter Hernandez NP 03/01/2019 E78.2 Mixed hyperlipidemia Walter Hernandez NP 11/27/2018 E11.9 Type 2 diabetes mellitus without Shonda Alexis MD complications 11/27/2018 I10 Essential (primary) hypertension Shonda Alexis MD 11/27/2018 D50.9 Iron deficiency anemia, margieified Shonda Alexis MD 11/27/2018 L20.9 Atopic dermatitis, unspecified Shonda Alexis MD Plan of Treatment Future Appointment(s):05/13/2019 4:00 pm - Ariana Greene N.P. at [facility]06/03/2019 2:40 pm - Walter Hernandez NP at [facility]03/01/2019 - Walter Hernandez NPZ00.00 [...] up:[address] RuelaseD50.9 Iron deficiency anemia, fvgkdknldolV53.9 Hypothyroidism, unspecifiedComments:Please have the blood work done soon.E78.2 Mixed hyperlipidemia Functional Status Description No Information Available Mental Status Description No Information Available Referrals Refer to Reason for Referral Status Appt Date Shayne Corbin MD severe eczematous dermatitis on arms for >6 Sent 2018 months [address] [place] [address] [phone]
--- OUTSIDE RECORDS SUMMARY | 2019-05-13 17:58 | XMS REPORT ---
:1940 Author Organization [facility] Care Team Providers Name Role Phone Unavailable Unavailable Unavailable Problems This patient has no known problems. Allergies, Adverse Reactions, Alerts Allergy Allergy Status Severity Reaction(s) Onset Inactive Treating Comments Name Type Date Date Clinician morphine Unknown Active Mild to Nausea and 2017-05 Vale liquid Moderate vomiting - Brayan [id number] Medications Ordered Filled Start Stop Current Ordering Indication Dosage Frequency Signature Comments Components Medication Medication Date Date Medication? Clinician (SIG) Name Name No Known No Known No None None None Medications Medications For This For This Patient Patient Procedures This patient has no known procedures. Results This patient has no known results.
--- OUTSIDE RECORDS SUMMARY | 2019-05-13 17:58 | XMS REPORT | Continuity of Care Document ---
:1940 External Reference #:[id number] Author Name Vignesh Gutierrez M.D. (transmitted by agent of provider Dee Wang) Address [address] [place] [address] Care Team Providers Name Role Phone [facility] - Physical Care Team Information Hotel Houseman Therapist Mega Tarango M.D. - Care Team Information [employer] [facility] [phone] Gastroenterology Kathryn Ward MD - Hematology & Care Team Information [facility] Oncology Shonda Alexis M.D. - Family Medicine Care Team Information [employer] [facility] Problems Active Problems Provider Date Collagenous colitis [...] Apply to affected 30gm Torsten Hawthorne 05/17/2018 949173Ipij/GM area 2 times Ivonne Chan,FACP Cream daily. Telmisartan-Amlodipin 1 by mouth every 90tabs I10 Shonda Alexis MD 2017 e morning 40-5mg Tablets Januvia Take One Tablet By 30tabs Walter Hernandez NP 01/18/2018 100mg Tablets Mouth Once Daily as Directed Poly-Iron 150 Forte take one capsule 180caps Jessie Davy, 01/18/2018 by mouth twice a M.D. 297-95-6ut-mcg-mg day Capsules Onetouch Ultra Blue test up [...] Code Status Date Vaccine Reaction Lot # 28659 Given 02/23/2019 Fluzone High Dose 41341 Given 12/11/2017 Influenza Virus Vaccine, No immediate reaction [id number] Quadrivalent, Split, noted. Preservative Free 49767 Given 06/28/2017 Pneumonia Vaccine [id number] 99145 Given 01/03/2017 Tdap - no immediate reaction, [id number] Tetanus/Diptheria/Acellular pt tolerated well Pertussis 11449 Given 11/10/2016 Influenza Virus Vaccine, [id number] Quadrivalent, Split, Preservative Free 34494 Given 02/18/2015 Pneumococcal Conjugate Vaccine 13 Valent For Intramuscular Use 07089 Given 01/12/2015 Zoster (Zostavax) 86219 Given 12/25/2002 Pneumonia Vaccine Vital Signs Date [...] Result H/L Range Note Laboratory test 05/01/2019 [facility] Troponin-I 0.01 ng/mL < 0.[address] (TnI) [place] [address] [phone] Stool Occult 05/01/2019 [facility] Stool SEE RESULT 2, 3 Blood, Screen [address] [place] [address] Blood, [phone] Screen Laboratory test 05/01/2019 [facility] Lactic Acid 2.0 mmol/L Normal 0.5-2.[address] [place] [address] [phone] B-Type Natriuretic Peptide BNP 197 pg/mL High <=100 Comp Metabolic 05/01/2019 [facility] Sodium 137 mmol/L Normal 135-145 [place] [address] [phone] Potassium 4.1 mmol/L Normal 3.5-5.0 Chloride 100 [...] Egfr 71.7 >60 5 Laboratory test 05/01/2019 [facility] Troponin-I 0.01 <0.03 6 finding 101 (TnI) ng/[place] [address] [phone] Inr/Protime 05/01/2019 [facility] Inr 1.06 Normal 0.82-1.[address] [place] [address] [phone] CBC Auto Diff 05/01/2019 [facility] White Blood 8.0 Normal 3.5 -10.[address] Count 10^3/[place] [address] [phone] Red Blood Count 2.48 10^6/uL Low 4.18-5.48 [...] Blood Cells % 0.0 Laboratory test 05/01/2019 [facility] Blood Culture SEE RESULT [address] BELOW [place], [place] [address] [phone] Laboratory test 05/01/2019 [facility] LDH 174 U/L Normal 140- 2 [address] [place], [place] [address] [phone] Iron & Iron 05/01/2019 [facility] Iron 41 g/dL Low 50-21 Binding Capacity [address] [place] [address] [phone] Unsaturated Iron Binding < 370 g/dL Total Iron Binding Capacity 385 g/dL Normal 250-450 Transferrin 275 mg/dL Normal 203-362 % Iron Saturation 11 % Low 15-55 Laboratory test 05/01/2019 [facility] Ferritin 15.8 ng/mL Low 24-336 [address] [place], [place] [address] [phone] Haptoglobin 139 mg/dL 30 - 200 11 Type & Screen 05/01/2019 [facility] Patient Blood Type B Positive [address] [place] [address] [phone] Antibody Screen NEGATIVE Laboratory test 05/01/2019 [facility] Packed Cells SEE RESULTS [address] BELO <[place] [address] NOTE> [phone] Laboratory test 03/01/2019 [facility] TSH (Thyroid 6.24 mcIU/mL High 0.34- finding [address] Stim Horm) 5.60 [place] [address] [phone] Hemoglobin A1c (Glyco HGB) 6.0 % High 4.0-5.6 13 Laboratory test 12/19/2018 [facility] Point of Care 127 mg/dL High 70-[address] [place] [address] [phone] Laboratory test 11/27/2018 Manager Of Maintenance In House Hemoglobin A1c 5.9 5-7 finding 1 Troponin-I testing on Plasma Separator Tubes (PST) has a known false positive rate of 0.20-0.40%. All positive troponins reflex immediately to secondary confirmatory testing. Using the [employer] DxI 800 Access Immunoassay systems, the 99th percentile upper reference limit was demonstrated to be < 0.03 ng/mL. 2 NO ORDERS UNTIL 814 3 SEE RESULT BELOW Name: MYLESMAGGIE C : [address]: Joey Maher MD Acct: [id number] Unit: [id number] AGE: 78 Location: ED Re05/01/19 SEX: M Status: REG ER SPEC: [id number] OLIVE: 05/01/19-[address] [facility] DR: Joey Maher MD REQ: [id number] RECD: 05/01/19 STATUS: COMP OTHR DR: Shonda Alexis MD _ SOURCE: STOOL SPDESC: ORDERED: Occult Bl, Scn COMMENTS: NO ORDERS UNTIL 814 Procedure Result Reported Site Stool Occult Blood (1) Final 05/01/19- 827 ML Stool Occult Blood Positive * ML - Main Lab . END OF REPORT DEPARTMENT OF PATHOLOGY, [address] [place] [address] Marco A Cerda M.D. Director [facility] # [id number] [facility] Severe Sepsis and Septic Shock [...] immediately to secondary confirmatory testing. Using the [employer] DxI 800 Access Immunoassay systems, the 99th percentile upper reference limit was demonstrated to be < 0.03 ng/mL. 7 Standard intensity warfarin therapeutic range: 2.0-3.0 High intensity warfarin therapeutic range: 2.5-3.5 8 SEE RESULT BELOW Name: MAGGIE SANDERS : [address]: Ismael Chan MD Acct: [id number] Unit: [id number] AGE: 78 Location: [place] [address] Re05/01/19 SEX: M Status: ADM IN SPEC: [id number] OLIVE: 05/01/[address] [facility] DR: Bertha Rust MD REQ: [id number] RECD: 05/01/19 STATUS: ROBERT FRAUSTO DR: Shonda Alexis MD _ SOURCE: BLOOD,VENO SPDESC: ORDERED: Blood Cult Procedure Result Reported Site Aerobic Culture Bottle Final 05/06/19- 0450 ML No Growth Day 5 Anaerobic Culture Bottle Final 05/06/19- 0450 ML No Growth Day 5 * ML - Main Lab . END OF REPORT DEPARTMENT OF PATHOLOGY, [address] [place] [address] Marco A Cerda M.D. Director [place] # [id number] 9 Comment: may to add to ED labs 10 Comment: may to add to ED labs 11 Test Performed by: [place] [address] Hand Woven Carpet And Rug Mender: Gordon Gonzalez M.D. Ph.D.; CLIA# [id number] 12 SEE RESULTS BELOW [id number] BN PC TRANSFUSED 05/01/19 1406 [id number] BP PC TRANSFUSED 05/01/19 1019 13 Therapeutic target for the treatment of diabetes mellitus patients is <7% HBA1C, and in selective patients <6.0%. Please refer to [employer] diabetic care guidelines for further information. 14 Well Digger: [id number] Procedures Date Code Description Status 10/29/2018 [id number] Diabetic Retinal Eye Exam Completed 05/01/2018 [id number] Diabetic Retinal Eye Exam Completed 03/14/2017 [id number] Diabetic Retinal Eye Exam Completed 2016 654419348 Diabetic Retinal Eye Exam Completed 09/16/2014 [id number] Colonoscopy Completed 08/24/2004 [id number] Colonoscopy Completed Medical Devices Description No Information Available Encounters Type Date Location Provider Dx Diagnosis Office Visit 05/01/2019 [facility] [place] R06.02 Shortness of 9:29a Assoc,shaggy Gutierrez M.D. breath Hospitalists D50.9 Iron deficiency anemia, unspecified E11.9 Type 2 diabetes mellitus without complications E03.9 Hypothyroidism, unspecified Office Visit 11/27/2018 2:00p Manager Of Maintenance Internal Shonda Alexis, E11.9 Type 2 diabetes Medicine - MD mellitus without Ccmob complications I10 Essential (primary) hypertension D50.9 Iron deficiency anemia, unspecified L20.9 Atopic dermatitis, unspecified Assessments Date Code Description Provider 05/01/2019 R06.02 Shortness of breath Vignesh Gutierrez [...] 4:00 pm - [facility] - [facility] Walter Hernandez NPZ00.00 Encounter for general adult medical examination without abnormal findingsComments:VACCINES:Flu shot every year in the fall.You are up to date on all other vaccines.SCREENING:Cholesterol yearly. Due in JuneColon cancer: Screening last in 2014. Prostate cancer: screening if family history.I10 Essential (primary) hypertensionComments:Please call with a list of your medications.Please bring all pill bottles to your next appointment.E11.9 Type 2 diabetes mellitus without complicationsComments:Your A1c was 5.9% in November. This should be rechecked in May.Follow up:[address] RuelaseD50.9 Iron deficiency anemia, zuiuoneobwyJ21.9 Hypothyroidism, unspecifiedComments:Please have the blood work done soon.E78.2 Mixed hyperlipidemia Functional Status Description No Information Available Mental Status Description No Information Available Referrals Refer to Reason for Referral Status Appt Date Shayne Corbin MD severe eczematous dermatitis on arms for >6 Sent 2018 months [address] [place] [address] [phone]
--- OUTSIDE RECORDS SUMMARY | 2019-05-13 17:58 | XMS REPORT | Continuity of Care Document ---
:1940 External Reference #:[id number] Author Name Mis Neri NP (transmitted by agent of provider Dee Wang) Address [address] [place] [address] Care Team Providers Name Role Phone [facility] - Physical Care Team Information Veterinarian Helper [phone] Therapist Mega Tarango M.D. - Care Team Information Veterinarian Helper [phone] Gastroenterology Kathryn Ward MD - Hematology & Care Team Information Veterinarian Helper [phone] Oncology Shonda Alexis M.D. - Family Medicine Care Team Information Veterinarian Helper [phone] Problems Active Problems Provider Date Collagenous colitis [...] Apply to affected 30gm Torsten Hawthorne 05/17/2018 [id number]/GM area 2 times Ivonne Chan,FACP Cream daily. Telmisartan-Amlodipin 1 by mouth every 90tabs I10 Shonda Alexis MD 2017 e morning 40-5mg Tablets Januvia Take One Tablet By 30tabs Walter Hernandez NP 01/18/2018 100mg Tablets Mouth Once Daily as Directed Poly-Iron 150 Forte take one capsule 180caps Jessie Bhatti, 01/18/2018 by mouth twice a M.D. 548-01-8tk-mcg-mg day Capsules Onetouch Ultra Blue test up to three 100units E11.9 Torsten Hawthorne 2017 times daily, code Ivonne Chan,FACP Strips 25 last visit: 11/07/17 Blood Pressure Take blood 1units I10 Silvia 10/06/2017 Monitor Portable pressure daily. Ivonne Cole Wrist Dispense with Kit large cuff. Onetouch Verio Iq for testing up to 1units E11.8 Torsten aHwthorne 07/03/2017 Blood Glucose 3 times daily, Ivonne [...] 11/30/2010 Support/Lightweight/E plastic insert Ivonne Kapadia lastic/X-[facility] 1 by mouth three 90tabs [...] Code Status Date Vaccine Reaction Lot # 36572 Given 02/23/2019 Fluzone High Dose 44267 Given 12/11/2017 Influenza Virus Vaccine, No immediate reaction [id number] Quadrivalent, Split, noted. Preservative Free 31844 Given 06/28/2017 Pneumonia Vaccine [id number] 65112 Given 01/03/2017 Tdap - no immediate reaction, [id number] Tetanus/Diptheria/Acellular pt tolerated well Pertussis 38606 Given 11/10/2016 Influenza Virus Vaccine, [id number] Quadrivalent, Split, Preservative Free 18981 Given 02/18/2015 Pneumococcal Conjugate Vaccine 13 Valent For Intramuscular Use 50207 Given 01/12/2015 Zoster (Zostavax) 71550 Given 12/25/2002 Pneumonia Vaccine Vital Signs Date [...] Result H/L Range Note Laboratory test 05/01/2019 [facility] Troponin-I 0.01 ng/mL < 0.03 1 finding 101 (TnI) [place] [address] [phone] Stool Occult 05/01/2019 [facility] Stool SEE RESULT 2, 3 Blood, Screen [address] [place] [address] Blood, [phone] Screen Laboratory test 05/01/2019 [facility] Lactic Acid 2.0 mmol/L Normal 0.5-2.[address] [place] [address] [phone] B-Type Natriuretic Peptide BNP 197 pg/mL High <=100 Comp Metabolic 05/01/2019 [facility] Sodium 137 mmol/L Normal 135-145 [place] [address] [phone] Potassium 4.1 mmol/L Normal 3.5-5.0 Chloride 100 [...] Egfr 71.7 >60 5 Laboratory test 05/01/2019 [facility] Troponin-I 0.01 <0.03 6 finding (TnI) ng/[place] [address] [phone] Inr/Protime 05/01/2019 [facility] Inr 1.06 Normal 0.82-1.[address] [place] [address] [phone] CBC Auto Diff 05/01/2019 [facility] White Blood 8.0 Normal 3.5 -10.[address] Count 10^3/[place] [address] [phone] Red Blood Count 2.48 10^6/uL Low 4.18-5.48 [...] Blood Cells % 0.0 Laboratory test 05/01/2019 [facility] Blood Culture SEE RESULT [address] [place] [address] [phone] Laboratory test 05/01/2019 [facility] LDH 174 U/L Normal 140- 2 [address] [place] [address] [phone] Iron & Iron 05/01/2019 [facility] Iron 41 g/dL Low 50-21 Binding Capacity [address] [place] [address] [phone] Unsaturated Iron Binding < 370 g/dL Total Iron Binding Capacity 385 g/dL Normal 250-450 Transferrin 275 mg/dL Normal 203-362 % Iron Saturation 11 % Low 15-55 Laboratory test 05/01/2019 [facility] Ferritin 15.8 ng/mL Low 24-336 [address] [place] [address] [phone] Haptoglobin 139 mg/dL 30 - 200 11 Type & Screen 05/01/2019 [facility] Patient Blood Type B Positive [address] [place] [address] [phone] Antibody Screen NEGATIVE Laboratory test 05/01/2019 [facility] Packed Cells SEE RESULTS [address] BELO <[place] [address] NOTE> [phone] Laboratory test 03/01/2019 [facility] TSH (Thyroid 6.24 mcIU/mL High 0.34- finding [address] Stim Horm) 5.60 [place] [address] [phone] Hemoglobin A1c (Glyco HGB) 6.0 % High 4.0-5.6 13 Laboratory test 12/19/2018 [facility] Point of Care 127 mg/dL High 70-100 [address] Glucose [place], [place] [address] [phone] Laboratory test 11/27/2018 [employer] In House Hemoglobin A1c 5.9 5-7 finding 1 Troponin-I testing on Plasma Separator Tubes (PST) has a known false positive rate of 0.20-0.40%. All positive troponins reflex immediately to secondary confirmatory testing. Using the Mocoplex DxI 800 Access Immunoassay systems, the 99th percentile upper reference limit was demonstrated to be < 0.03 ng/mL. 2 NO ORDERS UNTIL 814 3 SEE RESULT BELOW Name: MAGGIE SANDERS : [address]: Joey Maher MD Acct: [id number] Unit: [id number] AGE: 78 Location: ED Re05/01/19 SEX: M Status: REG ER SPEC: [id number] OLIVE: 05/01/19-719 [facility] DR: Joey Maher MD REQ: [id number] RECD: 05/01/19 STATUS: COMP OT DR: Shonda Alexis MD _ [facility] ORDERED: Occult Bl, Scn COMMENTS: NO ORDERS UNTIL 814 Procedure Result Reported Site Stool Occult Blood (1) Final 05/01/19- 827 ML Stool Occult Blood Positive * ML - Main Lab . END OF REPORT DEPARTMENT OF PATHOLOGY, [address] [place] [address] Marco A Cerda M.D. Director [facility] # [id number] [facility] Severe Sepsis and Septic Shock Management [...] immediately to secondary confirmatory testing. Using the Mocople[employer] DxI 800 Access Immunoassay systems, the 99th percentile upper reference limit was demonstrated to be < 0.03 ng/mL. 7 Standard intensity warfarin therapeutic range: 2.0-3.0 High intensity warfarin therapeutic range: 2.5-3.5 8 SEE RESULT BELOW Name: MAGGIE SANDERS : [address]: Ismael Chan MD Acct: [id number] Unit: [id number] AGE: 78 Location: [place] [address] Re05/01/19 SEX: M Status: ADM IN SPEC: [id number] OLIVE: 05/01/194 [facility] DR: Bertha Rust MD REQ: [id number] RECD: 05/01/19 STATUS: ROBERT FRAUSTO DR: Shonda Alexis MD _ SOURCE: BLOOD,VENO SPDESC: ORDERED: Blood Cult Procedure Result Reported Site Aerobic Culture Bottle Final 05/06/19- 0450 ML No Growth Day 5 Anaerobic Culture Bottle Final 05/06/19- 0450 ML No Growth Day 5 * ML - Main Lab . END OF REPORT DEPARTMENT OF PATHOLOGY, [address] [place] [address] Marco A Cerda M.D. Director CLIA # [id number] Comment: may to add to ED labs 10 Comment: may to add to ED labs 11 Test Performed by: [place] [address] Director Of Consumer Marketing: Gordon Gonzalez M.D. Ph.D.; CLIA# [id number] 12 SEE RESULTS BELOW [id number] BN PC TRANSFUSED 05/01/19 1406 [id number] BP PC TRANSFUSED 05/01/19 1019 13 Therapeutic target for the treatment of diabetes mellitus patients is <7% HBA1C, and in selective patients <6.0%. Please refer to [place] [employer] diabetic care guidelines for further information. 14 Line Out Worker: [id number] Procedures Date Code Description Status 10/29/2018 941570095 Diabetic Retinal Eye Exam Completed 05/01/2018 [id number] Diabetic Retinal Eye Exam Completed 03/14/2017 [id number] Diabetic Retinal Eye Exam Completed 2016 [id number] Diabetic Retinal Eye Exam Completed 09/16/2014 61945652 Colonoscopy Completed 08/24/2004 [id number] Colonoscopy Completed Medical Devices Description No Information Available Encounters Type Date Location Provider Dx Diagnosis Office Visit 05/06/2019 [facility] Mis Halle, OPERATIONS EXAMINER D64.9 Anemia, 9:35a Assoc,pc unspecified Hospitalists 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 breath Hospitalists D50.9 Iron deficiency anemia, unspecified E11.9 Type 2 diabetes mellitus without complications E03.9 Hypothyroidism, unspecified Office Visit 11/27/2018 2:00p [facility] Shonda Alexis, E11.9 Type 2 diabetes Medicine - MD mellitus without Ccmob complications I10 Essential (primary) hypertension D50.9 Iron deficiency anemia, unspecified L20.9 Atopic dermatitis, unspecified Assessments Date Code Description Provider 05/07/2019 K92.2 Gastrointestinal hemorrhage, unspecified Mis Halle, OPERATIONS EXAMINER 05/07/2019 D62 Acute posthemorrhagic anemia Mis Halle, OPERATIONS EXAMINER 05/07/2019 I12.9 Hypertensive chronic kidney disease with Mis Halle, OPERATIONS EXAMINER stage 1 through stage 4 chronic kidney disease, or unspecified chronic kidney disease 05/07/2019 E11.22 Type 2 diabetes mellitus with diabetic Mis Halle, OPERATIONS EXAMINER chronic kidney disease 05/07/2019 N18.3 Chronic kidney disease, stage 3 (moderate) Mis Halle, OPERATIONS EXAMINER 05/06/2019 D64.9 Anemia, unspecified Mis Halle, OPERATIONS EXAMINER 05/06/2019 I12.9 Hypertensive chronic kidney disease with Mis Halle, OPERATIONS EXAMINER stage 1 through stage 4 chronic kidney disease, or unspecified chronic kidney disease 05/06/2019 E11.22 Type 2 diabetes mellitus with diabetic Mis Halle, OPERATIONS EXAMINER chronic kidney disease 05/06/2019 N18.3 Chronic kidney disease, stage 3 (moderate) Mis Halle, OPERATIONS EXAMINER 05/05/2019 D64.9 Anemia, unspecified Mis Halle, OPERATIONS EXAMINER 05/05/2019 I12.9 Hypertensive chronic kidney disease with Mis Halle, OPERATIONS EXAMINER stage 1 through stage 4 chronic kidney disease, or unspecified chronic kidney disease 05/05/2019 E11.22 Type 2 diabetes mellitus with diabetic Mis Halle, OPERATIONS EXAMINER chronic kidney disease 05/05/2019 N18.3 Chronic kidney disease, stage 3 (moderate) Mis Halle, OPERATIONS EXAMINER 05/04/2019 D64.9 Anemia, unspecified Mis Halle, OPERATIONS EXAMINER 05/04/2019 I12.9 Hypertensive chronic kidney disease with Mis Halle, OPERATIONS EXAMINER stage 1 through stage 4 chronic kidney disease, or unspecified chronic kidney disease 05/04/2019 E11.22 Type 2 diabetes mellitus with diabetic Mis Halle, OPERATIONS EXAMINER chronic kidney disease 05/04/2019 N18.3 Chronic kidney disease, stage 3 (moderate) Mis Halle, OPERATIONS EXAMINER 05/03/2019 K92.2 Gastrointestinal hemorrhage, unspecified Arabella Goodwin [...] 03/01/2019 I10 Essential (primary) hypertension Walter Hernandez, OPERATIONS EXAMINER 03/01/2019 E11.9 Type 2 diabetes mellitus without Walter Mary, OPERATIONS EXAMINER complications 03/01/2019 D50.9 Iron deficiency anemia, unspecified Walter Mary, OPERATIONS EXAMINER 03/01/2019 E03.9 Hypothyroidism, unspecified Walter Mary, OPERATIONS EXAMINER 03/01/2019 E78.2 Mixed hyperlipidemia Walterrosy Hernandez, OPERATIONS EXAMINER 11/27/2018 E11.9 Type 2 diabetes mellitus without Shonda Alexis MD complications 11/27/2018 I10 Essential (primary) hypertension Shonda Alexis MD 11/27/2018 D50.9 Iron deficiency anemia, unspecified Shonda Alexis MD 11/27/2018 L20.9 Atopic dermatitis, unspecified Shonda Alexis MD Plan of Treatment Future Appointment(s):05/13/2019 4:00 pm - [facility] Walter Hernandez NPZ00.00 Encounter for [...] up:[address] RuelaseD50.9 Iron deficiency anemia, rkgjfutysrnS55.9 Hypothyroidism, unspecifiedComments:Please have the blood work done soon.E78.2 Mixed hyperlipidemia Functional Status Description No Information Available Mental Status Description No Information Available Referrals Refer to Reason for Referral Status Appt Date Shayne Corbin MD severe eczematous dermatitis on arms for >6 Sent [address] [place] [address] [phone]
--- NOTE | 2019-05-13 18:28 | ED ---
Shortness of Breath - HPI Summary HPI Summary: Patient is a 78 y/o M presenting to the ED for a chief complaint of shortness of breath that began at 14:00 on 05/13/19. Patient is present with his daughter. His daughter reports the shortness of breath began while the patient was getting ready to see his PCP for a follow up visit. Patients daughter states patient had diaphoresis and pallor at that time. He saw his PCP and was recommended to be seen at [facility] for further assessment. At his PCP's office, he was placed on oxygen with some relief. Patient also has bilateral LE edema that has worsened from baseline and left shoulder pain that is not new. No aggravating factors are reported. He notes similar symptoms one week ago for which he was admitted to [facility]. PMHx is significant for DM and HTN. - History of Current Complaint Chief Complaint: EDShortnessOfBreath Time Seen by Provider: 05/13/19 18:23 Hx Obtained From: Patient, Family/[employer]or - Daughter Onset/Duration: Sudden Onset, Still Present Timing: Constant Current Severity: Moderate Dyspnea At: Rest Aggravating Factors: Nothing Alleviating Factors: Oxygen Associated Signs & Symptoms: Diaphoresis, Edema - Bilateral LE Related History: Obesity, Similar Episode - Allergy/Home Medications Allergies/Adverse Reactions: Allergies Allergy/AdvReac Type Severity Reaction Status Date / Time metformin Allergy Diarrhea Verified 05/13/19 17:48 ramipril Allergy THROAT Verified 05/13/19 17:48 SWELLING morphine AdvReac See Comment Verified 05/13/19 17:48 Home Medications: Home Medications DULoxetine DR CAP* [Cymbalta CAP*] 30 mg PO BID 12/06/16 [History Confirmed 11/23] dilTIAZem HCl [Diltiazem 24Hr ER] 180 mg PO DAILY 03/24/17 [History Confirmed ] Morphine TAB Extended Rel(*) [Ms Contin(*)] 30 mg PO BID #60 tab.er MDD 2 [Rx Confirmed 05/13/19] Morphine TAB Extended Rel(*) [Ms Contin(*)] 15 mg PO BID 07/03/17 [History Confirmed 05/13/19] Levothyroxine TAB* [Synthroid 100 MCG TAB*] 100 mcg PO DAILY 11/07/17 [History Confirmed 05/13/19] Chlorthalidone TAB* [Hygroton TAB*] 25 mg PO DAILY 12/06/17 [History Confirmed 05/13/19] Docusate CAP* [Colace Cap*] 100 mg PO Q12H PRN 12/06/17 [History Confirmed 05/12] Levothyroxine TAB* [Synthroid 88 MCG TAB*] 88 mcg PO DAILY 12/06/17 [History Confirmed 05/13/19] Sitagliptin Phosphate [Januvia] 100 mg PO DAILY 03/30/18 [History Confirmed 11/23] Atorvastatin* [Lipitor 10 MG*] 10 mg PO BEDTIME 10/02/18 [History Confirmed 11/23] Gabapentin TAB(NF) [Neurontin 600 mg TAB(NF)] 600 mg PO TID 05/01/19 [History Confirmed 05/13/19] Glucosamine/D3/Boswellia Chantel [Osteo Bi-Flex Caplet] 1 tab PO BID 05/01/19 [ History Confirmed 05/13/19] Multivitamins/Minerals TAB* [Theragran/minerals TAB*] 1 tab PO DAILY 05/01/19 [ History Confirmed 05/13/19] Telmisartan (NF) [Micardis (NF)] 40 mg PO DAILY 05/01/19 [History Confirmed 11/23] amLODIPine TAB* [Norvasc 5 mg TAB*] 5 mg PO DAILY 05/01/19 [History Confirmed ] Morphine TAB (NF) 15 mg PO DAILY PRN 05/04/19 [History Confirmed 05/13/19] Ferrous Sulfate TAB* 325 mg PO DAILY tab 05/07/19 [Rx Confirmed 05/13/19] Pantoprazole TAB * [Protonix TAB*] 40 mg PO DAILY #30 tab 05/07/19 [Rx Confirmed 05/13/19] Senna TAB 8.6 mg* [Senokot 8.6 mg TAB*] 1 tab PO BEDTIME PRN tab 05/07/19 [Rx Confirmed 05/13/19] PMH/Surg Hx/FS Hx/Imm Hx Previously Healthy: Yes Endocrine/Hematology History: Reports: Hx Diabetes, Hx Thyroid Disease - Hypothyroid, Hx Anemia - was taking iron Cardiovascular History: Reports: Hx Angina - years ago, Hx Coronary Artery Disease, Hx Hypertension, Hx Peripheral Vascular Disease - Legs- turn red and swell up-states it is cellulitis, Hx Valvular Heart Disease - Aortic valve stenosis Comment Only: Other Cardiovascular Problems/Disorders - PAD Respiratory History: Reports: Hx Sleep Apnea - 4-6 pressure setting Denies: Hx Chronic Obstructive Pulmonary Disease (COPD), Other Respiratory Problems/Disorders GI History: Reports: Hx Gastroesophageal Reflux Disease - on medication, Hx Hiatal Hernia - possibly 40-50 years ago, Hx Ulcer - 40-50 years ago, Other GI Disorders - Constipation/Diarrhea History: Reports: Other Problems/Disorders - history of urinary incontinence, pt states it is ok Denies: Hx Dialysis, Hx Kidney Infection, Hx Kidney Stones Musculoskeletal History: Reports: Hx Arthritis - Knee, ankles, hands, Hx Back Problems, Hx Tendonitis - history tennis elbow, trigger finger Comment Only: Other Musculoskeletal History - spondylosis Sensory History: Reports: Hx Cataracts - bilateral, Hx Contacts or Glasses - Glasses, Hx Hearing Problem Denies: Hx Glaucoma, Hx Legally Blind, Hx Deafness, Hx Hearing Aid, Other Sensory Impairments Opthamlomology History: Reports: Hx Cataracts - bilateral, Hx Contacts or Glasses - Glasses Denies: Hx Glaucoma, Hx Legally Blind, Other Sensory Impairments EENT History: Denies: Hx Deafness Neurological History: Reports: Hx Nerve Disease - Diabetic neuropathy, legs and feet, Other Neuro Impairments/Disorders - Foot drop right foot, history of vertigo Denies: Hx Dementia, Hx Seizures Psychiatric History: Reports: Hx Anxiety, Hx Depression Denies: Other Psychiatric Issues/Disorders - patient denies - Cancer History Hx Chemotherapy: No - Surgical History Surgical History: Yes Surgery Procedure, Year, and Place: 03/2017 RIght Total Knee Replacement. 2001 Lumbar laminectomy-[facility]. Stuart Teeth Extraction. Appendectomy 1959. Blood Clot (per pt ) on his back 1957, maybe hematoma - fell with large area of swelling, wick placed in area and drained. Left and Right Trigger Finger age 41 -51. Skin Cancer, Neck age 31. 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22 Hx Substance Use: Yes Substance Use Type: Reports: Prescribed Substance Use Comment - Amount & Last Used: morphine ER and IR Hx Tobacco Use: Yes Smoking Status (MU): Former Smoker Type: Cigarettes Amount Used/How Often: 3-4 packs per day for 30 years Review of Systems Positive: Skin Diaphoresis Positive: Shortness Of Breath Positive: Arthralgia - Left shoulder, Edema - Bilateral LE Positive: Other - Positive pallor All Other Systems Reviewed And Are Negative: Yes Physical Exam - Summary Physical Exam Summary: Appearance: The patient is morbidly obese in no acute distress and in no acute pain. Skin: The skin is warm and dry, and skin color reflects adequate perfusion. HEENT: The head is normocephalic and atraumatic. The pupils are equal and reactive. The conjunctivae are clear and without drainage. Nares are patent and without drainage. Mouth reveals moist mucous membranes, and the throat is without erythema and exudate. The external ears are intact. The ear canals are patent and without drainage. The tympanic membranes are intact. Neck: The neck is supple with full range of motion and non-tender. There are no carotid bruits. There is no neck vein distension. Respiratory: Chest is non-tender. Breath sounds are symmetrical and equal. Crackles in the right lung. Cardiovascular: Heart is regular rate and rhythm. There is no murmur or rub auscultated. There is peripheral edema and pulses are symmetrical and equal. Abdomen: The abdomen is soft and non-tender. There are normal bowel sounds heard in all four quadrants and there is no organomegaly palpated. Musculoskeletal: There is no back tenderness noted. Extremities are non-tender with full range of motion. There is good capillary refill. There is peripheral edema, but no calf tenderness is elicited. Neurological: Patient is alert and oriented to person, place and time. The patient has symmetrical motor strength in all four extremities. Cranial nerves are grossly intact. Deep tendon reflexes are symmetrical and equal in all four extremities. Psychiatric: The patient has an appropriate affect and does not exhibit any anxiety or depression. Triage Information Reviewed: Yes Vital Signs On Initial Exam: Initial Vitals Temp Pulse Resp BP Pulse Ox 98.1 F 54 24 137/92 99 05/13/19 17:47 05/13/19 17:47 05/13/19 17:47 05/13/19 17:47 05/13/19 17:47 Vital Signs Reviewed: Yes Procedures - Sedation Patient Received Moderate/Deep Sedation with Procedure: No Diagnostics - Vital Signs Vital Signs Temp Pulse Resp BP Pulse Ox 05/13/19 17:47 98.1 F 54 24 137/92 99 - Laboratory Result Diagrams: 05/13/19 19:30 05/13/19 19:30 Lab Statement: Any lab studies that have been ordered have been reviewed, and results considered in the medical decision making process. - Radiology Chest X-ray Radiology Interpretation Completed By: Radiologist Summary of Radiographic Findings: Chest X-ray IMPRESSION: mild pulmonary edema that is unchanged from prior on 05/01/19. Reviewed and interpreted by Dr. Torrez , pending official radiology report. - EKG 19:24 Cardiac Rate: Bradycardia - 54 BPM EKG Rhythm: Sinus Bradycardia ST Segment: Normal Ectopy: None EKG Comparison: No Significant Change - From 05/02/19 Summary of EKG Findings: EKG at 19:24 shows sinus bradycardia with 54 BPM, normal ST, no ectopy, no STEMI. No significant change from a prior EKG on . Reviewed and interpreted by Dr. Torrez. Re-Evaluation - Re-Evaluation First Eval Re-Evaluation Time: 21:07 Change: Unchanged Comment: At 21:07, patient is able to ambulate with a steady gait. Course/Dx - Course Course Of Treatment: Mr. Sanders was worked up in the department and appeared to be in about the same state of health as was at discharge. His thinks that it is just the excessive moving around getting to the doctor's office today that caused him to be short of breath and that he will be fine if he is at home with his normal minimal activities. He was ambulated here and managed to keep his vitals are stable. He does have mild pulmonary edema and I recommended follow-up with his PCP as needed. - Diagnoses Provider Diagnoses: CHF (congestive heart failure) Discharge ED - Sign-Out/Discharge Documenting (check all that apply): Patient Departure - Discharge - Discharge Plan Condition: Stable Disposition: HOME Patient Education Materials: Heart Failure (ED) Referrals: Shonda Alexis MD [Primary Care Provider] - Additional Instructions: RETURN TO THE EMERGENCY DEPARTMENT FOR CHANGING OR WORSENING SYMPTOMS. Follow up with your primary care physician in 2-3 days. - Billing Disposition and Condition Condition: STABLE Disposition: Home - Attestation Statements Document Initiated by Scribe: Yes Documenting Scribe: Dorota Rinaldi Provider For Whom Jian is Documenting (Include Credential): Bang Torrez MD Scribe Attestation: Dorota Sevilla, scribed for Bang Torrez MD on 05/13/19 at 2146. Scribe Documentation Reviewed: Yes Provider Attestation: The documentation as recorded by the Dorota de anda accurately reflects the service I personally performed and the decisions made by me, Bang Torrez MD Status of Scribe Document: Viewed
[2019-05-13 19:35] LABS: ABS Basophils 0.1 10^3/ul (0-0.2); ABS Eosinophils 0.2 10^3/ul (0-0.6); ABS Lymphocytes 1.2 10^3/ul (1.0-4.8); ABS Monocytes 0.4 10^3/ul (0-0.8); ABS Neutrophils 5.4 10^3/ul (1.5-7.7); Eosinophil % 2.7 %; Hematocrit 24 % (42-52); Hemoglobin 8.1 g/dL (14.0-18.0); Lymphocyte % 16.4 %; Mean Corpuscular HGB Conc 34 g/dL (31-36); Mean Corpuscular Hemoglobin 30 pg (27-31); Mean Corpuscular Volume 89 fL (80-94); Mean Platelet Volume 7.2 fL (7.4-10.4); Platelet Count 239 10^3/uL (150-450); Red Cell Distribution Width 15 % (10-15); White Blood Count 7.3 10^3/uL (3.5-10.8)
[2019-05-13 19:41] LABS: INR 1.1 (0.82-1.09)
[2019-05-13 19:53] LABS: Albumin/Globulin Ratio 1.5 (1-3); BUN/Creatinine Ratio 24.6 (8-20); Calcium 8.9 mg/dL (8.6-10.3); EGFR African American 62.5 (>60); EGFR Non-African American 51.7 (>60); Globulin 2.7 g/dL (2-4); Potassium 4.3 mmol/L (3.5-5.0); Total Bilirubin 0.3 mg/dL (0.2-1.0); Total Protein 6.7 g/dL (6.4-8.9); Troponin I 0.01 ng/mL (<0.03)
[2019-05-13 21:25] VITALS: BP 162/70
== END 2019-05-13 21:20 | disposition home or self-care (01) ==
LOC: ED 17:43
DX: I11.0 Hypertensive heart disease with heart failure (principal); R06.02 Shortness of breath; Z88.6 Allergy status to analgesic agent; E11.9 Type 2 diabetes mellitus without complications; E03.9 Hypothyroidism, unspecified; I25.10 Atherosclerotic heart disease of native coronary artery without angina pectoris; K21.9 Gastro-esophageal reflux disease without esophagitis; Z79.899 Other long term (current) drug therapy; Z87.891 Personal history of nicotine dependence; R94.31 Abnormal electrocardiogram [ECG] [EKG]
CPT/HCPCS: 36415; 71045; 80053; 83605; 83880; 84484; 85025; 85610; 93005; 99282

== ENCOUNTER 2019-10-20 23:42 | Inpatient (IN) ==
[2019-10-21 00:35] LABS: Hematocrit 21 % (42-52); Hemoglobin 6.8 g/dL (14.0-18.0); Mean Corpuscular HGB Conc 33 g/dL (31-36); Mean Corpuscular Hemoglobin 31 pg (27-31); Mean Corpuscular Volume 92 fL (80-94); Mean Platelet Volume 8.1 fL (7.4-10.4); Platelet Count 191 10^3/uL (150-450); Red Blood Count 2.22 10^6 /uL (4.18-5.48); Red Cell Distribution Width 17 % (10-15); White Blood Count 8.1 10^3/uL (3.5-10.8)
[2019-10-21 00:54] LABS: ALT 11 U/L (7-52); AST 26 U/L (13-39); Albumin 3.8 g/dL (3.2-5.2); Albumin/Globulin Ratio 1.3 (1-3); Alkaline Phosphatase 75 U/L (34-104); Anion Gap 5 mmol/L (2-11); BUN/Creatinine Ratio 27.3 (8-20); Blood Urea Nitrogen 35 mg/dL (6-24); C Reactive Protein 11.84 mg/L (<8.01); CO2 Carbon Dioxide 27 mmol/L (22-32); Calcium 8.9 mg/dL (8.6-10.3); Chloride 104 mmol/L (101-111); EGFR African American 65.8 (>60); EGFR Non-African American 54.4 (>60); Globulin 2.9 g/dL (2-4); Glucose 140 mg/dL (70-100); Potassium 4.2 mmol/L (3.5-5.0); Sodium 136 mmol/L (135-145); Total Protein 6.7 g/dL (6.4-8.9)
[2019-10-21 00:56] LABS: Troponin I 0.01 ng/mL (<0.03)
[2019-10-21 01:32] LABS: INR 1.1 (0.82-1.09)
[2019-10-21] MEDS ORDERED: Iodixanol (CONTRAST) 320 MG/ML 100 ML SDV IV ONE (01:50)
[2019-10-21] MEDS ORDERED: Pantoprazole VIAL 40 MG VIAL IV ONE (05:13)
[2019-10-21 05:48] LABS: ABS Basophils 0.1 10^3/ul (0-0.2); ABS Eosinophils 0.3 10^3/ul (0-0.6); ABS Lymphocytes 1.2 10^3/ul (1.0-4.8); ABS Monocytes 0.7 10^3/ul (0-0.8); ABS Neutrophils 5.7 10^3/ul (1.5-7.7); Eosinophil % 4.2 %; Lymphocyte % 15.5 %; Nucleated Red Blood Cells % 0.1
[2019-10-21] MEDS ORDERED: Dextrose 50% Syringe 50 ml 25 GM/50 ML SYRINGE IV PUSH PRN (06:25)
[2019-10-21 07:50] LABS: % Iron Saturation 31 % (15-55); Iron 84 ug/dL (50-212); Total Iron Binding Capacity 272 mcg/dL (250-450); Transferrin 194 mg/dL (203-362); Unsaturated Iron Binding < 257 ug/dL
[2019-10-21 08:12] LABS: Ferritin 208.2 ng/mL (24-336)
[2019-10-21 08:15] LABS: Folate > 20.00 ng/mL (>3.99)
[2019-10-21 08:16] LABS: Vitamin B12 605 pg/mL (180-914)
[2019-10-21] MEDS: Morphine ER 15 mg TAB ** extended release PO SCH (09:06)
[2019-10-21 10:56] LABS: Hematocrit 22 % (42-52); Hemoglobin 7.6 g/dL (14.0-18.0); Mean Corpuscular HGB Conc 34 g/dL (31-36); Mean Corpuscular Hemoglobin 31 pg (27-31); Mean Corpuscular Volume 91 fL (80-94); Red Blood Count 2.45 10^6 /uL (4.18-5.48); Red Cell Distribution Width 16 % (10-15); White Blood Count 7.3 10^3/uL (3.5-10.8)
[2019-10-21 11:17] LABS: Polychromasia 2+
[2019-10-21 11:18] LABS: Mean Platelet Volume 8.8 fL (7.4-10.4); Platelet Count 168 10^3/uL (150-450)
[2019-10-21 11:20] LABS: ABS Neutrophils 5.5 10^3/ul (1.5-7.7)
[2019-10-21 11:23] LABS: ABS Eosinophils 0.3 10^3/ul (0-0.6)
[2019-10-21 14:11] LABS: Hematocrit 22 % (42-52); Hemoglobin 7.6 g/dL (14.0-18.0)
[2019-10-21] MEDS: Pantoprazole VIAL 40 MG VIAL IV SCH (17:11)
[2019-10-21 20:17] LABS: Hematocrit 25 % (42-52); Hemoglobin 8.6 g/dL (14.0-18.0)
[2019-10-21] MEDS ORDERED: Calamine/Pramoxine LOTION 8%/1% 180 ML TOPICAL PRN (21:21)
[2019-10-21] MEDS: Morphine ER 30 mg TAB ** extended release PO SCH (21:38)
[2019-10-22] MEDS: Aspirin EC 81 mg TAB.EC (enteric coated) PO SCH ×2 (01:14→09:40)
[2019-10-22] MEDS: Pantoprazole VIAL 40 MG VIAL IV SCH ×2 (05:16→16:50)
[2019-10-22 08:43] LABS: Hematocrit 27 % (42-52); Mean Corpuscular HGB Conc 34 g/dL (31-36); Mean Corpuscular Hemoglobin 31 pg (27-31); Mean Corpuscular Volume 91 fL (80-94); Mean Platelet Volume 8.2 fL (7.4-10.4); Platelet Count 185 10^3/uL (150-450); Red Blood Count 2.94 10^6 /uL (4.18-5.48); Red Cell Distribution Width 16 % (10-15); White Blood Count 6.5 10^3/uL (3.5-10.8)
[2019-10-22 08:52] LABS: Potassium 4.5 mmol/L (3.5-5.0)
[2019-10-22 08:58] LABS: BUN/Creatinine Ratio 24.1 (8-20); EGFR African American 76.7 (>60); EGFR Non-African American 63.4 (>60)
[2019-10-22] MEDS: Morphine ER 15 mg TAB ** extended release PO SCH (09:40)
[2019-10-22] MEDS ORDERED: fentaNYL 100 mcg/2 ml 50 MCG/ML VIAL ONE (13:30)
[2019-10-22] MEDS ORDERED: Midazolam 10 mg/10 ml VIAL 1 mg/ml 10 ml VIAL (10 mg) ONE (13:30)
[2019-10-22] MEDS ORDERED: diPHENhydraMINE 25 mg TAB PO ONE (18:27)
[2019-10-22] MEDS: Morphine ER 30 mg TAB ** extended release PO SCH (19:55)
[2019-10-23] MEDS: Pantoprazole VIAL 40 MG VIAL IV SCH ×2 (05:18→17:59)
[2019-10-23] MEDS: Aspirin EC 81 mg TAB.EC (enteric coated) PO SCH (08:19)
[2019-10-23] MEDS: Morphine ER 15 mg TAB ** extended release PO SCH (08:20)
[2019-10-23 08:37] LABS: Hematocrit 27 % (42-52); Hemoglobin 9.2 g/dL (14.0-18.0); Mean Corpuscular HGB Conc 35 g/dL (31-36); Mean Corpuscular Hemoglobin 31 pg (27-31); Mean Corpuscular Volume 90 fL (80-94); Mean Platelet Volume 8.2 fL (7.4-10.4); Platelet Count 185 10^3/uL (150-450); Red Blood Count 2.94 10^6 /uL (4.18-5.48); Red Cell Distribution Width 16 % (10-15); White Blood Count 6.5 10^3/uL (3.5-10.8)
[2019-10-23 08:52] LABS: BUN/Creatinine Ratio 22.2 (8-20); EGFR Non-African American 66.1 (>60); Magnesium 2.1 mg/dL (1.9-2.7); Potassium 4.3 mmol/L (3.5-5.0)
[2019-10-23] MEDS: Morphine ER 30 mg TAB ** extended release PO SCH (20:11)
[2019-10-24] MEDS: Pantoprazole VIAL 40 MG VIAL IV SCH ×2 (05:38→17:31)
[2019-10-24] MEDS: Morphine ER 15 mg TAB ** extended release PO SCH (07:54)
[2019-10-24] MEDS: Aspirin EC 81 mg TAB.EC (enteric coated) PO SCH (07:54)
[2019-10-24 09:10] LABS: Corrected Retic Count 3.3 % (0.5-1.5); Hematocrit 27 % (42-52); Hematocrit for Retic CNT 27 % (42-52); Hemoglobin 9.1 g/dL (14.0-18.0); Immature Retic Fraction 0.57; Mean Corpuscular HGB Conc 34 g/dL (31-36); Mean Corpuscular Hemoglobin 31 pg (27-31); Mean Corpuscular Volume 90 fL (80-94); Platelet Count 178 10^3/uL (150-450); RBC Retic Count 2.96 10^6/uL (4.18-5.48); Red Blood Count 2.96 10^6 /uL (4.18-5.48); Red Cell Distribution Width 16 % (10-15); White Blood Count 6.1 10^3/uL (3.5-10.8)
[2019-10-24] MEDS: diPHENhydraMINE 25 mg TAB PO PRN (11:42)
[2019-10-24] MEDS ORDERED: Magnesium CITRATE LIQ 300 ML BTL PO ONE (13:00)
[2019-10-24] MEDS: Morphine ER 30 mg TAB ** extended release PO SCH (21:07)
[2019-10-25] MEDS: Pantoprazole VIAL 40 MG VIAL IV SCH ×2 (05:48→18:01)
[2019-10-25 07:53] LABS: Hematocrit 27 % (42-52); Hemoglobin 9.2 g/dL (14.0-18.0); Mean Corpuscular HGB Conc 34 g/dL (31-36); Mean Corpuscular Hemoglobin 31 pg (27-31); Mean Corpuscular Volume 91 fL (80-94); Platelet Count 178 10^3/uL (150-450); Red Blood Count 2.95 10^6 /uL (4.18-5.48); Red Cell Distribution Width 16 % (10-15); White Blood Count 5.5 10^3/uL (3.5-10.8)
[2019-10-25] MEDS: Aspirin EC 81 mg TAB.EC (enteric coated) PO SCH (10:09)
[2019-10-25] MEDS: Morphine ER 15 mg TAB ** extended release PO SCH (10:09)
[2019-10-25] MEDS: Morphine ER 30 mg TAB ** extended release PO SCH (21:19)
[2019-10-26] MEDS: Pantoprazole VIAL 40 MG VIAL IV SCH ×2 (05:29→17:42)
[2019-10-26 09:22] LABS: Hematocrit 26 % (42-52); Mean Corpuscular HGB Conc 34 g/dL (31-36); Mean Corpuscular Hemoglobin 31 pg (27-31); Mean Corpuscular Volume 91 fL (80-94); Mean Platelet Volume 9.3 fL (7.4-10.4); Platelet Count 172 10^3/uL (150-450); Red Blood Count 2.89 10^6 /uL (4.18-5.48); Red Cell Distribution Width 16 % (10-15); White Blood Count 6.2 10^3/uL (3.5-10.8)
[2019-10-26] MEDS: Aspirin EC 81 mg TAB.EC (enteric coated) PO SCH (10:11)
[2019-10-26] MEDS: Morphine ER 15 mg TAB ** extended release PO SCH (10:12)
[2019-10-26] MEDS: Morphine ER 30 mg TAB ** extended release PO SCH (21:08)
[2019-10-26] MEDS: diPHENhydraMINE 25 mg TAB PO PRN (21:17)
[2019-10-27] MEDS: Pantoprazole VIAL 40 MG VIAL IV SCH ×2 (05:09→17:09)
[2019-10-27] MEDS: Morphine ER 15 mg TAB ** extended release PO SCH (09:17)
[2019-10-27] MEDS: Aspirin EC 81 mg TAB.EC (enteric coated) PO SCH (09:17)
[2019-10-27 13:40] LABS: Hematocrit 28 % (42-52); Hemoglobin 9.3 g/dL (14.0-18.0)
[2019-10-27] MEDS: Morphine ER 30 mg TAB ** extended release PO SCH (20:30)
[2019-10-28 05:33] LABS: Hematocrit 26 % (42-52); Hemoglobin 8.6 g/dL (14.0-18.0); Mean Corpuscular HGB Conc 34 g/dL (31-36); Mean Corpuscular Hemoglobin 31 pg (27-31); Mean Corpuscular Volume 91 fL (80-94); Mean Platelet Volume 8.2 fL (7.4-10.4); Platelet Count 156 10^3/uL (150-450); Red Cell Distribution Width 15 % (10-15); White Blood Count 4.9 10^3/uL (3.5-10.8)
[2019-10-28] MEDS: Pantoprazole VIAL 40 MG VIAL IV SCH ×2 (05:45→17:22)
[2019-10-28 05:51] LABS: Calcium 8.7 mg/dL (8.6-10.3); EGFR African American 70.9 (>60); EGFR Non-African American 58.6 (>60); Potassium 4.4 mmol/L (3.5-5.0)
[2019-10-28] MEDS: Aspirin EC 81 mg TAB.EC (enteric coated) PO SCH (08:33)
[2019-10-28] MEDS: Morphine ER 15 mg TAB ** extended release PO SCH (08:38)
[2019-10-28] MEDS ORDERED: Naloxone 0.4 mg VIAL 0.4 mg/ml 1 ml VIAL ONE (11:20)
[2019-10-28] MEDS ORDERED: Flumazenil 0.5 mg/5 ml 0.1 MG/ML 5 ml VIAL ONE (11:20)
[2019-10-28] MEDS ORDERED: fentaNYL 100 mcg/2 ml 50 MCG/ML VIAL ONE (11:20)
[2019-10-28] MEDS ORDERED: Midazolam 5 mg/5 ml VIAL 1 mg/ml 5 ml VIAL (5 mg) ONE (11:20)
[2019-10-28] MEDS: diPHENhydraMINE 25 mg TAB PO PRN (14:18)
[2019-10-28 16:56] LABS: Albumin/Globulin Ratio 1.04; Gamma Globulin 1.1 g/dL (0.6-1.6); Total Protein(PEP) 5.8 g/dL (6.3 - 7.9)
[2019-10-28 19:59] LABS: Platelet Count 167 10^3/ul (150-450)
[2019-10-28 20:09] LABS: Activated Partial Thrombo Time 27.2 seconds (26.0-38.0); Fibrinogen 369.6 mg/dL (110.8-404.3)
[2019-10-28] MEDS: Morphine ER 30 mg TAB ** extended release PO SCH (21:39)
[2019-10-28 22:50] LABS: Schistocytes ABSENT
[2019-10-29] MEDS: Pantoprazole VIAL 40 MG VIAL IV SCH ×2 (05:19→17:27)
[2019-10-29 07:07] LABS: Hematocrit 26 % (42-52); Mean Corpuscular HGB Conc 35 g/dL (31-36); Mean Corpuscular Hemoglobin 32 pg (27-31); Mean Corpuscular Volume 91 fL (80-94); Mean Platelet Volume 8.6 fL (7.4-10.4); Platelet Count 147 10^3/uL (150-450); Red Blood Count 2.84 10^6 /uL (4.18-5.48); Red Cell Distribution Width 16 % (10-15); White Blood Count 5.7 10^3/uL (3.5-10.8)
[2019-10-29] MEDS: Aspirin EC 81 mg TAB.EC (enteric coated) PO SCH (09:41)
[2019-10-29] MEDS: Morphine ER 15 mg TAB ** extended release PO SCH (09:42)
[2019-10-29] MEDS: diPHENhydraMINE 25 mg TAB PO PRN (12:08)
[2019-10-29 19:02] LABS: ADAMTS13 Activity Assay >100 % (>/=70)
[2019-10-29] MEDS: Morphine ER 30 mg TAB ** extended release PO SCH (21:02)
[2019-10-30] MEDS: Pantoprazole VIAL 40 MG VIAL IV SCH ×2 (05:51→17:35)
[2019-10-30 07:18] LABS: Hematocrit 26 % (42-52); Hemoglobin 8.9 g/dL (14.0-18.0); Mean Corpuscular HGB Conc 35 g/dL (31-36); Mean Corpuscular Hemoglobin 31 pg (27-31); Mean Corpuscular Volume 90 fL (80-94); Platelet Count 133 10^3/uL (150-450); Red Blood Count 2.83 10^6 /uL (4.18-5.48); Red Cell Distribution Width 15 % (10-15); White Blood Count 4.7 10^3/uL (3.5-10.8)
[2019-10-30 07:42] LABS: Albumin 3.7 g/dL (3.2-5.2); Albumin/Globulin Ratio 1.3 (1-3); BUN/Creatinine Ratio 25.9 (8-20); Calcium 9.2 mg/dL (8.6-10.3); EGFR African American 73.7 (>60); EGFR Non-African American 60.9 (>60); Globulin 2.8 g/dL (2-4); Potassium 4.4 mmol/L (3.5-5.0); Total Bilirubin 0.6 mg/dL (0.2-1.0); Total Protein 6.5 g/dL (6.4-8.9)
[2019-10-30] MEDS: Aspirin EC 81 mg TAB.EC (enteric coated) PO SCH (08:52)
[2019-10-30] MEDS: Morphine ER 15 mg TAB ** extended release PO SCH (08:52)
[2019-10-30] MEDS: diPHENhydraMINE 25 mg TAB PO PRN (12:49)
[2019-10-30] MEDS: Morphine ER 30 mg TAB ** extended release PO SCH (21:02)
[2019-10-31] MEDS: Pantoprazole VIAL 40 MG VIAL IV SCH ×2 (05:34→16:53)
[2019-10-31] MEDS: Morphine ER 15 mg TAB ** extended release PO SCH (07:59)
[2019-10-31] MEDS: Aspirin EC 81 mg TAB.EC (enteric coated) PO SCH (08:00)
[2019-10-31 08:31] LABS: Hematocrit 27 % (42-52); Hemoglobin 9.1 g/dL (14.0-18.0)
[2019-10-31] MEDS: diPHENhydraMINE 25 mg TAB PO PRN (10:00)
[2019-10-31] MEDS ORDERED: Morphine ORAL.SOLN 10 mg 2 mg/ml UDC 5 ml (10 mg) PO PRN (10:29)
[2019-10-31] MEDS: Nystatin TOP POWDER 15 GM BTL TOPICAL SCH ×2 (16:52→20:01)
[2019-10-31] MEDS: Morphine ER 30 mg TAB ** extended release PO SCH (20:00)
[2019-11-01] MEDS: Pantoprazole VIAL 40 MG VIAL IV SCH ×2 (05:12→16:24)
[2019-11-01 06:52] LABS: Hematocrit 24 % (42-52); Hemoglobin 8.4 g/dL (14.0-18.0)
[2019-11-01] MEDS: Morphine ER 15 mg TAB ** extended release PO SCH (10:05)
[2019-11-01] MEDS: Nystatin TOP POWDER 15 GM BTL TOPICAL SCH ×2 (10:05→14:18)
[2019-11-01] MEDS: Aspirin EC 81 mg TAB.EC (enteric coated) PO SCH (10:05)
[2019-11-01] MEDS: diPHENhydraMINE 25 mg TAB PO PRN (13:06)
[2019-11-01] MEDS: Morphine 2 MG/ML SYRINGE IV PRN (16:24)
[2019-11-01] MEDS ORDERED: Senna TAB 8.6 mg TAB PO PRN (16:46)
[2019-11-01] MEDS ORDERED: SENNA 8.6 MG PO PRN (16:50)
[2019-11-01] MEDS: Morphine ER 30 mg TAB ** extended release PO SCH (21:28)
[2019-11-02] MEDS: Nystatin TOP POWDER 15 GM BTL TOPICAL SCH ×3 (02:32→15:12)
[2019-11-02 05:38] LABS: Hematocrit 24 % (42-52)
[2019-11-02] MEDS: Pantoprazole VIAL 40 MG VIAL IV SCH ×2 (06:07→17:01)
[2019-11-02] MEDS: Morphine ER 15 mg TAB ** extended release PO SCH (07:57)
[2019-11-02] MEDS: Aspirin EC 81 mg TAB.EC (enteric coated) PO SCH (07:58)
[2019-11-02] MEDS: diPHENhydraMINE 25 mg TAB PO PRN (10:45)
[2019-11-02] MEDS: Morphine 2 MG/ML SYRINGE IV PRN (14:42)
[2019-11-02 15:24] VITALS: BP 120/51
[2019-11-02 16:14] LABS: Hematocrit 24 % (42-52)
== END 2019-11-02 19:00 | disposition short-term general hospital (02) | DRG 811 ==
LOC: ED 23:42 → MEDTELE 23:42
PROVIDERS: ADMIT Internal Medicine; ATTEND Internal Medicine

== ENCOUNTER 2021-06-01 08:16 | Inpatient (IN) ==
[~2021-06-01 08:16] MED LIST changes: +Acetaminophen IV 1 GM/100ML 100 ML IV ONE; -Buffered Lidocaine 0.9% SYRIN* 5 ML/SYR SYRINGE INTRADERM ONE; +Buffered Lidocaine 1% SYRIN 1 ml INTRADERM ONE; -Famotidine IV* 10 MG/ML 2 ML (20 mg) IV ONE; -Famotidine IV* 10 MG/ML 2 ML (20 mg) ONE; +Haloperidol 5 mg/ml SDV IV/IM 5 MG/ML AMP IV SLOW PU PRN; -KETAMINE HCL* 50 MG/ML 10 ML VIAL ONE; +Lactated Ringers 1000 ml BAG 1,000 ML IV SCH; -Lidocaine 2% PF * 5 ML VIAL ONE; -Lidocaine 2% VISCOUS* 15 ML UDC ONE; +Lidocaine 4 MG/ML IV PREMIX 200 MG/50 ML BAG IV SCH; -Lidocaine 4% TOPICAL* 50 ML TOP.SOLN ONE; -Midazolam* 1 MG/ML 5 ML VIAL (5 MG) ONE; +Naloxone 0.4 mg VIAL 0.4 mg/ml 1 ml VIAL IV PRN; -Naloxone* 0.4 MG/ML 1 ML VIAL IV PRN; -Ondansetron INJ* 2 MG/ML VIAL IV PRN; -Ondansetron INJ* 2 MG/ML VIAL ONE; -Propofol* 10 MG/ML 20 ML BTL IV PUSH ONE; -fentaNYL* 50 MCG/ML 2 ML VIAL (100 MCG VIAL) IV PRN; -fentaNYL* 50 MCG/ML 2 ML VIAL (100 MCG VIAL) ONE
[2021-06-01] MEDS ORDERED: Ertapenem 1 GM in NS 0.9% 50 ML IVPB ONE (09:30)
[2021-06-01] MEDS ORDERED: Dexamethasone IV 4 MG/ML VIAL 1 ml VIAL ONE (09:43)
[2021-06-01] MEDS ORDERED: Propofol 10 MG/ML 20 ML BTL ONE (09:43)
[2021-06-01] MEDS ORDERED: Ondansetron 4 mg VIAL 2 MG/ML 2 ml VIAL ONE (09:43)
[2021-06-01] MEDS ORDERED: Rocuronium 50 mg VIAL 10 mg/ml 5 ml VIAL (50 mg) ONE ×3 (09:45→13:28)
[2021-06-01] MEDS ORDERED: Lidocaine 2% PF 5 ML VIAL ONE (09:45)
[2021-06-01] MEDS ORDERED: fentaNYL 100 mcg/2 ml 50 MCG/ML VIAL ONE ×2 (09:46→17:08)
[2021-06-01] MEDS ORDERED: Lidocaine 4 MG/ML IV PREMIX 2,000 MG/500 ML BAG IV ONE (09:49)
[2021-06-01] MEDS ORDERED: Bupivacaine 0.5% 50 ML MDV VIAL ONE (09:52)
[2021-06-01] MEDS ORDERED: Lidocaine 1.5% EPI 1:200,000 30 ML SDV ONE (09:52)
[2021-06-01] MEDS ORDERED: Heparin 5000 UNITS/ML 1 mL VIAL ONE (09:55)
[2021-06-01] MEDS ORDERED: fentaNYL 250 mcg/5 ml 50 MCG/ML 5 ml VIAL (250 MCG) ONE (15:08)
[2021-06-01] MEDS ORDERED: Sevoflurane BOTTLE ONE (15:17)
[2021-06-01] MEDS ORDERED: Sugammadex 500 MG/5 ML 5 ml VIAL IV PUSH ONE (16:18)
[2021-06-01] MEDS ORDERED: Ondansetron 4 mg VIAL 2 MG/ML 2 ml VIAL IV PRN (17:03)
[2021-06-01] MEDS ORDERED: Haloperidol 5 mg/ml SDV IV/IM 5 MG/ML AMP ONE (17:08)
[2021-06-01] MEDS: fentaNYL 100 mcg/2 ml 50 MCG/ML VIAL IV PRN ×4 (17:10→17:48)
[2021-06-01] MEDS ORDERED: Naloxone 0.4 mg VIAL 0.4 mg/ml 1 ml VIAL IV PUSH PRN (17:14)
[2021-06-01] MEDS ORDERED: Morphine 15 mg TAB (NF) PO PRN (17:17)
[2021-06-01] MEDS ORDERED: HYDROmorphone PCA 20 MG/20 ML PCA.SYRING PCA SCH (18:00)
[2021-06-01] MEDS ORDERED: Piperacillin/Tazobac ADVAN 3.375 GM in NS 0.9% 100 ml BAG 100 ML IV SCH (18:00)
[2021-06-01] MEDS ORDERED: Acetaminophen IV 1 GM/100ML 100 ML IV ONE (18:28)
[2021-06-01] MEDS: Acetaminophen IV 1 GM/100ML 100 ML IV SCH (18:29)
[2021-06-01] MEDS: Morphine ER 30 mg TAB ** extended release PO SCH (23:42)
[2021-06-01] MEDS: Heparin 5000 UNITS/ML 1 mL VIAL SUBCUT SCH (23:43)
[2021-06-02] MEDS ORDERED: Buffered Lidocaine 1% SYRIN 1 ml INTRADERM ONE (06:00)
[2021-06-02] MEDS ORDERED: Scopolamine 1 mg/72hr PATCH TRANSDERM ONE (06:00)
[2021-06-02] MEDS ORDERED: Lactated Ringers 1000 ml BAG 1,000 ML IV SCH (06:00)
[2021-06-02 06:03] LABS: ABS Lymphocytes 0.6 10^3/ul (1.0-4.8); ABS Monocytes 0.9 10^3/ul (0-0.8); ABS Neutrophils 7.1 10^3/ul (1.5-7.7); Hematocrit 25 % (42-52); Hemoglobin 8.3 g/dL (14.0-18.0); Lymphocyte % 6.9 %; Mean Corpuscular HGB Conc 33 g/dL (31-36); Mean Corpuscular Hemoglobin 29 pg (27-31); Mean Corpuscular Volume 88 fL (80-94); Mean Platelet Volume 8.3 fL (7.4-10.4); Platelet Count 216 10^3/uL (150-450); Red Blood Count 2.88 10^6 /uL (4.18-5.48); Red Cell Distribution Width 17 % (10-15); White Blood Count 8.6 10^3/uL (3.5-10.8)
[2021-06-02] MEDS: Acetaminophen IV 1 GM/100ML 100 ML IV SCH ×4 (06:10→21:45)
[2021-06-02] MEDS: Heparin 5000 UNITS/ML 1 mL VIAL SUBCUT SCH ×3 (06:17→21:47)
[2021-06-02 06:20] LABS: Calcium 8.6 mg/dL (8.6-10.3); Potassium 4.3 mmol/L (3.5-5.0); eGFR CKD-EPI 61.5 (>60)
[2021-06-02] MEDS ORDERED: ZOSYN 3.375 GM x ONE DOSE over 30 miuntes IV (09:00)
[2021-06-02] MEDS: Morphine ER 15 mg TAB ** extended release PO SCH (10:33)
[2021-06-02] MEDS: Morphine ER 30 mg TAB ** extended release PO SCH ×2 (10:33→20:28)
[2021-06-02] MEDS: Benzocaine/Menthol LOZ PO PRN (11:56)
[2021-06-02] MEDS: diPHENhydraMINE 25 mg TAB PO PRN ×2 (11:56→19:44)
[2021-06-02] MEDS: Piperacillin/Tazobac ADVAN 3.375 GM in NS 0.9% 100 ml BAG 100 ML IV SCH ×2 (13:55→20:29)
[2021-06-02] MEDS: Aspirin EC 81 mg TAB.EC (enteric coated) PO SCH (17:26)
[2021-06-03] MEDS: Piperacillin/Tazobac ADVAN 3.375 GM in NS 0.9% 100 ml BAG 100 ML IV SCH ×3 (05:48→20:46)
[2021-06-03 05:56] LABS: Hematocrit 28 % (42-52); Hemoglobin 8.3 g/dL (14.0-18.0); Mean Corpuscular HGB Conc 30 g/dL (31-36); Mean Corpuscular Hemoglobin 29 pg (27-31); Mean Corpuscular Volume 99 fL (80-94); Mean Platelet Volume 9.7 fL (7.4-10.4); Platelet Count 188 10^3/uL (150-450); Red Blood Count 2.86 10^6 /uL (4.18-5.48); Red Cell Distribution Width 18 % (10-15); White Blood Count 5.8 10^3/uL (3.5-10.8)
[2021-06-03] MEDS: Acetaminophen IV 1 GM/100ML 100 ML IV SCH (06:14)
[2021-06-03] MEDS: Heparin 5000 UNITS/ML 1 mL VIAL SUBCUT SCH ×3 (06:15→22:20)
[2021-06-03 06:36] LABS: Calcium 8.4 mg/dL (8.6-10.3); Potassium 4.2 mmol/L (3.5-5.0)
[2021-06-03 06:42] LABS: eGFR CKD-EPI 55.4 (>60)
[2021-06-03] MEDS: diPHENhydraMINE 25 mg TAB PO PRN ×2 (08:47→15:14)
[2021-06-03] MEDS: Benzocaine/Menthol LOZ PO PRN ×2 (08:48→15:21)
[2021-06-03] MEDS: Aspirin EC 81 mg TAB.EC (enteric coated) PO SCH (08:48)
[2021-06-03] MEDS: Morphine ER 30 mg TAB ** extended release PO SCH ×2 (08:48→22:35)
[2021-06-03] MEDS: Morphine ER 15 mg TAB ** extended release PO SCH ×2 (08:48→22:34)
[2021-06-03] MEDS ORDERED: Senna TAB 8.6 mg TAB PO PRN (18:49)
[2021-06-04] MEDS: Heparin 5000 UNITS/ML 1 mL VIAL SUBCUT SCH ×3 (06:18→22:49)
[2021-06-04] MEDS: Piperacillin/Tazobac ADVAN 3.375 GM in NS 0.9% 100 ml BAG 100 ML IV SCH ×2 (06:22→12:20)
[2021-06-04 06:55] LABS: Calcium 8.2 mg/dL (8.6-10.3); Potassium 4.3 mmol/L (3.5-5.0); eGFR CKD-EPI 62.1 (>60)
[2021-06-04] MEDS: Morphine ER 30 mg TAB ** extended release PO SCH (09:17)
[2021-06-04] MEDS: Morphine ER 15 mg TAB ** extended release PO SCH (09:17)
[2021-06-04] MEDS: Aspirin EC 81 mg TAB.EC (enteric coated) PO SCH (09:18)
[2021-06-04] MEDS ORDERED: HYDROmorphone 1 MG/1 ML SYRINGE IV SLOW PU PRN ×2 (09:32→16:52)
[2021-06-04] MEDS: diPHENhydraMINE 25 mg TAB PO PRN (12:20)
[2021-06-04] MEDS: Amoxicillin/Clavul 875/125 TAB (Augmentin 875 tab) PO SCH (20:49)
[2021-06-04] MEDS: oxyCODONE SR 15 mg TAB PO SCH (20:49)
[2021-06-05] MEDS: diPHENhydraMINE 25 mg TAB PO PRN ×3 (02:07→15:02)
[2021-06-05] MEDS: Heparin 5000 UNITS/ML 1 mL VIAL SUBCUT SCH ×3 (05:43→21:39)
[2021-06-05] MEDS: Aspirin EC 81 mg TAB.EC (enteric coated) PO SCH (09:22)
[2021-06-05] MEDS: Amoxicillin/Clavul 875/125 TAB (Augmentin 875 tab) PO SCH ×2 (09:23→21:36)
[2021-06-05] MEDS: oxyCODONE SR 15 mg TAB PO SCH ×2 (09:23→21:36)
[2021-06-05] MEDS: Benzocaine/Menthol LOZ PO PRN ×2 (09:24→17:45)
[2021-06-05] MEDS ORDERED: Lidocaine 2% JELLY 6 ML TOPICAL PRN (12:55)
[2021-06-06] MEDS: Heparin 5000 UNITS/ML 1 mL VIAL SUBCUT SCH ×3 (05:21→22:30)
[2021-06-06] MEDS: Aspirin EC 81 mg TAB.EC (enteric coated) PO SCH (08:10)
[2021-06-06] MEDS: oxyCODONE SR 15 mg TAB PO SCH ×2 (08:11→20:53)
[2021-06-06] MEDS: Amoxicillin/Clavul 875/125 TAB (Augmentin 875 tab) PO SCH ×2 (08:11→20:53)
[2021-06-06] MEDS: Benzocaine/Menthol LOZ PO PRN ×3 (08:14→20:53)
[2021-06-06 18:25] LABS: High Sensitivity Troponin 1 Hr 10 pg/mL (<20)
[2021-06-06] MEDS: diPHENhydraMINE 25 mg TAB PO PRN (22:30)
[2021-06-07] MEDS: Heparin 5000 UNITS/ML 1 mL VIAL SUBCUT SCH (06:05)
[2021-06-07 07:31] LABS: Rapid COVID-19 Molecular Undetected (Undetected)
[2021-06-07] MEDS: oxyCODONE SR 15 mg TAB PO SCH (08:51)
[2021-06-07] MEDS: Amoxicillin/Clavul 875/125 TAB (Augmentin 875 tab) PO SCH (08:52)
[2021-06-07] MEDS: Aspirin EC 81 mg TAB.EC (enteric coated) PO SCH (08:52)
[2021-06-07 11:40] VITALS: BP 126/47
== END 2021-06-07 14:40 | DRG 654 ==
LOC: AA 08:16 → SSU 19:25
PROVIDERS: ADMIT Surgery; ATTEND Surgery

== ENCOUNTER 2021-09-01 18:15 | Observation (INO) ==
[2021-09-01 19:33] LABS: ABS Eosinophils 0.1 10^3/ul (0-0.6); ABS Lymphocytes 0.4 10^3/ul (1.0-4.8); ABS Monocytes 0.5 10^3/ul (0-0.8); ABS Neutrophils 2.9 10^3/ul (1.5-7.7); Eosinophil % 1.7 %; Hematocrit 27 % (42-52); Hemoglobin 8.6 g/dL (14.0-18.0); Lymphocyte % 11.5 %; Mean Corpuscular HGB Conc 32 g/dL (31-36); Mean Corpuscular Hemoglobin 29 pg (27-31); Mean Corpuscular Volume 91 fL (80-94); Mean Platelet Volume 7.5 fL (7.4-10.4); Platelet Count 153 10^3/uL (150-450); Red Blood Count 2.94 10^6 /uL (4.18-5.48); Red Cell Distribution Width 19 % (10-15); White Blood Count 3.9 10^3/uL (3.5-10.8)
[2021-09-01 19:51] LABS: Albumin 3.6 g/dL (3.2-5.2); Albumin/Globulin Ratio 1.3 (1-3); Calcium 8.5 mg/dL (8.6-10.3); Globulin 2.7 g/dL (2-4); Potassium 4.4 mmol/L (3.5-5.0); Total Protein 6.3 g/dL (6.4-8.9); eGFR CKD-EPI 86.9 (>60)
[2021-09-01 21:30] LABS: High Sensitivity Troponin 1 Hr 9 pg/mL (<20)
[2021-09-01] MEDS ORDERED: cefTRIAXone 2 gm/50 mL D5W 2 GM/50 ML BAG IV ONE (22:12)
[2021-09-02] MEDS ORDERED: Polyethyl Glycol/Propylene Gly OPHTH.SOLN BOTH EYES PRN (00:33)
[2021-09-02] MEDS ORDERED: Albuterol HFA INHALER 8 gm MDI INH PRN (00:41)
[2021-09-02] MEDS ORDERED: Morphine ORAL.SOLN 10 mg 2 mg/ml UDC 5 ml (10 mg) PO PRN (00:41)
[2021-09-02] MEDS ORDERED: Dextrose 50% Syringe 50 ml 25 GM/50 ML SYRINGE IV PUSH PRN (00:49)
[2021-09-02] MEDS: Morphine ER 15 mg TAB ** extended release PO SCH (00:52)
[2021-09-02] MEDS: Morphine ER 30 mg TAB ** extended release PO SCH (00:52)
[2021-09-02] MEDS: Lactated Ringers 1000 ml BAG 1,000 ML IV SCH ×2 (02:02→21:04)
[2021-09-02] MEDS: Nystatin TOP POWDER 15 GM BTL TOPICAL SCH ×4 (03:39→20:53)
[2021-09-02 05:41] LABS: ABS Lymphocytes 0.5 10^3/ul (1.0-4.8); ABS Monocytes 0.4 10^3/ul (0-0.8); ABS Neutrophils 2.2 10^3/ul (1.5-7.7); Eosinophil % 0.9 %; Hematocrit 25 % (42-52); Hemoglobin 7.9 g/dL (14.0-18.0); Mean Corpuscular HGB Conc 32 g/dL (31-36); Mean Corpuscular Hemoglobin 29 pg (27-31); Mean Corpuscular Volume 91 fL (80-94); Mean Platelet Volume 7.8 fL (7.4-10.4); Platelet Count 147 10^3/uL (150-450); Red Blood Count 2.69 10^6 /uL (4.18-5.48); Red Cell Distribution Width 19 % (10-15); White Blood Count 3.2 10^3/uL (3.5-10.8)
[2021-09-02 06:13] LABS: Calcium 8.2 mg/dL (8.6-10.3); Magnesium 1.9 mg/dL (1.9-2.7); Potassium 4.6 mmol/L (3.5-5.0)
[2021-09-02] MEDS: Aspirin EC 81 mg TAB.EC (enteric coated) PO SCH (10:15)
[2021-09-03 06:34] LABS: Magnesium 1.9 mg/dL (1.9-2.7); Potassium 4.8 mmol/L (3.5-5.0); eGFR CKD-EPI 85.7 (>60)
[2021-09-03 08:52] LABS: ABS Eosinophils 0.2 10^3/ul (0-0.6); ABS Lymphocytes 0.6 10^3/ul (1.0-4.8); ABS Monocytes 0.4 10^3/ul (0-0.8); ABS Neutrophils 2.8 10^3/ul (1.5-7.7); Eosinophil % 4.3 %; Hematocrit 27 % (42-52); Hemoglobin 8.5 g/dL (14.0-18.0); Mean Corpuscular HGB Conc 32 g/dL (31-36); Mean Corpuscular Hemoglobin 29 pg (27-31); Mean Corpuscular Volume 91 fL (80-94); Mean Platelet Volume 8.1 fL (7.4-10.4); Platelet Count 183 10^3/uL (150-450); Red Blood Count 2.98 10^6 /uL (4.18-5.48); Red Cell Distribution Width 19 % (10-15)
[2021-09-03] MEDS: Aspirin EC 81 mg TAB.EC (enteric coated) PO SCH (09:13)
[2021-09-03] MEDS: Morphine ER 15 mg TAB ** extended release PO SCH (09:13)
[2021-09-03] MEDS: Morphine ER 30 mg TAB ** extended release PO SCH (09:13)
[2021-09-03] MEDS: Nystatin TOP POWDER 15 GM BTL TOPICAL SCH ×3 (09:14→20:26)
[2021-09-04] MEDS: Aspirin EC 81 mg TAB.EC (enteric coated) PO SCH (08:16)
[2021-09-04] MEDS: Morphine ER 30 mg TAB ** extended release PO SCH (08:17)
[2021-09-04] MEDS: Morphine ER 15 mg TAB ** extended release PO SCH (08:17)
[2021-09-04] MEDS: Nystatin TOP POWDER 15 GM BTL TOPICAL SCH (08:20)
[2021-09-04 08:23] VITALS: BP 149/80
== END 2021-09-04 10:35 | disposition swing bed (61) ==
LOC: EDHOLD 18:15 → ED 18:15 → SUATTDRO 23:01 → MED 09-02 00:28
PROVIDERS: ADMIT Student in an Organized Health Care Education/Training Program; ATTEND Internal Medicine

== ENCOUNTER 2021-10-19 10:27 | Inpatient (IN) ==
[2021-10-19] MEDS ORDERED: oxyCODONE/Acetamin 5/325 mg TAB PO ONE (10:55)
[2021-10-19 12:10] LABS: Hematocrit 33 % (42-52); Hemoglobin 10.7 g/dL (14.0-18.0); Mean Corpuscular HGB Conc 33 g/dL (31-36); Mean Corpuscular Hemoglobin 30 pg (27-31); Mean Corpuscular Volume 92 fL (80-94); Red Blood Count 3.56 10^6 /uL (4.18-5.48); Red Cell Distribution Width 16 % (10-15)
[2021-10-19 12:33] LABS: Albumin 4.4 g/dL (3.2-5.2); CO2 Carbon Dioxide 26 mmol/L (22-32); Calcium 9.5 mg/dL (8.6-10.3); Chloride 97 mmol/L (101-111); Sodium 136 mmol/L (135-145)
[2021-10-19 12:39] LABS: ALT 21 U/L (7-52); Albumin/Globulin Ratio 1.3 (1-3); Alkaline Phosphatase 99 U/L (35-149); Blood Urea Nitrogen 16 mg/dL (6-24); Globulin 3.4 g/dL (2-4); Glucose 135 mg/dL (70-100); Lipase < 10 U/L (11.0-82.0); Total Protein 7.8 g/dL (6.4-8.9); eGFR CKD-EPI 85.2 (>60)
[2021-10-19 12:42] LABS: Anion Gap 13 mmol/L (2-11)
[2021-10-19 13:12] LABS: ABS Lymphocytes 0.4 10^3/ul (1.0-4.8); ABS Monocytes 0.7 10^3/ul (0-0.8); ABS Neutrophils 8.8 10^3/ul (1.5-7.7); Eosinophil % 0.2 %; Lymphocyte % 4.3 %; Mean Platelet Volume 9.4 fL (7.4-10.4); Platelet Count 238 10^3/uL (150-450)
[2021-10-19] MEDS ORDERED: Iodixanol (CONTRAST) 320 MG/ML 100 ML SDV IV ONE (13:16)
[2021-10-19] MEDS ORDERED: Piperacillin/Tazobac ADVAN 3.375 GM in NS 0.9% 100 ml BAG 100 ML IV ONE (13:54)
[2021-10-19 14:32] LABS: Potassium Redraw 4.8 mmol/L (3.5-5.0)
[2021-10-19] MEDS ORDERED: Albuterol HFA INHALER 8 gm MDI INH PRN (15:31)
[2021-10-19] MEDS ORDERED: Zosyn per Pharmacy NOTE FOLLOW UP SCH (16:00)
[2021-10-19] MEDS ORDERED: ZOSYN 3.375 GM Q8H per EXTENDED INFUSION IV SCH (19:30)
[2021-10-19] MEDS: Senna TAB 8.6 mg TAB PO SCH (21:46)
[2021-10-19] MEDS: ZOSYN 3.375 GM Q8H per EXTENDED INFUSION IV SCH (23:11)
[2021-10-19] MEDS: Morphine ER 30 mg TAB ** extended release PO SCH (23:23)
[2021-10-20] MEDS: ZOSYN 3.375 GM Q8H per EXTENDED INFUSION IV SCH ×3 (05:24→21:56)
[2021-10-20] MEDS ORDERED: Morphine ER 30 mg TAB ** extended release PO SCH (09:00)
[2021-10-20] MEDS: Aspirin EC 81 mg TAB.EC (enteric coated) PO SCH (10:03)
[2021-10-20] MEDS ORDERED: Morphine 2 MG/ML SYRINGE IV ONE (10:09)
[2021-10-20] MEDS: Nystatin TOP POWDER 15 GM BTL TOPICAL SCH ×2 (10:37→21:58)
[2021-10-20] MEDS: Morphine ER 30 mg TAB ** extended release PO SCH ×2 (10:37→21:57)
[2021-10-20] MEDS ORDERED: NS 0.9% 1000 ml BAG 1,000 ML IV SCH (11:30)
[2021-10-20] MEDS ORDERED: Rocuronium 50 mg VIAL 10 mg/ml 5 ml VIAL (50 mg) ONE ×2 (16:44→19:48)
[2021-10-20] MEDS ORDERED: Dexamethasone IV 4 MG/ML VIAL 1 ml VIAL ONE (16:50)
[2021-10-20] MEDS ORDERED: Ondansetron 4 mg VIAL 2 MG/ML 2 ml VIAL ONE ×2 (16:50→20:44)
[2021-10-20] MEDS ORDERED: Lidocaine 2% PF 5 ML VIAL ONE (16:50)
[2021-10-20] MEDS ORDERED: Propofol 10 MG/ML 20 ML BTL ONE (16:50)
[2021-10-20] MEDS ORDERED: fentaNYL 100 mcg/2 ml 50 MCG/ML VIAL ONE ×2 (16:50→20:36)
[2021-10-20] MEDS ORDERED: Bupivacaine 0.25% EPI 200,000 30 ML SDV ONE (16:56)
[2021-10-20] MEDS ORDERED: oxyCODONE/Acetamin 5/325 mg TAB PO PRN (17:05)
[2021-10-20] MEDS ORDERED: Ondansetron 4 mg VIAL 2 MG/ML 2 ml VIAL IV PRN (17:05)
[2021-10-20] MEDS ORDERED: Naloxone 0.4 mg VIAL 0.4 mg/ml 1 ml VIAL IV PRN (17:05)
[2021-10-20] MEDS: fentaNYL 100 mcg/2 ml 50 MCG/ML VIAL IV PRN ×2 (20:38→20:55)
[2021-10-20] MEDS: Senna TAB 8.6 mg TAB PO SCH (21:57)
[2021-10-21] MEDS: ZOSYN 3.375 GM Q8H per EXTENDED INFUSION IV SCH ×2 (05:32→13:08)
[2021-10-21 07:18] LABS: ABS Lymphocytes 0.3 10^3/ul (1.0-4.8); ABS Monocytes 0.4 10^3/ul (0-0.8); Hematocrit 29 % (42-52); Hemoglobin 9.2 g/dL (14.0-18.0); Lymphocyte % 3.9 %; Mean Corpuscular HGB Conc 32 g/dL (31-36); Mean Corpuscular Hemoglobin 30 pg (27-31); Mean Corpuscular Volume 93 fL (80-94); Mean Platelet Volume 7.7 fL (7.4-10.4); Platelet Count 194 10^3/uL (150-450); Red Cell Distribution Width 16 % (10-15); White Blood Count 8.7 10^3/uL (3.5-10.8)
[2021-10-21 07:31] LABS: ALT 22 U/L (7-52); Albumin 3.5 g/dL (3.2-5.2); Albumin/Globulin Ratio 1.2 (1-3); Alkaline Phosphatase 79 U/L (35-149); Blood Urea Nitrogen 23 mg/dL (6-24); CO2 Carbon Dioxide 23 mmol/L (22-32); Calcium 8.6 mg/dL (8.6-10.3); Chloride 105 mmol/L (101-111); Globulin 2.9 g/dL (2-4); Glucose 136 mg/dL (70-100); Magnesium 1.9 mg/dL (1.9-2.7); Sodium 137 mmol/L (135-145); Total Protein 6.4 g/dL (6.4-8.9); eGFR CKD-EPI 81.9 (>60)
[2021-10-21 07:44] LABS: Anion Gap 9 mmol/L (2-11)
[2021-10-21] MEDS: Aspirin EC 81 mg TAB.EC (enteric coated) PO SCH (09:02)
[2021-10-21] MEDS: Nystatin TOP POWDER 15 GM BTL TOPICAL SCH ×2 (09:02→21:33)
[2021-10-21] MEDS: Morphine ER 30 mg TAB ** extended release PO SCH ×2 (09:02→21:30)
[2021-10-21 09:29] LABS: Potassium Redraw 4.8 mmol/L (3.5-5.0)
[2021-10-21] MEDS: Morphine 2 MG/ML SYRINGE IV PRN ×2 (13:08→18:33)
[2021-10-21] MEDS: Senna TAB 8.6 mg TAB PO SCH (21:31)
[2021-10-21] MEDS: Amoxicillin/Clavul 875/125 TAB (Augmentin 875 tab) PO SCH (21:35)
[2021-10-22] MEDS: Morphine 2 MG/ML SYRINGE IV PRN ×2 (00:08→05:39)
[2021-10-22 05:42] LABS: ABS Eosinophils 0.1 10^3/ul (0-0.6); ABS Lymphocytes 1.2 10^3/ul (1.0-4.8); ABS Monocytes 0.6 10^3/ul (0-0.8); ABS Neutrophils 7.5 10^3/ul (1.5-7.7); Eosinophil % 0.9 %; Hematocrit 26 % (42-52); Hemoglobin 8.7 g/dL (14.0-18.0); Lymphocyte % 13.1 %; Mean Corpuscular HGB Conc 33 g/dL (31-36); Mean Corpuscular Hemoglobin 30 pg (27-31); Mean Corpuscular Volume 92 fL (80-94); Mean Platelet Volume 9.4 fL (7.4-10.4); Platelet Count 234 10^3/uL (150-450); Red Blood Count 2.87 10^6 /uL (4.18-5.48); Red Cell Distribution Width 16 % (10-15); White Blood Count 9.5 10^3/uL (3.5-10.8)
[2021-10-22 06:15] LABS: Calcium 8.5 mg/dL (8.6-10.3); Phosphorus 2.8 mg/dL (2.5-5.0); Potassium 4.3 mmol/L (3.5-5.0); eGFR CKD-EPI 70.2 (>60)
[2021-10-22] MEDS: Aspirin EC 81 mg TAB.EC (enteric coated) PO SCH (08:50)
[2021-10-22] MEDS: Morphine ER 30 mg TAB ** extended release PO SCH (08:50)
[2021-10-22] MEDS: Amoxicillin/Clavul 875/125 TAB (Augmentin 875 tab) PO SCH (08:51)
[2021-10-22] MEDS: Nystatin TOP POWDER 15 GM BTL TOPICAL SCH (08:51)
[2021-10-22 15:37] VITALS: BP 130/61
== END 2021-10-22 17:12 | disposition home health service (06) | DRG 418 ==
LOC: ED 10:27 → SUATTDRO 15:20 → EDHOLD 15:20 → MEDTELE 20:44
PROVIDERS: ADMIT Internal Medicine; ATTEND Internal Medicine

== ENCOUNTER 2022-08-21 20:00 | Inpatient (IN) ==
[2022-08-21] MEDS ORDERED: Albuterol 2.5mg/3 ml (0.083%) NEB.SOLN INH ONE (20:11)
[2022-08-21 20:43] LABS: ABS Eosinophils 0.2 10^3/uL (0.0-0.5); ABS Monocytes 0.8 10^3/uL (0.0-1.1); ABS Neutrophils 7.6 10^3/uL (1.5-7.6); Eosinophil % 1.8 %; Hematocrit 27.5 % (38-53); Hemoglobin 9.2 g/dL (13.2-16.3); Lymphocyte % 10.3 %; Mean Corpuscular Hemoglobin 30.8 pg (27-33); Mean Corpuscular Hgb Conc 33.4 g/dL (31-36); Mean Corpuscular Volume 92.3 fL (80-97); Mean Platelet Volume 7.8 fL (7.5-11.2); Platelet Count 164 10^3/uL (150-450); Red Blood Count 2.98 10^6/uL (4.06-5.63); White Blood Count 9.5 10^3/uL (3.6-10.2)
[2022-08-21 20:49] LABS: INR 1.33 (0.88-1.18)
[2022-08-21 21:00] LABS: Albumin/Globulin Ratio 1.4 (1-3); Creatinine, Serum 1.11 mg/dL (0.67-1.17); Globulin 2.8 g/dL (2-4); Potassium 4.6 mmol/L (3.5-5.0); Total Bilirubin 0.8 mg/dL (0.2-1.0); Total Protein 6.8 g/dL (6.4-8.9); eGFR CKD-EPI 67.1 (>60)
[2022-08-21] MEDS ORDERED: Furosemide 40 mg/4 ml IV VIAL IV ONE (21:34)
[2022-08-21 21:52] LABS: High Sensitivity Troponin 1 Hr 10 pg/mL (<20)
[2022-08-22 02:27] LABS: Magnesium 1.8 mg/dL (1.9-2.7)
[2022-08-22] MEDS ORDERED: Senna TAB 8.6 mg TAB PO PRN (02:33)
[2022-08-22] MEDS ORDERED: Magnesium Hydroxide LIQ 30 ML UDC PO PRN (02:33)
[2022-08-22] MEDS ORDERED: Polyethylene Glycol 3350 17 GM PACKET PO PRN (02:33)
[2022-08-22] MEDS ORDERED: Morphine 15 mg TAB (NF) PO PRN ×2 (03:06→03:08)
[2022-08-22] MEDS: Enoxaparin 40 MG/0.4 ML SYR SUBCUT SCH (03:29)
[2022-08-22 04:00] LABS: C Reactive Protein 15.31 mg/L (<8.01)
[2022-08-22 04:08] LABS: High Sensitivity Troponin 1 Hr 18 pg/mL (<20)
[2022-08-22 04:25] LABS: TSH Ultra Thyroid Stim Horm 2.88 mcIU/mL (0.34-5.60)
[2022-08-22] MEDS: ceFAZolin 1 GM in Dextrose 1 GM/50 ML BAG IVPB SCH ×3 (04:59→20:25)
[2022-08-22 06:20] LABS: Hematocrit 25.9 % (38-53); Hemoglobin 8.6 g/dL (13.2-16.3); Mean Corpuscular Hemoglobin 30.4 pg (27-33); Mean Corpuscular Hgb Conc 33.2 g/dL (31-36); Mean Corpuscular Volume 91.4 fL (80-97); Mean Platelet Volume 8.4 fL (7.5-11.2); Platelet Count 164 10^3/uL (150-450); Red Blood Count 2.83 10^6/uL (4.06-5.63); Red Cell Distribution Width 14.8 % (12-17); White Blood Count 12.1 10^3/uL (3.6-10.2)
[2022-08-22 06:37] LABS: Calcium 8.8 mg/dL (8.6-10.3); Creatinine, Serum 1.28 mg/dL (0.67-1.17); Magnesium 1.7 mg/dL (1.9-2.7); Potassium 3.8 mmol/L (3.5-5.0); eGFR CKD-EPI 56.6 (>60)
[2022-08-22] MEDS ORDERED: Magnesium Sulfate 2 gm BAG 2 GM/50 ML BAG IVPB ONE (07:24)
[2022-08-22] MEDS: Aspirin EC 81 mg TAB.EC (enteric coated) PO SCH (09:43)
[2022-08-22] MEDS ORDERED: Furosemide 40 mg/4 ml IV VIAL IV ONE (12:28)
[2022-08-22] MEDS ORDERED: LINAGLIPTIN 5 MG PO SCH (21:00)
[2022-08-23] MEDS: ceFAZolin 1 GM in Dextrose 1 GM/50 ML BAG IVPB SCH ×3 (02:04→19:35)
[2022-08-23] MEDS: Enoxaparin 40 MG/0.4 ML SYR SUBCUT SCH (06:22)
[2022-08-23] MEDS ORDERED: Sulfur Hexaflouride MICROSPHR 25 MG VIAL ONE (08:12)
[2022-08-23] MEDS: Aspirin EC 81 mg TAB.EC (enteric coated) PO SCH (09:19)
[2022-08-23 09:57] LABS: ABS Eosinophils 0.1 10^3/uL (0.0-0.5); ABS Lymphocytes 0.5 10^3/uL (1.0-4.8); ABS Monocytes 0.6 10^3/uL (0.0-1.1); ABS Neutrophils 5.4 10^3/uL (1.5-7.6); ABS Nucleated RBC 0.01 10^3/ul; Hematocrit 29.5 % (38-53); Hemoglobin 9.8 g/dL (13.2-16.3); Mean Corpuscular Hemoglobin 30.1 pg (27-33); Mean Corpuscular Hgb Conc 33.2 g/dL (31-36); Mean Corpuscular Volume 90.6 fL (80-97); Mean Platelet Volume 8.1 fL (7.5-11.2); Nucleated Red Blood Cells % 0.1 /100 WBC (0.0-0.4); Platelet Count 176 10^3/uL (150-450); Red Blood Count 3.26 10^6/uL (4.06-5.63); White Blood Count 6.6 10^3/uL (3.6-10.2)
[2022-08-23 10:09] LABS: Calcium 9.3 mg/dL (8.6-10.3); Creatinine, Serum 1.17 mg/dL (0.67-1.17)
[2022-08-24] MEDS: ceFAZolin 1 GM in Dextrose 1 GM/50 ML BAG IVPB SCH ×2 (02:34→11:13)
[2022-08-24] MEDS: Enoxaparin 40 MG/0.4 ML SYR SUBCUT SCH (04:39)
[2022-08-24 06:40] LABS: Calcium 8.9 mg/dL (8.6-10.3); Creatinine, Serum 1.02 mg/dL (0.67-1.17); Potassium 3.8 mmol/L (3.5-5.0); eGFR CKD-EPI 74.3 (>60)
[2022-08-24] MEDS: Aspirin EC 81 mg TAB.EC (enteric coated) PO SCH (09:52)
[2022-08-24 10:05] LABS: ABS Eosinophils 0.1 10^3/uL (0.0-0.5); ABS Lymphocytes 0.9 10^3/uL (1.0-4.8); ABS Monocytes 0.7 10^3/uL (0.0-1.1); ABS Neutrophils 5.7 10^3/uL (1.5-7.6); ABS Nucleated RBC 0.01 10^3/ul; Eosinophil % 1.6 %; Hematocrit 27.7 % (38-53); Hemoglobin 9.2 g/dL (13.2-16.3); Lymphocyte % 11.7 %; Mean Corpuscular Hemoglobin 30.2 pg (27-33); Mean Corpuscular Hgb Conc 33.3 g/dL (31-36); Mean Corpuscular Volume 90.8 fL (80-97); Mean Platelet Volume 8.1 fL (7.5-11.2); Nucleated Red Blood Cells % 0.1 /100 WBC (0.0-0.4); Platelet Count 178 10^3/uL (150-450); Red Blood Count 3.05 10^6/uL (4.06-5.63); Red Cell Distribution Width 14.9 % (12-17); White Blood Count 7.5 10^3/uL (3.6-10.2)
[2022-08-24 13:50] LABS: C Reactive Protein 53.62 mg/L (<8.01)
[2022-08-25] MEDS: Enoxaparin 40 MG/0.4 ML SYR SUBCUT SCH (05:19)
[2022-08-25 06:18] LABS: ABS Eosinophils 0.2 10^3/uL (0.0-0.5); ABS Lymphocytes 0.9 10^3/uL (1.0-4.8); ABS Monocytes 0.7 10^3/uL (0.0-1.1); ABS Neutrophils 5.7 10^3/uL (1.5-7.6); Eosinophil % 2.5 %; Hematocrit 27.6 % (38-53); Hemoglobin 9.3 g/dL (13.2-16.3); Lymphocyte % 12.1 %; Mean Corpuscular Hemoglobin 30.2 pg (27-33); Mean Corpuscular Hgb Conc 33.5 g/dL (31-36); Mean Corpuscular Volume 90.2 fL (80-97); Mean Platelet Volume 7.8 fL (7.5-11.2); Platelet Count 172 10^3/uL (150-450); Red Blood Count 3.07 10^6/uL (4.06-5.63); Red Cell Distribution Width 14.6 % (12-17); White Blood Count 7.5 10^3/uL (3.6-10.2)
[2022-08-25 06:34] LABS: C Reactive Protein 23.81 mg/L (<8.01); Calcium 9.2 mg/dL (8.6-10.3); Creatinine, Serum 1.03 mg/dL (0.67-1.17); Potassium 3.7 mmol/L (3.5-5.0); eGFR CKD-EPI 73.4 (>60)
[2022-08-25] MEDS: Aspirin EC 81 mg TAB.EC (enteric coated) PO SCH (08:54)
[2022-08-26] MEDS: Enoxaparin 40 MG/0.4 ML SYR SUBCUT SCH (05:49)
[2022-08-26 06:20] LABS: ABS Eosinophils 0.2 10^3/uL (0.0-0.5); ABS Lymphocytes 0.8 10^3/uL (1.0-4.8); ABS Monocytes 0.7 10^3/uL (0.0-1.1); ABS Neutrophils 5.3 10^3/uL (1.5-7.6); ABS Nucleated RBC 0.01 10^3/ul; Eosinophil % 2.5 %; Hematocrit 28.2 % (38-53); Hemoglobin 9.8 g/dL (13.2-16.3); Mean Corpuscular Hemoglobin 30.5 pg (27-33); Mean Corpuscular Hgb Conc 34.8 g/dL (31-36); Mean Corpuscular Volume 87.5 fL (80-97); Mean Platelet Volume 7.8 fL (7.5-11.2); Nucleated Red Blood Cells % 0.1 /100 WBC (0.0-0.4); Platelet Count 187 10^3/uL (150-450); Red Blood Count 3.22 10^6/uL (4.06-5.63); Red Cell Distribution Width 14.3 % (12-17)
[2022-08-26 06:46] LABS: C Reactive Protein 14.39 mg/L (<8.01); Calcium 8.9 mg/dL (8.6-10.3); Creatinine, Serum 1.09 mg/dL (0.67-1.17); Magnesium 1.8 mg/dL (1.9-2.7); Potassium 3.5 mmol/L (3.5-5.0); eGFR CKD-EPI 68.6 (>60)
[2022-08-26] MEDS ORDERED: Magnesium Sulfate IV 1GM/100ML 1 GM/100 ML BAG IV ONE (07:37)
[2022-08-26] MEDS: Aspirin EC 81 mg TAB.EC (enteric coated) PO SCH (08:47)
[2022-08-26] MEDS: Morphine ER 30 mg TAB ** extended release PO PRN (23:02)
[2022-08-27] MEDS: Enoxaparin 40 MG/0.4 ML SYR SUBCUT SCH (05:43)
[2022-08-27] MEDS ORDERED: Magnesium Sulfate 2 gm BAG 2 GM/50 ML BAG IVPB ONE (08:00)
[2022-08-27] MEDS: Aspirin EC 81 mg TAB.EC (enteric coated) PO SCH (08:15)
[2022-08-27] MEDS: Morphine ER 30 mg TAB ** extended release PO PRN (21:06)
[2022-08-28] MEDS: Enoxaparin 40 MG/0.4 ML SYR SUBCUT SCH (06:29)
[2022-08-28 06:33] LABS: Hematocrit 29.2 % (38-53); Hemoglobin 9.9 g/dL (13.2-16.3); Mean Corpuscular Hemoglobin 30.5 pg (27-33); Mean Corpuscular Hgb Conc 33.8 g/dL (31-36); Mean Platelet Volume 7.6 fL (7.5-11.2); Platelet Count 192 10^3/uL (150-450); Red Blood Count 3.24 10^6/uL (4.06-5.63); Red Cell Distribution Width 14.8 % (12-17); White Blood Count 6.8 10^3/uL (3.6-10.2)
[2022-08-28 06:47] LABS: Calcium 8.7 mg/dL (8.6-10.3); Magnesium 2.3 mg/dL (1.9-2.7); Potassium 4.4 mmol/L (3.5-5.0); eGFR CKD-EPI 76.1 (>60)
[2022-08-28] MEDS: Aspirin EC 81 mg TAB.EC (enteric coated) PO SCH (08:48)
[2022-08-29] MEDS: Enoxaparin 40 MG/0.4 ML SYR SUBCUT SCH (06:28)
[2022-08-29] MEDS: Aspirin EC 81 mg TAB.EC (enteric coated) PO SCH (08:41)
[2022-08-29 11:03] VITALS: BP 141/49
== END 2022-08-29 11:35 | DRG 292 ==
LOC: EDHOLD 20:00 → ED 20:00 → SUATTDRO 08-22 01:00 → EDHOLD 08-22 01:34 → MEDTELE 08-22 02:11 → SUATTDRO 08-24 10:48
PROVIDERS: ADMIT Hospitalist; ATTEND Internal Medicine